=== PATIENT | male | born 1965 | race Caucasian/White ===

== ENCOUNTER 2016-08-31 15:28 | Inpatient (IN) | payer MEDICARE, OTHER ==
[2016-08-31 15:47] VITALS: BMI 60.3
[2016-08-31 16:51] VITALS: RESP 20
[2016-08-31] MEDS ORDERED: Piperacillin/Tazobact 3.375 gm Inj IVPB SCH (22:00)
[2016-08-31] MEDS: Piperacillin/Tazobact 3.375 GM IV Q6H IVPB SCH (22:04)
[2016-09-01] MEDS: Piperacillin/Tazobact 3.375 GM IV Q6H IVPB SCH ×4 (04:42→21:02)
--- NOTE | 2016-09-01 08:30 | CP.PCM.HP ---
History of Present Illness - History of Present Illness History of Present Illness: 50 yo male with pmhx of hypertension, chronic lower ext lymphedema, wound was admitted for right lower ext wound infection to [facility] [place]; patient did well but needs more days of IV abx treatment. Patient was transferred to TCU for more days of abx; ID Dr Moraes and podiatry consulted for further care; patient is doing well; no n/v/f/c. Present on Admission - Present on Admission Any Indicators Present on Admission: No History of DVT/PE: No History of Uncontrolled Diabetes: No Urinary Catheter: No Decubitus Ulcer Present: No Review of Systems - Constitutional Constitutional: absent: Chills - EENT Nose/Mouth/Throat: absent: Sore Throat - Cardiovascular Cardiovascular: Edema, Leg Ulcers. absent: Chest Pain, Palpitations - Respiratory Respiratory: absent: Cough, Dyspnea - Gastrointestinal Gastrointestinal: absent: Abdominal Pain, Nausea, Vomiting - Musculoskeletal Musculoskeletal: absent: Back Pain, Numbness, Tingling - Endocrine Endocrine: absent: Fatigue, Palpitations Past Patient History - Infectious Disease Hx of Infectious Diseases: None - Tetanus Immunizations Tetanus Immunization: Unknown - Past Medical History & Family History Past Medical History?: Yes - Past Social History Smoking Status: Never Smoked - CARDIAC Hx Hypertension: Yes Hx Pacemaker: Yes Hx Peripheral Edema: Yes (chronic cellulitis and lymphadema b/l lower extremities) - PULMONARY Hx Asthma: No Hx Bronchitis: No Hx Chronic Obstructive Pulmonary Disease (COPD): No Hx Emphysema: No Hx Pneumonia: No Hx Pulmonary Embolism: No Hx Sleep Apnea: No - NEUROLOGICAL Hx Neurological Disorder: No - HEENT Hx HEENT Problems: No - RENAL Hx Chronic Kidney Disease: No - ENDOCRINE/METABOLIC Hx Hyperthyroidism: No Hx Hypothyroidism: No - HEMATOLOGICAL/ONCOLOGICAL Hx Anemia: No Hx Human Immunodeficiency Virus (HIV): No Hx Sickle Cell Disease: No - INTEGUMENTARY Hx Dermatological Problems: Yes - MUSCULOSKELETAL/RHEUMATOLOGICAL Hx Arthritis: No Hx Falls: No Hx Fractures: No Hx Osteoporosis: No Hx Rheumatoid Arthritis: No - GASTROINTESTINAL Hx Gastrointestinal Disorders: Yes Other/Comment: umbilical hernia - GENITOURINARY/GYNECOLOGICAL Hx Genitourinary Disorders: No - PSYCHIATRIC Hx Psychophysiologic Disorder: No Hx Substance Use: No - SURGICAL HISTORY Hx Appendectomy: No - ANESTHESIA Hx Anesthesia: No Hx Anesthesia Reactions: No Hx Malignant Hyperthermia: No Meds Allergies/Adverse Reactions: Allergies Allergy/AdvReac Type Severity Reaction Status Date / Time ciprofloxacin [From Cipro] Allergy RASH Verified 04/23/16 17:49 ciprofloxacin HCl Allergy RASH Verified 04/23/16 17:49 [From Cipro] chocolate flavor AdvReac ears run Verified 04/23/16 17:49 Physical Exam - Constitutional Appears: No Acute Distress - Head Exam Head Exam: ATRAUMATIC, NORMAL INSPECTION, NORMOCEPHALIC - Eye Exam Eye Exam: EOMI, PERRL - ENT Exam ENT Exam: Mucous Membranes Moist - Respiratory Exam Respiratory Exam: Clear to Auscultation Bilateral, NORMAL BREATHING PATTERN - Cardiovascular Exam Cardiovascular Exam: REGULAR RHYTHM, +S1, +S2 - GI/Abdominal Exam GI & Abdominal Exam: Normal Bowel Sounds, Soft. absent: Tenderness - Extremities Exam Additional comments: dressing dry and intact - Neurological Exam Neurological exam: Alert, Oriented x3 - Psychiatric Exam Psychiatric exam: Normal Affect, Normal Mood - Skin Skin Exam: Dry, Intact, Normal Color Results - Vital Signs Recent Vital Signs: Last Vital Signs Temp 97.0 F L 08/31/16 22:28 Pulse 79 08/31/16 22:28 Resp 20 08/31/16 22:28 BP 134/84 08/31/16 22:28 Pulse Ox 96 08/31/16 22:28 Assessment & Plan - Assessment and Plan (Free Text) Assessment: 50 yo male with pmhx of hypertension was admitted for nonhealing right lower ext ulcers. Assessment & Plan 1) Leg wound, right -RLE with non-healing ulcers in presence of chills and cellulitic appearance -s/p picc - Management as per Podiatry Team - Zosyn 3.375mg, IV, Q6H - Daily drsg changes - monitor 2) DVT prophylaxis -Patient at high risk especially with BMI- 56. However given plans for PICC placement tomorrow, plan is as follows - Lovenox 60mg, SC, x1 tonight @ 2100 - Resume Lovenox 60mg, SC, Q12H, starting at 2100 08/29/2016 - Communicated to nursing personnel 3) Hypertension - HCTZ 25mg, PO, Daily - Monitor BP 4) Chronic wound of extremity - Management as per Podiatry team. - Will f/u recs as applicable 5) Lymphedema of both lower extremities -Chronic, currently being treated through podiatry wound care. - Management as per podiatry team Decision To Admit - Pt Status Changed To: Hospital Disposition Of: Inpatient - Admit Certification Admit to Inpatient:: After my assessment, the patient will require hospitalization for at least two midnights. This is because of the severity of symptoms shown, intensity of services needed, and/or the medical risk in this patient being treated as an outpatient. - . Bed Request Type: Transitional Care Unit Admitting Physician: Gardenia aJvier
[2016-09-01] MEDS: Enoxaparin 60 mg Syringe SC SCH (08:36)
--- NOTE | 2016-09-01 10:28 | CP.PCM.CON ---
History of Present Illness - History of Present Illness History of Present Illness: Patient was seen and evaluated at bedside this morning in TCU for follow-up on Right leg chronic wound with lymphedema. Patient was resting comfortably, in NAD. Denies any pedal complaints at this time. Right leg dressing was noted to be C/D/I. Denies any F/C/N/V/SOB. Past Patient History - Infectious Disease Hx of Infectious Diseases: None - Tetanus Immunizations Tetanus Immunization: Unknown - Past Medical History & Family History Past Medical History?: Yes - Past Social History Smoking Status: Never Smoked - CARDIAC Hx Hypertension: Yes Hx Pacemaker: Yes Hx Peripheral Edema: Yes (chronic cellulitis and lymphadema b/l lower extremities) - PULMONARY Hx Asthma: No Hx Bronchitis: No Hx Chronic Obstructive Pulmonary Disease (COPD): No Hx Emphysema: No Hx Pneumonia: No Hx Pulmonary Embolism: No Hx Sleep Apnea: No - NEUROLOGICAL Hx Neurological Disorder: No - HEENT Hx HEENT Problems: No - RENAL Hx Chronic Kidney Disease: No - ENDOCRINE/METABOLIC Hx Hyperthyroidism: No Hx Hypothyroidism: No - HEMATOLOGICAL/ONCOLOGICAL Hx Anemia: No Hx Human Immunodeficiency Virus (HIV): No Hx Sickle Cell Disease: No - INTEGUMENTARY Hx Dermatological Problems: Yes - MUSCULOSKELETAL/RHEUMATOLOGICAL Hx Arthritis: No Hx Falls: No Hx Fractures: No Hx Osteoporosis: No Hx Rheumatoid Arthritis: No - GASTROINTESTINAL Hx Gastrointestinal Disorders: Yes Other/Comment: umbilical hernia - GENITOURINARY/GYNECOLOGICAL Hx Genitourinary Disorders: No - PSYCHIATRIC Hx Psychophysiologic Disorder: No Hx Substance Use: No - SURGICAL HISTORY Hx Appendectomy: No - ANESTHESIA Hx Anesthesia: No Hx Anesthesia Reactions: No Hx Malignant Hyperthermia: No Meds Allergies/Adverse Reactions: Allergies Allergy/AdvReac Type Severity Reaction Status Date / Time ciprofloxacin [From Cipro] Allergy RASH Verified 04/23/16 17:49 ciprofloxacin HCl Allergy RASH Verified 04/23/16 17:49 [From Cipro] chocolate flavor AdvReac ears run Verified 04/23/16 17:49 - Medications Medications: Current Medications Docusate Sodium (Colace) 100 mg PO BID [facility] Last Admin: 09/01/16 08:35 Dose: 100 mg Enoxaparin Sodium (Lovenox) 60 mg SC DAILY [facility] PRN Reason: Protocol Last Admin: 09/01/16 08:36 Dose: 60 mg Hydrochlorothiazide (Hydrodiuril) 25 mg PO DAILY [facility] Last Admin: 09/01/16 08:36 Dose: 25 mg Piperacillin Sod/Tazobactam (Sod 3.375 gm/ Sodium Chloride) 100 mls @ 100 mls/ hr IVPB Q6 [facility] Last Admin: 09/01/16 04:42 Dose: 100 mls/hr Mupirocin (Bactroban Ointment) 1 applic TOP DAILY [facility] Last Admin: 09/01/16 08:36 Dose: 1 applic Sennosides (Senokot Tab) 17.2 mg PO HS [facility] Last Admin: 08/31/16 22:04 Dose: 17.2 mg Physical Exam - Constitutional Appears: Non-toxic, No Acute Distress - Neurological Exam Neurological exam: Alert, Oriented x3 - Psychiatric Exam Psychiatric exam: Normal Affect, Normal Mood - Skin Skin Exam: Dry - Additional Findings Additional findings: B/L lower extremity: Pt ambulates w, apropulsive gait. No assisting ambulation device needed. Severe lymphedema noted bilaterally. DERM: Ulcerations noted: 1 to medial aspect of right leg dime sized, 2 to lateral aspect of lateral aspect of right leg, both are nickel sized; largest to upper(infra knee level) medial aspect of right leg quarter sized. All have granular bases and adjacent skin is macerated. Moderate malodor noted. Heavy serosanguinous drainage noted. Inter-digital macerations noted to all 8 webspaces. Diffuse, circumferential, thick lichenification tissue to lower extremity b/l. VASC: Left PT pulse palpable 2/4 and right DP pulse palpable graded 2/4, other pulses non-palpable secondary to increased tissue density and edema. CFT < 3 seconds to all digits b/l. Temperature gradient runs warm to cool from proximal to distal b/l. NEURO: Sensation grossly intact. ORTHO: Motion at major pedal muscle groups moderately limited due to patients edema. Results - Vital Signs Recent Vital Signs: Last Vital Signs Temp 97.5 F L 09/01/16 08:47 Pulse 74 09/01/16 08:47 Resp 20 09/01/16 08:47 BP 137/75 09/01/16 08:47 Pulse Ox 99 09/01/16 08:47 Assessment & Plan - Assessment and Plan (Free Text) Assessment: 50 year old male with improving chronic soft tissue ulcerations and lichenifications of right lower extremity, secondary to lymphedema. Plan: Patient seen and evaluated at bedside Labs and vitals reviewed Applied Bactroban DSD and an RICH bandage to the RLE- wounds are improving Patient to remain in TCU until his 7-day course of IV antibiotics is completed Discussed patient with attending, Dr. Romo Podiatry to follow while patient remains in house
[2016-09-02] MEDS: Piperacillin/Tazobact 3.375 GM IV Q6H IVPB SCH ×4 (04:39→21:45)
[2016-09-02] MEDS: Enoxaparin 60 mg Syringe SC SCH (08:52)
--- NOTE | 2016-09-02 13:38 | CP.PCM.CON ---
History of Present Illness - History of Present Illness History of Present Illness: 50 YO HOMELESS MALE ADMITTED FOR TCU FOR CONT OF IV ANTIBIOTICS/ WOUND CARE HAS HX OF HTN, CKD, MORBID OBESITY, POSSIBLE TWAN, OSTEOARTHRITIS , UMBILICAL HERNIA DEPRESSION AND HOMELESSNESS WITH SEVERE CHRONIC LYMPHEDEMA OF LOWER EXTREMITIES BILAT AND ELEPHANTIASIS DEFORMING THE SKIN RESULTING IN RECURRENT SKIN AND SOFT TISSUE INFECTIONS HAS REFUSED HYDROGEOLOGY PROFESSOR PLACEMENT IN THE PAST BUT IS HOPING FOR SENIOR HOUSING STILL HAS OPEN WOUNDS TO RIGHT LEG WITH FOUL SMELLING EXUDATE DENIES FEVER / CHILLS/ CHEST PAIN OR SOB SH- NO IVDA, DENIES ETOH FH- + HTN ALLERGY TO QUINALONES ? Review of Systems - Constitutional Constitutional: As Per HPI, Fatigue. absent: Anorexia - EENT Eyes: absent: As Per HPI, Blind Spots, Blurred Vision, Change in Vision, Decreased Night Vision, Diplopia, Discharge, Dry Eye, Exophthalmos, Floaters, Irritation, Itchy Eyes, Loss of Peripheral Vision, Pain, Photophobia, Requires Corrective Lenses, Sees Flashes, Spots in Vision, Tunnel Vision, Other Visual Disturbances, Loss of Vision, Other Ears: absent: As Per HPI, Decreased Hearing, Ear Discharge, Ear Pain, Tinnitus, Abnormal Hearing, Disequilibrium, Dizziness, Other Nose/Mouth/Throat: absent: As Per HPI, Epistaxis, Nasal Congestion, Nasal Discharge, Nasal Obstruction, Nasal Trauma, Nose Pain, Post Nasal Drip, Sinus Pain, Sinus Pressure, Bleeding Gums, Change in Voice, Dental Pain, Dry Mouth, Dysphagia, Halitosis, Hoarsness, Lip Swelling, Mouth Lesions, Mouth Pain, Odynophagia, Sore Throat, Throat Swelling, Tongue Swelling, Facial Pain, Neck Pain, Neck Mass, Other - Cardiovascular Cardiovascular: absent: As Per HPI, Acrocyanosis, Chest Pain, Chest Pain at Rest , Chest Pain with Activity, Claudication, Diaphoresis, Dyspnea, Dyspnea on Exertion, Edema, Irregular Heart Rhythm, Pain Radiating to Arm/Neck/Jaw, Leg Edema, Leg Ulcers, Lightheadedness, Orthopnea, Palpitations, Paroxysmal Nocturnal Dyspnea, Pedal Edema, Radiating Pain, Rapid Heart Rate, Slow Heart Rate, Syncope, Other - Respiratory Respiratory: Dyspnea, Dyspnea on Exertion. absent: Hemoptysis - Gastrointestinal Gastrointestinal: absent: As Per HPI, Abdominal Pain, Belching, Bloating, Change in Bowel Habits, Change in Stool Character, Coffee Ground Emesis, Constipation, Cramping, Diarrhea, Dyspepsia, Dysphagia, Early Satiety, Excessive Flatus, Fecal Incontinence, Heartburn, Hematemesis, Hematochezia, Loose Stools, Melena, Nausea, Odynophagia, Temesmus, Vomiting, Other - Genitourinary Genitourinary: absent: As Per HPI, Change in Urinary Stream, Difficulty Urinating, Dysuria, Flank Pain, Hematuria, Pyuria, Nocturia, Urinary Incontinence, Urinary Frequency, Urinary Hesitance, Urinary Urgency, Voiding Freq/Small Amts, Freq UTI, Hx Renal/Bladder Calculi, Hx /Renal Surgery, Bladder Distension, Other - Musculoskeletal Musculoskeletal: absent: As Per HPI, Abnormal Gait, Arthralgias, Atrophy, Back Pain, Deformity, Joint Swelling, Limited Range of Motion, Loss of Height, Muscle Cramps, Muscle Weakness, Myalgias, Neck Pain, Numbness, Radiating Pain into Limb, Stiffness, Tingling, Other - Integumentary Integumentary: As Per HPI, Skin Pain, Wounds - Neurological Neurological: absent: As Per HPI, Abnormal Gait, Abnormal Hearing, Abnormal Movements, Abnormal Speech, Behavioral Changes, Burning Sensations, Confusion, Convulsions, Disequilibrium, Dizziness, Numbness, Focal Weakness, Frequent Falls , Headaches, Lack of Coordination, Loss of Vision, Memory Loss, Paresthesias, Radicular Pain, Restless Legs, Sensory Deficit, Syncope, Tingling, Tremor, Vertigo, Weakness, Other Visual Disturbances, Other - Psychiatric Psychiatric: absent: As Per HPI, Abnormal Sleep Pattern, Anhedonia, Anxiety, Auditory Hallucinations, Behavioral Changes, Change in Appetite, Change in Libido, Confusion, Depression, Difficulty Concentrating, Hallucinations, Homicidal Ideation, Hopelessness, Irritability, Memory Loss, Mood Swings, Panic Attacks, Paranoia, Suicidal Ideation, Visual Hallucinations, Tactile Hallucinations, Other - Endocrine Endocrine: absent: As Per HPI, Change in Body Appearance, Change in Libido, Cold Intolorance, Deepening of Voice, Excessive Sweating, Fatigue, Flushing, Heat Intolorance, Increase in Ring/Shoe/Hat Size, Palpitations, Polydipsia, Polyphagia, Polyuria, Other - Hematologic/Lymphatic Hematologic: absent: As Per HPI, Easy Bleeding, Easy Bruising, Lymphadenopathy, Other Past Patient History - Infectious Disease Hx of Infectious Diseases: None - Tetanus Immunizations Tetanus Immunization: Unknown - Past Medical History & Family History Past Medical History?: Yes - Past Social History Smoking Status: Never Smoked - CARDIAC Hx Hypertension: Yes Hx Pacemaker: Yes Hx Peripheral Edema: Yes (chronic cellulitis and lymphadema b/l lower extremities) - PULMONARY Hx Asthma: No Hx Bronchitis: No Hx Chronic Obstructive Pulmonary Disease (COPD): No Hx Emphysema: No Hx Pneumonia: No Hx Pulmonary Embolism: No Hx Sleep Apnea: No - NEUROLOGICAL Hx Neurological Disorder: No - HEENT Hx HEENT Problems: No - RENAL Hx Chronic Kidney Disease: No - ENDOCRINE/METABOLIC Hx Hyperthyroidism: No Hx Hypothyroidism: No - HEMATOLOGICAL/ONCOLOGICAL Hx Anemia: No Hx Human Immunodeficiency Virus (HIV): No Hx Sickle Cell Disease: No - INTEGUMENTARY Hx Dermatological Problems: Yes - MUSCULOSKELETAL/RHEUMATOLOGICAL Hx Arthritis: No Hx Falls: No Hx Fractures: No Hx Osteoporosis: No Hx Rheumatoid Arthritis: No - GASTROINTESTINAL Hx Gastrointestinal Disorders: Yes Other/Comment: umbilical hernia - GENITOURINARY/GYNECOLOGICAL Hx Genitourinary Disorders: No - PSYCHIATRIC Hx Psychophysiologic Disorder: No Hx Substance Use: No - SURGICAL HISTORY Hx Appendectomy: No - ANESTHESIA Hx Anesthesia: No Hx Anesthesia Reactions: No Hx Malignant Hyperthermia: No Meds Allergies/Adverse Reactions: Allergies Allergy/AdvReac Type Severity Reaction Status Date / Time ciprofloxacin [From Cipro] Allergy RASH Verified 04/23/16 17:49 ciprofloxacin HCl Allergy RASH Verified 04/23/16 17:49 [From Cipro] chocolate flavor AdvReac ears run Verified 04/23/16 17:49 - Medications Medications: Current Medications Docusate Sodium (Colace) [address] [facility] Last Admin: 09/02/16 08:52 Dose: 100 mg Enoxaparin Sodium (Lovenox) [address] [facility] PRN Reason: Protocol Last Admin: 09/02/16 08:52 Dose: 60 mg Hydrochlorothiazide (Hydrodiuril) [address] [facility] Last Admin: 09/02/16 08:52 Dose: 25 mg Piperacillin Sod/Tazobactam (Sod 3.375 gm/ Sodium Chloride) 100 mls @ 100 mls/ hr IVPB Q6 [facility] Last Admin: 09/02/16 10:13 Dose: 100 mls/hr Mupirocin (Bactroban Ointment) [address] [facility] Last Admin: 09/02/16 11:53 Dose: Not Given Sennosides (Senokot Tab) 17.2 mg PO HS [facility] Last Admin: 09/01/16 21:03 Dose: 17.2 mg Physical Exam - Constitutional Appears: Chronically Ill - Head Exam Head Exam: ATRAUMATIC, NORMOCEPHALIC - Eye Exam Eye Exam: PERRL. absent: Scleral icterus - ENT Exam ENT Exam: Mucous Membranes Dry, Normal External Ear Exam, Normal Oropharynx - Neck Exam Neck exam: Negative for: Lymphadenopathy - Respiratory Exam Respiratory Exam: Decreased Breath Sounds, Clear to Auscultation Bilateral - Cardiovascular Exam Cardiovascular Exam: REGULAR RHYTHM, +S1, +S2 - GI/Abdominal Exam GI & Abdominal Exam: Diminished Bowel Sounds, Distended, Soft. absent: Rebound , Rigid, Tenderness - Rectal Exam Rectal Exam: Deferred - Exam Exam: NORMAL INSPECTION - Extremities Exam Extremities exam: Positive for: pedal edema, tenderness. Negative for: calf tenderness, normal inspection, pedal pulses present Additional comments: SEVERE LYMPHEDEMA WITH DEFORMITY - Back Exam Back exam: absent: CVA tenderness (L), CVA tenderness (R) - Neurological Exam Neurological exam: Alert, CN II-XII Intact, Oriented x3, Reflexes Normal - Psychiatric Exam Psychiatric exam: Depressed - Skin Skin Exam: Dry, Intact Results - Vital Signs Recent Vital Signs: Last Vital Signs Temp 97.5 F L 09/02/16 08:20 Pulse 66 09/02/16 08:20 Resp 20 09/02/16 08:20 BP 136/83 09/02/16 08:20 Pulse Ox 97 09/02/16 08:20 Assessment & Plan (1) Cellulitis and abscess Status: Acute Priority: High - Assessment and Plan (Free Text) Assessment: CONT WOUND CARE AND IV RX POOR HYDROGEOLOGY PROFESSOR PROGNOSIS NEEDS STABLE HOUSING, WOUND CARE/ HYGIENE , WEIGHT LOSS Plan: CONT IV ANTIBIOTICS FOR NOW
[2016-09-03] MEDS: Piperacillin/Tazobact 3.375 GM IV Q6H IVPB SCH ×4 (03:55→21:09)
--- NOTE | 2016-09-03 08:28 | CP.PCM.PN ---
Subjective - Date & Time of Evaluation Date of Evaluation: 09/03/16 Time of Evaluation: 08:25 - Subjective Subjective: 50 year old male with PMH of HTN, Peripheral Edema,and b/l lower extremity lymphedema was seen resting at bedside regarding right lower extremity cellulitis. Patient is in no acute distress, and AAOx3. Patient denies any pain at this time. Denies n/v/f/c/sob/cp. Last BM was last night and normal. Objective - Vital Signs/Intake and Output Vital Signs (last 24 hours): Temp Pulse Resp BP Pulse Ox 97.5 F L 72 20 124/73 99 09/02/16 20:09 09/02/16 20:09 09/02/16 20:09 09/02/16 20:09 09/02/16 20:09 - Medications Medications: Current Medications Docusate Sodium (Colace) 100 mg PO BID [facility] Last Admin: 09/02/16 17:33 Dose: 100 mg Enoxaparin Sodium (Lovenox) 60 mg SC DAILY [facility] PRN Reason: Protocol Last Admin: 09/02/16 08:52 Dose: 60 mg Hydrochlorothiazide (Hydrodiuril) 25 mg PO DAILY [facility] Last Admin: 09/02/16 08:52 Dose: 25 mg Piperacillin Sod/Tazobactam (Sod 3.375 gm/ Sodium Chloride) 100 mls @ 100 mls/ hr IVPB Q6 [facility] Last Admin: 09/03/16 03:55 Dose: 100 mls/hr Mupirocin (Bactroban Ointment) 1 applic TOP DAILY [facility] Last Admin: 09/02/16 11:53 Dose: Not Given Sennosides (Senokot Tab) 17.2 mg PO HS [facility] Last Admin: 09/02/16 21:48 Dose: Not Given - Constitutional Appears: Non-toxic, No Acute Distress - Head Exam Head Exam: ATRAUMATIC, NORMAL INSPECTION - Eye Exam Eye Exam: EOMI, PERRL - ENT Exam ENT Exam: Mucous Membranes Moist - Respiratory Exam Respiratory Exam: Clear to Ausculation Bilateral, NORMAL BREATHING PATTERN. absent: Rhonchi, Wheezes - Cardiovascular Exam Cardiovascular Exam: REGULAR RHYTHM, +S1, +S2 - GI/Abdominal Exam GI & Abdominal Exam: Soft, Normal Bowel Sounds. absent: Tenderness - Extremities Exam Additional comments: dressing dry, intact to right lower extremity - Neurological Exam Neurological Exam: Alert, Awake, Oriented x3 - Psychiatric Exam Psychiatric exam: Normal Affect, Normal Mood - Skin Skin Exam: Dry, Normal Color, Warm Assessment and Plan - Assessment and Plan (Free Text) Assessment: 50 year old male with PMHx of HTN, lymphedema, morbid obesity admitted for right non-healing ulcers and cellulitis Plan: 1. Right non-healing ulcers with cellulitis -Podiatry on consult -Daily dressing changes per podiatry -IV abx Zosyn 3.375 mg IV Q6H (day 3) -s/p Picc -monitor 2. Hyperkalemia(resolved) -continue to monitor 3. Hypertension -HCTZ 25 mg PO QD -continue to monitor 4. DVT prophylaxis -Patient at high risk with BMI of 60 -Lovenox 60mg SQ Q12H 5. Lymphedema of lower extremities b/l -Management per podiatry team 6. Morbid Obesity -counseling given -heart health diet
[2016-09-03] MEDS: Enoxaparin 60 mg Syringe SC SCH (08:36)
[2016-09-04] MEDS: Piperacillin/Tazobact 3.375 GM IV Q6H IVPB SCH ×4 (04:44→21:18)
--- NOTE | 2016-09-04 07:45 | CP.PCM.PN ---
Subjective - Date & Time of Evaluation Date of Evaluation: 09/04/16 Time of Evaluation: 07:50 - Subjective Subjective: Patient was seen and evaluated at bedside this morning in TCU for follow-up on Right leg chronic wound with lymphedema. Patient was resting comfortably, in NAD. Denies any pedal complaints at this time. Right leg dressing was noted to be C/D/I. Denies any F/C/N/V/SOB. Objective - Vital Signs/Intake and Output Vital Signs (last 24 hours): Temp Pulse Resp BP Pulse Ox 97.5 F L 66 20 151/78 H 97 09/03/16 21:03 09/03/16 21:03 09/03/16 21:03 09/03/16 21:03 09/03/16 21:03 - Medications Medications: Current Medications Docusate Sodium (Colace) 100 mg PO BID [facility] Last Admin: 09/03/16 17:20 Dose: 100 mg Enoxaparin Sodium (Lovenox) 60 mg SC DAILY [facility] PRN Reason: Protocol Last Admin: 09/03/16 08:36 Dose: 60 mg Hydrochlorothiazide (Hydrodiuril) 25 mg PO DAILY [facility] Last Admin: 09/03/16 08:37 Dose: 25 mg Piperacillin Sod/Tazobactam (Sod 3.375 gm/ Sodium Chloride) 100 mls @ 100 mls/ hr IVPB Q6 [facility] Last Admin: 09/04/16 04:44 Dose: 100 mls/hr Mupirocin (Bactroban Ointment) 1 applic TOP DAILY [facility] Last Admin: 09/03/16 12:49 Dose: Not Given Sennosides (Senokot Tab) 17.2 mg PO HS [facility] Last Admin: 09/03/16 21:10 Dose: 17.2 mg - Constitutional Appears: Well, Non-toxic, No Acute Distress - Extremities Exam Additional comments: B/L lower extremity: Pt ambulates w, apropulsive gait. No assisting ambulation device needed. Severe lymphedema noted bilaterally. DERM: Early stage re-epithelialization of all prior ulcerations noted: 1 to medial aspect of right leg dime sized, 2 to lateral aspect of lateral aspect of right leg, both are nickel sized; largest to upper(infra knee level) medial aspect of right leg quarter sized. Minor moderate malodor noted. No active drainage at this time. Diffuse, circumferential, thick lichenification tissue to lower extremity b/l. VASC: Left PT pulse palpable 2/4 and right DP pulse palpable graded 2/4, other pulses non-palpable secondary to increased tissue density and edema. CFT < 3 seconds to all digits b/l. Temperature gradient runs warm to cool from proximal to distal b/l. NEURO: Sensation grossly intact. ORTHO: Motion at major pedal muscle groups moderately limited due to patients edema. - Neurological Exam Neurological Exam: Alert, Awake, Oriented x3 - Psychiatric Exam Psychiatric exam: Normal Affect, Normal Mood Assessment and Plan - Assessment and Plan (Free Text) Assessment: 50 year old male with resolving chronic soft tissue ulcerations and lichenifications of right lower extremity, secondary to lymphedema. Plan: Patient seen and evaluated at bedside. Labs and vitals reviewed. Applied Bactroban, DSD, and RICH bandage to the RLE- wounds are improving Patient to remain in TCU on day 3 of his 7-day course of IV antibiotics. Discussed patient with attending, Dr. Romo Podiatry to follow while patient remains in house
[2016-09-04] MEDS: Enoxaparin 60 mg Syringe SC SCH (08:59)
[2016-09-05] MEDS: Piperacillin/Tazobact 3.375 GM IV Q6H IVPB SCH ×4 (04:45→22:09)
--- NOTE | 2016-09-06 07:18 | CP.PCM.PN ---
Subjective - Date & Time of Evaluation Date of Evaluation: 09/06/16 Time of Evaluation: 07:18 - Subjective Subjective: 50 year old male with PMH of HTN, Peripheral Edema,and b/l lower extremity lymphedema was seen resting at bedside regarding right lower extremity cellulitis. Patient is in no acute distress, and AAOx3. Patient denies any pain at this time. Denies n/v/f/c/sob/cp. Patient is aware that he is planned for discharge Saturday and is agreeable. Objective - Vital Signs/Intake and Output Vital Signs (last 24 hours): Temp Pulse Resp BP Pulse Ox 97.2 F L 61 20 127/77 98 09/05/16 20:44 09/05/16 20:44 09/05/16 20:44 09/05/16 20:44 09/05/16 20:44 - Medications Medications: Current Medications Docusate Sodium (Colace) 100 mg PO BID [facility] Last Admin: 09/05/16 16:36 Dose: 100 mg Hydrochlorothiazide (Hydrodiuril) 25 mg PO DAILY [facility] Last Admin: 09/05/16 09:16 Dose: 25 mg Mupirocin (Bactroban Ointment) 1 applic TOP DAILY [facility] Last Admin: 09/05/16 09:18 Dose: Not Given Sennosides (Senokot Tab) 17.2 mg PO HS [facility] Last Admin: 09/05/16 22:08 Dose: 17.2 mg - Constitutional Appears: Non-toxic, No Acute Distress - Head Exam Head Exam: ATRAUMATIC, NORMAL INSPECTION - Eye Exam Eye Exam: EOMI, PERRL - ENT Exam ENT Exam: Mucous Membranes Moist - Respiratory Exam Respiratory Exam: Clear to Ausculation Bilateral, NORMAL BREATHING PATTERN. absent: Rhonchi, Wheezes - Cardiovascular Exam Cardiovascular Exam: REGULAR RHYTHM, +S1, +S2 - GI/Abdominal Exam GI & Abdominal Exam: Soft, Normal Bowel Sounds. absent: Tenderness - Extremities Exam Additional comments: dressing clean, dry, intact to right lower extremity, lymphedema noted b/l - Neurological Exam Neurological Exam: Alert, Awake, Oriented x3 - Psychiatric Exam Psychiatric exam: Normal Affect, Normal Mood - Skin Skin Exam: Dry, Warm Assessment and Plan - Assessment and Plan (Free Text) Assessment: 50 year old male with PMHx of HTN, lymphedema, morbid obesity admitted for right non-healing ulcers and cellulitis Plan: 1. Right non-healing ulcers with cellulitis -Podiatry on consult -Daily dressing changes per podiatry -IV abx Zosyn 3.375 mg IV Q6H (day 6/7) -s/p Picc -monitor -Patient to follow up with Dr. Romo in [facility] upon discharge 2. Hyperkalemia (resolved) -continue to monitor 3. Hypertension -HCTZ 25 mg PO QD -continue to monitor 4. DVT prophylaxis -Patient at high risk with BMI of 60 -Lovenox 60mg SQ Q12H 5. Lymphedema of lower extremities b/l -Management per podiatry team -F/U recs as applicable 6. Morbid Obesity -counseling given -heart health diet
--- NOTE | 2016-09-06 08:14 | CP.PCM.PN ---
Subjective - Date & Time of Evaluation Date of Evaluation: 09/06/16 Time of Evaluation: 07:10 - Subjective Subjective: Patient was seen and evaluated at bedside this morning in TCU for follow-up on Right leg chronic wound with lymphedema. Patient was resting comfortably in bed , and denies of any acute overnight distress. AAO x3. Denies any pedal complaints at this time. Right leg dressing was noted to be C/D/I. Denies any N/ V/F/C or SOB today. Objective - Vital Signs/Intake and Output Vital Signs (last 24 hours): Temp Pulse Resp BP Pulse Ox 97.2 F L 61 20 127/77 98 09/05/16 20:44 09/05/16 20:44 09/05/16 20:44 09/05/16 20:44 09/05/16 20:44 - Medications Medications: Current Medications Docusate Sodium (Colace) 100 mg PO BID [facility] Last Admin: 09/05/16 16:36 Dose: 100 mg Hydrochlorothiazide (Hydrodiuril) 25 mg PO DAILY [facility] Last Admin: 09/05/16 09:16 Dose: 25 mg Piperacillin Sod/Tazobactam (Sod 3.375 gm/ Sodium Chloride) 100 mls @ 100 mls/ hr IVPB 0600,1200,1800,0000 [facility] Mupirocin (Bactroban Ointment) 1 applic TOP DAILY [facility] Last Admin: 09/05/16 09:18 Dose: Not Given Sennosides (Senokot Tab) 17.2 mg PO HS [facility] Last Admin: 09/05/16 22:08 Dose: 17.2 mg - Constitutional Appears: Well, Non-toxic, No Acute Distress - Extremities Exam Additional comments: B/L lower extremity: Pt ambulates w, apropulsive gait. No assisting ambulation device needed. Severe lymphedema noted bilaterally. DERM: No open wound noted. Early stage re-epithelialization of all prior ulcerations noted: 1 to medial aspect of right leg dime sized, 2 to lateral aspect of lateral aspect of right leg, both are nickel sized; largest to upper( infra knee level) medial aspect of right leg quarter sized. Minor moderate malodor noted. No active drainage at this time. Diffuse, circumferential, thick lichenification tissue to lower extremity b/l. VASC: Left PT pulse palpable 2/4 and right DP pulse palpable graded 2/4, other pulses non-palpable secondary to increased tissue density and edema. CFT < 3 seconds to all digits b/l. Temperature gradient runs warm to cool from proximal to distal b/l. NEURO: Sensation grossly intact. ORTHO: Motion at major pedal muscle groups moderately limited due to patients edema. - Neurological Exam Neurological Exam: Alert, Awake, Oriented x3 - Psychiatric Exam Psychiatric exam: Normal Affect, Normal Mood - Skin Skin Exam: Normal Color, Warm Assessment and Plan - Assessment and Plan (Free Text) Assessment: 50 year old male with resolving chronic soft tissue ulcerations and lichenifications of right lower extremity, secondary to lymphedema. Plan: Patient seen and evaluated at bedside. Labs and vitals reviewed. Applied Bactroban, DSD, and RICH bandage to the RLE- wounds healed Patient to remain in TCU on day 5 of his 7-day course of IV antibiotics Patient planned for d/c this Discussed patient with attending, Dr. Romo Podiatry to follow while patient remains in house
[2016-09-06] MEDS: Piperacillin/Tazobact 3.375 GM in Sodium Chloride 0.9% 100 ML IVPB SCH ×2 (13:01→17:38)
[2016-09-06 20:38] VITALS: O2SAT 98
[2016-09-07] MEDS: Piperacillin/Tazobact 3.375 GM in Sodium Chloride 0.9% 100 ML IVPB SCH ×5 (00:30→23:29)
[2016-09-08] MEDS: Piperacillin/Tazobact 3.375 GM in Sodium Chloride 0.9% 100 ML IVPB SCH ×2 (05:08→13:23)
[2016-09-08 08:42] VITALS: BP 110/60; PULSE 59; TEMP 98
--- NOTE | 2016-09-08 09:57 | CP.PCM.DIS ---
Provider - Provider Date of Admission: 08/31/16 15:47 Attending physician: Gardenia Javier MD Primary care physician: Dustin Moraes MD Time Spent in preparation of Discharge (in minutes): 30 Diagnosis - Discharge Diagnosis (1) Cellulitis of leg, right Status: Resolved (2) Lymphedema of both lower extremities Status: Chronic Hospital Course - Hospital Course Hospital Course: 50 year old male with PMHx of HTN, lymphedema, morbid obesity admitted for right non-healing ulcers and cellulitis. Patient on TCU for Antibiotic IV abx Zosyn 3.375 mg IV Q6H completed 7 days. Hemodynamically stable,improved cellulitis. Patient had follow up and wound care with podiatry.ID Dr Moraes consulted. Patient to follow up with Dr. Romo in [facility] upon discharge Discharge Exam - Head Exam Head Exam: ATRAUMATIC, NORMAL INSPECTION Additional comments: Morbid Obesity - Respiratory Exam Respiratory Exam: Clear to PA & Lateral. absent: Rales, Rhonchi, Wheezes - Cardiovascular Exam Cardiovascular Exam: REGULAR RHYTHM, +S1, +S2 - GI/Abdominal Exam GI & Abdominal Exam: Normal Bowel Sounds, Soft. absent: Rebound - Extremities Exam Additional comments: B/L leg chronic limphedema. Right leg with elastic bandage. as per podiatry last visit No open wound noted. Early stage re-epithelialization of all prior ulcerations noted - Neurological Exam Neurological exam: Alert, Oriented x3 - Psychiatric Exam Psychiatric exam: Anxious, Normal Mood - Skin Skin Exam: Intact Discharge Plan - Follow Up Plan Condition: GOOD Disposition: HOME/ ROUTINE Instructions: Cellulitis (DC), Lymphedema (DC) Additional Instructions: -Follow up Podiatry consult -Follow up Primary physician within 7 days -If fever, chest pain, SOB go to ER Referrals: Dustin Moraes MD [Primary Care Provider] -
== END 2016-09-08 16:00 | disposition home or self-care (01) | DRG 603 ==
LOC: H.TCU 15:47
PROVIDERS: ADMIT Family Medicine Geriatric Medicine; ATTEND Family Medicine Geriatric Medicine
PROC: F08Z4ZZ Home Management Treatment (ICD-10-PCS; principal; 2016-08-31)
DX: L03.115 Cellulitis of right lower limb (principal); L97.919 Non-pressure chronic ulcer of unspecified part of right lower leg with unspecified severity; I12.9 Hypertensive chronic kidney disease with stage 1 through stage 4 chronic kidney disease, or unspecified chronic kidney disease; Z68.44 Body mass index [BMI] 60.0-69.9, adult; N18.9 Chronic kidney disease, unspecified; I89.0 Lymphedema, not elsewhere classified; E66.01 Morbid (severe) obesity due to excess calories; Z71.3 Dietary counseling and surveillance; E87.5 Hyperkalemia; M19.90 Unspecified osteoarthritis, unspecified site; Z59.0 Homelessness; F32.9 Major depressive disorder, single episode, unspecified; Z88.3 Allergy status to other anti-infective agents

== ENCOUNTER 2016-11-06 15:04 | Inpatient (IN) | payer MEDICARE ==
[2016-11-06 15:05] VITALS: BMI 60.3
[2016-11-06] MEDS ORDERED: Sodium Chloride 0.9% 1,000 ML IV STA (15:19)
--- NOTE | 2016-11-06 15:29 | ED PDOC ---
Lower Extremity Pain/Injury Time Seen by Provider: 11/06/16 15:17 Chief Complaint (Nursing): Lower Extremity Problem/Injury Chief Complaint (Provider): Wound right lower leg, sent by podiatry History Per: Patient History/Exam Limitations: no limitations Onset/Duration Of Symptoms: Days Current Symptoms Are (Timing): Still Present Severity: Mild Additional Complaint(s): Pt reports being seen by Dr. Rodriguez today. Dressing changed today and I was instructed not to change dressing or remove to evaluate wound. Past Medical History Reviewed: Historical Data, Nursing Documentation, Vital Signs Vital Signs: Last Vital Signs Temp 98.2 F 11/06/16 15:12 Pulse 82 11/06/16 15:12 Resp 20 11/06/16 15:12 BP 168/88 H 11/06/16 15:12 Pulse Ox 100 11/06/16 15:12 - Medical History PMH: HTN, Peripheral Edema (chronic cellulitis and lymphadema b/l lower extremities) Denies: Anemia, Arthritis, Asthma, Atrial Fibrillation, Bronchitis, Cardia Arrhythmia, CHF, COPD, Emphysema, Fractures, HIV, Hypercholesterolemia, Hyperthyroidism, Hypothyroidism, Kidney Stones, Mitral Valve Prolapse, Osteoporosis, Pneumonia, Pulmonary Embolism, Chronic Kidney Disease, Rheumatoid Arthritis, Sickle Cell Disease, Sleep Apnea - Surgical History Surgical History: Pacemaker Denies: Appendectomy - Family History Family History: States: No Known Family Hx - Living Arrangements Living Arrangements: With Family - Social History Current smoker - smoking cessation education provided: No - Immunization History Hx Tetanus Toxoid Vaccination: No Hx Influenza Vaccination: No Hx Pneumococcal Vaccination: No - Home Medications Home Medications: Ambulatory Orders Medication Instructions Recorded hydroCHLOROthiazide [Hydrodiuril] 25 mg PO DAILY #30 tab 09/08/16 - Allergies Allergies/Adverse Reactions: Allergies Allergy/AdvReac Type Severity Reaction Status Date / Time ciprofloxacin [From Cipro] Allergy RASH Verified 04/23/16 17:49 ciprofloxacin HCl Allergy RASH Verified 04/23/16 17:49 [From Cipro] chocolate flavor AdvReac ears run Verified 04/23/16 17:49 Review of Systems ROS Statement: Except As Marked, All Systems Reviewed And Found Negative Skin: Positive for: Other (Right lower leg wound ) Physical Exam - Reviewed Nursing Documentation Reviewed: Yes Vital Signs Reviewed: Yes - Physical Exam Appears: Positive for: Well, Non-toxic, No Acute Distress Head Exam: Positive for: ATRAUMATIC, NORMAL INSPECTION, NORMOCEPHALIC Skin: Positive for: Normal Color, Warm, DRY Eye Exam: Positive for: Normal appearance ENT: Positive for: Normal ENT Inspection Neck: Positive for: Normal, Painless ROM Cardiovascular/Chest: Positive for: Regular Rate, Rhythm Respiratory: Positive for: CNT, Normal Breath Sounds Gastrointestinal/Abdominal: Positive for: Normal Exam, Bowel Sounds, Soft Back: Positive for: Normal Inspection Extremity: Positive for: Normal ROM Neurologic/Psych: Positive for: Alert, Oriented - Laboratory Results Result Diagrams: 11/06/16 15:21 11/06/16 15:21 - ECG O2 Sat by Pulse Oximetry: 100 Medical Decision Making Medical Decision Making: Discussed with Field Operations Coordinator Dr. Monk and Podiatry Resident Dr. Guerrero for admission.
--- NOTE | 2016-11-06 15:57 | CP.PCM.CON ---
History of Present Illness - History of Present Illness History of Present Illness: 51 year old male, very well known to podiatry service, seen at bedside in [facility] ED concerning right leg chronic non-healing wound, and cellulitis. Patient has PMH of HTN, Peripheral Edema,and b/l lower extremity lymphedema. Patient states that he was sent from wound care clinic by Dr. Romo, who wants him to be admitted for IV antibiotics and daily wound care. Patient denies any pain in his leg at this time. Patient admits for recent feelings of feverishness and chills. He denies any recent n/v/sob/cp. Patient denies any numbness, burning or tingling in his feet or legs. He states that Dr. Romo put a dressing on this morning. Past Patient History - Infectious Disease Hx of Infectious Diseases: None - Tetanus Immunizations Tetanus Immunization: Unknown - Past Medical History & Family History Past Medical History?: Yes - Past Social History Smoking Status: Never Smoked - CARDIAC Hx Atrial Fibrillation: No Hx Cardia Arrhythmia: No Hx Congestive Heart Failure: No Hx Hypercholesterolemia: No Hx Hypertension: Yes Hx Mitral Valve Prolapse: No Hx Pacemaker: Yes Hx Peripheral Edema: Yes (chronic cellulitis and lymphadema b/l lower extremities) - PULMONARY Hx Asthma: No Hx Bronchitis: No Hx Chronic Obstructive Pulmonary Disease (COPD): No Hx Emphysema: No Hx Pneumonia: No Hx Pulmonary Embolism: No Hx Sleep Apnea: No - NEUROLOGICAL Hx Neurological Disorder: No - HEENT Hx HEENT Problems: No - RENAL Hx Chronic Kidney Disease: No Hx Kidney Stones: No - ENDOCRINE/METABOLIC Hx Hyperthyroidism: No Hx Hypothyroidism: No - HEMATOLOGICAL/ONCOLOGICAL Hx Anemia: No Hx Human Immunodeficiency Virus (HIV): No Hx Sickle Cell Disease: No - INTEGUMENTARY Hx Dermatological Problems: Yes - MUSCULOSKELETAL/RHEUMATOLOGICAL Hx Arthritis: No Hx Fractures: No Hx Osteoporosis: No Hx Rheumatoid Arthritis: No - GASTROINTESTINAL Hx Gastrointestinal Disorders: Yes Other/Comment: Umbilical hernia - GENITOURINARY/GYNECOLOGICAL Hx Genitourinary Disorders: No - PSYCHIATRIC Hx Psychophysiologic Disorder: No Hx Substance Use: No - SURGICAL HISTORY Hx Appendectomy: No - ANESTHESIA Hx Anesthesia: No Meds Allergies/Adverse Reactions: Allergies Allergy/AdvReac Type Severity Reaction Status Date / Time ciprofloxacin [From Cipro] Allergy RASH Verified 04/23/16 17:49 ciprofloxacin HCl Allergy RASH Verified 04/23/16 17:49 [From Cipro] chocolate flavor AdvReac ears run Verified 04/23/16 17:49 - Medications Medications: Current Medications Sodium Chloride (Sodium Chloride 0.9%) 1,000 mls @ 250 mls/hr IV .Q4H STA Stop: 11/06/16 19:18 Physical Exam - Constitutional Appears: Well, Non-toxic, No Acute Distress - Extremities Exam Additional comments: B/L lower extremity: Pt ambulates w, apropulsive gait. No assisting ambulation device needed. DERM: Ulcerations noted: 1 to medial aspect of right leg dime sized, 2 to lateral aspect of lateral aspect of right leg, both are nickel sized; largest to central lateral aspect of right leg measuring 9x7 cm wound with boggy macerated david-wound margine extending out circumferentialy, 9 cm at longest tangent. Wound base has papilary dermal protrusion, firmly adhered. Diffuse, circumferential, thick lichenification tissue to lower extremity b/l. VASC: Left PT pulse palpable 2/4 and right DP pulse palpable graded 2/4, other pulses non-palpable secondary to increased tissue density and edema. CFT < 3 seconds to all digits b/l. Temperature gradient runs warm to cool from proximal to distal b/l. NEURO: Sensation grossly intact. ORTHO: Motion at major pedal muscle groups moderately limited due to patients edema. - Neurological Exam Neurological exam: Alert, Oriented x3 - Psychiatric Exam Psychiatric exam: Normal Affect, Normal Mood Results - Vital Signs Recent Vital Signs: Last Vital Signs Temp 98.2 F 11/06/16 15:12 Pulse 82 11/06/16 15:12 Resp 20 11/06/16 15:12 BP 168/88 H 11/06/16 15:12 Pulse Ox 100 11/06/16 15:37 - Labs Result Diagrams: 11/06/16 15:21 11/06/16 15:21 Assessment & Plan - Assessment and Plan (Free Text) Assessment: 51 year old male with chronic soft tissue ulcerations and lichenifications of right lower extremity, secondary to lymphedema. Plan: Patient evaluated in the ED. Chart, labs, and vitals reviewed. Discussed in detail with attending, Dr. Romo. -Ordered patient to be started on Zosyn 3.375gm q6h -DSD & RICH to RLE -wound culture obtained -ID Dr Moraes Consulted. Advised to shower daily before dressing changes. Podiatry will continue to follow while in house - Date & Time Date: 11/06/16 Time: 16:30
[2016-11-06] MEDS ORDERED: Piperacillin/Tazobact 3.375 GM in Sodium Chloride 0.9% 100 ML IV ONE (16:13)
[2016-11-06 16:15] LABS: BASO # 0.1 K/uL (0.0-0.2); BASO % 1.1 % (0.0-2.0); EOS # 0.2 K/uL (0.0-0.7); EOS % 2.9 % (0.0-4.0); HEMATOCRIT 40.9 % (35.0-51.0); LYMPH # 1.2 K/uL (1.0-4.3); LYMPH % 18.4 % (20.0-40.0); MEAN CELL VOLUME 83.4 fl (80.0-94.0); MEAN CORPUSCULAR HEMOGLOBIN 25.8 pg (27.0-31.0); MEAN CORPUSCULAR HGB CONC 30.9 g/dL (33.0-37.0); MEAN PLATELET VOLUME 9.5 fl (7.2-11.7); MONO # 0.6 K/uL (0.0-0.8); MONO % 9.8 % (0.0-10.0); NEUT # 4.3 K/uL (1.8-7.0); NEUT % 67.8 % (50.0-75.0); WHITE BLOOD COUNT 6.4 K/uL (4.8-10.8)
[2016-11-06 16:19] LABS: ALB/GLOB RATIO 1.1 (1.0-2.1); ALKALINE PHOSPHATASE 95 U/L (38-126); ALT/SGPT 27 U/L (21-72); AST/SGOT 13 U/L (17-59); BILIRUBIN,TOTAL 0.4 mg/dl (0.2-1.3); BLOOD UREA NITROGEN 22 mg/dl (9-20); CALCIUM 8.6 mg/dL (8.4-10.2); CARBON DIOXIDE 21 mmol/L (22-30); CHLORIDE 108 mmol/L (98-107); GFR AFRICAN-AMERICAN > 60; GLUCOSE,RANDOM 84 mg/dL (75-110); POTASSIUM 4.7 MMOL/L (3.6-5.0); SODIUM 140 mmol/l (132-148); TOTAL PROTEIN 7.6 G/DL (6.3-8.2)
[2016-11-06] MEDS ORDERED: Piperacillin/Tazobact 3.375 gm Inj IVPB ONE (16:26)
--- NOTE | 2016-11-06 20:55 | CP.PCM.HP ---
History of Present Illness - History of Present Illness History of Present Illness: Pt is a 51 y/o male with history of HTN, Peripheral Edema,and b/l lower extremity lymphedema. Patient states that he was sent from wound care clinic by Dr. Romo, who wants him to be admitted for IV antibiotics and daily wound care. Patient denies any pain in his leg at this time. Patient reports feeling feverishness and chills. He denies any recent n/v/sob/cp. Patient denies any numbness, burning or tingling in his feet or legs. He states that Dr. Romo put a dressing on this morning. Present on Admission - Present on Admission Any Indicators Present on Admission: No Review of Systems - Review of Systems All systems: reviewed and no additional remarkable complaints except Review of Systems: Per HPI Past Patient History - Infectious Disease Hx of Infectious Diseases: None - Tetanus Immunizations Tetanus Immunization: Unknown - Past Medical History & Family History Past Medical History?: Yes - Past Social History Smoking Status: Never Smoked - CARDIAC Hx Atrial Fibrillation: No Hx Cardia Arrhythmia: No Hx Congestive Heart Failure: No Hx Hypercholesterolemia: No Hx Hypertension: Yes Hx Mitral Valve Prolapse: No Hx Pacemaker: Yes Hx Peripheral Edema: Yes (chronic cellulitis and lymphadema b/l lower extremities) - PULMONARY Hx Asthma: No Hx Bronchitis: No Hx Chronic Obstructive Pulmonary Disease (COPD): No Hx Emphysema: No Hx Pneumonia: No Hx Pulmonary Embolism: No Hx Sleep Apnea: No - NEUROLOGICAL Hx Neurological Disorder: No - HEENT Hx HEENT Problems: No - RENAL Hx Chronic Kidney Disease: No Hx Kidney Stones: No - ENDOCRINE/METABOLIC Hx Hyperthyroidism: No Hx Hypothyroidism: No - HEMATOLOGICAL/ONCOLOGICAL Hx Anemia: No Hx Human Immunodeficiency Virus (HIV): No Hx Sickle Cell Disease: No - INTEGUMENTARY Hx Dermatological Problems: Yes - MUSCULOSKELETAL/RHEUMATOLOGICAL Hx Arthritis: No Hx Fractures: No Hx Osteoporosis: No Hx Rheumatoid Arthritis: No - GASTROINTESTINAL Hx Gastrointestinal Disorders: Yes Other/Comment: Umbilical hernia - GENITOURINARY/GYNECOLOGICAL Hx Genitourinary Disorders: No - PSYCHIATRIC Hx Psychophysiologic Disorder: No Hx Substance Use: No - SURGICAL HISTORY Hx Appendectomy: No - ANESTHESIA Hx Anesthesia: No Meds Allergies/Adverse Reactions: Allergies Allergy/AdvReac Type Severity Reaction Status Date / Time ciprofloxacin [From Cipro] Allergy RASH Verified 04/23/16 17:49 ciprofloxacin HCl Allergy RASH Verified 04/23/16 17:49 [From Cipro] chocolate flavor AdvReac ears run Verified 04/23/16 17:49 Physical Exam - Constitutional Appears: Non-toxic, No Acute Distress - Head Exam Head Exam: NORMOCEPHALIC - Eye Exam Eye Exam: Normal appearance - ENT Exam ENT Exam: Mucous Membranes Moist - Respiratory Exam Respiratory Exam: Clear to Auscultation Bilateral, NORMAL BREATHING PATTERN. absent: Rhonchi, Wheezes - Cardiovascular Exam Cardiovascular Exam: REGULAR RHYTHM - GI/Abdominal Exam GI & Abdominal Exam: Normal Bowel Sounds, Soft. absent: Tenderness - Extremities Exam Extremities exam: Negative for: calf tenderness Additional comments: Ulcerations noted; Wound base has papilary dermal protrusion, firmly adhered. Diffuse, circumferential, thick lichenification tissue to lower extremity b/l. - Neurological Exam Neurological exam: Alert, CN II-XII Intact, Oriented x3 Results - Vital Signs Recent Vital Signs: Last Vital Signs Temp 97.4 F L 11/06/16 18:15 Pulse 72 11/06/16 18:15 Resp 20 11/06/16 18:15 BP 163/83 H 11/06/16 18:15 Pulse Ox 100 11/06/16 18:15 - Labs Result Diagrams: 11/06/16 15:21 11/06/16 15:21 Assessment & Plan - Assessment and Plan (Free Text) Assessment: 51 y/o with history of HTN,Peripheral Edema,and b/l lower extremity lymphedema admitted for right lower extremity cellulitis most likely due to his venous insufficiency Plan: 1. Right lower extremity Cellulitis Continue with Zosyn as ordered; pending Infectious Disease recommendation Podiatry following f/u [facility] in the morning monitor 2. Uncontrolled Hypertension restarted home med of HCTZ 25mg daily Consider increasing dose, as pt BP is uncontrolled 3. Diet- Heart Healthy 4. DVT prophylaxis- Lovenox 40mg SC
[2016-11-06] MEDS: Piperacillin/Tazobact 3.375 GM in Sodium Chloride 0.9% 100 ML IVPB SCH (22:09)
[2016-11-07] MEDS: Piperacillin/Tazobact 3.375 GM in Sodium Chloride 0.9% 100 ML IVPB SCH ×4 (04:24→22:11)
[2016-11-07 07:11] LABS: BASO # 0.1 K/uL (0.0-0.2); BASO % 0.8 % (0.0-2.0); EOS # 0.1 K/uL (0.0-0.7); EOS % 1.7 % (0.0-4.0); HEMATOCRIT 37.4 % (35.0-51.0); LYMPH # 0.7 K/uL (1.0-4.3); LYMPH % 10.6 % (20.0-40.0); MEAN CELL VOLUME 82.1 fl (80.0-94.0); MEAN CORPUSCULAR HEMOGLOBIN 26.4 pg (27.0-31.0); MEAN CORPUSCULAR HGB CONC 32.1 g/dL (33.0-37.0); MEAN PLATELET VOLUME 9.5 fl (7.2-11.7); MONO # 0.5 K/uL (0.0-0.8); MONO % 7.8 % (0.0-10.0); NEUT # 5.5 K/uL (1.8-7.0); NEUT % 79.1 % (50.0-75.0); NRBC % 0.1 % (0.0-0.0); RED CELL DISTRIBUTION WIDTH 16.8 % (11.5-14.5); WHITE BLOOD COUNT 6.9 K/uL (4.8-10.8)
[2016-11-07 07:39] LABS: BLOOD UREA NITROGEN 21 mg/dl (9-20); CALCIUM 8.5 mg/dL (8.4-10.2); CARBON DIOXIDE 22 mmol/L (22-30); CHLORIDE 110 mmol/L (98-107); GFR AFRICAN-AMERICAN > 60; GLUCOSE,RANDOM 83 mg/dL (75-110); POTASSIUM 5.2 MMOL/L (3.6-5.0); SODIUM 140 mmol/l (132-148)
--- NOTE | 2016-11-07 08:25 | CP.PCM.PN ---
Subjective - Date & Time of Evaluation Date of Evaluation: 11/07/16 Time of Evaluation: 08:22 - Subjective Subjective: 51 year old male was seen resting comfortably at bedside for right chronic leg non-healing ulcer. He denies any pain. Denies n/v/f/c/sob/cp. Objective - Vital Signs/Intake and Output Vital Signs (last 24 hours): Temp Pulse Resp BP Pulse Ox 98.1 F 71 18 135/79 99 11/07/16 07:51 11/07/16 07:51 11/07/16 07:51 11/07/16 07:51 11/07/16 07:51 - Medications Medications: Current Medications Enoxaparin Sodium (Lovenox) 40 mg SC DAILY [facility] PRN Reason: Protocol Hydrochlorothiazide (Hydrodiuril) 25 mg PO DAILY [facility] Piperacillin Sod/Tazobactam (Sod 3.375 gm/ Sodium Chloride) 100 mls @ 100 mls/ hr IVPB Q6H [facility] Last Admin: 11/07/16 04:24 Dose: 100 mls/hr - Labs Labs: 11/07/16 06:10 11/07/16 06:10 - Constitutional Appears: Non-toxic, No Acute Distress - Extremities Exam Additional comments: Right lower extremity focused exam: DERM: Ulcerations noted: 1 to medial aspect of right leg dime sized, 2 to lateral aspect of lateral aspect of right leg, both are nickel sized; largest to central lateral aspect of right leg measuring 9x7 cm wound with boggy macerated david-wound margine extending out circumferentialy, 9 cm at longest tangent. Wound base has papilary dermal protrusion, firmly adhered. Diffuse, circumferential, thick lichenification tissue to lower extremity b/l. VASC: Left PT pulse palpable 2/4 and right DP pulse palpable graded 2/4, other pulses non-palpable secondary to increased tissue density and edema. CFT < 3 seconds to all digits b/l. Temperature gradient runs warm to cool from proximal to distal b/l. NEURO: Sensation grossly intact. ORTHO: Motion at major pedal muscle groups moderately limited due to patients edema. - Neurological Exam Neurological Exam: Alert, Awake, Oriented x3 - Psychiatric Exam Psychiatric exam: Normal Affect, Normal Mood Assessment and Plan - Assessment and Plan (Free Text) Assessment: 51 year old male with chronic soft tissue ulcerations and lichenifications of right lower extremity, secondary to lymphedema. Plan: Patient examined and evaluated Chart, labs, and vitals reviewed Discussed in detail with attending, Dr. Romo Patient to continue Zosyn 3.375gm q6h Xeroform, DSD & RICH to RLE wound culture pending ID Dr Moraes Consulted. Advised to shower daily before dressing changes. Podiatry will continue to follow while in house
--- NOTE | 2016-11-07 08:55 | CP.PCM.PN ---
Subjective - Date & Time of Evaluation Date of Evaluation: 11/07/16 Time of Evaluation: 08:10 - Subjective Subjective: Patient was seen and examined at bedside this morning. Patient reports feeling well. Denies nausea, vomiting, chills, or other complains. Tolerating PO well. Voiding well and having regular bowel movements. Objective - Vital Signs/Intake and Output Vital Signs (last 24 hours): Temp Pulse Resp BP Pulse Ox 98.1 F 71 18 135/79 99 11/07/16 07:51 11/07/16 07:51 11/07/16 07:51 11/07/16 07:51 11/07/16 07:51 - Medications Medications: Current Medications Enoxaparin Sodium (Lovenox) 40 mg SC DAILY [facility] PRN Reason: Protocol Hydrochlorothiazide (Hydrodiuril) 25 mg PO DAILY [facility] Piperacillin Sod/Tazobactam (Sod 3.375 gm/ Sodium Chloride) 100 mls @ 100 mls/ hr IVPB Q6H [facility] Last Admin: 11/07/16 04:24 Dose: 100 mls/hr - Labs Labs: 11/07/16 06:10 11/07/16 06:10 - Constitutional Appears: Non-toxic, No Acute Distress - ENT Exam ENT Exam: Mucous Membranes Moist - Respiratory Exam Respiratory Exam: Clear to Ausculation Bilateral, NORMAL BREATHING PATTERN - Cardiovascular Exam Cardiovascular Exam: REGULAR RHYTHM, +S1, +S2 - GI/Abdominal Exam GI & Abdominal Exam: Soft, Normal Bowel Sounds. absent: Distended, Tenderness - Extremities Exam Additional comments: Massive edema of lower extremities, severe lymphedema with elephantiasis / deformities of LE's - Neurological Exam Neurological Exam: Alert, Awake, Oriented x3 - Skin Skin Exam: Dry, Intact, Normal Color Assessment and Plan - Assessment and Plan (Free Text) Assessment: 51 y/o with history of HTN,Peripheral Edema,and b/l lower extremity lymphedema admitted for right lower extremity cellulitis most likely due to his venous insufficiency Plan: 1. Right lower extremity Cellulitis -Dr. Moraes on board -Continue with Zosyn as ordered; pending Infectious Disease recommendation -Podiatry following - CBC showed H/H WNL, WBC: WNL -PICC IV line insertion for IV antibiotics 2. Uncontrolled Hypertension restarted home med of HCTZ 25mg daily Consider increasing dose, as pt BP is uncontrolled 3.Hyperkalemia -Asymptomatic -K+ 5.2 today, was WNL yesterday -F/U repeat BMP 4. Diet Heart Healthy 5. DVT prophylaxis Lovenox 40mg SC 6. Morbid Obesity BMI: 55.8
[2016-11-07] MEDS: Enoxaparin 40 mg Syringe SC SCH (11:34)
--- NOTE | 2016-11-07 13:54 | CP.PCM.CON ---
History of Present Illness - History of Present Illness History of Present Illness: 51 year old male, admitted with severe right leg chronic non-healing wound, and cellulitis. 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 thus far Denies substance abuse issues Admitted for antibiotic rx and wound care PMH: HTN, Peripheral Edema (chronic cellulitis and lymphadema b/l lower extremities) Denies: Anemia, Arthritis, Asthma, Atrial Fibrillation, Bronchitis, Cardia Arrhythmia, CHF, COPD, Emphysema, Fractures, HIV, Hypercholesterolemia, Hyperthyroidism, Hypothyroidism, Kidney Stones, Mitral Valve Prolapse, Osteoporosis, Pneumonia, Pulmonary Embolism, Chronic Kidney Disease, Rheumatoid Arthritis, Sickle Cell Disease, Sleep Apnea Review of Systems - Review of Systems All systems: reviewed and no additional remarkable complaints except - Constitutional Constitutional: As Per HPI, Fatigue, Lethargy - EENT Ears: absent: As Per HPI, Decreased Hearing, Ear Discharge, Ear Pain, Tinnitus, Abnormal Hearing, Disequilibrium, Dizziness, Other Nose/Mouth/Throat: absent: As Per HPI, Epistaxis, Nasal Congestion, Nasal Discharge, Nasal Obstruction, Nasal Trauma, Nose Pain, Post Nasal Drip, Sinus Pain, Sinus Pressure, Bleeding Gums, Change in Voice, Dental Pain, Dry Mouth, Dysphagia, Halitosis, Hoarsness, Lip Swelling, Mouth Lesions, Mouth Pain, Odynophagia, Sore Throat, Throat Swelling, Tongue Swelling, Facial Pain, Neck Pain, Neck Mass, Other - Cardiovascular Cardiovascular: absent: As Per HPI, Acrocyanosis, Chest Pain, Chest Pain at Rest , Chest Pain with Activity, Claudication, Diaphoresis, Dyspnea, Dyspnea on Exertion, Edema, Irregular Heart Rhythm, Pain Radiating to Arm/Neck/Jaw, Leg Edema, Leg Ulcers, Lightheadedness, Orthopnea, Palpitations, Paroxysmal Nocturnal Dyspnea, Pedal Edema, Radiating Pain, Rapid Heart Rate, Slow Heart Rate, Syncope, Other - Respiratory Respiratory: As Per HPI - Gastrointestinal Gastrointestinal: absent: As Per HPI, Abdominal Pain, Belching, Bloating, Change in Bowel Habits, Change in Stool Character, Coffee Ground Emesis, Constipation, Cramping, Diarrhea, Dyspepsia, Dysphagia, Early Satiety, Excessive Flatus, Fecal Incontinence, Heartburn, Hematemesis, Hematochezia, Loose Stools, Melena, Nausea, Odynophagia, Temesmus, Vomiting, Other - Genitourinary Genitourinary: absent: As Per HPI, Change in Urinary Stream, Difficulty Urinating, Dysuria, Flank Pain, Hematuria, Pyuria, Nocturia, Urinary Incontinence, Urinary Frequency, Urinary Hesitance, Urinary Urgency, Voiding Freq/Small Amts, Freq UTI, Hx Renal/Bladder Calculi, Hx /Renal Surgery, Bladder Distension, Other - Musculoskeletal Musculoskeletal: As Per HPI - Integumentary Integumentary: As Per HPI, Skin Pain, Wounds - Neurological Neurological: absent: As Per HPI, Abnormal Gait, Abnormal Hearing, Abnormal Movements, Abnormal Speech, Behavioral Changes, Burning Sensations, Confusion, Convulsions, Disequilibrium, Dizziness, Numbness, Focal Weakness, Frequent Falls , Headaches, Lack of Coordination, Loss of Vision, Memory Loss, Paresthesias, Radicular Pain, Restless Legs, Sensory Deficit, Syncope, Tingling, Tremor, Vertigo, Weakness, Other Visual Disturbances, Other - Psychiatric Psychiatric: absent: As Per HPI, Abnormal Sleep Pattern, Anhedonia, Anxiety, Auditory Hallucinations, Behavioral Changes, Change in Appetite, Change in Libido, Confusion, Depression, Difficulty Concentrating, Hallucinations, Homicidal Ideation, Hopelessness, Irritability, Memory Loss, Mood Swings, Panic Attacks, Paranoia, Suicidal Ideation, Visual Hallucinations, Tactile Hallucinations, Other - Endocrine Endocrine: absent: As Per HPI, Change in Body Appearance, Change in Libido, Cold Intolorance, Deepening of Voice, Excessive Sweating, Fatigue, Flushing, Heat Intolorance, Increase in Ring/Shoe/Hat Size, Palpitations, Polydipsia, Polyphagia, Polyuria, Other - Hematologic/Lymphatic Hematologic: absent: As Per HPI, Easy Bleeding, Easy Bruising, Lymphadenopathy, Other Past Patient History - Infectious Disease Hx of Infectious Diseases: None - Tetanus Immunizations Tetanus Immunization: Unknown - Past Medical History & Family History Past Medical History?: Yes - Past Social History Smoking Status: Never Smoked - CARDIAC Hx Atrial Fibrillation: No Hx Cardia Arrhythmia: No Hx Congestive Heart Failure: No Hx Hypercholesterolemia: No Hx Hypertension: Yes Hx Mitral Valve Prolapse: No Hx Pacemaker: Yes Hx Peripheral Edema: Yes (chronic cellulitis and lymphadema b/l lower extremities) - PULMONARY Hx Asthma: No Hx Bronchitis: No Hx Chronic Obstructive Pulmonary Disease (COPD): No Hx Emphysema: No Hx Pneumonia: No Hx Pulmonary Embolism: No Hx Sleep Apnea: No - NEUROLOGICAL Hx Neurological Disorder: No - HEENT Hx HEENT Problems: No - RENAL Hx Chronic Kidney Disease: No Hx Kidney Stones: No - ENDOCRINE/METABOLIC Hx Hyperthyroidism: No Hx Hypothyroidism: No - HEMATOLOGICAL/ONCOLOGICAL Hx Anemia: No Hx Human Immunodeficiency Virus (HIV): No Hx Sickle Cell Disease: No - INTEGUMENTARY Hx Dermatological Problems: Yes - MUSCULOSKELETAL/RHEUMATOLOGICAL Hx Falls: No - GASTROINTESTINAL Hx Gastrointestinal Disorders: Yes Other/Comment: Umbilical hernia - GENITOURINARY/GYNECOLOGICAL Hx Genitourinary Disorders: No - PSYCHIATRIC Hx Substance Use: No - SURGICAL HISTORY Hx Appendectomy: No - ANESTHESIA Hx Anesthesia: No Hx Anesthesia Reactions: No Meds Allergies/Adverse Reactions: Allergies Allergy/AdvReac Type Severity Reaction Status Date / Time ciprofloxacin [From Cipro] Allergy RASH Verified 04/23/16 17:49 ciprofloxacin HCl Allergy RASH Verified 04/23/16 17:49 [From Cipro] chocolate flavor AdvReac ears run Verified 04/23/16 17:49 - Medications Medications: Current Medications Enoxaparin Sodium (Lovenox) 40 mg SC DAILY [facility] PRN Reason: Protocol Last Admin: 11/07/16 11:34 Dose: 40 mg Hydrochlorothiazide (Hydrodiuril) 25 mg PO DAILY [facility] Last Admin: 11/07/16 11:34 Dose: 25 mg Piperacillin Sod/Tazobactam (Sod 3.375 gm/ Sodium Chloride) 100 mls @ 100 mls/ hr IVPB Q6H [facility] Last Admin: 11/07/16 11:33 Dose: 100 mls/hr Physical Exam - Constitutional Appears: Non-toxic, No Acute Distress, Chronically Ill - Head Exam Head Exam: ATRAUMATIC, NORMAL INSPECTION, NORMOCEPHALIC - Eye Exam Eye Exam: PERRL. absent: Scleral icterus - ENT Exam ENT Exam: Mucous Membranes Dry, Normal External Ear Exam - Neck Exam Neck exam: Negative for: Lymphadenopathy, Thyromegaly - Respiratory Exam Respiratory Exam: Decreased Breath Sounds, Rhonchi - Cardiovascular Exam Cardiovascular Exam: REGULAR RHYTHM, +S1, +S2 - GI/Abdominal Exam GI & Abdominal Exam: Diminished Bowel Sounds, Soft. absent: Tenderness - Rectal Exam Rectal Exam: Deferred - Exam Exam: NORMAL INSPECTION - Extremities Exam Extremities exam: Positive for: pedal edema, tenderness. Negative for: calf tenderness, pedal pulses present - Back Exam Back exam: absent: CVA tenderness (L), CVA tenderness (R) Additional comments: massive edema of lower extrem cellulitius right greater than left foul smelling exudate severe lymphedema with elephantiasis / deformities of LE's - Neurological Exam Neurological exam: Alert, CN II-XII Intact, Oriented x3, Reflexes Normal - Psychiatric Exam Psychiatric exam: Depressed - Skin Skin Exam: Dry, Intact Results - Vital Signs Recent Vital Signs: Last Vital Signs Temp 98.1 F 11/07/16 07:51 Pulse 71 11/07/16 07:51 Resp 18 11/07/16 07:51 BP 135/79 11/07/16 07:51 Pulse Ox 99 11/07/16 07:51 - Labs Result Diagrams: 11/07/16 06:10 11/07/16 06:10 Labs: Laboratory Results - last 24 hr 11/07/16 11/07/16 06:10 06:10 WBC 6.9 RBC 4.56 Hgb 12.0 Hct 37.4 MCV 82.1 MCH 26.4 L MCHC 32.1 L RDW 16.8 H Plt Count 220 MPV 9.5 Neut % (Auto) 79.1 H Lymph % (Auto) 10.6 L [place] % (Auto) 7.8 Eos % (Auto) 1.7 Baso % (Auto) 0.8 Neut # 5.5 Lymph # 0.7 L [place] # 0.5 Eos # 0.1 Baso # 0.1 ESR 20 Sodium 140 Potassium 5.2 H Chloride 110 H Carbon Dioxide 22 Anion Gap 13 BUN 21 H Creatinine 1.4 Est GFR ( Amer) > 60 Est GFR (Non-Af Amer) 53 Random Glucose 83 Calcium 8.5 Assessment & Plan (1) Cellulitis Status: Acute (2) Cellulitis and abscess Status: Acute Priority: High (3) Elephantiasis (nonfilarial) Status: Acute (4) Homelessness Status: Acute (5) Lymphedema Status: Acute (6) Osteoarthritis Status: Acute (7) Ulcer of left ankle Status: Acute (8) Ulcer of right foot Status: Acute (9) Venous stasis dermatitis of both lower extremities Status: Acute (10) Chronic wound of extremity Status: Chronic (11) Lymphedema of both lower extremities Status: Chronic - Assessment and Plan (Free Text) Assessment: will need PICC for IV antibiotics consider OR debridement
--- NOTE | 2016-11-07 14:01 | PQF GENQUE ---
Dr. Javier, 2 (two) queries listed below: In agreement with EMR listing of: BMI:55.8? (1) If yes please list the BMI in your progress note (2) Is there an associated diagnosis to go along with the BMI? OR: Disagree OR:Unable to determine OR: Other explanation of clinical finding EMR lists :BMI:55.8 5FT 11in 400 lb ;Heart Healthy diet ordered This form is a permanent part of the medical record Clarification of your documentation is requested to better reflect the severity of illness and intensity of treatment of your patient. Indicators present [] Specify: [] [] Specify: [] [] Specify: [] [] Specify: [] Location in the medical record that reflects the above clinical findings: [] Treatment Provided: [] PHYSICIAN'S RESPONSE Based on your medical judgment of the clinical indicators outlined above please clarify the following: [] Practitioner response [] If unable to determine, please check the box, sign and date. Present On Admission (POA) Indicator: [] Present at the time of admission [] Not present at the time of admission [] Clinically Undetermined In responding to this query, please exercise your independent professional judgment. The fact that a question is asked does not imply that any particular answer is desired or expected. Thank you for your clarification on this documentation. If you have any questions please call. * Thank you, Jennifer Singh RN BSN ext. #[phone] MTDD
[2016-11-07 21:55] LABS: PARTIAL THROMBOPLASTIN TIME 31.3 SECONDS (23.3-32.5)
[2016-11-08 07:37] LABS: CALCIUM 8.7 mg/dL (8.4-10.2)
[2016-11-08] MEDS ORDERED: Enoxaparin 40 mg Syringe ONE (09:00)
[2016-11-08] MEDS ORDERED: Piperacillin/Tazobact 3.375 gm Inj IVPB ONE (09:00)
[2016-11-08] MEDS ORDERED: Lidocaine 1% Inj (20ml) ONE (13:13)
[2016-11-08] MEDS: Piperacillin/Tazobact 3.375 GM in Sodium Chloride 0.9% 100 ML IVPB SCH (22:00)
[2016-11-09] MEDS: Piperacillin/Tazobact 3.375 GM in Sodium Chloride 0.9% 100 ML IVPB SCH ×2 (04:28→10:39)
--- NOTE | 2016-11-09 06:24 | CP.PCM.PN ---
Subjective - Date & Time of Evaluation Date of Evaluation: 11/09/16 Time of Evaluation: 06:22 - Subjective Subjective: 51 year old male was seen resting comfortably at bedside for right chronic leg non-healing ulcer. He states that he is going to take a shower in a few minutes He denies any pain. Denies n/v/f/c/sob/cp. Objective - Vital Signs/Intake and Output Vital Signs (last 24 hours): Temp Pulse Resp BP Pulse Ox 98.3 F 88 19 120/73 95 11/09/16 00:00 11/09/16 00:00 11/09/16 00:00 11/09/16 00:00 11/09/16 00:00 - Medications Medications: Current Medications Enoxaparin Sodium (Lovenox) 40 mg SC DAILY [facility] PRN Reason: Protocol Last Admin: 11/07/16 11:34 Dose: 40 mg Hydrochlorothiazide (Hydrodiuril) 25 mg PO DAILY [facility] Last Admin: 11/07/16 11:34 Dose: 25 mg Piperacillin Sod/Tazobactam (Sod 3.375 gm/ Sodium Chloride) 100 mls @ 100 mls/ hr IVPB Q6H [facility] Last Admin: 11/09/16 04:28 Dose: 100 mls/hr - Labs Labs: 11/07/16 06:10 11/07/16 06:10 PT 10.7 SECONDS (9.6-11.2) 11/07/16 21:27 INR 1.03 (0.92-1.08) 11/07/16 21:27 APTT 31.3 SECONDS (23.3-32.5) 11/07/16 21:27 - Constitutional Appears: Non-toxic, No Acute Distress - Extremities Exam Additional comments: Right lower extremity focused exam: VASC: Left PT pulse palpable 2/4 and right DP pulse palpable graded 2/4, other pulses non-palpable secondary to increased tissue density and edema. CFT < 3 seconds to all digits b/l. Temperature gradient runs warm to cool from proximal to distal b/l. DERM: Ulcerations noted: 1 to medial aspect of right leg dime sized, 2 to lateral aspect of lateral aspect of right leg, both are nickel sized; largest to central lateral aspect of right leg measuring approximately 9 cm x 7 cm wound with boggy macerated david-wound margine extending out circumferentialy, 9 cm at longest tangent. Wound base has papilary dermal protrusion, firmly adhered. Diffuse, circumferential, thick lichenification tissue to lower extremity b/l. NEURO: Sensation grossly intact. ORTHO: Motion at major pedal muscle groups moderately limited due to patients edema. - Neurological Exam Neurological Exam: Alert, Awake, Oriented x3 - Psychiatric Exam Psychiatric exam: Normal Affect, Normal Mood Assessment and Plan - Assessment and Plan (Free Text) Assessment: 51 year old male with chronic soft tissue ulcerations and lichenifications of right lower extremity, secondary to lymphedema. Plan: Patient examined and evaluated Chart, labs, and vitals reviewed Discussed in detail with attending, Dr. Romo RLE dressed with Xeroform, DSD & RICH to RLE wound culture-proteus continue iv abx per ID Advised to shower daily before dressing changes. Podiatry will continue to follow while in house
[2016-11-09 07:39] LABS: POTASSIUM 5.5 MMOL/L (3.6-5.0)
[2016-11-09 07:51] VITALS: BP 135/79; PULSE 75; RESP 16; TEMP 98.1; O2SAT 97
[2016-11-09] MEDS: Enoxaparin 40 mg Syringe SC SCH (08:58)
--- NOTE | 2016-11-09 12:15 | VASCULAR ---
PROCEDURE: Date of procedure: 11/08/2016 Procedure: 1. Placement of a right arm PICC with ultrasound and fluoroscopic guidance, CPT 31386 2. PICC tip confirmation with spot radiograph and is in the superior vena cava Medications: 4cc 1 percent lidocaine HISTORY: Cellulitis requiring long-term IV antibiotics TECHNIQUE: Following informed consent and procedure time-out, the patient was placed supine on the interventional table and the right arm prepped and draped in the usual sterile fashion. Ultrasound showed a patent and compressible right basilic vein. After the skin was anesthetized with lidocaine, the basilic vein was accessed with micro micropuncture technique using ultrasound guidance. A guidewire was then advanced under fluoroscopic guidance into the superior vena cava. An image documenting ultrasound guidance for vascular access was permanently saved. The length of the single-lumen 4 [place] PICC was trimmed to 43 centimeters and advanced through a peel-away sheath. The PICC was position with tip of PICC confirm a spot radiograph the superior vena cava. The PICC was secured to the patient's skin. The PICC was flushed. A biopatch and sterile dressing was applied. IMPRESSION: Placement of a single-lumen 4 [place] Citizen PICC trimmed to 43 centimeters via right basilic vein. The tip of the PICC is confirmed with spot radiograph and is in the superior vena cava.
--- NOTE | 2016-11-09 12:54 | CP.PCM.PN ---
Subjective - Date & Time of Evaluation Date of Evaluation: 11/09/16 Time of Evaluation: 08:00 - Subjective Subjective: WOUNDS LESS SEVERELY INFECTED LESS MALODOR Objective - Vital Signs/Intake and Output Vital Signs (last 24 hours): Temp Pulse Resp BP Pulse Ox 98.1 F 75 16 135/79 97 11/09/16 07:51 11/09/16 07:51 11/09/16 07:51 11/09/16 07:51 11/09/16 07:51 - Medications Medications: Current Medications Enoxaparin Sodium (Lovenox) 40 mg SC DAILY [facility] Reason: Protocol Last Admin: 11/09/16 08:58 Dose: 40 mg Hydrochlorothiazide (Hydrodiuril) 25 mg PO DAILY [facility] Last Admin: 11/09/16 08:57 Dose: 25 mg Piperacillin Sod/Tazobactam (Sod 3.375 gm/ Sodium Chloride) 100 mls @ 100 mls/ hr IVPB Q6H [facility] Last Admin: 11/09/16 10:39 Dose: 100 mls/hr - Labs Labs: 11/07/16 06:10 11/08/16 04:00 PT 10.7 SECONDS (9.6-11.2) 11/07/16 21:27 INR 1.03 (0.92-1.08) 11/07/16 21:27 APTT 31.3 SECONDS (23.3-32.5) 11/07/16 21:27 - Constitutional Appears: Non-toxic, Chronically Ill - Head Exam Head Exam: NORMOCEPHALIC - Eye Exam Eye Exam: PERRL. absent: Scleral icterus - ENT Exam ENT Exam: Mucous Membranes Dry, Normal External Ear Exam - Neck Exam Neck Exam: absent: Lymphadenopathy - Respiratory Exam Respiratory Exam: Decreased Breath Sounds, Rhonchi - Cardiovascular Exam Cardiovascular Exam: REGULAR RHYTHM, +S1, +S2 - GI/Abdominal Exam GI & Abdominal Exam: Distended, Soft. absent: Tenderness - Rectal Exam Rectal Exam: Deferred - Exam Exam: NORMAL INSPECTION - Extremities Exam Extremities Exam: absent: Calf Tenderness, Pedal Edema - Back Exam Back Exam: absent: CVA tenderness (L), CVA tenderness (R) - Neurological Exam Neurological Exam: Alert, Awake, Oriented x3 - Psychiatric Exam Psychiatric exam: Normal Mood - Skin Skin Exam: Dry, Intact Assessment and Plan (1) Cellulitis Status: Acute (2) Cellulitis and abscess Status: Acute (3) Elephantiasis (nonfilarial) Status: Acute (4) Homelessness Status: Acute (5) Lymphedema Status: Acute (6) Osteoarthritis Status: Acute (7) Ulcer of left ankle Status: Acute (8) Ulcer of right foot Status: Acute (9) Venous stasis dermatitis of both lower extremities Status: Acute (10) Chronic wound of extremity Status: Chronic (11) Lymphedema of both lower extremities Status: Chronic - Assessment and Plan (Free Text) Assessment: FOR TCU
--- NOTE | 2016-11-09 15:33 | CP.PCM.DIS ---
<Vanessa Thornton - Last Filed: 11/09/16 17:42> Provider - Provider Date of Admission: 11/06/16 16:52 Attending physician: Gardenia Javier MD Time Spent in preparation of Discharge (in minutes): 30 Diagnosis - Discharge Diagnosis (1) Cellulitis Status: Acute Priority: High Comment: c/w antibiotics and wound care. (2) Lymphedema Status: Acute Priority: Medium Hospital Course - Lab Results Lab Results: Micro Results 11/06/16 21:25 Leg - Left Gram Stain - Final 11/06/16 21:25 Leg - Left Wound Culture - Final Proteus Mirabilis Most Recent Lab Values WBC 6.9 K/uL (4.8-10.8) 11/07/16 06:10 RBC 4.56 Mil/uL (4.40-5.90) 11/07/16 06:10 Hgb 12.0 g/dL (12.0-18.0) 11/07/16 06:10 Hct 37.4 % (35.0-51.0) 11/07/16 06:10 MCV 82.1 fl (80.0-94.0) 11/07/16 06:10 MCH 26.4 pg (27.0-31.0) L 11/07/16 06:10 MCHC 32.1 g/dL (33.0-37.0) L 11/07/16 06:10 RDW 16.8 % (11.5-14.5) H 11/07/16 06:10 Plt Count 220 K/uL (130-400) 11/07/16 06:10 MPV 9.5 fl (7.2-11.7) 11/07/16 06:10 Neut % (Auto) 79.1 % (50.0-75.0) H 11/07/16 06:10 Lymph % (Auto) 10.6 % (20.0-40.0) L 11/07/16 06:10 [place] % (Auto) 7.8 % (0.0-10.0) 11/07/16 06:10 Eos % (Auto) 1.7 % (0.0-4.0) 11/07/16 06:10 Baso % (Auto) 0.8 % (0.0-2.0) 11/07/16 06:10 Neut # 5.5 K/uL (1.8-7.0) 11/07/16 06:10 Lymph # 0.7 K/uL (1.0-4.3) L 11/07/16 06:10 [place] # 0.5 K/uL (0.0-0.8) 11/07/16 06:10 Eos # 0.1 K/uL (0.0-0.7) 11/07/16 06:10 Baso # 0.1 K/uL (0.0-0.2) 11/07/16 06:10 ESR 20 mm/hr (0-20) 11/07/16 06:10 PT 10.7 SECONDS (9.6-11.2) 11/07/16 21:27 INR 1.03 (0.92-1.08) 11/07/16 21:27 APTT 31.3 SECONDS (23.3-32.5) 11/07/16 21:27 Sodium 141 mmol/l (132-148) 11/08/16 04:00 Potassium 5.5 MMOL/L (3.6-5.0) H 11/08/16 04:00 Chloride 109 mmol/L (98-107) H 11/08/16 04:00 Carbon Dioxide 22 mmol/L (22-30) 11/08/16 04:00 Anion Gap 16 (10-20) 11/08/16 04:00 BUN 22 mg/dl (9-20) H 11/08/16 04:00 Creatinine 1.5 mg/dL (0.8-1.5) 11/08/16 04:00 Est GFR ( Amer) 60 11/08/16 04:00 Est GFR (Non-Af Amer) 49 11/08/16 04:00 Random Glucose 86 mg/dL (75-110) 11/08/16 04:00 Calcium 8.7 mg/dL (8.4-10.2) 11/08/16 04:00 Total Bilirubin 0.4 mg/dl (0.2-1.3) 11/06/16 15:21 AST 13 U/L (17-59) L 11/06/16 15:21 ALT 27 U/L (21-72) 11/06/16 15:21 Alkaline Phosphatase 95 U/L (38-126) 11/06/16 15:21 Total Protein 7.6 G/DL (6.3-8.2) 11/06/16 15:21 Albumin 4.0 g/dL (3.5-5.0) 11/06/16 15:21 Globulin 3.7 gm/dL (2.2-3.9) 11/06/16 15:21 Albumin/Globulin Ratio 1.1 (1.0-2.1) 11/06/16 15:21 - Hospital Course Hospital Course: Pt is a 51 y/o male with history of HTN, Peripheral Edema,and b/l lower extremity lymphedema. Patient was admitted for IV antibiotics and daily wound care by Podiatry. ID was consulted and patient has been managed with Zosyn IV. IR was consulted and PICC line was placed. Patient tolerated procedure well. Patient is stable to be transfer to TCU to continue with IV antibiotics and wound care. Home medications: Continue with same medications in TCU - Date & Time of H&P Date of H&P: 11/06/16 Time of H&P: 20:50 Discharge Exam - Head Exam Head Exam: NORMOCEPHALIC - ENT Exam ENT Exam: Mucous Membranes Moist - Respiratory Exam Respiratory Exam: Clear to PA & Lateral, NORMAL BREATHING PATTERN - Cardiovascular Exam Cardiovascular Exam: REGULAR RHYTHM, +S1, +S2 - GI/Abdominal Exam GI & Abdominal Exam: Normal Bowel Sounds, Soft. absent: Guarding, Rebound, Rigid, Tenderness Additional comments: Protuberant - Neurological Exam Neurological exam: Alert, Oriented x3 - Skin Skin Exam: Dry, Intact, Normal Color Discharge Plan - Discharge Medications Prescriptions: Piperacill/Tazo 3.375gm in Dex [Zosyn 3.375 Gm IV] 3.375 gm IVPB Q6H #8 bag - Follow Up Plan Condition: GOOD Disposition: REHAB FACILITY/REHAB UNIT Instructions: Lymphedema (DC) <Isabel Cottrell - Last Filed: 11/10/16 08:58> Provider - Provider Date of Admission: 11/06/16 16:52 Attending physician: Attending note/Attestation Patient seen and examined. Case discussed with Family Medicine and Podiatry resident. Agree with plan to discharge to rehab with continue treatment of cellulitis. Hospital Course - Lab Results Lab Results: Micro Results 11/06/16 21:25 Leg - Left Gram Stain - Final 11/06/16 21:25 Leg - Left Wound Culture - Final Proteus Mirabilis Most Recent Lab Values WBC 6.9 K/uL (4.8-10.8) 11/07/16 06:10 RBC 4.56 Mil/uL (4.40-5.90) 11/07/16 06:10 Hgb 12.0 g/dL (12.0-18.0) 11/07/16 06:10 Hct 37.4 % (35.0-51.0) 11/07/16 06:10 MCV 82.1 fl (80.0-94.0) 11/07/16 06:10 MCH 26.4 pg (27.0-31.0) L 11/07/16 06:10 MCHC 32.1 g/dL (33.0-37.0) L 11/07/16 06:10 RDW 16.8 % (11.5-14.5) H 11/07/16 06:10 Plt Count 220 K/uL (130-400) 11/07/16 06:10 MPV 9.5 fl (7.2-11.7) 11/07/16 06:10 Neut % (Auto) 79.1 % (50.0-75.0) H 11/07/16 06:10 Lymph % (Auto) 10.6 % (20.0-40.0) L 11/07/16 06:10 [place] % (Auto) 7.8 % (0.0-10.0) 11/07/16 06:10 Eos % (Auto) 1.7 % (0.0-4.0) 11/07/16 06:10 Baso % (Auto) 0.8 % (0.0-2.0) 11/07/16 06:10 Neut # 5.5 K/uL (1.8-7.0) 11/07/16 06:10 Lymph # 0.7 K/uL (1.0-4.3) L 11/07/16 06:10 [place] # 0.5 K/uL (0.0-0.8) 11/07/16 06:10 Eos # 0.1 K/uL (0.0-0.7) 11/07/16 06:10 Baso # 0.1 K/uL (0.0-0.2) 11/07/16 06:10 ESR 20 mm/hr (0-20) 11/07/16 06:10 PT 10.7 SECONDS (9.6-11.2) 11/07/16 21:27 INR 1.03 (0.92-1.08) 11/07/16 21:27 APTT 31.3 SECONDS (23.3-32.5) 11/07/16 21:27 Sodium 140 mmol/l (132-148) 11/09/16 15:35 Potassium 4.5 MMOL/L (3.6-5.0) 11/09/16 15:35 Chloride 108 mmol/L (98-107) H 11/09/16 15:35 Carbon Dioxide 23 mmol/L (22-30) 11/09/16 15:35 Anion Gap 14 (10-20) 11/09/16 15:35 BUN 21 mg/dl (9-20) H 11/09/16 15:35 Creatinine 1.6 mg/dL (0.8-1.5) H 11/09/16 15:35 Est GFR ( Amer) 55 11/09/16 15:35 Est GFR (Non-Af Amer) 46 11/09/16 15:35 Random Glucose 97 mg/dL (75-110) 11/09/16 15:35 Calcium 8.8 mg/dL (8.4-10.2) 11/09/16 15:35 Total Bilirubin 0.4 mg/dl (0.2-1.3) 11/06/16 15:21 AST 13 U/L (17-59) L 11/06/16 15:21 ALT 27 U/L (21-72) 11/06/16 15:21 Alkaline Phosphatase 95 U/L (38-126) 11/06/16 15:21 Total Protein 7.6 G/DL (6.3-8.2) 11/06/16 15:21 Albumin 4.0 g/dL (3.5-5.0) 11/06/16 15:21 Globulin 3.7 gm/dL (2.2-3.9) 11/06/16 15:21 Albumin/Globulin Ratio 1.1 (1.0-2.1) 11/06/16 15:21
[2016-11-09 15:56] LABS: CALCIUM 8.8 mg/dL (8.4-10.2); POTASSIUM 4.5 MMOL/L (3.6-5.0)
== END 2016-11-09 16:09 | DRG 603 ==
LOC: H.ER 15:04 → H.ERHOLD 16:52 → H.MEDSURG1 18:22
PROVIDERS: ADMIT Family Medicine Geriatric Medicine; ATTEND Family Medicine Geriatric Medicine
PROC: 02HV33Z Insertion of Infusion Device into Superior Vena Cava, Percutaneous Approach (ICD-10-PCS; principal; 2016-11-07)
DX: L03.115 Cellulitis of right lower limb (principal); L97.329 Non-pressure chronic ulcer of left ankle with unspecified severity; I10 Essential (primary) hypertension; Z68.43 Body mass index [BMI] 50.0-59.9, adult; I87.2 Venous insufficiency (chronic) (peripheral); B96.4 Proteus (mirabilis) (morganii) as the cause of diseases classified elsewhere; I89.0 Lymphedema, not elsewhere classified; Z59.0 Homelessness; M19.90 Unspecified osteoarthritis, unspecified site; Z95.0 Presence of cardiac pacemaker; Z88.6 Allergy status to analgesic agent; L97.519 Non-pressure chronic ulcer of other part of right foot with unspecified severity; E87.5 Hyperkalemia; E66.01 Morbid (severe) obesity due to excess calories

== ENCOUNTER 2016-11-09 16:14 | Inpatient (IN) | payer OTHER ==
[2016-11-09 16:38] VITALS: BMI 62.7
[2016-11-09 17:41] VITALS: RESP 20
[2016-11-09] MEDS: Piperacillin/Tazobact 3.375 GM in Sodium Chloride 0.9% 100 ML IVPB SCH (17:42)
[2016-11-10] MEDS: Piperacillin/Tazobact 3.375 GM in Sodium Chloride 0.9% 100 ML IVPB SCH ×5 (00:05→23:32)
[2016-11-10] MEDS: Enoxaparin 40 mg Syringe SC SCH (09:30)
--- NOTE | 2016-11-10 11:30 | CP.PCM.PN ---
Subjective - Date & Time of Evaluation Date of Evaluation: 11/10/16 Time of Evaluation: 11:29 - Subjective Subjective: 51 year old male was seen resting comfortably at bedside for right chronic leg non-healing ulcer. Patient is in ed during exam. States that he feels well today and has been moved to the TCU for further care. Denies any overnight events. Denies any complaints at this time. He denies any pain. Denies n/v/f/c/sob/cp. Objective - Vital Signs/Intake and Output Vital Signs (last 24 hours): Temp Pulse Resp BP Pulse Ox 97.7 F 65 20 130/80 99 11/10/16 10:15 11/10/16 10:15 11/10/16 10:15 11/10/16 10:15 11/10/16 10:15 - Medications Medications: Current Medications Enoxaparin Sodium (Lovenox) 40 mg SC DAILY [facility] PRN Reason: Protocol Last Admin: 11/10/16 09:30 Dose: 40 mg Hydrochlorothiazide (Hydrodiuril) 25 mg PO DAILY [facility] Last Admin: 11/10/16 09:30 Dose: 25 mg Piperacillin Sod/Tazobactam (Sod 3.375 gm/ Sodium Chloride) 100 mls @ 100 mls/ hr IVPB 0600,1200,1800,0000 [facility] Last Admin: 11/10/16 06:43 Dose: 100 mls/hr - Constitutional Appears: Well, Non-toxic, No Acute Distress - Additional Findings Additional findings: Right lower extremity focused exam: VASC: Left PT pulse palpable 2/4 and right DP pulse palpable graded 2/4, other pulses non-palpable secondary to increased tissue density and edema. CFT < 3 seconds to all digits b/l. Temperature gradient runs warm to cool from proximal to distal b/l. DERM: Ulcerations noted: 1 to medial aspect of right leg dime sized, 2 to lateral aspect of lateral aspect of right leg, both are nickel sized; largest to central lateral aspect of right leg measuring approximately 9 cm x 7 cm wound with boggy macerated david-wound margine extending out circumferentialy, 9 cm at longest tangent. Wound base has papilary dermal protrusion, firmly adhered. Diffuse, circumferential, thick lichenification tissue to lower extremity b/l. NEURO: Sensation grossly intact. ORTHO: Motion at major pedal muscle groups moderately limited due to patients edema. Assessment and Plan - Assessment and Plan (Free Text) Assessment: 51 year old male with chronic soft tissue ulcerations and lichenifications of right lower extremity, secondary to lymphedema. Plan: Patient examined and evaluated Chart, labs, and vitals reviewed Discussed in detail with attending, Dr. Romo RLE dressed with Xeroform, DSD & RICH to RLE wound culture-proteus continue iv abx per ID Advised to shower daily before dressing changes. Podiatry will continue to follow while in house
--- NOTE | 2016-11-10 15:01 | CP.PCM.HP ---
<Vanessa Thornton - Last Filed: 11/10/16 15:04> History of Present Illness - History of Present Illness History of Present Illness: Patient is a 51 y/o male with history of HTN, Peripheral Edema,and b/l lower extremity lymphedema who was sent from wound care clinic by Dr. Romo, who wants him to be admitted for IV antibiotics and daily wound care. Patient was admitted for IV antibiotics and daily wound care by Podiatry. ID was consulted and patient has been managed with Zosyn IV. IR was consulted and PICC line was placed. Patient tolerated procedure well. He denies any recent n/v/sob/cp. Patient denies any numbness, burning or tingling in his feet or legs. Present on Admission - Present on Admission Any Indicators Present on Admission: No History of DVT/PE: No History of Uncontrolled Diabetes: No Urinary Catheter: No Decubitus Ulcer Present: No Review of Systems - Constitutional Constitutional: As Per HPI Past Patient History - Infectious Disease Hx of Infectious Diseases: None - Tetanus Immunizations Tetanus Immunization: Unknown - Past Medical History & Family History Past Medical History?: Yes - Past Social History Smoking Status: Never Smoked - CARDIAC Hx Hypertension: Yes Hx Peripheral Edema: Yes - PULMONARY Hx Asthma: No Hx Bronchitis: No Hx Chronic Obstructive Pulmonary Disease (COPD): No Hx Emphysema: No Hx Pneumonia: No Hx Pulmonary Embolism: No Hx Sleep Apnea: No - NEUROLOGICAL Hx Neurological Disorder: No - HEENT Hx HEENT Problems: No - RENAL Hx Chronic Kidney Disease: No Hx Kidney Stones: No - ENDOCRINE/METABOLIC Hx Hyperthyroidism: No Hx Hypothyroidism: No - HEMATOLOGICAL/ONCOLOGICAL Hx Anemia: No Hx Human Immunodeficiency Virus (HIV): No Hx Sickle Cell Disease: No - INTEGUMENTARY Hx Dermatological Problems: Yes Hx Cellulitis: Yes Other/Comment: lymphadema - MUSCULOSKELETAL/RHEUMATOLOGICAL Hx Falls: No Other/Comment: obesity - GASTROINTESTINAL Hx Gastrointestinal Disorders: Yes Other/Comment: Umbilical hernia - GENITOURINARY/GYNECOLOGICAL Hx Genitourinary Disorders: No - PSYCHIATRIC Hx Substance Use: No - SURGICAL HISTORY Hx Appendectomy: No - ANESTHESIA Hx Anesthesia: No Hx Anesthesia Reactions: No Meds Allergies/Adverse Reactions: Allergies Allergy/AdvReac Type Severity Reaction Status Date / Time ciprofloxacin [From Cipro] Allergy RASH Verified 11/09/16 16:38 ciprofloxacin HCl Allergy RASH Verified 11/09/16 16:38 [From Cipro] chocolate flavor AdvReac ears run Verified 11/09/16 16:38 Physical Exam - Additional Findings Additional findings: Constitutional Appears: Non-toxic, No Acute Distress - ENT Exam ENT Exam: Mucous Membranes Moist - Respiratory Exam Respiratory Exam: Clear to Ausculation Bilateral, NORMAL BREATHING PATTERN - Cardiovascular Exam Cardiovascular Exam: REGULAR RHYTHM, +S1, +S2 - GI/Abdominal Exam GI & Abdominal Exam: Soft, Normal Bowel Sounds. absent: Distended, Tenderness - Extremities Exam Additional comments: Massive edema of lower extremities, severe lymphedema with elephantiasis / deformities of LE's - Neurological Exam Neurological Exam: Alert, Awake, Oriented x3 - Skin Skin Exam: Dry, Intact, Normal Color Results - Vital Signs Recent Vital Signs: Last Vital Signs Temp 97.7 F 11/10/16 10:15 Pulse 65 11/10/16 10:15 Resp 20 11/10/16 10:15 BP 130/80 11/10/16 10:15 Pulse Ox 99 11/10/16 10:15 Assessment & Plan - Assessment and Plan (Free Text) Assessment: 51 y/o with history of HTN,Peripheral Edema,and b/l lower extremity lymphedema with right lower extremity cellulitis most likely due to his venous insufficiency admitted for IV antibiotics and wound care. Plan: 1. Right lower extremity Cellulitis -Dr. Moraes on board -Continue with Zosyn as ordered; Infectious Disease does not recommend Vanco -Podiatry for wound care - CBC showed H/H WNL, WBC: WNL -PICC IV line insertion for IV antibiotics 2. Hypertension Controlled with home medication restarted home med of HCTZ 25mg daily 3. Hyperkalemia -Resolved -Asymptomatic -K+ 4.5 on 11/09/16 4. Diet Heart Healthy 5. DVT prophylaxis Lovenox 40mg SC 6. Morbid Obesity BMI: 62.8 - Date & Time Date: 11/10/16 Time: 08:55 <Isabel Cottrell - Last Filed: 11/11/16 08:32> Results - Vital Signs Recent Vital Signs: Last Vital Signs Temp 97.5 F L 11/11/16 08:16 Pulse 64 11/11/16 08:16 Resp 20 11/11/16 08:16 BP 130/79 11/11/16 08:16 Pulse Ox 99 11/11/16 08:16 Assessment & Plan - Assessment and Plan (Free Text) Assessment: PATIENT SEEN AND EXAMINED. PATIENT WITHOUT COMPLAINT. aGREE WITH PLAN.
[2016-11-11] MEDS: Piperacillin/Tazobact 3.375 GM in Sodium Chloride 0.9% 100 ML IVPB SCH ×3 (06:14→17:20)
[2016-11-11] MEDS: Enoxaparin 40 mg Syringe SC SCH (09:33)
--- NOTE | 2016-11-11 12:54 | CP.PCM.CON ---
History of Present Illness - History of Present Illness History of Present Illness: 51 y/o male with history of HTN, Peripheral Edema,and b/l lower extremity lymphedema who was sent from wound care clinic by Dr. Romo, who wants him to be admitted for IV antibiotics and daily wound care PMH- CKD, Obesity, HTN, elephantiasis FH- n/c SH denies ETOH, allergies - noted Review of Systems - Review of Systems All systems: reviewed and no additional remarkable complaints except - Constitutional Constitutional: As Per HPI - EENT Eyes: absent: As Per HPI, Blind Spots, Blurred Vision, Change in Vision, Decreased Night Vision, Diplopia, Discharge, Dry Eye, Exophthalmos, Floaters, Irritation, Itchy Eyes, Loss of Peripheral Vision, Pain, Photophobia, Requires Corrective Lenses, Sees Flashes, Spots in Vision, Tunnel Vision, Other Visual Disturbances, Loss of Vision, Other Ears: absent: As Per HPI, Decreased Hearing, Ear Discharge, Ear Pain, Tinnitus, Abnormal Hearing, Disequilibrium, Dizziness, Other Nose/Mouth/Throat: absent: As Per HPI, Epistaxis, Nasal Congestion, Nasal Discharge, Nasal Obstruction, Nasal Trauma, Nose Pain, Post Nasal Drip, Sinus Pain, Sinus Pressure, Bleeding Gums, Change in Voice, Dental Pain, Dry Mouth, Dysphagia, Halitosis, Hoarsness, Lip Swelling, Mouth Lesions, Mouth Pain, Odynophagia, Sore Throat, Throat Swelling, Tongue Swelling, Facial Pain, Neck Pain, Neck Mass, Other - Cardiovascular Cardiovascular: absent: As Per HPI, Acrocyanosis, Chest Pain, Chest Pain at Rest , Chest Pain with Activity, Claudication, Diaphoresis, Dyspnea, Dyspnea on Exertion, Edema, Irregular Heart Rhythm, Pain Radiating to Arm/Neck/Jaw, Leg Edema, Leg Ulcers, Lightheadedness, Orthopnea, Palpitations, Paroxysmal Nocturnal Dyspnea, Pedal Edema, Radiating Pain, Rapid Heart Rate, Slow Heart Rate, Syncope, Other - Respiratory Respiratory: absent: As Per HPI, Cough, Dyspnea, Hemoptysis, Dyspnea on Exertion , Wheezing, Snoring, Stridor, Pain on Inspiration, Chest Congestion, Excessive Mucous Production, Change in Mucous Color, Pain with Coughing, Other - Gastrointestinal Gastrointestinal: absent: As Per HPI, Abdominal Pain, Belching, Bloating, Change in Bowel Habits, Change in Stool Character, Coffee Ground Emesis, Constipation, Cramping, Diarrhea, Dyspepsia, Dysphagia, Early Satiety, Excessive Flatus, Fecal Incontinence, Heartburn, Hematemesis, Hematochezia, Loose Stools, Melena, Nausea, Odynophagia, Temesmus, Vomiting, Other - Genitourinary Genitourinary: absent: As Per HPI, Change in Urinary Stream, Difficulty Urinating, Dysuria, Flank Pain, Hematuria, Pyuria, Nocturia, Urinary Incontinence, Urinary Frequency, Urinary Hesitance, Urinary Urgency, Voiding Freq/Small Amts, Freq UTI, Hx Renal/Bladder Calculi, Hx /Renal Surgery, Bladder Distension, Other - Musculoskeletal Musculoskeletal: absent: As Per HPI, Abnormal Gait, Arthralgias, Atrophy, Back Pain, Deformity, Joint Swelling, Limited Range of Motion, Loss of Height, Muscle Cramps, Muscle Weakness, Myalgias, Neck Pain, Numbness, Radiating Pain into Limb, Stiffness, Tingling, Other - Integumentary Integumentary: absent: As Per HPI, Acne, Alopecia, Bleeding Lesions, Change in Hair, Change in Nails, Change in Pigmentation, Changing Lesions, Dry Skin, Erythema, Furuncle, Hirsutism, Lesions, New Lesions, Non-Healing Lesions, Photosensitivity, Pruritus, Rash, Skin Pain, Skin Ulcer, Sores, Striae, Swelling , Unusual Bruising, Wounds, Jaundice, Other - Neurological Neurological: absent: As Per HPI, Abnormal Gait, Abnormal Hearing, Abnormal Movements, Abnormal Speech, Behavioral Changes, Burning Sensations, Confusion, Convulsions, Disequilibrium, Dizziness, Numbness, Focal Weakness, Frequent Falls , Headaches, Lack of Coordination, Loss of Vision, Memory Loss, Paresthesias, Radicular Pain, Restless Legs, Sensory Deficit, Syncope, Tingling, Tremor, Vertigo, Weakness, Other Visual Disturbances, Other - Psychiatric Psychiatric: absent: As Per HPI, Abnormal Sleep Pattern, Anhedonia, Anxiety, Auditory Hallucinations, Behavioral Changes, Change in Appetite, Change in Libido, Confusion, Depression, Difficulty Concentrating, Hallucinations, Homicidal Ideation, Hopelessness, Irritability, Memory Loss, Mood Swings, Panic Attacks, Paranoia, Suicidal Ideation, Visual Hallucinations, Tactile Hallucinations, Other - Endocrine Endocrine: absent: As Per HPI, Change in Body Appearance, Change in Libido, Cold Intolorance, Deepening of Voice, Excessive Sweating, Fatigue, Flushing, Heat Intolorance, Increase in Ring/Shoe/Hat Size, Palpitations, Polydipsia, Polyphagia, Polyuria, Other - Hematologic/Lymphatic Hematologic: absent: As Per HPI, Easy Bleeding, Easy Bruising, Lymphadenopathy, Other Past Patient History - Infectious Disease Hx of Infectious Diseases: None - Tetanus Immunizations Tetanus Immunization: Unknown - Past Medical History & Family History Past Medical History?: Yes - Past Social History Smoking Status: Never Smoked - CARDIAC Hx Hypertension: Yes Hx Peripheral Edema: Yes - PULMONARY Hx Asthma: No Hx Bronchitis: No Hx Chronic Obstructive Pulmonary Disease (COPD): No Hx Emphysema: No Hx Pneumonia: No Hx Pulmonary Embolism: No Hx Sleep Apnea: No - NEUROLOGICAL Hx Neurological Disorder: No - HEENT Hx HEENT Problems: No - RENAL Hx Chronic Kidney Disease: No Hx Kidney Stones: No - ENDOCRINE/METABOLIC Hx Hyperthyroidism: No Hx Hypothyroidism: No - HEMATOLOGICAL/ONCOLOGICAL Hx Anemia: No Hx Human Immunodeficiency Virus (HIV): No Hx Sickle Cell Disease: No - INTEGUMENTARY Hx Dermatological Problems: Yes Hx Cellulitis: Yes Other/Comment: lymphadema - MUSCULOSKELETAL/RHEUMATOLOGICAL Hx Falls: No Other/Comment: obesity - GASTROINTESTINAL Hx Gastrointestinal Disorders: Yes Other/Comment: Umbilical hernia - GENITOURINARY/GYNECOLOGICAL Hx Genitourinary Disorders: No - PSYCHIATRIC Hx Substance Use: No - SURGICAL HISTORY Hx Appendectomy: No - ANESTHESIA Hx Anesthesia: No Hx Anesthesia Reactions: No Meds Allergies/Adverse Reactions: Allergies Allergy/AdvReac Type Severity Reaction Status Date / Time ciprofloxacin [From Cipro] Allergy RASH Verified 11/09/16 16:38 ciprofloxacin HCl Allergy RASH Verified 11/09/16 16:38 [From Cipro] chocolate flavor AdvReac ears run Verified 11/09/16 16:38 - Medications Medications: Current Medications Enoxaparin Sodium (Lovenox) 40 mg SC DAILY [facility] PRN Reason: Protocol Last Admin: 11/11/16 09:33 Dose: 40 mg Hydrochlorothiazide (Hydrodiuril) 25 mg PO DAILY [facility] Last Admin: 11/11/16 09:34 Dose: 25 mg Piperacillin Sod/Tazobactam (Sod 3.375 gm/ Sodium Chloride) 100 mls @ 100 mls/ hr IVPB 0600,1200,1800,0000 [facility] Last Admin: 11/11/16 12:26 Dose: 100 mls/hr Physical Exam - Constitutional Appears: Non-toxic, Chronically Ill - Head Exam Head Exam: ATRAUMATIC, NORMAL INSPECTION, NORMOCEPHALIC - Eye Exam Eye Exam: PERRL. absent: Scleral icterus - ENT Exam ENT Exam: Mucous Membranes Dry, Normal External Ear Exam - Neck Exam Neck exam: Negative for: Lymphadenopathy - Respiratory Exam Respiratory Exam: Decreased Breath Sounds, Clear to Auscultation Bilateral - Cardiovascular Exam Cardiovascular Exam: REGULAR RHYTHM, +S1, +S2 - GI/Abdominal Exam GI & Abdominal Exam: Diminished Bowel Sounds, Soft. absent: Tenderness - Rectal Exam Rectal Exam: Deferred - Exam Exam: NORMAL INSPECTION - Extremities Exam Extremities exam: Positive for: pedal edema, tenderness - Back Exam Back exam: absent: CVA tenderness (L), CVA tenderness (R) - Neurological Exam Neurological exam: Alert, CN II-XII Intact, Oriented x3, Reflexes Normal - Psychiatric Exam Psychiatric exam: Normal Mood - Skin Skin Exam: Dry Results - Vital Signs Recent Vital Signs: Last Vital Signs Temp 97.5 F L 11/11/16 08:16 Pulse 64 11/11/16 08:16 Resp 20 11/11/16 08:16 BP 130/79 11/11/16 08:16 Pulse Ox 99 11/11/16 08:16 Assessment & Plan (1) MARIAM (acute kidney injury) Status: Acute Priority: High (2) Cellulitis Status: Acute Priority: High (3) Elephantiasis (nonfilarial) Status: Acute (4) Homelessness Status: Acute (5) Leg wound, right Status: Acute (6) Lymphedema Status: Acute Priority: Medium - Assessment and Plan (Free Text) Assessment: cultures reviewed cont iv rx for at least 7 days
[2016-11-12] MEDS: Piperacillin/Tazobact 3.375 GM in Sodium Chloride 0.9% 100 ML IVPB SCH ×4 (00:27→17:32)
[2016-11-12 05:23] LABS: BASO # 0.2 K/uL (0.0-0.2); BASO % 2.2 % (0.0-2.0); EOS # 0.3 K/uL (0.0-0.7); EOS % 4.4 % (0.0-4.0); HEMATOCRIT 40.6 % (35.0-51.0); LYMPH # 1.3 K/uL (1.0-4.3); LYMPH % 17.9 % (20.0-40.0); MEAN CELL VOLUME 82.3 fl (80.0-94.0); MEAN CORPUSCULAR HEMOGLOBIN 26.1 pg (27.0-31.0); MEAN CORPUSCULAR HGB CONC 31.7 g/dL (33.0-37.0); MEAN PLATELET VOLUME 9.3 fl (7.2-11.7); MONO # 0.6 K/uL (0.0-0.8); MONO % 9.1 % (0.0-10.0); NEUT # 4.6 K/uL (1.8-7.0); NEUT % 66.4 % (50.0-75.0); NRBC % 0.1 % (0.0-0.0); RED CELL DISTRIBUTION WIDTH 16.8 % (11.5-14.5)
[2016-11-12 05:34] LABS: CALCIUM 8.8 mg/dL (8.4-10.2)
--- NOTE | 2016-11-12 06:39 | CP.PCM.PN ---
Subjective - Date & Time of Evaluation Date of Evaluation: 11/12/16 Time of Evaluation: 06:38 - Subjective Subjective: 51 year old male was seen resting comfortably at bedside for right chronic leg non-healing ulcer. He denies any pain. Denies n/v/f/c/sob/cp. Objective - Vital Signs/Intake and Output Vital Signs (last 24 hours): Temp Pulse Resp BP Pulse Ox 97.7 F 57 L 20 134/70 99 11/11/16 20:50 11/11/16 20:50 11/11/16 20:50 11/11/16 20:50 11/11/16 20:50 - Medications Medications: Current Medications Enoxaparin Sodium (Lovenox) 40 mg SC DAILY [facility] PRN Reason: Protocol Last Admin: 11/11/16 09:33 Dose: 40 mg Hydrochlorothiazide (Hydrodiuril) 25 mg PO DAILY [facility] Last Admin: 11/11/16 09:34 Dose: 25 mg Piperacillin Sod/Tazobactam (Sod 3.375 gm/ Sodium Chloride) 100 mls @ 100 mls/ hr IVPB 0600,1200,1800,0000 [facility] Last Admin: 11/12/16 06:34 Dose: 100 mls/hr - Labs Labs: 11/12/16 05:00 11/12/16 05:00 - Constitutional Appears: Non-toxic, No Acute Distress - Extremities Exam Additional comments: Right lower extremity focused exam: VASC: Left PT pulse palpable 2/4 and right DP pulse palpable graded 2/4, other pulses non-palpable secondary to increased tissue density and edema. CFT < 3 seconds to all digits b/l. Temperature gradient runs warm to cool from proximal to distal b/l. DERM: Ulcerations noted: 1 to medial aspect of right leg dime sized, 2 to lateral aspect of lateral aspect of right leg, both are nickel sized; largest to central lateral aspect of right leg measuring approximately 9 cm x 7 cm wound with boggy macerated david-wound margin extending out circumferentialy, 9 cm at longest tangent. Wound base has papillary dermal protrusion, firmly adhered. Diffuse, circumferential, thick lichenification tissue to lower extremity b/l. NEURO: Sensation grossly intact. ORTHO: Motion at major pedal muscle groups moderately limited due to patients edema. - Neurological Exam Neurological Exam: Alert, Awake, Oriented x3 - Psychiatric Exam Psychiatric exam: Normal Affect, Normal Mood Assessment and Plan - Assessment and Plan (Free Text) Assessment: 51 year old male with chronic soft tissue ulcerations and lichenifications of right lower extremity, secondary to lymphedema. Plan: Patient examined and evaluated Chart, labs, and vitals reviewed Discussed in detail with attending, Dr. Romo RLE dressed with Xeroform, DSD & RICH to RLE wound culture-proteus continue iv abx per ID Advised to shower daily before dressing changes. Podiatry will continue to follow while in house
[2016-11-12] MEDS: Enoxaparin 40 mg Syringe SC SCH (09:23)
[2016-11-13] MEDS: Piperacillin/Tazobact 3.375 GM in Sodium Chloride 0.9% 100 ML IVPB SCH ×4 (00:39→17:15)
--- NOTE | 2016-11-13 08:18 | CP.PCM.PN ---
Subjective - Date & Time of Evaluation Date of Evaluation: 11/13/16 Time of Evaluation: 08:17 - Subjective Subjective: 51 year old male was seen resting comfortably at bedside for right chronic leg non-healing ulcer. He denies any pain. Denies n/v/f/c/sob/cp. Objective - Vital Signs/Intake and Output Vital Signs (last 24 hours): Temp Pulse Resp BP Pulse Ox 97.5 F L 65 20 117/56 L 99 11/12/16 20:44 11/12/16 20:44 11/12/16 20:44 11/12/16 20:44 11/12/16 20:44 - Medications Medications: Current Medications Enoxaparin Sodium (Lovenox) 40 mg SC DAILY [facility] PRN Reason: Protocol Last Admin: 11/12/16 09:23 Dose: 40 mg Hydrochlorothiazide (Hydrodiuril) 25 mg PO DAILY [facility] Last Admin: 11/12/16 09:23 Dose: 25 mg Piperacillin Sod/Tazobactam (Sod 3.375 gm/ Sodium Chloride) 100 mls @ 100 mls/ hr IVPB 0600,1200,1800,0000 [facility] Last Admin: 11/13/16 05:51 Dose: 100 mls/hr - Labs Labs: 11/12/16 05:00 11/12/16 05:00 - Constitutional Appears: Non-toxic, No Acute Distress - Extremities Exam Additional comments: Right lower extremity focused exam: VASC: Left PT pulse palpable 2/4 and right DP pulse palpable graded 2/4, other pulses non-palpable secondary to increased tissue density and edema. CFT < 3 seconds to all digits b/l. Temperature gradient runs warm to cool from proximal to distal b/l. DERM: Ulcerations noted: 1 to medial aspect of right leg dime sized, 2 to lateral aspect of lateral aspect of right leg, both are nickel sized; largest to central lateral aspect of right leg measuring approximately 5 cm x 4 cm wound. Wound base has papillary dermal protrusion, firmly adhered. Diffuse, circumferential, thick lichenification tissue to lower extremity b/l. NEURO: Sensation grossly intact. ORTHO: Motion at major pedal muscle groups moderately limited due to patients edema. - Neurological Exam Neurological Exam: Alert, Awake, Oriented x3 - Psychiatric Exam Psychiatric exam: Normal Affect, Normal Mood Assessment and Plan - Assessment and Plan (Free Text) Assessment: 51 year old male with chronic soft tissue ulcerations and lichenifications of right lower extremity, secondary to lymphedema. Plan: Patient examined and evaluated Chart, labs, and vitals reviewed Discussed in detail with attending, Dr. Clarissa FERNÁNDEZ dressed with DSD & RICH to RLE wound culture-proteus continue iv abx per ID Advised to shower daily before dressing changes. Podiatry will continue to follow while in house
[2016-11-13] MEDS: Enoxaparin 40 mg Syringe SC SCH (09:52)
--- NOTE | 2016-11-13 14:44 | CP.PCM.PN ---
Subjective - Date & Time of Evaluation Date of Evaluation: 11/13/16 Time of Evaluation: 08:35 - Subjective Subjective: Patient seen and examined at bedside, eating breakfast, no acute pain at this time. Uneventful night. He is getting IV Abx (Zosyn), with clinical improvement. Afebrile, BP well controlled so far. ROS: Denies: abdominal pain, N/V/D, SOB, CP. Objective - Vital Signs/Intake and Output Vital Signs (last 24 hours): Temp Pulse Resp BP Pulse Ox 97.5 F L 61 20 138/65 98 11/13/16 08:27 11/13/16 08:27 11/13/16 08:27 11/13/16 08:27 11/13/16 08:27 Intake and Output: 11/13/16 11/13/16 06:59 18:59 Intake Total 100 Output Total 300 Balance -200 - Medications Medications: Current Medications Hydrochlorothiazide (Hydrodiuril) 25 mg PO DAILY [facility] Last Admin: 11/13/16 09:52 Dose: 25 mg Piperacillin Sod/Tazobactam (Sod 3.375 gm/ Sodium Chloride) 100 mls @ 100 mls/ hr IVPB 0600,1200,1800,0000 [facility] Last Admin: 11/13/16 13:09 Dose: 100 mls/hr - Labs Labs: 11/12/16 05:00 11/12/16 05:00 - Additional Findings Additional findings: - Additional Findings Additional findings: Constitutional Appears: Non-toxic, No Acute Distress - ENT Exam ENT Exam: Mucous Membranes Moist - Respiratory Exam Respiratory Exam: Clear to Ausculation Bilateral, NORMAL BREATHING PATTERN - Cardiovascular Exam Cardiovascular Exam: REGULAR RHYTHM, +S1, +S2 - GI/Abdominal Exam GI & Abdominal Exam: Soft, Normal Bowel Sounds. absent: Distended, Tenderness - Extremities Exam Additional comments: Massive edema of lower extremities, severe lymphedema with elephantiasis / deformities of LE's - Neurological Exam Neurological Exam: Alert, Awake, Oriented x3 - Skin Skin Exam: Dry, Intact, Normal Color Assessment and Plan - Assessment and Plan (Free Text) Plan: 51 y/o with history of HTN,Peripheral Edema,and b/l lower extremity lymphedema with right lower extremity cellulitis most likely due to his venous insufficiency admitted for IV antibiotics and wound care. Right lower extremity Cellulitis -ID Dr. Moraes on board -on Zosyn as ordered -Podiatry on board for wound care - CBC showed H/H WNL, WBC: WNL Hypertension Controlled with home medication restarted home med of HCTZ 25mg daily Morbid Obesity BMI: 62.8 DVT prophylaxis Lovenox 40mg SC
[2016-11-14] MEDS: Piperacillin/Tazobact 3.375 GM in Sodium Chloride 0.9% 100 ML IVPB SCH ×4 (00:39→17:23)
[2016-11-14 06:53] LABS: CALCIUM 9.1 mg/dL (8.4-10.2)
[2016-11-14 07:04] LABS: POTASSIUM 5.1 MMOL/L (3.6-5.0)
--- NOTE | 2016-11-14 08:23 | CP.PCM.PN ---
Subjective - Date & Time of Evaluation Date of Evaluation: 11/14/16 Time of Evaluation: 08:19 - Subjective Subjective: 51 year old male was seen at bedside regarding right leg chronic non-healing ulcer. He denies any pain today. Denies any n/v/f/c/sob/cp. Objective - Vital Signs/Intake and Output Vital Signs (last 24 hours): Temp Pulse Resp BP Pulse Ox 98.1 F 65 20 127/83 100 11/13/16 21:20 11/13/16 21:20 11/13/16 21:20 11/13/16 21:20 11/13/16 21:20 - Medications Medications: Current Medications Enoxaparin Sodium (Lovenox) 40 mg SC DAILY [facility] PRN Reason: Protocol Hydrochlorothiazide (Hydrodiuril) 25 mg PO DAILY [facility] Last Admin: 11/13/16 09:52 Dose: 25 mg Piperacillin Sod/Tazobactam (Sod 3.375 gm/ Sodium Chloride) 100 mls @ 100 mls/ hr IVPB 0600,1200,1800,0000 [facility] Last Admin: 11/14/16 05:30 Dose: 100 mls/hr - Labs Labs: 11/12/16 05:00 11/14/16 06:27 - Constitutional Appears: Well, Non-toxic, No Acute Distress - Extremities Exam Additional comments: dressing clean/dry/intact to RLE - Neurological Exam Neurological Exam: Alert, Awake, Oriented x3 - Psychiatric Exam Psychiatric exam: Normal Affect, Normal Mood Assessment and Plan - Assessment and Plan (Free Text) Assessment: 51 year old male with chronic soft tissue ulcerations and lichenifications of right lower extremity, secondary to lymphedema. Plan: Patient examined and evaluated Chart, labs, and vitals reviewed Discussed in detail with attending, Dr. Romo order for nursing to change dressing today after patient showers wound culture-proteus continue iv abx per ID Advised to shower daily before dressing changes. Podiatry will continue to follow while in house
[2016-11-14] MEDS: Enoxaparin 40 mg Syringe SC SCH (09:00)
--- NOTE | 2016-11-14 17:27 | CP.PCM.PN ---
Subjective - Date & Time of Evaluation Date of Evaluation: 11/14/16 Time of Evaluation: 09:00 - Subjective Subjective: cont to improve still has odor may benefit from debridement Objective - Vital Signs/Intake and Output Vital Signs (last 24 hours): Temp Pulse Resp BP Pulse Ox 97.8 F 64 20 160/78 H 99 11/14/16 17:00 11/14/16 17:00 11/14/16 17:00 11/14/16 17:00 11/14/16 17:00 - Medications Medications: Current Medications Enoxaparin Sodium (Lovenox) 40 mg SC DAILY [facility] PRN Reason: Protocol Last Admin: 11/14/16 09:00 Dose: 40 mg Hydrochlorothiazide (Hydrodiuril) 25 mg PO DAILY [facility] Last Admin: 11/14/16 09:00 Dose: 25 mg Piperacillin Sod/Tazobactam (Sod 3.375 gm/ Sodium Chloride) 100 mls @ 100 mls/ hr IVPB 0600,1200,1800,0000 [facility] Last Admin: 11/14/16 12:21 Dose: 100 mls/hr - Labs Labs: 11/12/16 05:00 11/14/16 06:27 - Constitutional Appears: Non-toxic, Chronically Ill - Head Exam Head Exam: NORMOCEPHALIC - Eye Exam Eye Exam: PERRL. absent: Scleral icterus - ENT Exam ENT Exam: Mucous Membranes Dry - Neck Exam Neck Exam: absent: Lymphadenopathy - Respiratory Exam Respiratory Exam: Decreased Breath Sounds - Cardiovascular Exam Cardiovascular Exam: REGULAR RHYTHM - GI/Abdominal Exam GI & Abdominal Exam: Distended, Soft - Rectal Exam Rectal Exam: Deferred - Exam Exam: NORMAL INSPECTION - Extremities Exam Extremities Exam: Pedal Edema, Tenderness. absent: Calf Tenderness - Back Exam Back Exam: absent: CVA tenderness (L), CVA tenderness (R) - Neurological Exam Neurological Exam: Alert, Awake, Oriented x3 Assessment and Plan (1) MARIAM (acute kidney injury) Status: Acute (2) Cellulitis Status: Acute (3) Elephantiasis (nonfilarial) Status: Acute (4) Homelessness Status: Acute (5) Leg wound, right Status: Acute (6) Lymphedema Status: Acute
[2016-11-15] MEDS: Piperacillin/Tazobact 3.375 GM in Sodium Chloride 0.9% 100 ML IVPB SCH ×3 (00:26→17:11)
--- NOTE | 2016-11-15 06:54 | CP.PCM.PN ---
Subjective - Date & Time of Evaluation Date of Evaluation: 11/15/16 Time of Evaluation: 06:52 - Subjective Subjective: 51 year old male was seen resting comfortably at bedside for right chronic leg non-healing ulcer. He denies any pain. Denies n/v/f/c/sob/cp. Objective - Vital Signs/Intake and Output Vital Signs (last 24 hours): Temp Pulse Resp BP Pulse Ox 98.2 F 64 20 140/92 H 97 11/14/16 21:22 11/14/16 21:22 11/14/16 21:22 11/14/16 21:22 11/14/16 21:22 - Medications Medications: Current Medications Enoxaparin Sodium (Lovenox) 40 mg SC DAILY [facility] PRN Reason: Protocol Last Admin: 11/14/16 09:00 Dose: 40 mg Hydrochlorothiazide (Hydrodiuril) 25 mg PO DAILY [facility] Last Admin: 11/14/16 09:00 Dose: 25 mg Piperacillin Sod/Tazobactam (Sod 3.375 gm/ Sodium Chloride) 100 mls @ 100 mls/ hr IVPB 0600,1200,1800,0000 [facility] Last Admin: 11/15/16 00:26 Dose: 100 mls/hr - Labs Labs: 11/12/16 05:00 11/14/16 06:27 - Constitutional Appears: Well, Non-toxic, No Acute Distress - Extremities Exam Additional comments: Right lower extremity focused exam: VASC: Left PT pulse palpable 2/4 and right DP pulse palpable graded 2/4, other pulses non-palpable secondary to increased tissue density and edema. CFT < 3 seconds to all digits b/l. Temperature gradient runs warm to cool from proximal to distal b/l. DERM: Ulcerations noted: 1 to medial aspect of right leg dime sized, 2 to lateral aspect of lateral aspect of right leg, both are nickel sized; largest to central lateral aspect of right leg measuring approximately 4 cm x 3 cm wound. Wound base has papillary dermal protrusion, firmly adhered. Diffuse, circumferential, thick lichenification tissue to lower extremity b/l. NEURO: Sensation grossly intact. ORTHO: Motion at major pedal muscle groups moderately limited due to patients edema. - Neurological Exam Neurological Exam: Alert, Awake, Oriented x3 - Psychiatric Exam Psychiatric exam: Normal Affect, Normal Mood Assessment and Plan - Assessment and Plan (Free Text) Assessment: 51 year old male with chronic soft tissue ulcerations and lichenifications of right lower extremity, secondary to lymphedema. Plan: Patient examined and evaluated Chart, labs, and vitals reviewed Discussed in detail with attending, Dr. Clarissa FERNÁNDEZ dressed with DSD & RICH to RLE wound culture-proteus continue iv abx per ID Advised to shower daily before dressing changes. Podiatry will continue to follow while in house
[2016-11-15 07:10] LABS: HEMATOCRIT 43.3 % (35.0-51.0); MEAN CORPUSCULAR HGB CONC 31.4 g/dL (33.0-37.0); WHITE BLOOD COUNT 5.8 K/uL (4.8-10.8)
[2016-11-15 07:16] LABS: CALCIUM 8.9 mg/dL (8.4-10.2); POTASSIUM 5.3 MMOL/L (3.6-5.0)
[2016-11-15] MEDS ORDERED: Sod Polystyrene Sulf 15 gm/60 ml Oral Susp PO ONE (08:00)
[2016-11-15] MEDS: Enoxaparin 40 mg Syringe SC SCH (08:54)
--- NOTE | 2016-11-15 15:40 | CP.PCM.PCO ---
Assessment/Plan - Assessment and Plan (Free Text) Assessment: No complaints. feels wound is improved. HAving diarrhea due to "medicine they gave me" for K+
[2016-11-16] MEDS: Piperacillin/Tazobact 3.375 GM in Sodium Chloride 0.9% 100 ML IVPB SCH ×5 (00:47→18:11)
--- NOTE | 2016-11-16 08:36 | CP.PCM.PN ---
Subjective - Date & Time of Evaluation Date of Evaluation: 11/16/16 Time of Evaluation: 08:33 - Subjective Subjective: 51 year old male was seen resting comfortably at bedside for right chronic leg non-healing ulcer. He denies any pain to his right lower extremity. Dressing to RLE c/d/i. Denies n/v/f/c/sob/cp. Objective - Vital Signs/Intake and Output Vital Signs (last 24 hours): Temp Pulse Resp BP Pulse Ox 97.7 F 59 L 20 128/71 100 11/15/16 20:51 11/15/16 20:51 11/15/16 20:51 11/15/16 20:51 11/15/16 20:51 - Medications Medications: Current Medications Enoxaparin Sodium (Lovenox) 40 mg SC DAILY [facility] PRN Reason: Protocol Last Admin: 11/15/16 08:54 Dose: 40 mg Hydrochlorothiazide (Hydrodiuril) 25 mg PO DAILY [facility] Last Admin: 11/15/16 08:54 Dose: 25 mg Piperacillin Sod/Tazobactam (Sod 3.375 gm/ Sodium Chloride) 100 mls @ 100 mls/ hr IVPB 0600,1200,1800,0000 [facility] Last Admin: 11/16/16 06:05 Dose: 100 mls/hr - Labs Labs: 11/15/16 06:53 11/15/16 06:53 - Constitutional Appears: Well, Non-toxic, No Acute Distress - Extremities Exam Additional comments: dressing clean,dry, intact to RLE - Neurological Exam Neurological Exam: Alert, Awake, Oriented x3 - Psychiatric Exam Psychiatric exam: Normal Affect, Normal Mood Assessment and Plan - Assessment and Plan (Free Text) Assessment: 51 year old male with chronic soft tissue ulcerations and lichenifications of right lower extremity, secondary to lymphedema. Plan: Patient examined and evaluated Chart, labs, and vitals reviewed Discussed in detail with attending, Dr. Romo dressing c/d/i to RLE wound culture-proteus continue iv abx per ID Advised to shower daily before dressing changes. Patient is stable for d/c from podiatry standpoint Podiatry will continue to follow while in house Patient to f/u with Dr. Romo in [facility] upon d/c
[2016-11-16] MEDS: Enoxaparin 40 mg Syringe SC SCH (09:38)
[2016-11-16 10:17] LABS: CALCIUM 9.1 mg/dL (8.4-10.2); POTASSIUM 5.1 MMOL/L (3.6-5.0)
--- NOTE | 2016-11-16 13:26 | CP.PCM.PN ---
Subjective - Date & Time of Evaluation Date of Evaluation: 11/16/16 Time of Evaluation: 08:45 - Subjective Subjective: 51 y/o obese male with PMHx of HTN being f/u for cellulitis. Patient was seen and examined at bedside this morning. Patient reports that He feels well, and denies chest pain, SOB, nausea, abdominal pain, diarrheas or other complains. Objective - Vital Signs/Intake and Output Vital Signs (last 24 hours): Temp Pulse Resp BP Pulse Ox 97.3 F L 79 20 148/98 H 98 11/16/16 08:53 11/16/16 08:53 11/16/16 08:53 11/16/16 08:53 11/16/16 08:53 - Medications Medications: Current Medications Enoxaparin Sodium (Lovenox) 40 mg SC DAILY [facility] PRN Reason: Protocol Last Admin: 11/16/16 09:38 Dose: 40 mg Hydrochlorothiazide (Hydrodiuril) 25 mg PO DAILY [facility] Last Admin: 11/16/16 09:38 Dose: 25 mg Piperacillin Sod/Tazobactam (Sod 3.375 gm/ Sodium Chloride) 100 mls @ 100 mls/ hr IVPB 0600,1200,1800,0000 [facility] Last Admin: 11/16/16 12:59 Dose: 100 mls/hr - Labs Labs: 11/15/16 06:53 11/16/16 06:00 - Additional Findings Additional findings: Constitutional Appears: Non-toxic, No Acute Distress - ENT Exam ENT Exam: Mucous Membranes Moist - Respiratory Exam Respiratory Exam: Clear to Ausculation Bilateral, NORMAL BREATHING PATTERN - Cardiovascular Exam Cardiovascular Exam: REGULAR RHYTHM, +S1, +S2 - GI/Abdominal Exam GI & Abdominal Exam: Soft, Normal Bowel Sounds. absent: Distended, Tenderness - Extremities Exam Additional comments: Massive edema of lower extremities, severe lymphedema with elephantiasis / deformities of LE's - Neurological Exam Neurological Exam: Alert, Awake, Oriented x3 - Skin Skin Exam: Dry, Intact, Normal Color Assessment and Plan - Assessment and Plan (Free Text) Assessment: 51 y/o with history of HTN,Peripheral Edema,and b/l lower extremity lymphedema with right lower extremity cellulitis most likely due to his venous insufficiency admitted for IV antibiotics and wound care. Plan: Right lower extremity Cellulitis -ID Dr. Moraes on board -on Zosyn as ordered -Podiatry on board for wound care -Anticipated DC for tomorrow on Keflex 500 mg TID for 10 days. Hypertension Controlled with home medication restarted home med of HCTZ 25mg daily Morbid Obesity BMI: 62.8 DVT prophylaxis Lovenox 40mg SC
[2016-11-16] MEDS ORDERED: Sod Polystyrene Sulf 15 gm/60 ml Oral Susp PO ONE (17:57)
[2016-11-16 20:14] VITALS: TEMP 97.7
[2016-11-17] MEDS: Piperacillin/Tazobact 3.375 GM in Sodium Chloride 0.9% 100 ML IVPB SCH ×3 (00:20→12:00)
[2016-11-17 06:41] LABS: CALCIUM 8.8 mg/dL (8.4-10.2)
[2016-11-17] MEDS: Enoxaparin 40 mg Syringe SC SCH (08:47)
[2016-11-17 09:12] VITALS: BP 139/64; PULSE 69; O2SAT 100
--- NOTE | 2016-11-17 11:57 | CP.PCM.PN ---
Subjective - Date & Time of Evaluation Date of Evaluation: 11/17/16 Time of Evaluation: 11:30 - Subjective Subjective: 51 year old male was seen resting comfortably at bedside for right chronic leg non-healing ulcer. He denies any pain to his right lower extremity. Dressing to RLE c/d/i. Denies n/v/f/c/sob/cp. Objective - Vital Signs/Intake and Output Vital Signs (last 24 hours): Temp Pulse Resp BP Pulse Ox 97.7 F 69 20 139/64 100 11/17/16 09:10 11/17/16 09:10 11/17/16 09:10 11/17/16 09:10 11/17/16 09:10 - Medications Medications: Current Medications Enoxaparin Sodium (Lovenox) 40 mg SC DAILY [facility] PRN Reason: Protocol Last Admin: 11/17/16 08:47 Dose: 40 mg Hydrochlorothiazide (Hydrodiuril) 25 mg PO DAILY [facility] Last Admin: 11/17/16 08:47 Dose: 25 mg Piperacillin Sod/Tazobactam (Sod 3.375 gm/ Sodium Chloride) 100 mls @ 100 mls/ hr IVPB 0600,1200,1800,0000 [facility] Last Admin: 11/17/16 05:45 Dose: 100 mls/hr - Labs Labs: 11/15/16 06:53 11/17/16 06:00 - Constitutional Appears: Well, Non-toxic, No Acute Distress - Extremities Exam Additional comments: Right lower extremity focused exam: VASC: Left PT pulse palpable 2/4 and right DP pulse palpable graded 2/4, other pulses non-palpable secondary to increased tissue density and edema. CFT < 3 seconds to all digits b/l. Temperature gradient runs warm to cool from proximal to distal b/l. DERM: No ulcerations noted. 2 former ulceration sites to lateral aspect of right leg as fully epithelialized with hyperkeratotic tissue. NEURO: Sensation grossly intact. ORTHO: Motion at major pedal muscle groups moderately limited due to patients edema. - Neurological Exam Neurological Exam: Alert, Awake, Oriented x3 - Psychiatric Exam Psychiatric exam: Normal Affect, Normal Mood Assessment and Plan - Assessment and Plan (Free Text) Assessment: 51 year old male with chronic soft tissue ulcerations and lichenifications of right lower extremity, secondary to lymphedema. Plan: Patient examined and evaluated Chart, labs, and vitals reviewed Discussed in detail with attending, Dr. Rodriguez Bilateral LE dressed with DSD , RICH, compression stockinette. Pt is stable fro discharge from podiatry standpoint. Pt will followup with Dr. Rodriguez in [facility] as needed.
--- NOTE | 2016-11-17 13:05 | CP.PCM.DIS ---
Provider - Provider Date of Admission: 11/09/16 16:40 Attending physician: Gardenia Javier MD Consults: ID: Dr. Moraes Podiatry team Time Spent in preparation of Discharge (in minutes): 30 Diagnosis - Discharge Diagnosis (1) Cellulitis Status: Acute Priority: High Comment: Keflex 500 mg PO TID x 10 days. discussed w/ ID and Podiatry. F/U in Podiatry clinic. (2) Hypertension Status: Chronic Comment: c/w HCTZ 25 mg PO daily Hospital Course - Lab Results Lab Results: Most Recent Lab Values WBC 5.8 K/uL (4.8-10.8) 11/15/16 06:53 RBC 5.22 Mil/uL (4.40-5.90) 11/15/16 06:53 Hgb 13.6 g/dL (12.0-18.0) 11/15/16 06:53 Hct 43.3 % (35.0-51.0) 11/15/16 06:53 MCV 83.0 fl (80.0-94.0) 11/15/16 06:53 MCH 26.0 pg (27.0-31.0) L 11/15/16 06:53 MCHC 31.4 g/dL (33.0-37.0) L 11/15/16 06:53 RDW 17.0 % (11.5-14.5) H 11/15/16 06:53 Plt Count 247 K/uL (130-400) 11/15/16 06:53 MPV 9.3 fl (7.2-11.7) 11/12/16 05:00 Neut % (Auto) 66.4 % (50.0-75.0) 11/12/16 05:00 Lymph % (Auto) 17.9 % (20.0-40.0) L 11/12/16 05:00 Carver % (Auto) 9.1 % (0.0-10.0) 11/12/16 05:00 Eos % (Auto) 4.4 % (0.0-4.0) H 11/12/16 05:00 Baso % (Auto) 2.2 % (0.0-2.0) H 11/12/16 05:00 Neut # 4.6 K/uL (1.8-7.0) 11/12/16 05:00 Lymph # 1.3 K/uL (1.0-4.3) 11/12/16 05:00 Carver # 0.6 K/uL (0.0-0.8) 11/12/16 05:00 Eos # 0.3 K/uL (0.0-0.7) 11/12/16 05:00 Baso # 0.2 K/uL (0.0-0.2) 11/12/16 05:00 Sodium 141 mmol/l (132-148) 11/17/16 06:00 Potassium 5.0 MMOL/L (3.6-5.0) 11/17/16 06:00 Chloride 107 mmol/L (98-107) 11/17/16 06:00 Carbon Dioxide 24 mmol/L (22-30) 11/17/16 06:00 Anion Gap 16 (10-20) 11/17/16 06:00 BUN 28 mg/dl (9-20) H 11/17/16 06:00 Creatinine 1.5 mg/dL (0.8-1.5) 11/17/16 06:00 Est GFR ( Amer) 60 11/17/16 06:00 Est GFR (Non-Af Amer) 49 11/17/16 06:00 Random Glucose 89 mg/dL (75-110) 11/17/16 06:00 Calcium 8.8 mg/dL (8.4-10.2) 11/17/16 06:00 Hepatitis C Antibody Negative (NEGATIVE) 11/16/16 06:00 - Hospital Course Hospital Course: 51 y/o male with history of HTN, Peripheral Edema,and b/l lower extremity lymphedema admitted w/ Cellulitis in lower extremity(right). During Hospitalization patient received IV abx ( Zosyn), ID was consulted, wound care daily as per Podiatry team. clinical improvement noticed, pt is stable to be d/c home in PO Abx and F/U oin Podiatry clinic. F/U with PMD for other comorbidities also recommended. ER precautions given to pt. Discharge Exam - Head Exam Head Exam: NORMOCEPHALIC - Additional Findings Additional findings: Constitutional Appears: Non-toxic, No Acute Distress - ENT Exam ENT Exam: Mucous Membranes Moist - Respiratory Exam Respiratory Exam: Clear to Ausculation Bilateral, NORMAL BREATHING PATTERN - Cardiovascular Exam Cardiovascular Exam: REGULAR RHYTHM, +S1, +S2 - GI/Abdominal Exam GI & Abdominal Exam: Soft, Normal Bowel Sounds. absent: Distended, Tenderness - Extremities Exam Additional comments: Massive edema of lower extremities, severe lymphedema with elephantiasis / deformities of LE's - Neurological Exam Neurological Exam: Alert, Awake, Oriented x3 - Skin Skin Exam: Dry, Intact, Normal Color Discharge Plan - Discharge Medications Prescriptions: Cephalexin [Keflex] 500 mg PO TID #30 capsule hydroCHLOROthiazide [Hydrodiuril] 25 mg PO DAILY #30 tab - Follow Up Plan Condition: GOOD Disposition: HOME/ ROUTINE Instructions: Cellulitis (DC) Additional Instructions: F/u with PMD in 1 week. F/U in Podiatry clinic as per Podiatry team. ER precautions ( high fever or worsening of symptoms) Referrals: Dustin Moraes MD [Staff Provider] - Gardenia Javier MD [Staff Provider] -
== END 2016-11-17 17:00 | disposition home or self-care (01) | DRG 603 ==
LOC: H.TCU 16:40
PROVIDERS: ADMIT Family Medicine Geriatric Medicine; ATTEND Family Medicine Geriatric Medicine
DX: L03.115 Cellulitis of right lower limb (principal); N17.9 Acute kidney failure, unspecified; Z68.44 Body mass index [BMI] 60.0-69.9, adult; L97.919 Non-pressure chronic ulcer of unspecified part of right lower leg with unspecified severity; I87.2 Venous insufficiency (chronic) (peripheral); I12.9 Hypertensive chronic kidney disease with stage 1 through stage 4 chronic kidney disease, or unspecified chronic kidney disease; Z59.0 Homelessness; N18.9 Chronic kidney disease, unspecified; I89.0 Lymphedema, not elsewhere classified; E66.01 Morbid (severe) obesity due to excess calories; B96.4 Proteus (mirabilis) (morganii) as the cause of diseases classified elsewhere; R19.7 Diarrhea, unspecified; Z88.3 Allergy status to other anti-infective agents; Z91.018 Allergy to other foods; L28.0 Lichen simplex chronicus

== ENCOUNTER 2017-01-01 15:37 | Inpatient (IN) | payer MEDICARE ==
[2017-01-01 15:38] VITALS: BMI 62.7
[2017-01-01] MEDS ORDERED: Piperacillin/Tazobact 3.375 GM in Sodium Chloride 0.9% 100 ML IVPB STA (16:28)
--- NOTE | 2017-01-01 16:33 | ED PDOC ---
Lower Extremity Pain/Injury Time Seen by Provider: 01/01/17 16:01 Chief Complaint (Nursing): Lower Extremity Problem/Injury Chief Complaint (Provider): RIGHT leg wound History Per: Patient Onset/Duration Of Symptoms: Days (1 week) Current Symptoms Are (Timing): Still Present Additional Complaint(s): swelling and oozing from RIGHT leg wound for a week. taking keflex with no improvement. seen by sound controller and sent for ER for further evaluation. Denies fever/chills. Past Medical History Reviewed: Historical Data, Nursing Documentation, Vital Signs Vital Signs: Last Vital Signs Temp 99.2 F 01/01/17 15:55 Pulse 95 H 01/01/17 15:55 Resp 18 01/01/17 15:55 BP 133/83 01/01/17 15:55 Pulse Ox 99 01/01/17 15:55 - Medical History PMH: HTN, Peripheral Edema Denies: Anemia, Arthritis, Asthma, Atrial Fibrillation, Bronchitis, Cardia Arrhythmia, CHF, COPD, Emphysema, Fractures, HIV, Hypercholesterolemia, Hyperthyroidism, Hypothyroidism, Kidney Stones, Mitral Valve Prolapse, Osteoporosis, Pneumonia, Pulmonary Embolism, Chronic Kidney Disease, Rheumatoid Arthritis, Sickle Cell Disease, Sleep Apnea Other PMH: Above history obtained from previous charts - Surgical History Surgical History: Pacemaker Denies: Appendectomy - Family History Family History: States: Unknown Family Hx - Immunization History Hx Tetanus Toxoid Vaccination: No Hx Influenza Vaccination: No Hx Pneumococcal Vaccination: No - Home Medications Home Medications: Ambulatory Orders Medication Instructions Recorded Cephalexin [Keflex] 500 mg PO TID #30 capsule 11/17/16 hydroCHLOROthiazide [Hydrodiuril] 25 mg PO DAILY #30 tab 11/17/16 - Allergies Allergies/Adverse Reactions: Allergies Allergy/AdvReac Type Severity Reaction Status Date / Time ciprofloxacin [From Cipro] Allergy RASH Verified 11/09/16 16:38 ciprofloxacin HCl Allergy RASH Verified 11/09/16 16:38 [From Cipro] chocolate flavor AdvReac ears run Verified 11/09/16 16:38 Review of Systems ROS Statement: Except As Marked, All Systems Reviewed And Found Negative Constitutional: Negative for: Fever, Chills Musculoskeletal: Positive for: Leg Pain Skin: Positive for: Lesions Physical Exam - Reviewed Nursing Documentation Reviewed: Yes Vital Signs Reviewed: Yes - Physical Exam Appears: Positive for: Well, No Acute Distress Head Exam: Positive for: ATRAUMATIC, NORMOCEPHALIC Skin: Positive for: Warm (bilateral lower leg lymphedema with scaly dry skin ( ichthyotic skin)), Dry Eye Exam: Positive for: EOMI, PERRL ENT: Negative for: Pharyngeal Erythema, Tonsillar Exudate Neck: Positive for: Painless ROM, Supple Cardiovascular/Chest: Positive for: Regular Rate, Rhythm, Chest Non Tender. Negative for: Murmur Respiratory: Positive for: Normal Breath Sounds. Negative for: Respiratory Distress Gastrointestinal/Abdominal: Positive for: Soft. Negative for: Tenderness Back: Positive for: Normal Inspection. Negative for: Vertebral Tenderness Extremity: Positive for: Swelling (bilateral lower legs with marked lymphedema) , Other (Dressing RIGHT lower extremity, deferred for podiatry) Lymphatic: Negative for: Adenopathy Neurologic/Psych: Positive for: Alert. Negative for: Motor/Sensory Deficits - ECG O2 Sat by Pulse Oximetry: 99 Medical Decision Making Medical Decision Making: RIGHT leg cellulitis worsening despite inpatient antibiotics. JOCELYN JORGE who recommends Zosyn IV Needs hospitalization for IV antibiotics. JOCELYN FP and Podiatry residents. Disposition - Clinical Impression Clinical Impression: Lymphedema in adult patient, Cellulitis - Patient ED Disposition Is Patient to be Admitted: Yes Discussed With : Deo Laboy Doctor Will See Patient In The: ED Counseled Patient/Family Regarding: Diagnosis - Disposition Disposition Time: 16:40 Condition: SERIOUS - Pt Status Changed To: Hospital Disposition Of: Inpatient - Admit Certification Admit to Inpatient:: After my assessment, the patient will require hospitalization for at least two midnights. This is because of the severity of symptoms shown, intensity of services needed, and/or the medical risk in this patient being treated as an outpatient. - POA Present On Arrival: None
[2017-01-01] MEDS ORDERED: Piperacillin/Tazobact 3.375 gm Inj IVPB ONE (16:35)
[2017-01-01 17:12] LABS: BASO % 0.5 % (0.0-2.0); EOS # 0.2 K/uL (0.0-0.7); EOS % 2.8 % (0.0-4.0); HEMOGLOBIN 12.8 g/dL (12.0-18.0); LYMPH # 1.1 K/uL (1.0-4.3); LYMPH % 14.1 % (20.0-40.0); MEAN CELL VOLUME 82.8 fl (80.0-94.0); MEAN CORPUSCULAR HEMOGLOBIN 26.3 pg (27.0-31.0); MEAN CORPUSCULAR HGB CONC 31.7 g/dL (33.0-37.0); MEAN PLATELET VOLUME 9.2 fl (7.2-11.7); MONO # 0.6 K/uL (0.0-0.8); MONO % 8.7 % (0.0-10.0); NEUT # 5.5 K/uL (1.8-7.0); NEUT % 73.9 % (50.0-75.0); RBC 4.89 Mil/uL (4.40-5.90); RED CELL DISTRIBUTION WIDTH 16.4 % (11.5-14.5); WHITE BLOOD COUNT 7.4 K/uL (4.8-10.8)
[2017-01-01 17:14] LABS: ALB/GLOB RATIO 1.1 (1.0-2.1); ALBUMIN 4.1 g/dL (3.5-5.0); CALCIUM 8.8 mg/dL (8.4-10.2)
[2017-01-01 17:30] LABS: PARTIAL THROMBOPLASTIN TIME 30.3 Seconds (25.6-37.1); PROTHROMBIN TIME 11.5 Seconds (9.8-13.1)
--- NOTE | 2017-01-01 17:49 | RAD ---
HISTORY: Admission. Portable study 17:30. COMPARISON: 08/28/2016. FINDINGS: LUNGS: No active pulmonary disease. PLEURA: No significant pleural effusion identified, no pneumothorax apparent. CARDIOVASCULAR: No radiographic findings to suggest acute or significant cardiovascular disease. OSSEOUS STRUCTURES: No significant abnormalities. VISUALIZED UPPER ABDOMEN: Normal. OTHER FINDINGS: None. IMPRESSION: No active disease. No significant interval change compared to the prior examination(s).
--- NOTE | 2017-01-01 19:03 | CP.PCM.HP ---
History of Present Illness - History of Present Illness History of Present Illness: 51 yo M w PMHx of HTN, Peripheral Edema, and b/l lower extremity lymphedema w lower extremity cellulitis is admitted for IV antibiotics and wound care. He describes mild pain located around the site of the wound that does not radiate. Pt follows up at wound clinic and has had current wound draining for previous week without any improvement, despite consistent care as well as Keflex treatment. He denies any fevers/chills, diaphoresis, dizziness, nausea, vomiting , diarrhea, SOB, dyspnea, or cough. He has been seen numerous times for current or previous problem, including admissions in August and October of this year. Otherwise, he also denies chest pain, palpitations, abdominal pain, hematuria, dysuria, polydypsia, polyuria, or other myalgias. PMD: [facility] Line Up Examiner: Dr Romo PMHx: Chronic b/l LE lymphedema, HTN PSHx: Denies Allergies: Cipro Home Meds: HCTZ ED Course: -CBC -CMP -PT/INR/PTT -BCx -Wound Cx -ID Consult -Zosyn 3.375g IVPB STAT x1 Present on Admission - Present on Admission Any Indicators Present on Admission: No History of DVT/PE: No History of Uncontrolled Diabetes: No Urinary Catheter: No Decubitus Ulcer Present: No Review of Systems - Review of Systems All systems: reviewed and no additional remarkable complaints except (see HPI) Past Patient History - Infectious Disease Hx of Infectious Diseases: None - Tetanus Immunizations Tetanus Immunization: Unknown - Past Medical History & Family History Past Medical History?: Yes - Past Social History Smoking Status: Never Smoked - CARDIAC Hx Atrial Fibrillation: No Hx Cardia Arrhythmia: No Hx Congestive Heart Failure: No Hx Hypercholesterolemia: No Hx Hypertension: Yes Hx Mitral Valve Prolapse: No Hx Pacemaker: Yes Hx Peripheral Edema: Yes - PULMONARY Hx Asthma: No Hx Bronchitis: No Hx Chronic Obstructive Pulmonary Disease (COPD): No Hx Emphysema: No Hx Pneumonia: No Hx Pulmonary Embolism: No Hx Sleep Apnea: No - NEUROLOGICAL Hx Neurological Disorder: No - HEENT Hx HEENT Problems: No - RENAL Hx Chronic Kidney Disease: No Hx Kidney Stones: No - ENDOCRINE/METABOLIC Hx Hyperthyroidism: No Hx Hypothyroidism: No - HEMATOLOGICAL/ONCOLOGICAL Hx Anemia: No Hx Human Immunodeficiency Virus (HIV): No Hx Sickle Cell Disease: No - INTEGUMENTARY Hx Dermatological Problems: Yes Hx Cellulitis: Yes Other/Comment: lymphadema - MUSCULOSKELETAL/RHEUMATOLOGICAL Hx Arthritis: No Hx Fractures: No Hx Osteoporosis: No Hx Rheumatoid Arthritis: No - GASTROINTESTINAL Hx Gastrointestinal Disorders: Yes Other/Comment: Umbilical hernia - GENITOURINARY/GYNECOLOGICAL Hx Genitourinary Disorders: No - PSYCHIATRIC Hx Psychophysiologic Disorder: No Hx Substance Use: No - SURGICAL HISTORY Hx Appendectomy: No - ANESTHESIA Hx Anesthesia: No Hx Anesthesia Reactions: No Meds Allergies/Adverse Reactions: Allergies Allergy/AdvReac Type Severity Reaction Status Date / Time ciprofloxacin [From Cipro] Allergy RASH Verified 11/09/16 16:38 ciprofloxacin HCl Allergy RASH Verified 11/09/16 16:38 [From Cipro] chocolate flavor AdvReac ears run Verified 11/09/16 16:38 Physical Exam - Constitutional Appears: Non-toxic, No Acute Distress, Other (malodor present when entering room ) - Head Exam Head Exam: ATRAUMATIC, NORMOCEPHALIC - Eye Exam Eye Exam: EOMI, Scleral icterus Pupil Exam: PERRL - ENT Exam ENT Exam: Mucous Membranes Moist - Neck Exam Neck exam: Positive for: Full Rom - Respiratory Exam Respiratory Exam: Clear to Auscultation Bilateral, NORMAL BREATHING PATTERN. absent: Wheezes - Cardiovascular Exam Cardiovascular Exam: REGULAR RHYTHM - GI/Abdominal Exam GI & Abdominal Exam: Soft. absent: Distended, Tenderness Additional comments: morbidly obese - Extremities Exam Additional comments: b/l lower leg lymphedema w lichenification of skin, ulcers have been previously re bandaged and wrapped by podiatry - Back Exam Back exam: NORMAL INSPECTION - Neurological Exam Neurological exam: Alert, CN II-XII Intact, Oriented x3 - Psychiatric Exam Psychiatric exam: Normal Affect, Normal Mood - Skin Skin Exam: Dry, Warm Results - Vital Signs Recent Vital Signs: Last Vital Signs Temp 99.2 F 01/01/17 15:55 Pulse 95 H 01/01/17 15:55 Resp 18 01/01/17 15:55 BP 133/83 01/01/17 15:55 Pulse Ox 99 01/01/17 16:40 - Labs Result Diagrams: 01/01/17 16:35 01/01/17 16:35 Labs: Laboratory Results - last 24 hr 01/01/17 01/01/17 01/01/17 16:35 16:35 16:35 WBC 7.4 RBC 4.89 Hgb 12.8 Hct 40.5 MCV 82.8 MCH 26.3 L MCHC 31.7 L RDW 16.4 H Plt Count 219 MPV 9.2 Neut % (Auto) 73.9 Lymph % (Auto) 14.1 L [place] % (Auto) 8.7 Eos % (Auto) 2.8 Baso % (Auto) 0.5 Neut # 5.5 Lymph # 1.1 [place] # 0.6 Eos # 0.2 Baso # 0.0 PT INR APTT Sodium 142 Potassium 3.8 Chloride 106 Carbon Dioxide 26 Anion Gap 14 BUN 28 H Creatinine 1.8 H Est GFR ( Amer) 48 Est GFR (Non-Af Amer) 40 Random Glucose 91 Lactic Acid 1.1 Calcium 8.8 Total Bilirubin 0.5 AST 12 L ALT 25 Alkaline Phosphatase 90 Total Protein 7.7 Albumin 4.1 Globulin 3.6 Albumin/Globulin Ratio 1.1 Blood Type Antibody Screen BBK History Checked 01/01/17 01/01/17 16:35 16:35 WBC RBC Hgb Hct MCV MCH MCHC RDW Plt Count MPV Neut % (Auto) Lymph % (Auto) [place] % (Auto) Eos % (Auto) Baso % (Auto) Neut # Lymph # [place] # Eos # Baso # PT 11.5 INR 1.0 APTT 30.3 Sodium Potassium Chloride Carbon Dioxide Anion Gap BUN Creatinine Est GFR ( Amer) Est GFR (Non-Af Amer) Random Glucose Lactic Acid Calcium Total Bilirubin AST ALT Alkaline Phosphatase Total Protein Albumin Globulin Albumin/Globulin Ratio Blood Type O POSITIVE Antibody Screen Negative BBK History Checked Patient has bt Assessment & Plan - Assessment and Plan (Free Text) Plan: 51 yo M w PMHx of HTN, Peripheral Edema, and b/l lower extremity lymphedema w lower extremity cellulitis is admitted for IV antibiotics and wound care 1) Right lower extremity Cellulitis -c/o RLE draining wound for previous 1 week despite Keflex treatment -Follows up w Dr Romo in wound clinic -WBC: 7.4 -Lactic Acid: 1.1 -H/H: 12.8/40.5 -BUN/Cr: 28/1.8, GFR: 48 -AST/ALT: 06/17 -PICC IV Insertion ordered for tomorrow --Heparin dose HELD for tomorrow AM --NPO after midnight -NS @ 84mL/hr -Zosyn 3.375g IVPB Q6H -f/u ID Consult 2) Hypertension -Controlled -HCTZ 25mg PO Daily -f/u BPs 3) CKD Stage 3 -previous h/o CKD during hospital admissions -GFR 48 -BUN/Cr 28/1.8 -IVF -Consider Nephro Consult 4) DVT prophylaxis -Heparin 5,000u SC Q12H --HELD tomorrow AM dose
[2017-01-01] MEDS ORDERED: Vancomycin 1 g Inj ONE (20:23)
[2017-01-01] MEDS: Piperacillin/Tazobact 3.375 GM in Sodium Chloride 0.9% 100 ML IVPB SCH (22:22)
[2017-01-01] MEDS ORDERED: Sodium Chloride 0.9% 1,000 ML IV SCH (23:00)
[2017-01-02] MEDS: Piperacillin/Tazobact 3.375 GM in Sodium Chloride 0.9% 100 ML IVPB SCH ×4 (04:34→22:19)
--- NOTE | 2017-01-02 07:30 | CARD ---
APPROVED REPORT EKG Measurement Heart [id number] <Conclusion> Normal sinus rhythm Minimal voltage criteria for LVH, may be normal variant Borderline ECG
--- NOTE | 2017-01-02 12:39 | CP.PCM.CON ---
History of Present Illness - History of Present Illness History of Present Illness: 51 yo M w PMHx of HTN, , b/l lower extremity lymphedema ( elephantiasis ) w lower extremity cellulitis is admitted for IV antibiotics and wound care. He describes mild pain located around the site of the wound ON THE RIGHT LEG Pt follows up at wound clinic and has had current wound draining for previous week without any improvement, despite consistent care as well as Keflex treatment. He denies any fevers/chills, diaphoresis, dizziness, nausea, vomiting, diarrhea, SOB, dyspnea, or cough. He has been seen numerous times for current or previous problem, including admissions in August and October of this year. Otherwise, he also denies chest pain, palpitations, abdominal pain, hematuria, dysuria, polydypsia, polyuria, or other myalgias. PMHx: Chronic b/l LE lymphedema, HTN, MILD CKD, MORBID OBESITY , TWAN ? , DEPRESSION PSHx: Denies Allergies: Cipro Home Meds: HCTZ Review of Systems - Constitutional Constitutional: As Per HPI, Chills. absent: Fever - EENT Eyes: absent: As Per HPI, Blind Spots, Blurred Vision, Change in Vision, Decreased Night Vision, Diplopia, Discharge, Dry Eye, Exophthalmos, Floaters, Irritation, Itchy Eyes, Loss of Peripheral Vision, Pain, Photophobia, Requires Corrective Lenses, Sees Flashes, Spots in Vision, Tunnel Vision, Other Visual Disturbances, Loss of Vision, Other Ears: absent: As Per HPI, Decreased Hearing, Ear Discharge, Ear Pain, Tinnitus, Abnormal Hearing, Disequilibrium, Dizziness, Other Nose/Mouth/Throat: absent: As Per HPI, Epistaxis, Nasal Congestion, Nasal Discharge, Nasal Obstruction, Nasal Trauma, Nose Pain, Post Nasal Drip, Sinus Pain, Sinus Pressure, Bleeding Gums, Change in Voice, Dental Pain, Dry Mouth, Dysphagia, Halitosis, Hoarsness, Lip Swelling, Mouth Lesions, Mouth Pain, Odynophagia, Sore Throat, Throat Swelling, Tongue Swelling, Facial Pain, Neck Pain, Neck Mass, Other - Cardiovascular Cardiovascular: absent: As Per HPI, Acrocyanosis, Chest Pain, Chest Pain at Rest , Chest Pain with Activity, Claudication, Diaphoresis, Dyspnea, Dyspnea on Exertion, Edema, Irregular Heart Rhythm, Pain Radiating to Arm/Neck/Jaw, Leg Edema, Leg Ulcers, Lightheadedness, Orthopnea, Palpitations, Paroxysmal Nocturnal Dyspnea, Pedal Edema, Radiating Pain, Rapid Heart Rate, Slow Heart Rate, Syncope, Other - Respiratory Respiratory: absent: As Per HPI, Cough, Dyspnea, Hemoptysis, Dyspnea on Exertion , Wheezing, Snoring, Stridor, Pain on Inspiration, Chest Congestion, Excessive Mucous Production, Change in Mucous Color, Pain with Coughing, Other - Gastrointestinal Gastrointestinal: absent: As Per HPI, Abdominal Pain, Belching, Bloating, Change in Bowel Habits, Change in Stool Character, Coffee Ground Emesis, Constipation, Cramping, Diarrhea, Dyspepsia, Dysphagia, Early Satiety, Excessive Flatus, Fecal Incontinence, Heartburn, Hematemesis, Hematochezia, Loose Stools, Melena, Nausea, Odynophagia, Temesmus, Vomiting, Other - Genitourinary Genitourinary: absent: As Per HPI, Change in Urinary Stream, Difficulty Urinating, Dysuria, Flank Pain, Hematuria, Pyuria, Nocturia, Urinary Incontinence, Urinary Frequency, Urinary Hesitance, Urinary Urgency, Voiding Freq/Small Amts, Freq UTI, Hx Renal/Bladder Calculi, Hx /Renal Surgery, Bladder Distension, Other - Musculoskeletal Musculoskeletal: As Per HPI - Integumentary Integumentary: As Per HPI, Skin Pain, Wounds - Neurological Neurological: absent: As Per HPI, Abnormal Gait, Abnormal Hearing, Abnormal Movements, Abnormal Speech, Behavioral Changes, Burning Sensations, Confusion, Convulsions, Disequilibrium, Dizziness, Numbness, Focal Weakness, Frequent Falls , Headaches, Lack of Coordination, Loss of Vision, Memory Loss, Paresthesias, Radicular Pain, Restless Legs, Sensory Deficit, Syncope, Tingling, Tremor, Vertigo, Weakness, Other Visual Disturbances, Other - Psychiatric Psychiatric: absent: As Per HPI, Abnormal Sleep Pattern, Anhedonia, Anxiety, Auditory Hallucinations, Behavioral Changes, Change in Appetite, Change in Libido, Confusion, Depression, Difficulty Concentrating, Hallucinations, Homicidal Ideation, Hopelessness, Irritability, Memory Loss, Mood Swings, Panic Attacks, Paranoia, Suicidal Ideation, Visual Hallucinations, Tactile Hallucinations, Other - Endocrine Endocrine: absent: As Per HPI, Change in Body Appearance, Change in Libido, Cold Intolorance, Deepening of Voice, Excessive Sweating, Fatigue, Flushing, Heat Intolorance, Increase in Ring/Shoe/Hat Size, Palpitations, Polydipsia, Polyphagia, Polyuria, Other - Hematologic/Lymphatic Hematologic: absent: As Per HPI, Easy Bleeding, Easy Bruising, Lymphadenopathy, Other Past Patient History - Infectious Disease Hx of Infectious Diseases: None - Tetanus Immunizations Tetanus Immunization: Unknown - Past Medical History & Family History Past Medical History?: Yes - Past Social History Smoking Status: Never Smoked - CARDIAC Hx Atrial Fibrillation: No Hx Cardia Arrhythmia: No Hx Congestive Heart Failure: No Hx Hypercholesterolemia: No Hx Hypertension: Yes Hx Mitral Valve Prolapse: No Hx Pacemaker: Yes Hx Peripheral Edema: Yes - PULMONARY Hx Asthma: No Hx Bronchitis: No Hx Chronic Obstructive Pulmonary Disease (COPD): No Hx Emphysema: No Hx Pneumonia: No Hx Pulmonary Embolism: No Hx Sleep Apnea: No - NEUROLOGICAL Hx Neurological Disorder: No - HEENT Hx HEENT Problems: No - RENAL Hx Chronic Kidney Disease: No Hx Kidney Stones: No - ENDOCRINE/METABOLIC Hx Hyperthyroidism: No Hx Hypothyroidism: No - HEMATOLOGICAL/ONCOLOGICAL Hx Anemia: No Hx Human Immunodeficiency Virus (HIV): No Hx Sickle Cell Disease: No - INTEGUMENTARY Hx Dermatological Problems: Yes Hx Cellulitis: Yes Other/Comment: lymphadema - MUSCULOSKELETAL/RHEUMATOLOGICAL Hx Arthritis: No Hx Fractures: No Hx Osteoporosis: No Hx Rheumatoid Arthritis: No - GASTROINTESTINAL Hx Gastrointestinal Disorders: Yes Other/Comment: Umbilical hernia - GENITOURINARY/GYNECOLOGICAL Hx Genitourinary Disorders: No - PSYCHIATRIC Hx Psychophysiologic Disorder: No Hx Substance Use: No - SURGICAL HISTORY Hx Appendectomy: No - ANESTHESIA Hx Anesthesia: No Hx Anesthesia Reactions: No Meds Allergies/Adverse Reactions: Allergies Allergy/AdvReac Type Severity Reaction Status Date / Time ciprofloxacin [From Cipro] Allergy RASH Verified 11/09/16 16:38 ciprofloxacin HCl Allergy RASH Verified 11/09/16 16:38 [From Cipro] chocolate flavor AdvReac ears run Verified 11/09/16 16:38 - Medications Medications: Current Medications Heparin Sodium (Porcine) (Heparin) 5,000 units SC Q12 [facility]ARA PRN Reason: Protocol Hydrochlorothiazide (Hydrodiuril) 25 mg PO DAILY LAZARA Last Admin: 01/02/17 09:11 Dose: 25 mg Piperacillin Sod/Tazobactam (Sod 3.375 gm/ Sodium Chloride) 100 mls @ 100 mls/ hr IVPB Q6 [facility] Last Admin: 01/02/17 09:05 Dose: 100 mls/hr Sodium Chloride (Sodium Chloride 0.9%) 1,000 mls @ 84 mls/hr IV [id number] [facility] Stop: 01/02/17 22:55 Last Admin: 01/02/17 00:00 Dose: 84 mls/hr Physical Exam - Constitutional Appears: Non-toxic, Chronically Ill - Head Exam Head Exam: ATRAUMATIC, NORMAL INSPECTION, NORMOCEPHALIC - Eye Exam Eye Exam: EOMI, PERRL. absent: Scleral icterus - ENT Exam ENT Exam: Mucous Membranes Dry, Normal External Ear Exam - Neck Exam Neck exam: Negative for: Lymphadenopathy, Thyromegaly - Respiratory Exam Respiratory Exam: Decreased Breath Sounds, Clear to Auscultation Bilateral - Cardiovascular Exam Cardiovascular Exam: REGULAR RHYTHM, +S1, +S2 - GI/Abdominal Exam GI & Abdominal Exam: Diminished Bowel Sounds, Soft. absent: Tenderness - Rectal Exam Rectal Exam: Deferred - Exam Exam: NORMAL INSPECTION - Extremities Exam Extremities exam: Negative for: calf tenderness, pedal edema - Back Exam Back exam: absent: CVA tenderness (L), CVA tenderness (R) - Neurological Exam Neurological exam: Alert, CN II-XII Intact, Oriented x3, Reflexes Normal - Psychiatric Exam Psychiatric exam: Depressed - Skin Skin Exam: Dry Results - Vital Signs Recent Vital Signs: Last Vital Signs Temp 98.7 F 01/02/17 09:00 Pulse 72 01/02/17 09:00 Resp 20 01/02/17 09:00 BP 125/77 01/02/17 09:00 Pulse Ox 98 01/02/17 09:00 - Labs Result Diagrams: 01/01/17 16:35 01/01/17 16:35 Labs: Laboratory Results - last 24 hr 01/01/17 01/01/17 01/01/17 16:35 16:35 16:35 WBC 7.4 RBC 4.89 Hgb 12.8 Hct 40.5 MCV 82.8 MCH 26.3 L MCHC 31.7 L RDW 16.4 H Plt Count 219 MPV 9.2 Neut % (Auto) 73.9 Lymph % (Auto) 14.1 L [place] % (Auto) 8.7 Eos % (Auto) 2.8 Baso % (Auto) 0.5 Neut # 5.5 Lymph # 1.1 [place] # 0.6 Eos # 0.2 Baso # 0.0 PT INR APTT Sodium 142 Potassium 3.8 Chloride 106 Carbon Dioxide 26 Anion Gap 14 BUN 28 H Creatinine 1.8 H Est GFR ( Amer) 48 Est GFR (Non-Af Amer) 40 Random Glucose 91 Lactic Acid 1.1 Calcium 8.8 Total Bilirubin 0.5 AST 12 L ALT 25 Alkaline Phosphatase 90 Total Protein 7.7 Albumin 4.1 Globulin 3.6 Albumin/Globulin Ratio 1.1 Blood Type Antibody Screen BBK History Checked 01/01/17 01/01/17 16:35 16:35 WBC RBC Hgb Hct MCV MCH MCHC RDW Plt Count MPV Neut % (Auto) Lymph % (Auto) [place] % (Auto) Eos % (Auto) Baso % (Auto) Neut # Lymph # [place] # Eos # Baso # PT 11.5 INR 1.0 APTT 30.3 Sodium Potassium Chloride Carbon Dioxide Anion Gap BUN Creatinine Est GFR ( Amer) Est GFR (Non-Af Amer) Random Glucose Lactic Acid Calcium Total Bilirubin AST ALT Alkaline Phosphatase Total Protein Albumin Globulin Albumin/Globulin Ratio Blood Type O POSITIVE Antibody Screen Negative BBK History Checked Patient has bt Assessment & Plan (1) Cellulitis Status: Acute Priority: High (2) Lymphedema in adult patient Status: Chronic (3) Chronic kidney disease (CKD) stage G2/A1, mildly decreased glomerular filtration rate (GFR) between 60-89 mL/min/1.73 square meter and albuminuria creatinine ratio less than 30 mg/g Status: Acute - Assessment and Plan (Free Text) Assessment: CONT IV ANTIBIOTICS SOCIAL SERVICE EVAL FOR PLACEMENT
--- NOTE | 2017-01-02 13:42 | PQF GENQUE ---
Dr. Javier, 2 (two) queriess: (1)Agree with the BMI; 62.8? : listed in the EMR: if yes: Please include the BMI in your next progress note (2)Current Morbid Obesity? OR: Disagree OR; Other explanation of clinical findings ID consult; history of Morbid Obesity EMR: BMI:62.8 5ft 11in Regular Diet This form is a permanent part of the medical record Clarification of your documentation is requested to better reflect the severity of illness and intensity of treatment of your patient. Indicators present [] Specify: [] [] Specify: [] [] Specify: [] [] Specify: [] Location in the medical record that reflects the above clinical findings: [] Treatment Provided: [] PHYSICIAN'S RESPONSE Based on your medical judgment of the clinical indicators outlined above please clarify the following: [] Practitioner response [] If unable to determine, please check the box, sign and date. Present On Admission (POA) Indicator: [] Present at the time of admission [] Not present at the time of admission [] Clinically Undetermined In responding to this query, please exercise your independent professional judgment. The fact that a question is asked does not imply that any particular answer is desired or expected. Thank you for your clarification on this documentation. If you have any questions please call. * Thank you, Jennifer Singh RN BSN ext. #[phone] MTDD
--- NOTE | 2017-01-02 16:45 | CP.PCM.PN ---
Subjective - Date & Time of Evaluation Date of Evaluation: 01/02/17 Time of Evaluation: 09:15 - Subjective Subjective: Pt was seen and examined at bedside. Complaining of localized Right lower Extremity pain due to open wound. pt denies any fevers/chills, diaphoresis, dizziness, nausea, vomiting, diarrhea, SOB, dyspnea, or cough. Objective - Vital Signs/Intake and Output Vital Signs (last 24 hours): Temp Pulse Resp BP Pulse Ox 98.6 F 73 20 132/73 99 01/02/17 16:15 01/02/17 16:15 01/02/17 16:15 01/02/17 16:15 01/02/17 16:15 - Medications Medications: Current Medications Heparin Sodium (Porcine) (Heparin) 5,000 units SC Q12 [facility] PRN Reason: Protocol Hydrochlorothiazide (Hydrodiuril) 25 mg PO DAILY [facility] Last Admin: 01/02/17 09:11 Dose: 25 mg Piperacillin Sod/Tazobactam (Sod 3.375 gm/ Sodium Chloride) 100 mls @ 100 mls/ hr IVPB Q6 [facility] Last Admin: 01/02/17 16:30 Dose: 100 mls/hr Sodium Chloride (Sodium Chloride 0.9%) 1,000 mls @ 84 mls/hr IV .[id number] [facility] Stop: 01/02/17 22:55 Last Admin: 01/02/17 00:00 Dose: 84 mls/hr - Labs Labs: 01/01/17 16:35 01/01/17 16:35 PT 11.5 Seconds (9.8-13.1) 01/01/17 16:35 INR 1.0 (0.9-1.2) 01/01/17 16:35 APTT 30.3 Seconds (25.6-37.1) 01/01/17 16:35 - Constitutional Appears: Non-toxic, No Acute Distress (malodor present when entering room) - Head Exam Head Exam: ATRAUMATIC, NORMAL INSPECTION, NORMOCEPHALIC - Eye Exam Eye Exam: EOMI, PERRL - ENT Exam ENT Exam: Mucous Membranes Moist - Neck Exam Neck Exam: Full ROM - Respiratory Exam Respiratory Exam: Clear to Ausculation Bilateral, NORMAL BREATHING PATTERN - Cardiovascular Exam Cardiovascular Exam: REGULAR RHYTHM, +S1, +S2. absent: Bradycardia, Tachycardia , Irregular Rhythm - GI/Abdominal Exam GI & Abdominal Exam: Soft, Normal Bowel Sounds (Morbidly Obese). absent: Distended - Extremities Exam Additional comments: b/l lower leg lymphedema w lichenification of skin, ulcers have been previously re bandaged and wrapped by podiatry - Neurological Exam Neurological Exam: Alert, Awake, Oriented x3 - Psychiatric Exam Psychiatric exam: Normal Mood - Skin Skin Exam: Dry, Warm Assessment and Plan - Assessment and Plan (Free Text) Assessment: 51 yo M w PMHx of HTN, b/l lower extremity lymphedema ( elephantiasis ) and lower extremity cellulitis is admitted for IV antibiotics and wound care. Plan: Right lower extremity Cellulitis -c/o RLE draining wound for previous 1 week despite Keflex treatment -Follows up w Dr Romo in wound clinic -WBC: 7.4 -Lactic Acid: 1.1 -H/H: 12.8/40.5 -BUN/Cr: 28/1.8, GFR: 48 -AST/ALT: 06/17 -PICC IV tomorrow, will hold AM Heparin dose -NS @ 84mL/hr -Zosyn 3.375g IVPB Q6H -f/u ID Consult Hypertension -Controlled -HCTZ 25mg PO Daily -will monitor BP CKD Stage 3 -previous h/o CKD during hospital admissions -GFR 48 -BUN/Cr 28/1.8 -will monitor BUN/Cr closely Morbid Obesity -BMI 62.8, chronic DVT prophylaxis -Heparin 5,000 U today, will hold tomorrow AM dose for PICC
[2017-01-02 19:45] LABS: HEMOGLOBIN 12.5 g/dL (12.0-18.0); MEAN CELL VOLUME 82.7 fl (80.0-94.0); MEAN CORPUSCULAR HEMOGLOBIN 26.4 pg (27.0-31.0); MEAN CORPUSCULAR HGB CONC 31.9 g/dL (33.0-37.0); RBC 4.74 Mil/uL (4.40-5.90); RED CELL DISTRIBUTION WIDTH 16.5 % (11.5-14.5); WHITE BLOOD COUNT 6.4 K/uL (4.8-10.8)
[2017-01-02 20:03] LABS: CALCIUM 8.4 mg/dL (8.4-10.2)
[2017-01-03] MEDS: Piperacillin/Tazobact 3.375 GM in Sodium Chloride 0.9% 100 ML IVPB SCH ×4 (04:13→21:08)
--- NOTE | 2017-01-03 08:01 | PQF GENQUE ---
Dr. Javier, Right leg Ulcer versus Wound ?: 1. If an ulcer: please document the etiology/type 2. If a wound please document the type: i.e. post-op or traumatic etc. ER: Extremity: Positive for: Swelling (bilateral lower legs with marked lymphedema), Other (Dressing RIGHT lower extremity, deferred for podiatry H and P: 51 yo M w PMHx of HTN, Peripheral Edema, and b/l lower extremity lymphedema w lower extremity cellulitis is admitted for IV antibiotics and wound care Pt follows up at wound clinic and has had current wound draining for previous week without any improvement, despite consistent care as well as Keflex treatment Extremities Exam Additional comments: b/l lower leg lymphedema w lichenification of skin, ulcers have been previously re bandaged and wrapped by podiatry ID consult: He describes mild pain located around the site of the wound on the right leg . Pt follows up at wound clinic and has had current wound draining for previous week without any improvement, despite consistent This form is a permanent part of the medical record Clarification of your documentation is requested to better reflect the severity of illness and intensity of treatment of your patient. Indicators present [] Specify: [] [] Specify: [] [] Specify: [] [] Specify: [] Location in the medical record that reflects the above clinical findings: [] Treatment Provided: [] PHYSICIAN'S RESPONSE Based on your medical judgment of the clinical indicators outlined above please clarify the following: [] Practitioner response [] If unable to determine, please check the box, sign and date. Present On Admission (POA) Indicator: [] Present at the time of admission [] Not present at the time of admission [] Clinically Undetermined In responding to this query, please exercise your independent professional judgment. The fact that a question is asked does not imply that any particular answer is desired or expected. Thank you for your clarification on this documentation. If you have any questions please call. * Thank you, Jennifer Singh RN BSN ext. #[phone] MTDD
[2017-01-03] MEDS ORDERED: Lidocaine 1% Inj (20ml) ONE (12:56)
--- NOTE | 2017-01-03 13:03 | CP.PCM.PN ---
Subjective - Date & Time of Evaluation Date of Evaluation: 01/03/17 Time of Evaluation: 09:25 - Subjective Subjective: Pt was seen and examined at bedside. Complaining of localized Right lower Extremity pain. pt denies any fevers/chills, diaphoresis, dizziness, nausea, vomiting, diarrhea, SOB, dyspnea, or cough. Objective - Vital Signs/Intake and Output Vital Signs (last 24 hours): Temp Pulse Resp BP Pulse Ox 97.8 F 74 20 143/86 95 01/03/17 07:46 01/03/17 07:46 01/03/17 07:46 01/03/17 07:46 01/03/17 07:46 - Medications Medications: Current Medications Enoxaparin Sodium (Lovenox) 40 mg SC HS [facility] PRN Reason: Protocol Hydrochlorothiazide (Hydrodiuril) 25 mg PO DAILY [facility] Last Admin: 01/03/17 09:08 Dose: 25 mg Piperacillin Sod/Tazobactam (Sod 3.375 gm/ Sodium Chloride) 100 mls @ 100 mls/ hr IVPB Q6 [facility] Last Admin: 01/03/17 09:08 Dose: 100 mls/hr - Labs Labs: 01/02/17 19:42 01/02/17 19:42 PT 11.5 Seconds (9.8-13.1) 01/01/17 16:35 INR 1.0 (0.9-1.2) 01/01/17 16:35 APTT 30.3 Seconds (25.6-37.1) 01/01/17 16:35 - Constitutional Appears: Non-toxic, No Acute Distress (malodor present when entering room) - Head Exam Head Exam: ATRAUMATIC, NORMAL INSPECTION, NORMOCEPHALIC - Eye Exam Eye Exam: EOMI, Normal appearance - ENT Exam ENT Exam: Mucous Membranes Moist - Neck Exam Neck Exam: Full ROM - Respiratory Exam Respiratory Exam: Clear to Ausculation Bilateral, NORMAL BREATHING PATTERN. absent: Accessory Muscle Use, Chest Wall Tenderness, Decreased Breath Sounds - Cardiovascular Exam Cardiovascular Exam: REGULAR RHYTHM, +S1, +S2. absent: Bradycardia, Tachycardia - GI/Abdominal Exam GI & Abdominal Exam: Soft, Normal Bowel Sounds (Morbidly obese) - Extremities Exam Additional comments: b/l lower leg lymphedema with extensive lichenification of skin extending from toes proximally to the knee. in addition several chronic ulcers in various stages of healing are present on LE b/L. medial RLE demonstrates purulent nonbleeding superficial ulcer measuring approximately 2cm x 1 cm. - Neurological Exam Neurological Exam: Alert, Awake, Oriented x3 - Psychiatric Exam Psychiatric exam: Normal Affect, Normal Mood Assessment and Plan - Assessment and Plan (Free Text) Assessment: 51 yo M w PMHx of HTN, b/l lower extremity lymphedema ( elephantiasis ) and lower extremity cellulitis is admitted for IV antibiotics and ulcer care. Plan: Right lower extremity Cellulitis/Ulcer likely due to Venous stasis vs lymphedema -c/o RLE draining wound for previous 1 week despite Keflex treatment -Follows up w Dr Romo in wound clinic -WBC: 7.4 (01/02) -Lactic Acid: 1.1 (01/02) -H/H: 12.8/40.5 (01/02) -BUN/Cr: 28/1.8, GFR: 48 (01/02) -AST/ALT: 12/25 (01/02) -PICC IV today -Zosyn 3.375g IVPB Q6H -As per ID, continue IV abx, will follow for further recommendations Hypertension -Controlled -HCTZ 25mg PO Daily -will monitor BP CKD Stage 3 -previous h/o CKD during hospital admissions -GFR 48 (01/02) -BUN/Cr 28/1.8 (01/02) -will monitor BUN/Cr closely Morbid Obesity -BMI 62.8, chronic DVT prophylaxis -Lovenox 40 mg SC HS
--- NOTE | 2017-01-03 13:06 | PCM.SURG1 ---
Surgeon's Initial Post Op Note - Surgeon's Notes Surgeon: Jai Nevarez MD Supervisor [employer]: NONE Type of Anesthesia: Local Pre-Operative Diagnosis: Ulcer Operative Findings: Patent right basilic vein Post-Operative Diagnosis: Ulcer Operation Performed: Single lumen picc placement right basilic vein, 43 cm. Tip in SVC. Specimen/Specimens Removed: None Estimated Blood Loss: EBL {In ML}: 2 Blood Products Given: N/A Drains Used: No Drains Post-Op Condition: Fair Date of Surgery/Procedure: 01/03/17 Time of Surgery/Procedure: 13:00
[2017-01-03] MEDS ORDERED: Hydrogen Peroxide 3% Soln (480ml) TP ONE (14:08)
--- NOTE | 2017-01-03 15:40 | CP.PCM.PN ---
Subjective - Date & Time of Evaluation Date of Evaluation: 01/03/17 Time of Evaluation: 09:00 - Subjective Subjective: Complaining of localized Right lower Extremity pain. pt denies any fevers/ chills, renal function worse sees dr Randall Objective - Vital Signs/Intake and Output Vital Signs (last 24 hours): Temp Pulse Resp BP Pulse Ox 98.0 F 79 18 146/92 H 97 01/03/17 13:21 01/03/17 13:21 01/03/17 13:21 01/03/17 13:21 01/03/17 13:21 - Medications Medications: Current Medications Enoxaparin Sodium (Lovenox) 40 mg SC HS [facility] PRN Reason: Protocol Hydrochlorothiazide (Hydrodiuril) 25 mg PO DAILY [facility] Last Admin: 01/03/17 09:08 Dose: 25 mg Piperacillin Sod/Tazobactam (Sod 3.375 gm/ Sodium Chloride) 100 mls @ 100 mls/ hr IVPB Q6 [facility] Last Admin: 01/03/17 09:08 Dose: 100 mls/hr - Labs Labs: 01/02/17 19:42 01/02/17 19:42 PT 11.5 Seconds (9.8-13.1) 01/01/17 16:35 INR 1.0 (0.9-1.2) 01/01/17 16:35 APTT 30.3 Seconds (25.6-37.1) 01/01/17 16:35 - Constitutional Appears: Non-toxic, Chronically Ill - Head Exam Head Exam: NORMOCEPHALIC - Eye Exam Eye Exam: PERRL. absent: Scleral icterus - ENT Exam ENT Exam: Mucous Membranes Dry - Neck Exam Neck Exam: absent: Lymphadenopathy - Respiratory Exam Respiratory Exam: Decreased Breath Sounds, Clear to Ausculation Bilateral - Cardiovascular Exam Cardiovascular Exam: REGULAR RHYTHM - GI/Abdominal Exam GI & Abdominal Exam: Distended, Soft. absent: Tenderness - Rectal Exam Rectal Exam: Deferred - Exam Exam: NORMAL INSPECTION - Extremities Exam Extremities Exam: absent: Calf Tenderness, Pedal Edema - Back Exam Back Exam: absent: CVA tenderness (L), CVA tenderness (R) - Neurological Exam Neurological Exam: Alert, Awake, Oriented x3 - Psychiatric Exam Psychiatric exam: Normal Mood - Skin Skin Exam: Dry Assessment and Plan (1) Cellulitis Status: Acute (2) Lymphedema in adult patient Status: Chronic (3) Chronic kidney disease (CKD) stage G2/A1, mildly decreased glomerular filtration rate (GFR) between 60-89 mL/min/1.73 square meter and albuminuria creatinine ratio less than 30 mg/g Status: Acute
[2017-01-03] MEDS ORDERED: Enoxaparin 40 mg Syringe SC SCH (22:00)
[2017-01-04] MEDS: Piperacillin/Tazobact 3.375 GM in Sodium Chloride 0.9% 100 ML IVPB SCH ×3 (03:47→15:55)
--- NOTE | 2017-01-04 12:58 | CP.PCM.PN ---
Subjective - Date & Time of Evaluation Date of Evaluation: 01/04/17 Time of Evaluation: 08:00 - Subjective Subjective: discussed on rounds wound c/s growing pansensitive proteus on zosyn to cont rx for 7 days TCU Objective - Vital Signs/Intake and Output Vital Signs (last 24 hours): Temp Pulse Resp BP Pulse Ox 97.7 F 59 L 20 133/82 98 01/04/17 08:40 01/04/17 08:40 01/04/17 08:40 01/04/17 08:40 01/04/17 08:40 - Medications Medications: Current Medications Enoxaparin Sodium (Lovenox) 40 mg SC HS [facility] PRN Reason: Protocol Last Admin: 01/03/17 21:09 Dose: 40 mg Hydrochlorothiazide (Hydrodiuril) 25 mg PO DAILY [facility] Last Admin: 01/04/17 09:14 Dose: 25 mg Piperacillin Sod/Tazobactam (Sod 3.375 gm/ Sodium Chloride) 100 mls @ 100 mls/ hr IVPB Q6 [facility] Last Admin: 01/04/17 09:14 Dose: 100 mls/hr - Labs Labs: 01/02/17 19:42 01/02/17 19:42 PT 11.5 Seconds (9.8-13.1) 01/01/17 16:35 INR 1.0 (0.9-1.2) 01/01/17 16:35 APTT 30.3 Seconds (25.6-37.1) 01/01/17 16:35 - Constitutional Appears: Non-toxic, Chronically Ill - Head Exam Head Exam: NORMOCEPHALIC - Eye Exam Eye Exam: PERRL - ENT Exam ENT Exam: Mucous Membranes Dry - Neck Exam Neck Exam: absent: Lymphadenopathy - Respiratory Exam Respiratory Exam: Decreased Breath Sounds, Clear to Ausculation Bilateral - Cardiovascular Exam Cardiovascular Exam: REGULAR RHYTHM - GI/Abdominal Exam GI & Abdominal Exam: Distended, Soft. absent: Tenderness Assessment and Plan (1) Cellulitis Status: Acute (2) Lymphedema in adult patient Status: Chronic (3) Chronic kidney disease (CKD) stage G2/A1, mildly decreased glomerular filtration rate (GFR) between 60-89 mL/min/1.73 square meter and albuminuria creatinine ratio less than 30 mg/g Status: Acute
--- NOTE | 2017-01-04 15:48 | CP.PCM.PN ---
Subjective - Date & Time of Evaluation Date of Evaluation: 01/04/17 Time of Evaluation: 15:45 - Subjective Subjective: 51 y/o male seen at bedside complaining of tenderness and swelling secondary to a superficial ulceration. Pt appears to be resting comfortably in his bed. Pt is AAOx3 and is in NAD. Pt denies of any recent F/N/V/C/SOB. Pt denies of any other pedal complains at this time. Objective - Vital Signs/Intake and Output Vital Signs (last 24 hours): Temp Pulse Resp BP Pulse Ox 97.7 F 59 L 20 133/82 98 01/04/17 08:40 01/04/17 08:40 01/04/17 08:40 01/04/17 08:40 01/04/17 08:40 - Medications Medications: Current Medications Enoxaparin Sodium (Lovenox) 40 mg SC HS [facility] PRN Reason: Protocol Last Admin: 01/03/17 21:09 Dose: 40 mg Hydrochlorothiazide (Hydrodiuril) 25 mg PO DAILY [facility] Last Admin: 01/04/17 09:14 Dose: 25 mg Piperacillin Sod/Tazobactam (Sod 3.375 gm/ Sodium Chloride) 100 mls @ 100 mls/ hr IVPB Q6 [facility] Last Admin: 01/04/17 09:14 Dose: 100 mls/hr - Labs Labs: 01/02/17 19:42 01/02/17 19:42 PT 11.5 Seconds (9.8-13.1) 01/01/17 16:35 INR 1.0 (0.9-1.2) 01/01/17 16:35 APTT 30.3 Seconds (25.6-37.1) 01/01/17 16:35 - Constitutional Appears: Well, Non-toxic, No Acute Distress - Extremities Exam Additional comments: VASC: DP pulses are palpable b/l but PT pulses non-palpable secondary to increased tissue density and edema. CFT < 3 seconds to all digits b/l. Temperature gradient is warm to cool from proximal to distal b/l. DERM: Ulceration noted to anterior lateral aspect of right leg measuring approximately 7 x 5 cm wound with boggy macerated david-wound margine extending out circumferentialy. Wound base has papilary dermal protrusion, firmly adhered. Lichenification of the skin with tree trunk appearance noted on bilateral lower extremity R>L. no active drainage noted, Malodor present but improving, no tunneling, no undermining to the ulcerated site NEURO: Sensation grossly intact. ORTHO: Limited ROM at the ankle joint due to increased edema - Neurological Exam Neurological Exam: Alert, Awake, Oriented x3 - Psychiatric Exam Psychiatric exam: Normal Affect, Normal Mood Assessment and Plan - Assessment and Plan (Free Text) Assessment: 51 y/o male seen at bedside in ED with chronic soft tissue ulcerations and lichenifications of right lower extremity, secondary to lymphedema. Plan: Pt evaluated and chart reviewed Pt discussed in details with attending Dr. Rodriguez Vitals and labs reviewed: afebrile WBC @ 6.4 as of 01/02 Dressing applied using 4x4 gauze, ABD pads, Kurlix and RICH bandage on R leg and RICH bandage on the left leg Nursing orders placed for daily dressing changes Podiatry to follow patient and provide local wound care while patient is in house
[2017-01-04 16:09] VITALS: BP 152/88; PULSE 70; RESP 18; TEMP 97.5; O2SAT 100
--- NOTE | 2017-01-04 17:04 | CP.PCM.DIS ---
Provider - Provider Date of Admission: 01/01/17 16:33 Attending physician: Gardenia Javier MD Consults: ID, Dr. Moraes Podiatry, Dr. Rodriguez Time Spent in preparation of Discharge (in minutes): 30 Diagnosis - Discharge Diagnosis (1) Ulcer of right lower leg Status: Acute (2) Lymphedema of both lower extremities Status: Chronic (3) Cellulitis Status: Chronic Priority: High (4) CKD (chronic kidney disease) stage 3, GFR 30-59 ml/min Status: Chronic (5) Morbid obesity with BMI of 60.0-69.9, adult Status: Chronic Priority: High Hospital Course - Lab Results Lab Results: Micro Results 01/01/17 17:01 Foot - Right Gram Stain - Final 01/01/17 17:01 Foot - Right Wound Culture - Final Proteus Mirabilis 01/01/17 16:35 Blood Blood Culture - Preliminary NO GROWTH AFTER 48 HOURS Most Recent Lab Values WBC 6.4 K/uL (4.8-10.8) 01/02/17 19:42 RBC 4.74 Mil/uL (4.40-5.90) 01/02/17 19:42 Hgb 12.5 g/dL (12.0-18.0) 01/02/17 19:42 Hct 39.2 % (35.0-51.0) 01/02/17 19:42 MCV 82.7 fl (80.0-94.0) 01/02/17 19:42 MCH 26.4 pg (27.0-31.0) L 01/02/17 19:42 MCHC 31.9 g/dL (33.0-37.0) L 01/02/17 19:42 RDW 16.5 % (11.5-14.5) H 01/02/17 19:42 Plt Count 200 K/uL (130-400) 01/02/17 19:42 MPV 9.2 fl (7.2-11.7) 01/01/17 16:35 Neut % (Auto) 73.9 % (50.0-75.0) 01/01/17 16:35 Lymph % (Auto) 14.1 % (20.0-40.0) L 01/01/17 16:35 [place] % (Auto) 8.7 % (0.0-10.0) 01/01/17 16:35 Eos % (Auto) 2.8 % (0.0-4.0) 01/01/17 16:35 Baso % (Auto) 0.5 % (0.0-2.0) 01/01/17 16:35 Neut # 5.5 K/uL (1.8-7.0) 01/01/17 16:35 Lymph # 1.1 K/uL (1.0-4.3) 01/01/17 16:35 [place] # 0.6 K/uL (0.0-0.8) 01/01/17 16:35 Eos # 0.2 K/uL (0.0-0.7) 01/01/17 16:35 Baso # 0.0 K/uL (0.0-0.2) 01/01/17 16:35 PT 11.5 Seconds (9.8-13.1) 01/01/17 16:35 INR 1.0 (0.9-1.2) 01/01/17 16:35 APTT 30.3 Seconds (25.6-37.1) 01/01/17 16:35 Sodium 141 mmol/l (132-148) 01/02/17 19:42 Potassium 4.2 MMOL/L (3.6-5.0) 01/02/17 19:42 Chloride 109 mmol/L (98-107) H 01/02/17 19:42 Carbon Dioxide 24 mmol/L (22-30) 01/02/17 19:42 Anion Gap 12 (10-20) 01/02/17 19:42 BUN 26 mg/dl (9-20) H 01/02/17 19:42 Creatinine 1.8 mg/dL (0.8-1.5) H 01/02/17 19:42 Est GFR ( Amer) 48 01/02/17 19:42 Est GFR (Non-Af Amer) 40 01/02/17 19:42 Random Glucose 122 mg/dL (75-110) H 01/02/17 19:42 Lactic Acid 1.1 MMOL/L (0.7-2.1) 01/01/17 16:35 Calcium 8.4 mg/dL (8.4-10.2) 01/02/17 19:42 Total Bilirubin 0.5 mg/dl (0.2-1.3) 01/01/17 16:35 AST 12 U/L (17-59) L 01/01/17 16:35 ALT 25 U/L (21-72) 01/01/17 16:35 Alkaline Phosphatase 90 U/L (38-126) 01/01/17 16:35 Total Protein 7.7 G/DL (6.3-8.2) 01/01/17 16:35 Albumin 4.1 g/dL (3.5-5.0) 01/01/17 16:35 Globulin 3.6 gm/dL (2.2-3.9) 01/01/17 16:35 Albumin/Globulin Ratio 1.1 (1.0-2.1) 01/01/17 16:35 Blood Type O POSITIVE 01/01/17 16:35 Antibody Screen Negative 01/01/17 16:35 BBK History Checked Patient has bt 01/01/17 16:35 - Hospital Course Hospital Course: 51 y/o M with chronic b/l lower leg lymphedema with extensive lichenification of skin reffered to the hospital from podiatry wound care clinic for IV antibiotics and ulcer care. patient was found to have RLE cellulitis associated with a purulent nonbleeding superficial ulcer measuring approximately 2cm x 1 cm , in addition several chronic ulcers in various stages of healing are present on LE b/L. Podiatry and ID were consulted, and pt was started on Zosyn 3.375g IVPB Q6H for 4 days. A PICC was placed at right basilic vein on 01/03/17 so that he may receive continue Antibiotics for additional 7days at subacute rehab. [facility] - Date & Time of H&P Date of H&P: 01/01/17 Time of H&P: 19:02 Discharge Exam - Head Exam Head Exam: ATRAUMATIC, NORMAL INSPECTION, NORMOCEPHALIC - Eye Exam Eye Exam: EOMI - Respiratory Exam Respiratory Exam: Clear to PA & Lateral, NORMAL BREATHING PATTERN. absent: Accessory Muscle Use, Chest Wall Tenderness, Decreased Breath Sounds - Cardiovascular Exam Cardiovascular Exam: REGULAR RHYTHM, +S1, +S2. absent: Systolic Murmur - GI/Abdominal Exam GI & Abdominal Exam: Normal Bowel Sounds, Soft (morbidly obese) - Extremities Exam Additional comments: b/l lower leg lymphedema with extensive lichenification of skin extending from toes proximally to the knee. in addition several chronic ulcers in various stages of healing are present on LE b/L. medial RLE demonstrates purulent nonbleeding superficial ulcer measuring approximately 2cm x 1 cm. - Back Exam Back exam: absent: CVA tenderness (L), CVA tenderness (R) - Neurological Exam Neurological exam: Alert, CN II-XII Intact, Oriented x3 - Psychiatric Exam Psychiatric exam: Normal Mood Discharge Plan - Discharge Medications Prescriptions: Piperacill/Tazo 3.375gm in Dex [Zosyn 3.375 Gm IV] 3.375 gm IVPB Q6 7 Days - Follow Up Plan Condition: SERIOUS Disposition: REHAB FACILITY/REHAB UNIT Instructions: Chronic Kidney Disease (DC), Cellulitis (DC), Lymphedema (DC) Additional Instructions: Continue your Hydrochlorothiazide 25mg PO daily For your lower extremity cellulitis, Complete 7 days of Zosyn, as per ID recommendations Referrals: [facility] [Outside] Feliciano Rodriguez DPM [Staff Provider] -
--- NOTE | 2017-01-07 11:12 | VASCULAR ---
PROCEDURE: Date of procedure: 01/03/2017 Procedure: 1. Placement of a right arm PICC with ultrasound and fluoroscopic guidance, CPT 84977 2. PICC tip confirmation with spot radiograph and is in the superior vena cava Medications: 3 cc 1 percent lidocaine Total Fluoro time: 4.8 seconds Radiation: 0.73 MGy EBL: 2 cc HISTORY: Infection requiring long-term IV antibiotics TECHNIQUE: Following informed consent and procedure time-out, the patient was placed supine on the interventional table and the right arm prepped and draped in the usual sterile fashion. Ultrasound showed a patent and compressible right basilic vein. After the skin was anesthetized with lidocaine, the basilic vein was accessed with micro micropuncture technique using ultrasound guidance. A guidewire was then advanced under fluoroscopic guidance into the superior vena cava. An image documenting ultrasound guidance for vascular access was permanently saved. The length of the single-lumen 4 Polish PICC was trimmed to 43 centimeters and advanced through a peel-away sheath. The PICC was position with tip of PICC confirm a spot radiograph the superior vena cava. The PICC was secured to the patient's skin. The PICC was flushed. A biopatch and sterile dressing was applied. IMPRESSION: Placement of a single-lumen 4 Polish PICC trimmed to 43 centimeters via right basilic vein. The tip of the PICC is confirmed with spot radiograph and is in the superior vena cava.
== END 2017-01-04 17:59 | DRG 603 ==
LOC: H.ER 15:37 → H.ERHOLD 16:33 → H.MEDSURG1 21:26
PROVIDERS: ADMIT Family Medicine Geriatric Medicine; ATTEND Family Medicine Geriatric Medicine
PROC: 02HV33Z Insertion of Infusion Device into Superior Vena Cava, Percutaneous Approach (ICD-10-PCS; principal; 2017-01-03)
PROC: B548ZZA Ultrasonography of Superior Vena Cava, Guidance (ICD-10-PCS; 2017-01-03)
PROC: 3E04329 Introduction of Other Anti-infective into Central Vein, Percutaneous Approach (ICD-10-PCS; 2017-01-03)
DX: L03.115 Cellulitis of right lower limb (principal); N18.3 Chronic kidney disease, stage 3 (moderate); L97.919 Non-pressure chronic ulcer of unspecified part of right lower leg with unspecified severity; Z68.44 Body mass index [BMI] 60.0-69.9, adult; I12.9 Hypertensive chronic kidney disease with stage 1 through stage 4 chronic kidney disease, or unspecified chronic kidney disease; E66.01 Morbid (severe) obesity due to excess calories; B96.4 Proteus (mirabilis) (morganii) as the cause of diseases classified elsewhere; I89.0 Lymphedema, not elsewhere classified; L28.0 Lichen simplex chronicus; F32.9 Major depressive disorder, single episode, unspecified; Z95.0 Presence of cardiac pacemaker; Z88.1 Allergy status to other antibiotic agents

== ENCOUNTER 2017-03-18 14:16 | Emergency (ER) | payer MEDICARE ==
[2017-03-18 14:16] VITALS: BMI 62.7
[2017-03-18 14:35] VITALS: BP 163/77; PULSE 84; RESP 18; TEMP 98; O2SAT 98
[2017-03-18] MEDS ORDERED: Sodium Chloride 0.9% 1,000 ML IV STA (16:12)
--- NOTE | 2017-03-18 17:18 | ED PDOC ---
HPI: Wound Care - HPI Time Seen by Provider: 03/18/17 15:53 Chief Complaint (Nursing): Wound Check Chief Complaint (Provider): Drainage bilateral legs History Per: Patient History Of Present Illness: Pt reports chronic drainage from legs but states it has been worse the last few days. Pt states he went to the wound clinic and was told to come to the ER for evaluation. Exam Limitations: no limitations Onset/Duration Of Symptoms: Days, Waxing/Waning Current Symptoms Are (Timing): Still Present Quality Of Symptoms: Draining Severity: None Past Medical History Reviewed: Historical Data, Nursing Documentation, Vital Signs Vital Signs: Last Vital Signs Temp 98 F 03/18/17 14:33 Pulse 84 03/18/17 14:33 Resp 18 03/18/17 14:33 BP 163/77 H 03/18/17 14:33 Pulse Ox 98 03/18/17 14:33 - Medical History PMH: HTN, Peripheral Edema Denies: Anemia, Arthritis, Asthma, Atrial Fibrillation, Bronchitis, Cardia Arrhythmia, CHF, COPD, Emphysema, Fractures, HIV, Hypercholesterolemia, Hyperthyroidism, Hypothyroidism, Kidney Stones, Mitral Valve Prolapse, Osteoporosis, Pneumonia, Pulmonary Embolism, Chronic Kidney Disease, Rheumatoid Arthritis, Sickle Cell Disease, Sleep Apnea - Surgical History Surgical History: Pacemaker Denies: Appendectomy - Family History Family History: States: Unknown Family Hx - Living Arrangements Living Arrangements: Other - Social History Alcohol: None Drugs: Denies - Immunization History Hx Tetanus Toxoid Vaccination: No Hx Influenza Vaccination: No Hx Pneumococcal Vaccination: No - Home Medications Home Medications: Ambulatory Orders Medication Instructions Recorded hydroCHLOROthiazide [Microzide] 25 mg PO DAILY 01/01/17 Piperacill/Tazo 3.375gm in Dex 3.375 gm IVPB Q6 7 Days bag 01/04/17 [Zosyn 3.375 Gm IV] hydroCHLOROthiazide [Hydrodiuril] 25 mg PO DAILY #14 tab 03/18/17 - Allergies Allergies/Adverse Reactions: Allergies Allergy/AdvReac Type Severity Reaction Status Date / Time ciprofloxacin [From Cipro] Allergy RASH Verified 11/09/16 16:38 ciprofloxacin HCl Allergy RASH Verified 11/09/16 16:38 [From Cipro] chocolate flavor AdvReac ears run Verified 11/09/16 16:38 Review of Systems ROS Statement: Except As Marked, All Systems Reviewed And Found Negative Constitutional: Negative for: Fever, Chills Respiratory: Negative for: Cough Gastrointestinal: Negative for: Nausea, Vomiting Physical Exam - Reviewed Nursing Documentation Reviewed: Yes Vital Signs Reviewed: Yes - Physical Exam Appears: Positive for: Well, Non-toxic, No Acute Distress Head Exam: Positive for: ATRAUMATIC, NORMAL INSPECTION, NORMOCEPHALIC Skin: Positive for: Normal Color, Warm, DRY Eye Exam: Positive for: Normal appearance ENT: Positive for: Normal ENT Inspection Neck: Positive for: Normal, Painless ROM Cardiovascular/Chest: Positive for: Regular Rate, Rhythm Respiratory: Positive for: Normal Breath Sounds. Negative for: Accessory Muscle Use, Respiratory Distress Back: Positive for: Normal Inspection Extremity: Positive for: Normal ROM, Swelling (Bilateral lower legs with clear drainage ) Neurologic/Psych: Positive for: Alert, Oriented - ECG O2 Sat by Pulse Oximetry: 98 Medical Decision Making Medical Decision Making: Podiatry consult completed. Residents would like patient given new Rx for HCTZ. Follow-up with the wound care clinic. Podiatry does not want labs or antiboitics. Disposition - Clinical Impression Clinical Impression: Eleph[place]asis - Disposition Referrals: [facility] [Outside] Disposition: Routine/Home Disposition Time: 17:18 Condition: STABLE Prescriptions: hydroCHLOROthiazide [Hydrodiuril] 25 mg PO DAILY #14 tab Instructions: Chronic Wound Care (ED) Forms: [employer] - [employer] ([place])
--- NOTE | 2017-03-18 17:22 | CP.PCM.CON ---
History of Present Illness - History of Present Illness History of Present Illness: 51 y/o male with PMHx of HTN, peripheral edema and b/l lower extremity lymphedema seen at bedside in ED complaining of fluid drainage from the left lower extremity. Patient states that he follows up with Dr. Rodriguez on weekly basis. Patient states that he had his dressing changed last week but his left leg has been draining fluid since last Saturday. Patient denies of taking his blood pressure medications because he has not had a chance to go to his doctor to renew the prescription. Patient states that he has not been taking his water pill for the past 2 weeks. Patient denies of any recent F/N/V/C/SOB/CP. Patient denies of any pain in his bilateral lower extremities. Patient denies of any other pedal complains at this time. PMHx: HTN, Peripheral Edema,and b/l lower extremity lymphedema PSHx: Denies SHx: Denies smoking, occasional EtOH, denies illicit drug usage Allergies: Ciprofloxacin, chocolate flavor Review of Systems - Constitutional Constitutional: As Per HPI Past Patient History - Infectious Disease Hx of Infectious Diseases: None - Tetanus Immunizations Tetanus Immunization: Unknown - Past Medical History & Family History Past Medical History?: Yes - Past Social History Smoking Status: Never Smoked - CARDIAC Hx Atrial Fibrillation: No Hx Cardia Arrhythmia: No Hx Congestive Heart Failure: No Hx Hypercholesterolemia: No Hx Hypertension: Yes Hx Mitral Valve Prolapse: No Hx Pacemaker: Yes Hx Peripheral Edema: Yes - PULMONARY Hx Asthma: No Hx Bronchitis: No Hx Chronic Obstructive Pulmonary Disease (COPD): No Hx Emphysema: No Hx Pneumonia: No Hx Pulmonary Embolism: No Hx Sleep Apnea: No - NEUROLOGICAL Hx Neurological Disorder: No - HEENT Hx HEENT Problems: No - RENAL Hx Chronic Kidney Disease: No Hx Kidney Stones: No - ENDOCRINE/METABOLIC Hx Hyperthyroidism: No Hx Hypothyroidism: No - HEMATOLOGICAL/ONCOLOGICAL Hx Anemia: No Hx Human Immunodeficiency Virus (HIV): No Hx Sickle Cell Disease: No - INTEGUMENTARY Hx Dermatological Problems: Yes Hx Cellulitis: Yes Other/Comment: lymphadema - MUSCULOSKELETAL/RHEUMATOLOGICAL Hx Arthritis: No Hx Fractures: No Hx Osteoporosis: No Hx Rheumatoid Arthritis: No - GASTROINTESTINAL Hx Gastrointestinal Disorders: Yes Other/Comment: Umbilical hernia - GENITOURINARY/GYNECOLOGICAL Hx Genitourinary Disorders: No - PSYCHIATRIC Hx Psychophysiologic Disorder: No Hx Substance Use: No - SURGICAL HISTORY Hx Appendectomy: No - ANESTHESIA Hx Anesthesia: No Hx Anesthesia Reactions: No Meds Home Medications: Home Medication List Medication Instructions Recorded Confirmed Type hydroCHLOROthiazide [Hydrodiuril] 25 mg PO DAILY #14 tab 03/18/17 Rx Allergies/Adverse Reactions: Allergies Allergy/AdvReac Type Severity Reaction Status Date / Time ciprofloxacin [From Cipro] Allergy RASH Verified 11/09/16 16:38 ciprofloxacin HCl Allergy RASH Verified 11/09/16 16:38 [From Cipro] chocolate flavor AdvReac ears run Verified 11/09/16 16:38 Physical Exam - Constitutional Appears: Well, Non-toxic, No Acute Distress - Extremities Exam Additional comments: Left LE focused exam: VASC: DP pulses are palpable b/l but PT pulses non-palpable secondary to increased tissue density and edema. CFT < 3 seconds to all digits b/l. Temperature gradient is warm to cool from proximal to distal b/l, +3 pitting edema noted on the distal leg as well as dorsum of the left leg DERM: Boggy macerated superficial skin with lichenification of the skin with tree trunk appearance noted on bilateral lower extremity. mild malodor present, no open wound noted, no tunneling, no undermining, no erythema, no purulent drainage from the leg, serous drainage noted from the posterior calf, no signs of active infection at this time Right LE: dressing clean, dry and intact with no strike through noted NEURO: Sensation grossly intact. ORTHO: Limited ROM at the ankle joint due to increased edema, no pain on palpation of the calf - Neurological Exam Neurological exam: Alert, Oriented x3 - Psychiatric Exam Psychiatric exam: Normal Affect, Normal Mood Results - Vital Signs Recent Vital Signs: Last Vital Signs Temp 98 F 03/18/17 14:33 Pulse 84 03/18/17 14:33 Resp 18 03/18/17 14:33 BP 163/77 H 03/18/17 14:33 Pulse Ox 98 03/18/17 14:33 Assessment & Plan - Assessment and Plan (Free Text) Assessment: 51 y/o male seen at bedside in ED with chronic lichenifications, lymphedema of bilateral lower extremity Plan: Pt evaluated and chart reviewed Pt discussed in details with attending Dr. Rodriguez Vitals reviewed: afebrile Dressing applied using betadine soaked 4x4 gauze, ABD pads, Kurlix and RICH bandage on L leg Patient educated to make an appointment with his PCP and renew his prescription for blood pressure medications Patient educated to return to ED if he develops any systemic symptoms Patient educated to follow up in the wound care center tomorrow Patient demonstrated verbal understanding Thank you for the podiatry consult - Date & Time Date: 03/18/17 Time: 17:32
== END 2017-03-18 17:38 | disposition home or self-care (01) ==
LOC: H.ER 14:16
DX: Z48.00 Encounter for change or removal of nonsurgical wound dressing (principal)

== ENCOUNTER 2017-03-19 15:22 | Inpatient (IN) | payer MEDICARE ==
--- NOTE | 2017-03-19 16:05 | ED PDOC ---
Lower Extremity Pain/Injury Time Seen by Provider: 03/19/17 16:03 Chief Complaint (Nursing): Lower Extremity Problem/Injury Chief Complaint (Provider): leg pain History Per: Patient Additional Complaint(s): Patient was sent from podiatry clinic for admission secondary to infected wound to right lower extremity. Patient has chronic bilateral lower extremity lymphedema with chronic open wounds and has been under the care of wound care clinic for several years. He was seen today by Dr. Romo who advised that he come to the ER secondary to infection of right leg wound. Patient denies fever or chills. He does report more pain to right leg than usual. He was seen in ED yesterday but only had left leg dressed. Past Medical History Reviewed: Historical Data, Nursing Documentation, Vital Signs Vital Signs: Last Vital Signs Temp 98.4 F 03/19/17 15:53 Pulse 91 H 03/19/17 15:53 Resp 16 03/19/17 15:53 BP 133/76 03/19/17 15:53 Pulse Ox 98 03/19/17 15:53 - Medical History PMH: HTN, Peripheral Edema Denies: Anemia, Arthritis, Asthma, Atrial Fibrillation, Bronchitis, Cardia Arrhythmia, CHF, COPD, Emphysema, Fractures, HIV, Hypercholesterolemia, Hyperthyroidism, Hypothyroidism, Kidney Stones, Mitral Valve Prolapse, Osteoporosis, Pneumonia, Pulmonary Embolism, Chronic Kidney Disease, Rheumatoid Arthritis, Sickle Cell Disease, Sleep Apnea - Surgical History Surgical History: Pacemaker Denies: Appendectomy - Family History Family History: States: No Known Family Hx - Social History Current smoker - smoking cessation education provided: No Alcohol: Social Drugs: Denies - Home Medications Home Medications: Ambulatory Orders Medication Instructions Recorded hydroCHLOROthiazide [Hydrodiuril] 25 mg PO DAILY #14 tab 03/18/17 - Allergies Allergies/Adverse Reactions: Allergies Allergy/AdvReac Type Severity Reaction Status Date / Time ciprofloxacin [From Cipro] Allergy RASH Verified 03/19/17 15:52 ciprofloxacin HCl Allergy RASH Verified 03/19/17 15:52 [From Cipro] chocolate flavor AdvReac ears run Verified 03/19/17 15:52 Review of Systems ROS Statement: Except As Marked, All Systems Reviewed And Found Negative Constitutional: Negative for: Fever Musculoskeletal: Positive for: Other (chronic wounds to bilateral lower extremities) Physical Exam - Reviewed Nursing Documentation Reviewed: Yes Vital Signs Reviewed: Yes - Physical Exam Appears: Positive for: Well, Non-toxic, No Acute Distress Skin: Negative for: Rash Eye Exam: Positive for: Normal appearance Cardiovascular/Chest: Positive for: Regular Rate, Rhythm Respiratory: Positive for: Normal Breath Sounds Extremity: Positive for: Other (Significant edema noted to bilateral lower extremities) Neurologic/Psych: Positive for: Alert, Oriented - Laboratory Results Result Diagrams: 03/19/17 17:00 03/19/17 17:00 - ECG O2 Sat by Pulse Oximetry: 98 Pulse Ox Interpretation: Normal - Other Rad CXR X-Ray: Interpreted by Me, Viewed By Me X-Ray Interpretation: no acute finding, no interval chanage Right tib/fib and ankle x-ray X-Ray: Interpreted by Me, Viewed By Me X-Ray Interpretation: marked edema, no gas, no fx, no dis, degenerative changes Medical Decision Making Medical Decision Makin51 year old with infected wound to right leg Plan: CBC CMP Blood culture IVF EKG CXR I spoke with podiatry resident, Dr. Wm briseno who states that patient will be admitted. He states to order x-ray of the right tib-fib and ankle and start patient on IV Zosyn and vancomycin. As per Dr. Briseno, consult was entered for infectious disease with Dr. Moraes. Resident to speak with Dr. Moraes regarding consult. Case was also d/w family practice resident, Dr. Gordon for admission IV was established peripherally but it infiltrated. Several additional attempts made to establish IV access but unable to. Patient states last time he was admitted for IV antibiotics he needed a PICC line. Call was placed to the practice resident, Dr. Bernstein who was made aware of this. Disposition - Clinical Impression Clinical Impression: Leg wound, right, Ulcer of right foot - Patient ED Disposition Is Patient to be Admitted: Yes - Disposition Disposition Time: 18:26 Condition: FAIR - Pt Status Changed To: Hospital Disposition Of: Inpatient - Admit Certification Admit to Inpatient:: After my assessment, the patient will require hospitalization for at least two midnights. This is because of the severity of symptoms shown, intensity of services needed, and/or the medical risk in this patient being treated as an outpatient. - POA Present On Arrival: None Results - Lab Results Lab Results: 03/19/17 03/19/17 17:00 17:00 WBC 6.1 RBC 4.83 Hgb 11.2 L Hct 40.4 MCV 83.7 MCH 23.3 L MCHC 27.8 L RDW 16.4 H Plt Count 323 D MPV 8.3 Neut % (Auto) 75.0 Lymph % (Auto) 13.1 L [place] % (Auto) 8.3 Eos % (Auto) 2.6 Baso % (Auto) 1.0 Neut # 4.5 Lymph # 0.8 L [place] # 0.5 Eos # 0.2 Baso # 0.1 Sodium 145 Potassium 4.7 Chloride 110 H Carbon Dioxide 19 L Anion Gap 21 H BUN 22 H Creatinine 1.6 H Est GFR ( Amer) 55 Est GFR (Non-Af Amer) 46 Random Glucose 97 Calcium 9.3 Total Bilirubin 0.7 AST 11 L ALT 23 Alkaline Phosphatase 89 Total Protein 8.0 Albumin 4.2 Globulin 3.8 Albumin/Globulin Ratio 1.1
[2017-03-19] MEDS ORDERED: Piperacillin/Tazobact 3.375 gm Inj IVPB STA (16:30)
[2017-03-19] MEDS ORDERED: Piperacillin/Tazobact 3.375 GM in Sodium Chloride 0.9% 100 ML IVPB STA (16:38)
[2017-03-19 17:16] LABS: BASO # 0.1 K/uL (0.0-0.2); EOS # 0.2 K/uL (0.0-0.7); EOS % 2.6 % (0.0-4.0); HEMATOCRIT 40.4 % (35.0-51.0); LYMPH # 0.8 K/uL (1.0-4.3); LYMPH % 13.1 % (20.0-40.0); MEAN CELL VOLUME 83.7 fl (80.0-94.0); MEAN CORPUSCULAR HEMOGLOBIN 23.3 pg (27.0-31.0); MEAN CORPUSCULAR HGB CONC 27.8 g/dL (33.0-37.0); MEAN PLATELET VOLUME 8.3 fl (7.2-11.7); MONO # 0.5 K/uL (0.0-0.8); MONO % 8.3 % (0.0-10.0); NEUT # 4.5 K/uL (1.8-7.0); NRBC % 0.1 % (0.0-0.0); RED CELL DISTRIBUTION WIDTH 16.4 % (11.5-14.5); WHITE BLOOD COUNT 6.1 K/uL (4.8-10.8)
--- NOTE | 2017-03-19 17:22 | CP.PCM.CON ---
History of Present Illness - History of Present Illness History of Present Illness: 51 y/o male with PMHx of HTN, peripheral edema and b/l lower extremity lymphedema seen at bedside in ED complaining of fluid drainage from the left lower extremity. Patient states that he follows up with Dr. Rodriguez on weekly basis. Patient states that he was seen in the ED for this reason yesterday. Patient states that his drainage smelled really bad today when he was following up with Dr. Rodriguez in the wound care center. Patient states that Dr. Rodriguez was concerned about his extremity being infected so he was sent to the ED for admission and to receive IV abx. Patient denies of taking his blood pressure medications because he has not had a chance to go to his doctor to renew the prescription. Patient states that he received new prescription for the blood pressure medication when he was here in the ED but was not able to fill it. Patient denies of any recent F/N/V/C/SOB/CP. Patient denies of any pain in his bilateral lower extremities. Patient denies of any other pedal complains at this time. PMHx: HTN, Peripheral Edema,and b/l lower extremity lymphedema PSHx: Denies SHx: Denies smoking, occasional EtOH, denies illicit drug usage Allergies: Ciprofloxacin, chocolate flavor Review of Systems - Constitutional Constitutional: As Per HPI Past Patient History - Infectious Disease Hx of Infectious Diseases: None - Tetanus Immunizations Tetanus Immunization: Unknown - Past Medical History & Family History Past Medical History?: Yes - Past Social History Alcohol: Social Drugs: Denies - CARDIAC Hx Atrial Fibrillation: No Hx Cardia Arrhythmia: No Hx Congestive Heart Failure: No Hx Hypercholesterolemia: No Hx Hypertension: Yes Hx Mitral Valve Prolapse: No Hx Pacemaker: Yes Hx Peripheral Edema: Yes - PULMONARY Hx Asthma: No Hx Bronchitis: No Hx Chronic Obstructive Pulmonary Disease (COPD): No Hx Emphysema: No Hx Pneumonia: No Hx Pulmonary Embolism: No Hx Sleep Apnea: No - NEUROLOGICAL Hx Neurological Disorder: No - HEENT Hx HEENT Problems: No - RENAL Hx Chronic Kidney Disease: No Hx Kidney Stones: No - ENDOCRINE/METABOLIC Hx Hyperthyroidism: No Hx Hypothyroidism: No - HEMATOLOGICAL/ONCOLOGICAL Hx Anemia: No Hx Human Immunodeficiency Virus (HIV): No Hx Sickle Cell Disease: No - INTEGUMENTARY Hx Dermatological Problems: Yes Hx Cellulitis: Yes Other/Comment: Lymphadema - MUSCULOSKELETAL/RHEUMATOLOGICAL Hx Arthritis: No Hx Fractures: No Hx Osteoporosis: No Hx Rheumatoid Arthritis: No - GASTROINTESTINAL Hx Gastrointestinal Disorders: No - GENITOURINARY/GYNECOLOGICAL Hx Genitourinary Disorders: No - PSYCHIATRIC Hx Psychophysiologic Disorder: No Hx Substance Use: No - SURGICAL HISTORY Hx Appendectomy: No - ANESTHESIA Hx Anesthesia: No Hx Anesthesia Reactions: No Meds Allergies/Adverse Reactions: Allergies Allergy/AdvReac Type Severity Reaction Status Date / Time ciprofloxacin [From Cipro] Allergy RASH Verified 03/19/17 15:52 ciprofloxacin HCl Allergy RASH Verified 03/19/17 15:52 [From Cipro] chocolate flavor AdvReac ears run Verified 03/19/17 15:52 - Medications Medications: Current Medications Sodium Chloride (Sodium Chloride 0.9%) 1,000 mls @ 1,000 mls/hr IV .Q1H STA Stop: 03/19/17 17:29 Vancomycin HCl 1 gm/ Sodium (Chloride) 250 mls @ 166.667 mls/hr IVPB STAT STA Stop: 03/19/17 17:59 Piperacillin Sod/Tazobactam (Sod 3.375 gm/ Sodium Chloride) 100 mls @ 100 mls/ hr IVPB STAT STA Stop: 03/19/17 17:37 Physical Exam - Constitutional Appears: Well, Non-toxic, No Acute Distress - Extremities Exam Additional comments: Bilateral LE exam: VASC: DP/PT pulses are non-palpable secondary to increased tissue density and edema. CFT < 3 seconds to all digits b/l. Temperature gradient is warm to cool from proximal to distal b/l, +3 pitting edema noted on the distal leg as well as dorsum of the left leg DERM: Boggy macerated superficial skin with lichenification of the skin with tree trunk appearance noted on bilateral lower extremity. malodor present, macerated diffuse superficial sloughing of the skin noted on the medial aspect of the left distal leg and posterior aspect of the right leg and on dorsum of the digits on the left foot, no tunneling, no undermining, no erythema, no purulent drainage from the leg, serous drainage noted from the posterior calf, no signs of active infection at this time NEURO: Sensation grossly intact. ORTHO: Limited ROM at the ankle joint due to increased edema, no pain on palpation of the calf - Neurological Exam Neurological exam: Alert, Oriented x3 - Psychiatric Exam Psychiatric exam: Normal Affect, Normal Mood Results - Vital Signs Recent Vital Signs: Last Vital Signs Temp 98.4 F 03/19/17 15:53 Pulse 91 H 03/19/17 15:53 Resp 16 03/19/17 15:53 BP 133/76 03/19/17 15:53 Pulse Ox 98 03/19/17 16:38 - Labs Result Diagrams: 03/19/17 17:00 03/19/17 17:00 Assessment & Plan - Assessment and Plan (Free Text) Assessment: 51 y/o male seen at bedside in ED with chronic lichenifications, lymphedema of bilateral lower extremity Plan: Pt evaluated and chart reviewed Pt discussed in details with attending Dr. Rodriguez Labs and Vitals reviewed: afebrile, WBC @ 6.1 Dressing applied using betadine soaked 4x4 gauze, ABD pads, Kurlix and RICH bandage on bilateral distal leg Patient to be admitted to receive IV abx and to control drainage from left lower extremity ID consult placed Podiatry to follow patient while in house Thank you for the podiatry consult - Date & Time Date: 03/19/17 Time: 17:55
[2017-03-19] MEDS ORDERED: Piperacillin/Tazobact 3.375 gm Inj IVPB ONE (17:28)
[2017-03-19] MEDS ORDERED: Vancomycin 1 g Inj ONE (17:28)
[2017-03-19] MEDS: Sodium Chloride 0.9% 1,000 ML IV STA ×2 (17:29→19:30)
[2017-03-19 17:44] LABS: ALB/GLOB RATIO 1.1 (1.0-2.1); BILIRUBIN,TOTAL 0.7 mg/dl (0.2-1.3); CALCIUM 9.3 mg/dL (8.4-10.2); POTASSIUM 4.7 MMOL/L (3.6-5.0)
--- NOTE | 2017-03-19 19:04 | RAD ---
HISTORY: Admission. COMPARISON: 01/01/2017 FINDINGS: LUNGS: No active pulmonary disease. PLEURA: No significant pleural effusion identified, no pneumothorax apparent. CARDIOVASCULAR: No radiographic findings to suggest acute or significant cardiovascular disease. OSSEOUS STRUCTURES: No significant abnormalities. VISUALIZED UPPER ABDOMEN: Normal. OTHER FINDINGS: None. IMPRESSION: No active disease. No significant interval change compared to the prior examination(s). Concordant results with the preliminary interpretation rendered by the emergency department physician procedure.
--- NOTE | 2017-03-19 19:05 | RAD ---
PROCEDURE: Right Ankle Radiographs. HISTORY: wound COMPARISON: None FINDINGS: BONES: No evidence of acute osteomyelitis. Small plantar calcaneal spur and incidental finding JOINTS: Normal. No osteoarthritis. Ankle mortise maintained. Talar dome intact SOFT TISSUES: Diffuse soft tissue edema of without focal abnormality. OTHER FINDINGS: None. IMPRESSION: Soft tissue swelling, diffuse lower extremity edema without acute articular or osseous abnormality.
--- NOTE | 2017-03-19 19:07 | RAD ---
PROCEDURE: Radiographs of the right tibia and fibula. HISTORY: wound COMPARISON: None available. TECHNIQUE: Frontal and lateral views obtained. FINDINGS: BONES: No fracture or destructive lesion. JOINT SPACES: Unremarkable. OTHER FINDINGS: Diffuse lower extremity edema. IMPRESSION: Soft tissue swelling without acute articular or osseous abnormality.
--- NOTE | 2017-03-19 19:18 | CP.PCM.HP ---
History of Present Illness - History of Present Illness History of Present Illness: 51 y/o male with PMHx of HTN, peripheral edema and b/l lower extremity lymphedema who was sent by his risk advisor after visit to the wound clinic to ED for possible lower extremity infection as pt legs were draining a lot more and smelled foul. Pt does not have any complaints, saw and examined pt after podiatry graphics intern saw pt cleaned and dressed both lower extremities Patient denies of any recent F/N/V/C/SOB/CP. Patient denies of any pain in his bilateral lower extremities. Patient denies of any other pedal complains at this time. PMD: Does not have one PMHx: HTN, Peripheral Edema,and b/l lower extremity lymphedema PSHx: Denies SHx: Denies smoking, occasional EtOH, denies illicit drug usage Allergies: Ciprofloxacin, chocolate flavor Present on Admission - Present on Admission Any Indicators Present on Admission: No Review of Systems - Review of Systems All systems: reviewed and no additional remarkable complaints except (per HPI) Past Patient History - Infectious Disease Hx of Infectious Diseases: None - Tetanus Immunizations Tetanus Immunization: Unknown - Past Medical History & Family History Past Medical History?: Yes - Past Social History Alcohol: Social Drugs: Denies - CARDIAC Hx Atrial Fibrillation: No Hx Cardia Arrhythmia: No Hx Congestive Heart Failure: No Hx Hypercholesterolemia: No Hx Hypertension: Yes Hx Mitral Valve Prolapse: No Hx Pacemaker: Yes Hx Peripheral Edema: Yes - PULMONARY Hx Asthma: No Hx Bronchitis: No Hx Chronic Obstructive Pulmonary Disease (COPD): No Hx Emphysema: No Hx Pneumonia: No Hx Pulmonary Embolism: No Hx Sleep Apnea: No - NEUROLOGICAL Hx Neurological Disorder: No - HEENT Hx HEENT Problems: No - RENAL Hx Chronic Kidney Disease: No Hx Kidney Stones: No - ENDOCRINE/METABOLIC Hx Hyperthyroidism: No Hx Hypothyroidism: No - HEMATOLOGICAL/ONCOLOGICAL Hx Anemia: No Hx Human Immunodeficiency Virus (HIV): No Hx Sickle Cell Disease: No - INTEGUMENTARY Hx Dermatological Problems: Yes - MUSCULOSKELETAL/RHEUMATOLOGICAL Hx Arthritis: No Hx Fractures: No Hx Osteoporosis: No Hx Rheumatoid Arthritis: No - GASTROINTESTINAL Hx Gastrointestinal Disorders: No - GENITOURINARY/GYNECOLOGICAL Hx Genitourinary Disorders: No - PSYCHIATRIC Hx Psychophysiologic Disorder: No - SURGICAL HISTORY Hx Appendectomy: No - ANESTHESIA Hx Anesthesia: No Hx Anesthesia Reactions: No Meds Allergies/Adverse Reactions: Allergies Allergy/AdvReac Type Severity Reaction Status Date / Time ciprofloxacin [From Cipro] Allergy RASH Verified 03/19/17 15:52 ciprofloxacin HCl Allergy RASH Verified 03/19/17 15:52 [From Cipro] chocolate flavor AdvReac ears run Verified 03/19/17 15:52 Physical Exam - Constitutional Appears: Non-toxic, No Acute Distress - Head Exam Head Exam: NORMOCEPHALIC - Eye Exam Eye Exam: Normal appearance - ENT Exam ENT Exam: Mucous Membranes Moist - Respiratory Exam Respiratory Exam: Clear to Auscultation Bilateral, NORMAL BREATHING PATTERN. absent: Rhonchi, Wheezes - Cardiovascular Exam Cardiovascular Exam: REGULAR RHYTHM, +S1, +S2 - GI/Abdominal Exam GI & Abdominal Exam: Normal Bowel Sounds, Soft. absent: Tenderness - Extremities Exam Additional comments: Lower extremities neatly wrapped, some drainage noted - Neurological Exam Neurological exam: Alert, CN II-XII Intact, Oriented x3 Results - Vital Signs Recent Vital Signs: Last Vital Signs Temp 98.4 F 03/19/17 17:58 Pulse 91 H 03/19/17 17:58 Resp 16 03/19/17 17:58 BP 133/76 03/19/17 17:58 Pulse Ox 98 03/19/17 18:57 - Labs Result Diagrams: 03/19/17 17:00 03/19/17 17:00 Labs: Laboratory Results - last 24 hr 03/19/17 03/19/17 17:00 17:00 WBC 6.1 RBC 4.83 Hgb 11.2 L Hct 40.4 MCV 83.7 MCH 23.3 L MCHC 27.8 L RDW 16.4 H Plt Count 323 D MPV 8.3 Neut % (Auto) 75.0 Lymph % (Auto) 13.1 L [place] % (Auto) 8.3 Eos % (Auto) 2.6 Baso % (Auto) 1.0 Neut # 4.5 Lymph # 0.8 L [place] # 0.5 Eos # 0.2 Baso # 0.1 Sodium 145 Potassium 4.7 Chloride 110 H Carbon Dioxide 19 L Anion Gap 21 H BUN 22 H Creatinine 1.6 H Est GFR ( Amer) 55 Est GFR (Non-Af Amer) 46 Random Glucose 97 Calcium 9.3 Total Bilirubin 0.7 AST 11 L ALT 23 Alkaline Phosphatase 89 Total Protein 8.0 Albumin 4.2 Globulin 3.8 Albumin/Globulin Ratio 1.1 Assessment & Plan - Assessment and Plan (Free Text) Assessment: 51 y/o male with pmhx of HTN, chronic lichenification and lymphedema of bilateral lower extremity being admitted for infection of the bilateral lower extremity Plan: Bilateral lower extremity infection due to chronic lichenification and lymphedema Xray imaging negative for any acute findings dose of vanco +zosyn given in ED PICC line ordered stat vanco and zosyn ordered for the AM Infectious dx and Podiatry consulted pain management as ordered HTN (Controlled) Home medication resumed Monitor Diet- Heart Healthy DVT prophylaxis- Lovenox 40mg daily
--- NOTE | 2017-03-20 07:28 | CP.PCM.PN ---
Subjective - Date & Time of Evaluation Date of Evaluation: 03/20/17 Time of Evaluation: 08:21 - Subjective Subjective: Podiatry Progress note for Dr. Rodriguez 51 y/o male seen at bedside for bilateral lower extremity superficial ulceration with fluid drainage. Patient is NAD and is AAOx3. Patient states that he is doing a lot better today. Patient states that he has not been draining from the legs since last night. Patient denies of any pain to his legs today. Patient denies of any acute overnight events. Patient denies of any recent F/N/V/C/SOB/CP today. Objective - Vital Signs/Intake and Output Vital Signs (last 24 hours): Temp Pulse Resp BP Pulse Ox 98 F 69 19 123/78 100 03/20/17 00:49 03/20/17 00:49 03/20/17 00:49 03/20/17 00:49 03/20/17 00:49 - Medications Medications: Current Medications Enoxaparin Sodium (Lovenox) 40 mg SC DAILY [facility] PRN Reason: Protocol Hydrochlorothiazide (Hydrodiuril) 25 mg PO DAILY [facility] Vancomycin HCl 1 gm/ Sodium (Chloride) 250 mls @ 166.667 mls/hr IVPB Q12 [facility] Piperacillin Sod/Tazobactam (Sod 3.375 gm/ Sodium Chloride) 100 mls @ 100 mls/ hr IVPB Q8 [facility] Tramadol HCl (Ultram) 50 mg PO Q6 PRN PRN Reason: Pain, moderate (4-7) Tramadol HCl (Ultram) 100 mg PO Q6 PRN PRN Reason: Pain, severe (8-10) - Labs Labs: 03/19/17 17:00 03/19/17 17:00 - Constitutional Appears: Well, Non-toxic, No Acute Distress - Extremities Exam Additional comments: Bilateral LE exam: VASC: DP/PT pulses are non-palpable secondary to increased tissue density and edema. CFT < 3 seconds to all digits b/l. Temperature gradient is warm to cool from proximal to distal b/l, +3 pitting edema noted on the distal leg as well as dorsum of the left leg DERM: Boggy macerated superficial skin with lichenification of the skin with tree trunk appearance noted on bilateral lower extremity. malodor present, macerated diffuse superficial sloughing of the skin noted on the medial aspect of the left distal leg and posterior aspect of the right leg and on dorsum of the digits on the left foot, no tunneling, no undermining, no erythema, no purulent drainage from the leg, serous drainage noted from the posterior calf, no signs of active infection at this time NEURO: Sensation grossly intact. ORTHO: Limited ROM at the ankle joint due to increased edema, no pain on palpation of the calf - Neurological Exam Neurological Exam: Alert, Awake, Oriented x3 - Psychiatric Exam Psychiatric exam: Normal Affect, Normal Mood Assessment and Plan - Assessment and Plan (Free Text) Assessment: 51 y/o male seen at bedside in ED with chronic lichenifications, lymphedema of bilateral lower extremity Plan: Pt evaluated and chart reviewed Pt discussed in details with attending Dr. Rodriguez Labs and Vitals reviewed: afebrile, WBC @ 6.1 (03/19) Dressing applied using betadine soaked 4x4 gauze, ABD pads, Kurlix and RICH bandage on bilateral distal leg Patient on HCTZ - drainage from bilateral lower extremity has resolved Patient to receive IV abx - Vancomycin, Zosyn Podiatry to follow patient while in house
[2017-03-20] MEDS ORDERED: Piperacillin/Tazobact 3.375 GM in Sodium Chloride 0.9% 100 ML IVPB SCH (09:00)
--- NOTE | 2017-03-20 09:04 | CP.PCM.PN ---
Subjective - Date & Time of Evaluation Date of Evaluation: 03/20/17 Time of Evaluation: 07:45 - Subjective Subjective: Patient seen and examined in [facility] this morning. Patient c/o brownish discharge coming out from his left foot. Denies Cp, subjective fevers, chills, N /V, abdominal pain, diarrheas. Objective - Vital Signs/Intake and Output Vital Signs (last 24 hours): Temp Pulse Resp BP Pulse Ox 98.0 F 72 18 112/72 98 03/20/17 08:21 03/20/17 08:21 03/20/17 08:21 03/20/17 08:21 03/20/17 08:21 - Medications Medications: Current Medications Enoxaparin Sodium (Lovenox) 40 mg SC DAILY [facility] PRN Reason: Protocol Hydrochlorothiazide (Hydrodiuril) 25 mg PO DAILY [facility] Vancomycin HCl 1 gm/ Sodium (Chloride) 250 mls @ 166.667 mls/hr IVPB Q12 [facility] Piperacillin Sod/Tazobactam (Sod 3.375 gm/ Sodium Chloride) 100 mls @ 100 mls/ hr IVPB Q8 [facility] Tramadol HCl (Ultram) 50 mg PO Q6 PRN PRN Reason: Pain, moderate (4-7) Tramadol HCl (Ultram) 100 mg PO Q6 PRN PRN Reason: Pain, severe (8-10) - Labs Labs: 03/19/17 17:00 03/19/17 17:00 - Constitutional Appears: No Acute Distress - ENT Exam ENT Exam: Mucous Membranes Moist - Respiratory Exam Respiratory Exam: Clear to Ausculation Bilateral, NORMAL BREATHING PATTERN - Cardiovascular Exam Cardiovascular Exam: REGULAR RHYTHM, +S1, +S2 - GI/Abdominal Exam GI & Abdominal Exam: Soft, Normal Bowel Sounds. absent: Distended, Guarding, Rigid, Tenderness - Extremities Exam Additional comments: lymphedema of bilateral lower extremity - Neurological Exam Neurological Exam: Alert, Awake, Oriented x3 - Skin Skin Exam: Dry, Intact, Normal Color Assessment and Plan - Assessment and Plan (Free Text) Assessment: 51 y/o male with pmhx of HTN, chronic lymphedema of bilateral lower extremity being admitted for bilateral lower extremities lymphedema, associated with ulceration for IV abx. Plan: Chronic Bilateral lower extremities lymphedema, associated with ulceration [facility] -c/w Vancomycin 1 gm IVP Q12 day #1 -c/w Zosyn 3.375 gm IV Q8 day day#1 -f/u Vanco trough on 03/21/17 AM -c/w pain control with Tramadol PRN -f/u Blood Cx -Podiatry on board, f/u recommendations -ID consult appreciated, Dr. Moraes, f/u recommendations -Ankle x ray: soft tissues swelling, no acute articular or osseous abnormalities. -Tibia/Fibula x ray: soft tissues swelling, no acute articular or osseous abnormalities. -pending PICC line -PT evaluation HTN Controlled Hydrochlorothiazide 25 mg PO daily will Monitor Diet Heart Healthy DVT prophylaxis Lovenox 40 mg daily
[2017-03-20 09:49] LABS: BLOOD UREA NITROGEN 19 mg/dl (9-20); CALCIUM 8.9 mg/dL (8.4-10.2); CARBON DIOXIDE 24 mmol/L (22-30); CHLORIDE 111 mmol/L (98-107); GFR AFRICAN-AMERICAN > 60; GLUCOSE,RANDOM 86 mg/dL (75-110); POTASSIUM 4.5 MMOL/L (3.6-5.0); SODIUM 146 mmol/l (132-148)
--- NOTE | 2017-03-20 10:39 | CARD ---
APPROVED REPORT EKG Measurement Heart [id number] <Conclusion> Normal sinus rhythm Possible Left atrial enlargement Inferior infarct, age undetermined Abnormal ECG
[2017-03-20] MEDS ORDERED: Lidocaine 1% Inj (20ml) ONE (13:25)
--- NOTE | 2017-03-20 13:45 | PCM.SURG1 ---
Surgeon's Initial Post Op Note - Surgeon's Notes Surgeon: Jai Nevarez MD Internal Medicine Physician Assistant: None Type of Anesthesia: Local Pre-Operative Diagnosis: Poor venous access Operative Findings: Patent right brachial vein Post-Operative Diagnosis: Poor venous access Operation Performed: Single lumen picc placement, 43 cm, via the right brachial vein. Tip is in the SVC. Specimen/Specimens Removed: None Estimated Blood Loss: EBL {In ML}: 2 Blood Products Given: N/A Drains Used: No Drains Post-Op Condition: Fair Date of Surgery/Procedure: 03/20/17 Time of Surgery/Procedure: 13:40
[2017-03-20] MEDS: Enoxaparin 40 mg Syringe SC SCH (14:02)
--- NOTE | 2017-03-20 15:30 | PQF GENQUE ---
Dr. Dean Leo, 1. Please document cause or type of skin ulcer: i.e. Non-pressure ulcer associated with: Atherosclerosis of lower extremities Chronic venous hypertension Diabetes Postphlebitic syndrome Postthrombotic syndrome Varicose veins Other (please specify) Unknown Other (please specify) Clinically unable to determine Unknown 2. Please document severity of non-pressure ulcer: Limited to breakdown of skin With fat layer exposure With necrosis of muscle With necrosis of bone Unspecified Clinically unable to determine Unknown 3. . Please document any associated infectious process associated with ulcer including infectious organism if known: after the work up is completed ER MD note: Impression: Clinical Impression: Leg wound, right, Ulcer of right foot H and P: pmhx of HTN, chronic lichenification and lymphedema of bilateral lower extremity being admitted for infection of the bilateral lower extremity 03/20: Resident progress note: with pmhx of HTN, chronic lymphedema of bilateral lower extremity being admitted for bilateral lower extremities lymphedema, associated with ulceration for IV abx This form is a permanent part of the medical record Clarification of your documentation is requested to better reflect the severity of illness and intensity of treatment of your patient. Indicators present [] Specify: [] [] Specify: [] [] Specify: [] [] Specify: [] Location in the medical record that reflects the above clinical findings: [] Treatment Provided: [] PHYSICIAN'S RESPONSE Based on your medical judgment of the clinical indicators outlined above please clarify the following: [] Practitioner response [] If unable to determine, please check the box, sign and date. Present On Admission (POA) Indicator: [] Present at the time of admission [] Not present at the time of admission [] Clinically Undetermined In responding to this query, please exercise your independent professional judgment. The fact that a question is asked does not imply that any particular answer is desired or expected. Thank you for your clarification on this documentation. If you have any questions please call. * Thank you, Jennifer Singh RN ext. #[phone]: Teressa LEMUS
--- NOTE | 2017-03-20 15:40 | CP.PCM.CON ---
History of Present Illness - History of Present Illness History of Present Illness: 51 y/o male with PMHx of HTN, peripheral edema and b/l lower extremity lymphedema who was sent by his lay out drafter after visit to the wound clinic to ED for possible lower extremity infection as pt legs were draining a lot more and smelled foul. admitted for IV antibiotics rx and wound care PMD: Does not have one PMHx: HTN, Peripheral Edema,and b/l lower extremity lymphedema PSHx: Denies SHx: Denies smoking, occasional EtOH, denies illicit drug usage Allergies: Ciprofloxacin, chocolate flavor Review of Systems - Constitutional Constitutional: absent: Chills, Fever - EENT Eyes: absent: As Per HPI, Blind Spots, Blurred Vision, Change in Vision, Decreased Night Vision, Diplopia, Discharge, Dry Eye, Exophthalmos, Floaters, Irritation, Itchy Eyes, Loss of Peripheral Vision, Pain, Photophobia, Requires Corrective Lenses, Sees Flashes, Spots in Vision, Tunnel Vision, Other Visual Disturbances, Loss of Vision, Other Ears: absent: As Per HPI, Decreased Hearing, Ear Discharge, Ear Pain, Tinnitus, Abnormal Hearing, Disequilibrium, Dizziness, Other Nose/Mouth/Throat: absent: As Per HPI, Epistaxis, Nasal Congestion, Nasal Discharge, Nasal Obstruction, Nasal Trauma, Nose Pain, Post Nasal Drip, Sinus Pain, Sinus Pressure, Bleeding Gums, Change in Voice, Dental Pain, Dry Mouth, Dysphagia, Halitosis, Hoarsness, Lip Swelling, Mouth Lesions, Mouth Pain, Odynophagia, Sore Throat, Throat Swelling, Tongue Swelling, Facial Pain, Neck Pain, Neck Mass, Other - Cardiovascular Cardiovascular: absent: As Per HPI, Acrocyanosis, Chest Pain, Chest Pain at Rest , Chest Pain with Activity, Claudication, Diaphoresis, Dyspnea, Dyspnea on Exertion, Edema, Irregular Heart Rhythm, Pain Radiating to Arm/Neck/Jaw, Leg Edema, Leg Ulcers, Lightheadedness, Orthopnea, Palpitations, Paroxysmal Nocturnal Dyspnea, Pedal Edema, Radiating Pain, Rapid Heart Rate, Slow Heart Rate, Syncope, Other - Respiratory Respiratory: absent: As Per HPI, Cough, Dyspnea, Hemoptysis, Dyspnea on Exertion , Wheezing, Snoring, Stridor, Pain on Inspiration, Chest Congestion, Excessive Mucous Production, Change in Mucous Color, Pain with Coughing, Other - Gastrointestinal Gastrointestinal: absent: As Per HPI, Abdominal Pain, Belching, Bloating, Change in Bowel Habits, Change in Stool Character, Coffee Ground Emesis, Constipation, Cramping, Diarrhea, Dyspepsia, Dysphagia, Early Satiety, Excessive Flatus, Fecal Incontinence, Heartburn, Hematemesis, Hematochezia, Loose Stools, Melena, Nausea, Odynophagia, Temesmus, Vomiting, Other - Genitourinary Genitourinary: absent: As Per HPI, Change in Urinary Stream, Difficulty Urinating, Dysuria, Flank Pain, Hematuria, Pyuria, Nocturia, Urinary Incontinence, Urinary Frequency, Urinary Hesitance, Urinary Urgency, Voiding Freq/Small Amts, Freq UTI, Hx Renal/Bladder Calculi, Hx /Renal Surgery, Bladder Distension, Other - Musculoskeletal Musculoskeletal: As Per HPI - Integumentary Integumentary: As Per HPI, Skin Pain, Wounds - Neurological Neurological: absent: As Per HPI, Abnormal Gait, Abnormal Hearing, Abnormal Movements, Abnormal Speech, Behavioral Changes, Burning Sensations, Confusion, Convulsions, Disequilibrium, Dizziness, Numbness, Focal Weakness, Frequent Falls , Headaches, Lack of Coordination, Loss of Vision, Memory Loss, Paresthesias, Radicular Pain, Restless Legs, Sensory Deficit, Syncope, Tingling, Tremor, Vertigo, Weakness, Other Visual Disturbances, Other - Psychiatric Psychiatric: absent: As Per HPI, Abnormal Sleep Pattern, Anhedonia, Anxiety, Auditory Hallucinations, Behavioral Changes, Change in Appetite, Change in Libido, Confusion, Depression, Difficulty Concentrating, Hallucinations, Homicidal Ideation, Hopelessness, Irritability, Memory Loss, Mood Swings, Panic Attacks, Paranoia, Suicidal Ideation, Visual Hallucinations, Tactile Hallucinations, Other - Endocrine Endocrine: absent: As Per HPI, Change in Body Appearance, Change in Libido, Cold Intolorance, Deepening of Voice, Excessive Sweating, Fatigue, Flushing, Heat Intolorance, Increase in Ring/Shoe/Hat Size, Palpitations, Polydipsia, Polyphagia, Polyuria, Other - Hematologic/Lymphatic Hematologic: absent: As Per HPI, Easy Bleeding, Easy Bruising, Lymphadenopathy, Other Past Patient History - Infectious Disease Hx of Infectious Diseases: None - Tetanus Immunizations Tetanus Immunization: Unknown - Past Medical History & Family History Past Medical History?: Yes - Past Social History Smoking Status: Never Smoked - CARDIAC Hx Atrial Fibrillation: No Hx Cardia Arrhythmia: No Hx Congestive Heart Failure: No Hx Hypercholesterolemia: No Hx Hypertension: Yes Hx Mitral Valve Prolapse: No Hx Pacemaker: Yes Hx Peripheral Edema: Yes - PULMONARY Hx Asthma: No Hx Bronchitis: No Hx Chronic Obstructive Pulmonary Disease (COPD): No Hx Emphysema: No Hx Pneumonia: No Hx Pulmonary Embolism: No Hx Sleep Apnea: No - NEUROLOGICAL Hx Neurological Disorder: No - HEENT Hx HEENT Problems: No - RENAL Hx Chronic Kidney Disease: No Hx Kidney Stones: No - ENDOCRINE/METABOLIC Hx Hyperthyroidism: No Hx Hypothyroidism: No - HEMATOLOGICAL/ONCOLOGICAL Hx Anemia: No Hx Human Immunodeficiency Virus (HIV): No Hx Sickle Cell Disease: No - INTEGUMENTARY Hx Dermatological Problems: Yes Hx Cellulitis: Yes - MUSCULOSKELETAL/RHEUMATOLOGICAL Hx Falls: No - GASTROINTESTINAL Hx Gastrointestinal Disorders: No - GENITOURINARY/GYNECOLOGICAL Hx Genitourinary Disorders: No - PSYCHIATRIC Hx Substance Use: No - SURGICAL HISTORY Hx Appendectomy: No - ANESTHESIA Hx Anesthesia: No Hx Anesthesia Reactions: No Meds Allergies/Adverse Reactions: Allergies Allergy/AdvReac Type Severity Reaction Status Date / Time ciprofloxacin [From Cipro] Allergy RASH Verified 03/19/17 15:52 ciprofloxacin HCl Allergy RASH Verified 03/19/17 15:52 [From Cipro] chocolate flavor AdvReac ears run Verified 03/19/17 15:52 - Medications Medications: Current Medications Enoxaparin Sodium (Lovenox) 40 mg SC DAILY [facility] PRN Reason: Protocol Last Admin: 03/20/17 14:02 Dose: 40 mg Hydrochlorothiazide (Hydrodiuril) 25 mg PO DAILY [facility] Last Admin: 03/20/17 09:50 Dose: 25 mg Vancomycin HCl 1 gm/ Sodium (Chloride) 250 mls @ 166.667 mls/hr IVPB Q12 [facility] Last Admin: 03/20/17 14:03 Dose: 166.667 mls/hr Piperacillin Sod/Tazobactam (Sod 3.375 gm/ Sodium Chloride) 100 mls @ 100 mls/ hr IVPB Q8 [facility] Last Admin: 03/20/17 14:03 Dose: 100 mls/hr Tramadol HCl (Ultram) 50 mg PO Q6 PRN PRN Reason: Pain, moderate (4-7) Tramadol HCl (Ultram) 100 mg PO Q6 PRN PRN Reason: Pain, severe (8-10) Physical Exam - Constitutional Appears: Non-toxic, Chronically Ill - Head Exam Head Exam: NORMOCEPHALIC - Eye Exam Eye Exam: PERRL. absent: Scleral icterus - ENT Exam ENT Exam: Mucous Membranes Dry, Normal External Ear Exam - Neck Exam Neck exam: Negative for: Lymphadenopathy - Respiratory Exam Respiratory Exam: Decreased Breath Sounds, Clear to Auscultation Bilateral - Cardiovascular Exam Cardiovascular Exam: REGULAR RHYTHM, +S1, +S2 - GI/Abdominal Exam GI & Abdominal Exam: Diminished Bowel Sounds, Soft. absent: Tenderness - Rectal Exam Rectal Exam: Deferred - Exam Exam: NORMAL INSPECTION - Extremities Exam Extremities exam: Positive for: pedal edema, tenderness. Negative for: calf tenderness, pedal pulses present - Back Exam Back exam: absent: CVA tenderness (L), CVA tenderness (R) - Neurological Exam Neurological exam: Alert, CN II-XII Intact, Oriented x3, Reflexes Normal - Psychiatric Exam Psychiatric exam: Normal Mood - Skin Skin Exam: Dry Results - Vital Signs Recent Vital Signs: Last Vital Signs Temp 98.6 F 03/20/17 13:35 Pulse 72 03/20/17 08:21 Resp 18 03/20/17 13:35 BP 114/74 03/20/17 13:35 Pulse Ox 98 03/20/17 08:21 - Labs Result Diagrams: 03/19/17 17:00 03/20/17 08:35 Labs: Laboratory Results - last 24 hr 03/19/17 03/19/17 03/20/17 17:00 17:00 08:35 WBC 6.1 RBC 4.83 Hgb 11.2 L Hct 40.4 MCV 83.7 MCH 23.3 L MCHC 27.8 L RDW 16.4 H Plt Count 323 D MPV 8.3 Neut % (Auto) 75.0 Lymph % (Auto) 13.1 L [place] % (Auto) 8.3 Eos % (Auto) 2.6 Baso % (Auto) 1.0 Neut # 4.5 Lymph # 0.8 L [place] # 0.5 Eos # 0.2 Baso # 0.1 Sodium 145 146 Potassium 4.7 4.5 Chloride 110 H 111 H Carbon Dioxide 19 L 24 Anion Gap 21 H 16 BUN 22 H 19 Creatinine 1.6 H 1.4 Est GFR ( Amer) 55 > 60 Est GFR (Non-Af Amer) 46 53 Random Glucose 97 86 Calcium 9.3 8.9 Total Bilirubin 0.7 AST 11 L ALT 23 Alkaline Phosphatase 89 Total Protein 8.0 Albumin 4.2 Globulin 3.8 Albumin/Globulin Ratio 1.1 Assessment & Plan (1) Leg wound, right Status: Acute (2) Ulcer of right foot Status: Acute (3) Cellulitis and abscess Status: Acute Priority: High (4) Chronic lymphadenitis Status: Acute - Assessment and Plan (Free Text) Assessment: cont iv rx
[2017-03-20] MEDS: Piperacillin/Tazobact 3.375 GM in Sodium Chloride 0.9% 100 ML IVPB SCH (20:32)
[2017-03-21] MEDS: Piperacillin/Tazobact 3.375 GM in Sodium Chloride 0.9% 100 ML IVPB SCH ×3 (05:50→20:38)
[2017-03-21] MEDS ORDERED: Povidone Iodine Topical 10% Sol ONE (07:32)
--- NOTE | 2017-03-21 07:55 | CP.PCM.PN ---
Subjective - Date & Time of Evaluation Date of Evaluation: 03/21/17 Time of Evaluation: 07:53 - Subjective Subjective: Podiatry Progress note for Dr. Rodriguez 51 y/o male seen at bedside for bilateral lower extremity superficial ulceration with fluid drainage. Patient is NAD and is AAOx3. Patient states that he is doing a lot better today and agrees that drainage has pretty much stopped from the legs. Patient denies of any pain to his legs today. Patient denies of any acute overnight events. Patient states that he was seen by Dr. Moraes yesterday and was told that he would be transferred to a subacute home soon. Patient states that he received a PICC line yesterday as well to receive IV abx. Patient denies of any recent F/N/V/C/SOB/CP today. Objective - Vital Signs/Intake and Output Vital Signs (last 24 hours): Temp Pulse Resp BP Pulse Ox 98.5 F 76 18 117/72 98 03/21/17 00:35 03/21/17 00:35 03/21/17 00:35 03/21/17 00:35 03/21/17 00:35 - Medications Medications: Current Medications Enoxaparin Sodium (Lovenox) 40 mg SC DAILY [facility] PRN Reason: Protocol Last Admin: 03/20/17 14:02 Dose: 40 mg Hydrochlorothiazide (Hydrodiuril) 25 mg PO DAILY [facility] Last Admin: 03/20/17 09:50 Dose: 25 mg Vancomycin HCl 1 gm/ Sodium (Chloride) 250 mls @ 166.667 mls/hr IVPB Q12 [facility] Last Admin: 03/20/17 21:52 Dose: 166.667 mls/hr Piperacillin Sod/Tazobactam (Sod 3.375 gm/ Sodium Chloride) 100 mls @ 100 mls/ hr IVPB Q8@0500,1300,2100 [facility] Last Admin: 03/21/17 05:50 Dose: 100 mls/hr Tramadol HCl (Ultram) 50 mg PO Q6 PRN PRN Reason: Pain, moderate (4-7) Tramadol HCl (Ultram) 100 mg PO Q6 PRN PRN Reason: Pain, severe (8-10) - Labs Labs: 03/19/17 17:00 03/20/17 08:35 - Constitutional Appears: Well, Non-toxic, No Acute Distress - Extremities Exam Additional comments: Bilateral LE exam: VASC: DP/PT pulses are non-palpable secondary to increased tissue density and edema. CFT < 3 seconds to all digits b/l. Temperature gradient is warm to cool from proximal to distal b/l, +3 pitting edema noted on the distal leg as well as dorsum of the left leg DERM: Boggy macerated superficial skin with lichenification of the skin with tree trunk appearance noted on bilateral lower extremity. malodor present, macerated diffuse superficial sloughing of the skin noted on the medial aspect of the left distal leg and posterior aspect of the right leg and on dorsum of the digits on the left foot, no tunneling, no undermining, no erythema, no purulent drainage from the leg, very minimal serous drainage noted from the posterior calf which appears to be resolving, no signs of active infection at this time NEURO: Sensation grossly intact. ORTHO: Limited ROM at the ankle joint due to increased edema, no pain on palpation of the calf - Neurological Exam Neurological Exam: Alert, Awake, Oriented x3 - Psychiatric Exam Psychiatric exam: Normal Affect, Normal Mood Assessment and Plan - Assessment and Plan (Free Text) Assessment: 51 y/o male seen at bedside in ED with chronic lichenifications, lymphedema of bilateral lower extremity Plan: Pt evaluated and chart reviewed Pt discussed in details with attending Dr. Rodriguez Labs and Vitals reviewed: afebrile, WBC @ 6.1 (03/19) Dressing applied using betadine soaked 4x4 gauze, ABD pads, Kurlix and RICH bandage on bilateral distal leg Patient on HCTZ - drainage from bilateral lower extremity has resolved Patient to receive IV abx - Vancomycin, Zosyn - PICC line inserted yesterday for shelter IV abx Patient is stable from podiatry standpoint Podiatry to follow patient while in house Patient advised to follow with Dr. Rodriguez in wound care center on weekly basis
[2017-03-21 09:19] LABS: BLOOD UREA NITROGEN 20 mg/dl (9-20); CALCIUM 8.7 mg/dL (8.4-10.2); CARBON DIOXIDE 24 mmol/L (22-30); CHLORIDE 109 mmol/L (98-107); GFR AFRICAN-AMERICAN > 60; GLUCOSE,RANDOM 81 mg/dL (75-110); SODIUM 143 mmol/l (132-148)
[2017-03-21 09:26] LABS: POTASSIUM 5.2 MMOL/L (3.6-5.0)
[2017-03-21] MEDS: Enoxaparin 40 mg Syringe SC SCH (09:45)
--- NOTE | 2017-03-21 10:26 | CP.PCM.PN ---
Subjective - Date & Time of Evaluation Date of Evaluation: 03/21/17 Time of Evaluation: 07:25 - Subjective Subjective: Patient seen and examined in [facility] unit this morning. Patient denies pain at this eval. Denies Cp, SOB, N/V, abdominal pain, diarrheas. Tolerating wound care by podiatry team well. Had an uneventful night. Afebrile. Objective - Vital Signs/Intake and Output Vital Signs (last 24 hours): Temp Pulse Resp BP Pulse Ox 98.4 F 73 20 124/67 98 03/21/17 08:05 03/21/17 08:05 03/21/17 08:05 03/21/17 08:05 03/21/17 08:05 - Medications Medications: Current Medications Enoxaparin Sodium (Lovenox) 40 mg SC DAILY [facility] PRN Reason: Protocol Last Admin: 03/21/17 09:45 Dose: 40 mg Hydrochlorothiazide (Hydrodiuril) 25 mg PO DAILY [facility] Last Admin: 03/21/17 09:45 Dose: 25 mg Vancomycin HCl 1 gm/ Sodium (Chloride) 250 mls @ 166.667 mls/hr IVPB Q12 [facility] Last Admin: 03/21/17 09:46 Dose: 166.667 mls/hr Piperacillin Sod/Tazobactam (Sod 3.375 gm/ Sodium Chloride) 100 mls @ 100 mls/ hr IVPB Q8@0500,1300,2100 [facility] Last Admin: 03/21/17 05:50 Dose: 100 mls/hr Tramadol HCl (Ultram) 50 mg PO Q6 PRN PRN Reason: Pain, moderate (4-7) - Labs Labs: 03/19/17 17:00 03/21/17 08:30 - Additional Findings Additional findings: Constitutional Appears: No Acute Distress - ENT Exam ENT Exam: Mucous Membranes Moist - Respiratory Exam Respiratory Exam: Clear to Ausculation Bilateral, NORMAL BREATHING PATTERN - Cardiovascular Exam Cardiovascular Exam: REGULAR RHYTHM, +S1, +S2 - GI/Abdominal Exam GI & Abdominal Exam: Soft, Normal Bowel Sounds. absent: Distended, Guarding, Rigid, Tenderness - Extremities Exam Additional comments: lymphedema of bilateral lower extremity - Neurological Exam Neurological Exam: Alert, Awake, Oriented x3 - Skin Skin Exam: Dry, Intact, Normal Color Assessment and Plan - Assessment and Plan (Free Text) Assessment: 51 y/o male with pmhx of HTN, chronic lymphedema of bilateral lower extremity being admitted for bilateral lower extremities lymphedema, associated with ulceration for IV abx. Plan: Chronic Bilateral lower extremities lymphedema, associated with ulceration Afebrile, no leukocytosis PICC line placed yesterday for IV abx -c/w Vancomycin 1 gm IVP Q12 day #2 -c/w Zosyn 3.375 gm IV Q8 day day#2 -Vanco trough on 03/21/17 AM 12.9 -c/w pain control with Tramadol PRN -c/w daily wound care by Podiatry team -Blood Cx no growth in 24 hours -Podiatry on board, f/u recommendations -ID on board, Dr. Moraes, f/u recommendations -Ankle x ray: soft tissues swelling, no acute articular or osseous abnormalities. -Tibia/Fibula x ray: soft tissues swelling, no acute articular or osseous abnormalities. -pending PICC line -PT evaluation Right single lumen PICC line -Place on 03/20/17 by IR -as per IR, 43 cm, via the right brachial vein. Tip is in the SVC. -For IV antibiotics Morbid Obesity BMP: 55.8 HTN Controlled Hydrochlorothiazide 25 mg PO daily will Monitor Diet Heart Healthy DVT prophylaxis Lovenox 40 mg daily
--- NOTE | 2017-03-21 11:23 | PQF GENQUE ---
Dr. Javier, In agreement with the BMI:55.8 as documented in EMR? If in agreement please add the BMI to your next progress note Physician chart documentation of Morbid Obesity OR: Disagree OR: Other explanation of clinical findings This form is a permanent part of the medical record Clarification of your documentation is requested to better reflect the severity of illness and intensity of treatment of your patient. Indicators present [] Specify: [] [] Specify: [] [] Specify: [] [] Specify: [] Location in the medical record that reflects the above clinical findings: [] Treatment Provided: [] PHYSICIAN'S RESPONSE Based on your medical judgment of the clinical indicators outlined above please clarify the following: [] Practitioner response [] If unable to determine, please check the box, sign and date. Present On Admission (POA) Indicator: [] Present at the time of admission [] Not present at the time of admission [] Clinically Undetermined In responding to this query, please exercise your independent professional judgment. The fact that a question is asked does not imply that any particular answer is desired or expected. Thank you for your clarification on this documentation. If you have any questions please call. * Thank you, Jennifer Singh RN ext. #[phone]: Teressa LEMUS
[2017-03-21 18:03] VITALS: BMI 61.7
[2017-03-22 01:06] VITALS: PULSE 61; RESP 18; TEMP 97.8
[2017-03-22] MEDS: Piperacillin/Tazobact 3.375 GM in Sodium Chloride 0.9% 100 ML IVPB SCH ×2 (05:32→12:18)
--- NOTE | 2017-03-22 06:19 | CP.PCM.PN ---
Subjective - Date & Time of Evaluation Date of Evaluation: 03/22/17 Time of Evaluation: 07:10 - Subjective Subjective: Podiatry Progress note for Dr. Rodriguez 51 y/o male seen at bedside for bilateral lower extremity superficial ulceration with fluid drainage. Patient is NAD and is AAOx3. Patient states that his drainage is pretty much stopped. Patient states that he is feeling well. Patient denies of any pain to his legs today. Patient denies of any acute overnight events. Patient states that he will be moving to TCU today. Patient denies of any recent F/N/V/C/SOB/CP today. Patient denies of any other pedal complains at this time. Objective - Vital Signs/Intake and Output Vital Signs (last 24 hours): Temp Pulse Resp BP Pulse Ox 97.8 F 61 18 114/69 99 03/22/17 00:00 03/22/17 00:00 03/22/17 00:00 03/22/17 00:00 03/22/17 00:00 - Medications Medications: Current Medications Enoxaparin Sodium (Lovenox) 40 mg SC DAILY [facility] PRN Reason: Protocol Last Admin: 03/21/17 09:45 Dose: 40 mg Hydrochlorothiazide (Hydrodiuril) 25 mg PO DAILY [facility] Last Admin: 03/21/17 09:45 Dose: 25 mg Vancomycin HCl 1 gm/ Sodium (Chloride) 250 mls @ 166.667 mls/hr IVPB Q12 [facility] Last Admin: 03/21/17 21:56 Dose: 166.667 mls/hr Piperacillin Sod/Tazobactam (Sod 3.375 gm/ Sodium Chloride) 100 mls @ 100 mls/ hr IVPB Q8@0500,1300,2100 [facility] Last Admin: 03/22/17 05:32 Dose: 100 mls/hr Tramadol HCl (Ultram) 50 mg PO Q6 PRN PRN Reason: Pain, moderate (4-7) - Labs Labs: 03/19/17 17:00 03/21/17 08:30 - Constitutional Appears: Well, Non-toxic, No Acute Distress - Extremities Exam Additional comments: Bilateral LE exam: VASC: DP/PT pulses are non-palpable secondary to increased tissue density and edema. CFT < 3 seconds to all digits b/l. Temperature gradient is warm to cool from proximal to distal b/l, +3 pitting edema noted on the distal leg as well as dorsum of the left leg DERM: Boggy macerated superficial skin with lichenification of the skin with tree trunk appearance noted on bilateral lower extremity. mild malodor present - has improved, macerated diffuse superficial sloughing of the skin noted on the medial aspect of the left distal leg and posterior aspect of the right leg and on dorsum of the digits on the left foot, no tunneling, no undermining, no erythema, no purulent drainage from the leg, very minimal serous drainage noted from the posterior calf which appears to be resolving, no signs of active infection at this time NEURO: Sensation grossly intact. ORTHO: Limited ROM at the ankle joint due to increased edema, no pain on palpation of the calf - Neurological Exam Neurological Exam: Alert, Awake, Oriented x3 - Psychiatric Exam Psychiatric exam: Normal Affect, Normal Mood Assessment and Plan - Assessment and Plan (Free Text) Assessment: 51 y/o male seen at bedside with chronic lichenifications, lymphedema of bilateral lower extremity Plan: Pt evaluated and chart reviewed Pt discussed in details with attending Dr. Rodriguez Labs and Vitals reviewed: afebrile, WBC @ 6.1 (03/19) Dressing applied using betadine soaked 4x4 gauze, ABD pads, Kurlix and RICH bandage on right distal leg and an RICH to the left leg Patient on HCTZ - drainage from bilateral lower extremity has resolved Patient to receive IV abx - Vancomycin, Zosyn - PICC line in place for IV abx Patient is stable from podiatry standpoint Podiatry to follow patient while in house Patient advised to follow with Dr. Rodriguez in wound care center on weekly basis
[2017-03-22 06:47] LABS: CALCIUM 8.6 mg/dL (8.4-10.2); POTASSIUM 4.9 MMOL/L (3.6-5.0)
[2017-03-22 07:58] VITALS: BP 134/84; O2SAT 98
[2017-03-22] MEDS: Enoxaparin 40 mg Syringe SC SCH (08:30)
--- NOTE | 2017-03-22 09:21 | CP.PCM.DIS ---
Provider - Provider Date of Admission: 03/19/17 17:35 Attending physician: Gardenia Javier MD Consults: Podiatry consult ID consult Time Spent in preparation of Discharge (in minutes): 30 Diagnosis - Discharge Diagnosis (1) Ulcer of lower extremity Status: Chronic Comment: unclear etiology, possible 2/2 chronic lymphedema and venous insufficiency. F/u with Podiatry for wound care. C/W IV abx as per ID rec, Dr. Moraes. Right single lumen PICC line for IV abx(03/20/17) (2) Morbid obesity Status: Chronic Comment: BMI : 61 (3) HTN (hypertension) Status: Acute (4) HTN (hypertension) Status: Chronic Comment: controlled. Decreased Hctz from 25 mg to 12.5 mg po daily. Hospital Course - Lab Results Lab Results: Micro Results 03/19/17 17:00 Blood-Venous Blood Culture - Preliminary NO GROWTH AFTER 48 HOURS Most Recent Lab Values WBC 6.1 K/uL (4.8-10.8) 03/19/17 17:00 RBC 4.83 Mil/uL (4.40-5.90) 03/19/17 17:00 Hgb 11.2 g/dL (12.0-18.0) L 03/19/17 17:00 Hct 40.4 % (35.0-51.0) 03/19/17 17:00 MCV 83.7 fl (80.0-94.0) 03/19/17 17:00 MCH 23.3 pg (27.0-31.0) L 03/19/17 17:00 MCHC 27.8 g/dL (33.0-37.0) L 03/19/17 17:00 RDW 16.4 % (11.5-14.5) H 03/19/17 17:00 Plt Count 323 K/uL (130-400) D 03/19/17 17:00 MPV 8.3 fl (7.2-11.7) 03/19/17 17:00 Neut % (Auto) 75.0 % (50.0-75.0) 03/19/17 17:00 Lymph % (Auto) 13.1 % (20.0-40.0) L 03/19/17 17:00 Moody % (Auto) 8.3 % (0.0-10.0) 03/19/17 17:00 Eos % (Auto) 2.6 % (0.0-4.0) 03/19/17 17:00 Baso % (Auto) 1.0 % (0.0-2.0) 03/19/17 17:00 Neut # 4.5 K/uL (1.8-7.0) 03/19/17 17:00 Lymph # 0.8 K/uL (1.0-4.3) L 03/19/17 17:00 Moody # 0.5 K/uL (0.0-0.8) 03/19/17 17:00 Eos # 0.2 K/uL (0.0-0.7) 03/19/17 17:00 Baso # 0.1 K/uL (0.0-0.2) 03/19/17 17:00 Sodium 144 mmol/l (132-148) 03/22/17 06:10 Potassium 4.9 MMOL/L (3.6-5.0) 03/22/17 06:10 Chloride 109 mmol/L (98-107) H 03/22/17 06:10 Carbon Dioxide 23 mmol/L (22-30) 03/22/17 06:10 Anion Gap 17 (10-20) 03/22/17 06:10 BUN 19 mg/dl (9-20) 03/22/17 06:10 Creatinine 1.6 mg/dL (0.8-1.5) H 03/22/17 06:10 Est GFR ( Amer) 55 03/22/17 06:10 Est GFR (Non-Af Amer) 46 03/22/17 06:10 Random Glucose 87 mg/dL (75-110) 03/22/17 06:10 Calcium 8.6 mg/dL (8.4-10.2) 03/22/17 06:10 Total Bilirubin 0.7 mg/dl (0.2-1.3) 03/19/17 17:00 AST 11 U/L (17-59) L 03/19/17 17:00 ALT 23 U/L (21-72) 03/19/17 17:00 Alkaline Phosphatase 89 U/L (38-126) 03/19/17 17:00 Total Protein 8.0 G/DL (6.3-8.2) 03/19/17 17:00 Albumin 4.2 g/dL (3.5-5.0) 03/19/17 17:00 Globulin 3.8 gm/dL (2.2-3.9) 03/19/17 17:00 Albumin/Globulin Ratio 1.1 (1.0-2.1) 03/19/17 17:00 Vancomycin Trough 12.9 ug/mL (5.0-10.0) H 03/21/17 08:30 - Hospital Course Hospital Course: 51 y/o male with pmhx of HTN, chronic lymphedema of bilateral lower extremity being admitted for bilateral lower extremities superficial ulcers possible secondary to Chronic Lymphedema and Venous insufficiency for management with IV antibiotics. On admission Podiatry was consulted for daily wound care while in hospital. ID doctor, Dr. Moraes was consulted for input on antibiotics therapy. Patient was started on Vancomycin and Zosyn IV, (today is day #3), and continued as per ID recommendation . Right single lumen PICC line placed by IR on this admission for IV antibiotics. Vanco trough was 12.9. Patient has been afebrile, and with VS wnl. We decreased Hctz from 25 mg to 12.5 mg because BP was in low normal levels. Patient seen and examined this morning and he is stable to be discharge to TCU unit to continue with IV abx. TCU medications: Hctz 12.5 mg PO daily pain medications PRN Vanco and Zosyn on day #3 - Date & Time of H&P Date of H&P: 03/19/17 Time of H&P: 19:15 Discharge Exam - Head Exam Head Exam: NORMOCEPHALIC - Additional Findings Additional findings: Constitutional Appears: No Acute Distress - ENT Exam ENT Exam: Mucous Membranes Moist - Respiratory Exam Respiratory Exam: Clear to Ausculation Bilateral, NORMAL BREATHING PATTERN - Cardiovascular Exam Cardiovascular Exam: REGULAR RHYTHM, +S1, +S2 - GI/Abdominal Exam GI & Abdominal Exam: Soft, Normal Bowel Sounds. absent: Distended, Guarding, Rigid, Tenderness - Extremities Exam Additional comments: lymphedema of bilateral lower extremity - Neurological Exam Neurological Exam: Alert, Awake, Oriented x3 - Skin Skin Exam: Dry, Intact, Normal Color Discharge Plan - Discharge Medications Prescriptions: Piperacill/Tazo 3.375gm in Dex [Zosyn 3.375 Gm IV Premix] 3.375 gm IV TID #24 bag Vancomycin/0.9 % Sod Chloride [Vanco 1 Gram/250 ml-0.9% NaCl] 1 gm IV BID #14 plast..bag - Follow Up Plan Condition: STABLE Disposition: TRANSF TO SNF Instructions: Peripherally Inserted Central Catheters and Midline Catheters (DC ), Lymphedema (DC) Additional Instructions: follow up with Dr. Marcie Meyers 04/15/17 at 2:40PM follow up with ID Dr. Moraes and Podiatry Dr. Rodriguez Ref[facility]: [facility] [Outside] Feliciano Rodriguez DPM [Staff Provider] -
--- NOTE | 2017-03-22 13:35 | CP.PCM.PN ---
Subjective - Date & Time of Evaluation Date of Evaluation: 03/22/17 Time of Evaluation: 10:00 - Subjective Subjective: DISCUSSED ON ROUNDS CONT IV RX Objective - Vital Signs/Intake and Output Vital Signs (last 24 hours): Temp Pulse Resp BP Pulse Ox 97.8 F 61 18 134/84 98 03/22/17 07:58 03/22/17 07:58 03/22/17 07:58 03/22/17 07:58 03/22/17 07:58 - Medications Medications: Current Medications Enoxaparin Sodium (Lovenox) 40 mg SC DAILY [facility] PRN Reason: Protocol Last Admin: 03/22/17 08:30 Dose: 40 mg Hydrochlorothiazide (Microzide) 12.5 mg PO DAILY [facility] Vancomycin HCl 1 gm/ Sodium (Chloride) 250 mls @ 166.667 mls/hr IVPB Q12 [facility] Last Admin: 03/22/17 08:28 Dose: 166.667 mls/hr Piperacillin Sod/Tazobactam (Sod 3.375 gm/ Sodium Chloride) 100 mls @ 100 mls/ hr IVPB Q8@0500,1300,2100 [facility] Last Admin: 03/22/17 12:18 Dose: 100 mls/hr Tramadol HCl (Ultram) 50 mg PO Q6 PRN PRN Reason: Pain, moderate (4-7) - Labs Labs: 03/19/17 17:00 03/22/17 06:10 - Constitutional Appears: Non-toxic, Cachectic, Chronically Ill - Head Exam Head Exam: NORMOCEPHALIC - Eye Exam Eye Exam: PERRL. absent: Scleral icterus - ENT Exam ENT Exam: Mucous Membranes Dry, Normal External Ear Exam - Neck Exam Neck Exam: absent: Lymphadenopathy - Respiratory Exam Respiratory Exam: Decreased Breath Sounds, Clear to Ausculation Bilateral - Cardiovascular Exam Cardiovascular Exam: REGULAR RHYTHM, +S1, +S2 - GI/Abdominal Exam GI & Abdominal Exam: Distended, Soft - Rectal Exam Rectal Exam: Deferred - Exam Exam: NORMAL INSPECTION - Extremities Exam Extremities Exam: absent: Pedal Edema - Back Exam Back Exam: absent: CVA tenderness (L), CVA tenderness (R) - Neurological Exam Neurological Exam: Alert, Awake, Oriented x3 - Psychiatric Exam Psychiatric exam: Depressed Assessment and Plan (1) Leg wound, right Status: Acute (2) Ulcer of right foot Status: Chronic (3) Cellulitis and abscess Status: Acute (4) Chronic lymphadenitis Status: Acute
== END 2017-03-22 14:54 | DRG 593 ==
LOC: H.ER 15:22 → H.ERHOLD 17:35 → H.MEDSURG1 21:43
PROVIDERS: ADMIT Family Medicine Geriatric Medicine; ATTEND Family Medicine Geriatric Medicine
PROC: 02HV33Z Insertion of Infusion Device into Superior Vena Cava, Percutaneous Approach (ICD-10-PCS; principal; 2017-03-20)
PROC: B548ZZA Ultrasonography of Superior Vena Cava, Guidance (ICD-10-PCS; 2017-03-20)
PROC: 3E04329 Introduction of Other Anti-infective into Central Vein, Percutaneous Approach (ICD-10-PCS; 2017-03-20)
DX: L97.519 Non-pressure chronic ulcer of other part of right foot with unspecified severity (principal); L03.115 Cellulitis of right lower limb; Z68.44 Body mass index [BMI] 60.0-69.9, adult; L02.415 Cutaneous abscess of right lower limb; E66.01 Morbid (severe) obesity due to excess calories; I89.0 Lymphedema, not elsewhere classified; I88.1 Chronic lymphadenitis, except mesenteric; I87.2 Venous insufficiency (chronic) (peripheral); L28.0 Lichen simplex chronicus; I10 Essential (primary) hypertension; Z95.0 Presence of cardiac pacemaker; Z88.1 Allergy status to other antibiotic agents

== ENCOUNTER 2017-03-22 11:15 | Inpatient (IN) | payer OTHER ==
[2017-03-22 14:36] VITALS: BMI 60.7
[2017-03-22 16:49] VITALS: RESP 20
[2017-03-22] MEDS ORDERED: DEX IV SCH (17:00)
[2017-03-22] MEDS ORDERED: Patient's Own Med (Vancomycin/0.9 % Sod Chloride [Vanco 1 Gram/250 Ml-0.9% Nacl] 1 GM) IV SCH (17:00)
[2017-03-22] MEDS ORDERED: PIPERACILL IV SCH (17:00)
[2017-03-22] MEDS ORDERED: TAZO IV SCH (17:00)
[2017-03-22] MEDS: Piperacillin/Tazobact 3.375 GM in Sodium Chloride 0.9% 100 ML IVPB SCH (17:31)
[2017-03-23] MEDS: Piperacillin/Tazobact 3.375 GM in Sodium Chloride 0.9% 100 ML IVPB SCH ×4 (00:37→23:59)
[2017-03-23 07:34] LABS: HEMATOCRIT 37.3 % (35.0-51.0); MEAN CELL VOLUME 81.7 fl (80.0-94.0); MEAN CORPUSCULAR HEMOGLOBIN 26.2 pg (27.0-31.0); MEAN CORPUSCULAR HGB CONC 32.1 g/dL (33.0-37.0); RED CELL DISTRIBUTION WIDTH 15.7 % (11.5-14.5); WHITE BLOOD COUNT 5.2 K/uL (4.8-10.8)
[2017-03-23 08:02] LABS: CALCIUM 8.8 mg/dL (8.4-10.2)
[2017-03-23 08:14] LABS: POTASSIUM 5.1 MMOL/L (3.6-5.0)
[2017-03-23] MEDS: Enoxaparin 40 mg Syringe SC SCH (09:52)
[2017-03-24 08:15] LABS: BLOOD UREA NITROGEN 17 mg/dl (9-20); CALCIUM 8.9 mg/dL (8.4-10.2); CARBON DIOXIDE 26 mmol/L (22-30); CHLORIDE 106 mmol/L (98-107); GFR AFRICAN-AMERICAN > 60; GLUCOSE,RANDOM 83 mg/dL (75-110); SODIUM 141 mmol/l (132-148)
[2017-03-24 08:19] LABS: POTASSIUM 5.4 MMOL/L (3.6-5.0)
[2017-03-24] MEDS: Enoxaparin 40 mg Syringe SC SCH (08:58)
[2017-03-24] MEDS: Piperacillin/Tazobact 3.375 GM in Sodium Chloride 0.9% 100 ML IVPB SCH ×2 (09:03→16:15)
[2017-03-24 14:36] LABS: BILIRUBIN,TOTAL 0.4 mg/dl (0.2-1.3); CALCIUM 9.1 mg/dL (8.4-10.2); TOTAL PROTEIN 7.5 G/DL (6.3-8.2)
[2017-03-24 14:40] LABS: POTASSIUM 5.1 MMOL/L (3.6-5.0)
[2017-03-25] MEDS: Piperacillin/Tazobact 3.375 GM in Sodium Chloride 0.9% 100 ML IVPB SCH ×3 (01:33→16:38)
[2017-03-25] MEDS: Enoxaparin 40 mg Syringe SC SCH (08:38)
[2017-03-26] MEDS: Piperacillin/Tazobact 3.375 GM in Sodium Chloride 0.9% 100 ML IVPB SCH ×3 (00:15→17:08)
[2017-03-26 06:23] LABS: ALB/GLOB RATIO 0.9 (1.0-2.1); ALKALINE PHOSPHATASE 53 U/L (38-126); ALT/SGPT 17 U/L (21-72); AST/SGOT 11 U/L (17-59); BILIRUBIN,TOTAL 0.3 mg/dl (0.2-1.3); BLOOD UREA NITROGEN 21 mg/dl (9-20); CALCIUM 7.7 mg/dL (8.4-10.2); CARBON DIOXIDE 21 mmol/L (22-30); CHLORIDE 112 mmol/L (98-107); GFR AFRICAN-AMERICAN > 60; GLUCOSE,RANDOM 82 mg/dL (75-110); POTASSIUM 4.6 MMOL/L (3.6-5.0); SODIUM 142 mmol/l (132-148)
[2017-03-26] MEDS: Enoxaparin 40 mg Syringe SC SCH (08:33)
[2017-03-26] MEDS ORDERED: Promethazine/Cod 6.25mg-10mg/5ml Syr UD PO PRN (17:48)
[2017-03-27] MEDS: Piperacillin/Tazobact 3.375 GM in Sodium Chloride 0.9% 100 ML IVPB SCH ×4 (00:15→23:59)
[2017-03-27] MEDS: Enoxaparin 40 mg Syringe SC SCH (11:49)
[2017-03-28] MEDS: Enoxaparin 40 mg Syringe SC SCH (09:14)
[2017-03-28] MEDS: Piperacillin/Tazobact 3.375 GM in Sodium Chloride 0.9% 100 ML IVPB SCH ×2 (09:14→16:38)
[2017-03-29] MEDS: Piperacillin/Tazobact 3.375 GM in Sodium Chloride 0.9% 100 ML IVPB SCH ×2 (00:22→08:50)
[2017-03-29 08:07] VITALS: BP 140/70; PULSE 60; TEMP 97.5; O2SAT 99
[2017-03-29] MEDS: Enoxaparin 40 mg Syringe SC SCH (08:42)
== END 2017-03-29 15:31 | DRG 593 ==
LOC: H.TCU 14:37
PROVIDERS: ADMIT Family Medicine Geriatric Medicine; ATTEND Family Medicine Geriatric Medicine
PROC: 3E03329 Introduction of Other Anti-infective into Peripheral Vein, Percutaneous Approach (ICD-10-PCS; principal; 2017-03-22)
PROC: F07Z9FZ Gait Training/Functional Ambulation Treatment using Assistive, Adaptive, Supportive or Protective Equipment (ICD-10-PCS; 2017-03-22)
PROC: F08Z4FZ Home Management Treatment using Assistive, Adaptive, Supportive or Protective Equipment (ICD-10-PCS; 2017-03-23)
PROC: F07L6FZ Therapeutic Exercise Treatment of Musculoskeletal System - Lower Back / Lower Extremity using Assistive, Adaptive, Supportive or Protective Equipment (ICD-10-PCS; 2017-03-23)
DX: L97.919 Non-pressure chronic ulcer of unspecified part of right lower leg with unspecified severity (principal); Z68.44 Body mass index [BMI] 60.0-69.9, adult; L97.929 Non-pressure chronic ulcer of unspecified part of left lower leg with unspecified severity; I89.0 Lymphedema, not elsewhere classified; I87.2 Venous insufficiency (chronic) (peripheral); E66.01 Morbid (severe) obesity due to excess calories; I10 Essential (primary) hypertension; Z95.0 Presence of cardiac pacemaker; Z88.1 Allergy status to other antibiotic agents

== ENCOUNTER 2017-07-09 14:37 | Emergency (ER) | payer MEDICARE ==
[2017-07-09 14:47] VITALS: BMI 55.7
[2017-07-09 14:48] VITALS: BP 140/77; PULSE 56; RESP 16; TEMP 97.5; O2SAT 100
[2017-07-09] MEDS ORDERED: Povidone Iodine Topical 10% Sol ONE (15:30)
--- NOTE | 2017-07-09 15:38 | ED PDOC ---
Lower Extremity Pain/Injury Time Seen by Provider: 07/09/17 15:15 Chief Complaint (Nursing): Lower Extremity Problem/Injury Chief Complaint (Provider): Foot pain History Per: Patient Additional Complaint(s): Sent by wound center for evaluation of infected wound to right lower extremity. possible admission Past Medical History Vital Signs: Last Vital Signs Temp 97.5 F L 07/09/17 14:47 Pulse 56 L 07/09/17 14:47 Resp 16 07/09/17 14:47 BP 140/77 07/09/17 14:47 Pulse Ox 100 07/09/17 14:47 - Medical History PMH: HTN, Peripheral Edema Denies: Anemia, Arthritis, Asthma, Atrial Fibrillation, Bronchitis, Cardia Arrhythmia, CHF, COPD, Emphysema, Fractures, HIV, Hypercholesterolemia, Hyperthyroidism, Hypothyroidism, Kidney Stones, Mitral Valve Prolapse, Osteoporosis, Pneumonia, Pulmonary Embolism, Chronic Kidney Disease, Rheumatoid Arthritis, Sickle Cell Disease, Sleep Apnea - Surgical History Surgical History: Denies: Appendectomy, Pacemaker - Family History Family History: States: Unknown Family Hx - Immunization History Hx Tetanus Toxoid Vaccination: No Hx Influenza Vaccination: No Hx Pneumococcal Vaccination: No - Home Medications Home Medications: Ambulatory Orders Medication Instructions Recorded Piperacill/Tazo 3.375gm in Dex 3.375 gm IV TID #24 bag 03/22/17 [Zosyn 3.375 Gm IV Premix] hydroCHLOROthiazide [Microzide] 12.5 mg PO DAILY cap 03/22/17 Promethazine/Codeine 5 ml PO Q6 PRN udc 03/29/17 [Phenergan/Codeine Oral Syrup] - Allergies Allergies/Adverse Reactions: Allergies Allergy/AdvReac Type Severity Reaction Status Date / Time ciprofloxacin [From Cipro] Allergy RASH Verified 03/19/17 15:52 ciprofloxacin HCl Allergy RASH Verified 03/19/17 15:52 [From Cipro] chocolate flavor AdvReac ears run Verified 03/19/17 15:52 - Laboratory Results Result Diagrams: 07/09/17 16:02 07/09/17 16:02 - ECG O2 Sat by Pulse Oximetry: 100 Disposition - Clinical Impression Clinical Impression: Ulcer of right lower leg - Disposition Condition: STABLE Instructions: Chronic Wound Care (ED) Forms: [employer] ([place]elsh)
--- NOTE | 2017-07-09 15:59 | CP.PCM.CON ---
History of Present Illness - History of Present Illness History of Present Illness: Podiatry Progress note- Dr. Rodriguez 51 y/o male seen at bedside in ED for right lower leg ulceration with fluid drainage and foul smelling odor. Pt is known to Dr. Rodriguez's service and was sent to ED from wound care center. Patient is NAD and is AAOx3. Patient states that he is feeling fine but noticed the bad smell and drainage earlier today. Patient denies of any pain to his leg today. Patient denies any recent F/N/V/C/ SOB/CP today. Patient has no other pedal complaints at this time. Review of Systems - Review of Systems All systems: reviewed and no additional remarkable complaints except (per HPI) Past Patient History - Infectious Disease Hx of Infectious Diseases: None - Tetanus Immunizations Tetanus Immunization: Unknown - Past Medical History & Family History Past Medical History?: Yes - Past Social History Smoking Status: Never Smoked - CARDIAC Hx Atrial Fibrillation: No Hx Cardia Arrhythmia: No Hx Congestive Heart Failure: No Hx Hypercholesterolemia: No Hx Hypertension: Yes Hx Mitral Valve Prolapse: No Hx Pacemaker: No Hx Peripheral Edema: Yes - PULMONARY Hx Asthma: No Hx Bronchitis: No Hx Chronic Obstructive Pulmonary Disease (COPD): No Hx Emphysema: No Hx Pneumonia: No Hx Pulmonary Embolism: No Hx Sleep Apnea: No - NEUROLOGICAL Hx Neurological Disorder: No - HEENT Hx HEENT Problems: No - RENAL Hx Chronic Kidney Disease: No Hx Kidney Stones: No - ENDOCRINE/METABOLIC Hx Hyperthyroidism: No Hx Hypothyroidism: No - HEMATOLOGICAL/ONCOLOGICAL Hx Anemia: No Hx Human Immunodeficiency Virus (HIV): No Hx Sickle Cell Disease: No - INTEGUMENTARY Hx Dermatological Problems: Yes Hx Cellulitis: Yes - MUSCULOSKELETAL/RHEUMATOLOGICAL Hx Arthritis: No Hx Fractures: No Hx Osteoporosis: No Hx Rheumatoid Arthritis: No - GASTROINTESTINAL Hx Gastrointestinal Disorders: No - GENITOURINARY/GYNECOLOGICAL Hx Genitourinary Disorders: No - PSYCHIATRIC Hx Psychophysiologic Disorder: No Hx Substance Use: No - SURGICAL HISTORY Hx Appendectomy: No - ANESTHESIA Hx Anesthesia: No Hx Anesthesia Reactions: No Meds Allergies/Adverse Reactions: Allergies Allergy/AdvReac Type Severity Reaction Status Date / Time ciprofloxacin [From Cipro] Allergy RASH Verified 03/19/17 15:52 ciprofloxacin HCl Allergy RASH Verified 03/19/17 15:52 [From Cipro] chocolate flavor AdvReac ears run Verified 03/19/17 15:52 Physical Exam - Constitutional Appears: Well, Non-toxic, No Acute Distress - Extremities Exam Additional comments: RLE exam: VASC: DP/PT pulses faintly palpable 1/4. CFT < 3 seconds to all digits. Temperature gradient is warm to cool from proximal to distal.+3 pitting edema noted extending distally from tibial tuberosity to digits DERM: Boggy macerated superficial skin with lichenification of the skin with tree trunk appearance noted to right lower extremity. Mild malodor present - has improved, macerated diffuse superficial sloughing of the skin noted on the posterior aspect of the right leg - no tunneling, no undermining, no erythema, no purulent drainage from the leg, Very minimal serous drainage noted from the posterior calf, no signs of active infection at this time NEURO: Sensation grossly intact. ORTHO: Limited ROM at the ankle joint due to increased edema, no pain on palpation of the calf - Neurological Exam Neurological exam: Alert, Oriented x3 - Psychiatric Exam Psychiatric exam: Normal Affect, Normal Mood Results - Vital Signs Recent Vital Signs: Last Vital Signs Temp 97.5 F L 07/09/17 14:47 Pulse 56 L 07/09/17 14:47 Resp 16 07/09/17 14:47 BP 140/77 07/09/17 14:47 Pulse Ox 100 07/09/17 15:37 - Labs Result Diagrams: 07/09/17 16:02 07/09/17 16:02 Assessment & Plan - Assessment and Plan (Free Text) Assessment: 51 y/o male seen at bedside with chronic lichenifications, lymphedema of bilateral lower extremity Plan: Pt evaluated and chart reviewed Discussed plan with attending Dr. Rodriguez Labs and Vitals reviewed - afebrile, WBC 6.6 Dressing applied using betadine soaked 4x4 gauze, ABD pads, Kerlix and RICH bandage on right distal leg Wound does not appear clinically infected at this time Patient is stable from podiatry standpoint Patient advised to follow with Dr. Rodriguez in wound care center on weekly basis
[2017-07-09 16:09] LABS: BASO # 0.1 K/uL (0.0-0.2); BASO % 1.1 % (0.0-2.0); EOS # 0.1 K/uL (0.0-0.7); EOS % 2.3 % (0.0-4.0); HEMOGLOBIN 13.1 g/dL (12.0-18.0); LYMPH # 1.1 K/uL (1.0-4.3); LYMPH % 16.9 % (20.0-40.0); MEAN CELL VOLUME 82.4 fl (80.0-94.0); MEAN CORPUSCULAR HEMOGLOBIN 26.4 pg (27.0-31.0); MEAN PLATELET VOLUME 8.7 fl (7.2-11.7); MONO # 0.6 K/uL (0.0-0.8); MONO % 8.7 % (0.0-10.0); NEUT # 4.7 K/uL (1.8-7.0); RBC 4.96 Mil/uL (4.40-5.90); RED CELL DISTRIBUTION WIDTH 16.1 % (11.5-14.5); WHITE BLOOD COUNT 6.6 K/uL (4.8-10.8)
[2017-07-09 16:33] LABS: ALB/GLOB RATIO 0.9 (1.0-2.1); ALBUMIN 3.8 g/dL (3.5-5.0); CALCIUM 9.3 mg/dL (8.4-10.2)
== END 2017-07-09 17:15 | disposition home or self-care (01) ==
LOC: H.ER 14:37
DX: I10 Essential (primary) hypertension (principal)

== ENCOUNTER 2017-07-19 11:23 | Inpatient (IN) | payer MEDICARE ==
[2017-07-19 11:23] VITALS: BMI 55.7
[2017-07-19 13:22] LABS: BASO % 0.6 % (0.0-2.0); EOS # 0.1 K/uL (0.0-0.7); EOS % 2.6 % (0.0-4.0); HEMOGLOBIN 13.6 g/dL (12.0-18.0); LYMPH # 1.2 K/uL (1.0-4.3); LYMPH % 21.8 % (20.0-40.0); MEAN CELL VOLUME 82.8 fl (80.0-94.0); MEAN CORPUSCULAR HGB CONC 31.4 g/dL (33.0-37.0); MEAN PLATELET VOLUME 9.2 fl (7.2-11.7); MONO # 0.4 K/uL (0.0-0.8); MONO % 7.6 % (0.0-10.0); NEUT # 3.8 K/uL (1.8-7.0); NEUT % 67.4 % (50.0-75.0); NRBC % 0.1 % (0.0-0.0); RBC 5.24 Mil/uL (4.40-5.90); RED CELL DISTRIBUTION WIDTH 16.2 % (11.5-14.5); WHITE BLOOD COUNT 5.6 K/uL (4.8-10.8)
[2017-07-19 13:59] LABS: ALT/SGPT 21 U/L (21-72); AST/SGOT 14 U/L (17-59); BLOOD UREA NITROGEN 18 mg/dl (9-20); CALCIUM 9.2 mg/dL (8.4-10.2); GFR AFRICAN-AMERICAN > 60; GFR NON-AFRICAN AMERICAN 53
--- NOTE | 2017-07-19 14:01 | ED PDOC ---
Lower Extremity Pain/Injury Time Seen by Provider: 07/19/17 12:14 Chief Complaint (Nursing): Lower Extremity Problem/Injury History Per: Patient (this is a 51 yo male with chronic leg ulcers who is sent by Dr. Anderson for IV antibiotics. Patient is here with a note from his office. Patient is undomiciled and admits that he is overweight. There is no fever or chills. He denies urinary trouble, abdominal pain.) History/Exam Limitations: no limitations Past Medical History Vital Signs: Last Vital Signs Temp 97.6 F 07/19/17 12:06 Pulse 63 07/19/17 12:06 Resp 18 07/19/17 12:06 BP 154/70 H 07/19/17 12:06 Pulse Ox 98 07/19/17 12:06 - Medical History PMH: HTN, Peripheral Edema Denies: Anemia, Arthritis, Asthma, Atrial Fibrillation, Bronchitis, Cardia Arrhythmia, CHF, COPD, Emphysema, Fractures, HIV, Hypercholesterolemia, Hyperthyroidism, Hypothyroidism, Kidney Stones, Mitral Valve Prolapse, Osteoporosis, Pneumonia, Pulmonary Embolism, Chronic Kidney Disease, Rheumatoid Arthritis, Sickle Cell Disease, Sleep Apnea - Surgical History Surgical History: Denies: Appendectomy, Pacemaker - Family History Family History: States: Unknown Family Hx - Living Arrangements Living Arrangements: Alone (undomiciled) - Immunization History Hx Tetanus Toxoid Vaccination: No Hx Influenza Vaccination: No Hx Pneumococcal Vaccination: No - Home Medications Home Medications: Ambulatory Orders Medication Instructions Recorded hydroCHLOROthiazide [Hydrodiuril] 25 mg PO DAILY 07/19/17 - Allergies Allergies/Adverse Reactions: Allergies Allergy/AdvReac Type Severity Reaction Status Date / Time ciprofloxacin [From Cipro] Allergy RASH Verified 03/19/17 15:52 ciprofloxacin HCl Allergy RASH Verified 03/19/17 15:52 [From Cipro] chocolate flavor AdvReac ears run Verified 03/19/17 15:52 Review of Systems ROS Statement: Except As Marked, All Systems Reviewed And Found Negative Skin: Positive for: Lesions Physical Exam - Reviewed Nursing Documentation Reviewed: Yes Vital Signs Reviewed: Yes - Physical Exam Appears: Positive for: Well, Non-toxic, No Acute Distress Head Exam: Positive for: ATRAUMATIC, NORMAL INSPECTION, NORMOCEPHALIC Skin: Positive for: Normal Color, Warm, DRY Eye Exam: Positive for: Normal appearance ENT: Positive for: Normal ENT Inspection Neck: Positive for: Normal Cardiovascular/Chest: Positive for: Regular Rate, Rhythm Respiratory: Positive for: CNT, Normal Breath Sounds Gastrointestinal/Abdominal: Positive for: Normal Exam, Bowel Sounds, Soft Back: Positive for: Normal Inspection Extremity: Positive for: Normal ROM Neurologic/Psych: Positive for: Alert, Oriented - Laboratory Results Result Diagrams: 07/19/17 13:16 07/19/17 13:16 - ECG O2 Sat by Pulse Oximetry: 98 Disposition - Clinical Impression Clinical Impression: Leg ulcer - Patient ED Disposition Is Patient to be Admitted: Yes Doctor Will See Patient In The: Hospital - Disposition Referrals: Gardenia Javier MD [Staff Provider] - Disposition: Routine/Home Disposition Time: 13:45 Condition: STABLE Forms: Sku[employer] (Greek) - Pt Status Changed To: Hospital Disposition Of: Inpatient - Admit Certification Admit to Inpatient:: After my assessment, the patient will require hospitalization for at least two midnights. This is because of the severity of symptoms shown, intensity of services needed, and/or the medical risk in this patient being treated as an outpatient. - POA Present On Arrival: None
--- NOTE | 2017-07-19 15:25 | CP.PCM.CON ---
History of Present Illness - History of Present Illness History of Present Illness: Podiatry Consult Note- Dr. Romo 51 y.o male seen in ED for odorous right leg ulceration. Patient is known to podiatry service. Patient was seen by Dr. Romo in wound care today where he was instructed to go to the ED to get further evaluation. Patient reports that he has had this ulceration since 2005. He reports increase foul odor and drainage in the past week. He reports that he felt slight fever yesterday with chills. Today he does not feel feverish. He denies n/v/sob/cp/chills or f at this moment. Past Patient History - Infectious Disease Hx of Infectious Diseases: None - Tetanus Immunizations Tetanus Immunization: Unknown - Past Medical History & Family History Past Medical History?: Yes - Past Social History Smoking Status: Never Smoked - CARDIAC Hx Atrial Fibrillation: No Hx Cardia Arrhythmia: No Hx Congestive Heart Failure: No Hx Hypercholesterolemia: No Hx Hypertension: Yes Hx Mitral Valve Prolapse: No Hx Pacemaker: No Hx Peripheral Edema: Yes - PULMONARY Hx Asthma: No Hx Bronchitis: No Hx Chronic Obstructive Pulmonary Disease (COPD): No Hx Emphysema: No Hx Pneumonia: No Hx Pulmonary Embolism: No Hx Sleep Apnea: No - NEUROLOGICAL Hx Neurological Disorder: No - HEENT Hx HEENT Problems: No - RENAL Hx Chronic Kidney Disease: No Hx Kidney Stones: No - ENDOCRINE/METABOLIC Hx Hyperthyroidism: No Hx Hypothyroidism: No - HEMATOLOGICAL/ONCOLOGICAL Hx Anemia: No Hx Human Immunodeficiency Virus (HIV): No Hx Sickle Cell Disease: No - INTEGUMENTARY Hx Dermatological Problems: Yes Hx Cellulitis: Yes - MUSCULOSKELETAL/RHEUMATOLOGICAL Hx Arthritis: No Hx Fractures: No Hx Osteoporosis: No Hx Rheumatoid Arthritis: No - GASTROINTESTINAL Hx Gastrointestinal Disorders: No - GENITOURINARY/GYNECOLOGICAL Hx Genitourinary Disorders: No - PSYCHIATRIC Hx Psychophysiologic Disorder: No Hx Substance Use: No - SURGICAL HISTORY Hx Appendectomy: No - ANESTHESIA Hx Anesthesia: No Hx Anesthesia Reactions: No Meds Allergies/Adverse Reactions: Allergies Allergy/AdvReac Type Severity Reaction Status Date / Time ciprofloxacin [From Cipro] Allergy RASH Verified 03/19/17 15:52 ciprofloxacin HCl Allergy RASH Verified 03/19/17 15:52 [From Cipro] chocolate flavor AdvReac ears run Verified 03/19/17 15:52 Physical Exam - Constitutional Appears: Well, Non-toxic, No Acute Distress - Extremities Exam Additional comments: RLE exam: VASC: DP/PT pulses faintly palpable 1/4. CFT < 3 seconds to all digits. Temperature gradient is warm to cool from proximal to distal.+3 pitting edema noted extending distally from tibial tuberosity to digits DERM: Boggy macerated skin amd lichenification with tree trunk appearance noted to right lower extremity. Moderate malodor present. There is macerated diffuse superficial sloughing of the skin noted on the posterior aspect of the right leg - no tunneling, no undermining, no purulent drainage from the leg. Serous drainage noted from the posterior calf NEURO: Sensation grossly intact. ORTHO: Limited ROM at the ankle joint due to increased edema, no pain on palpation of the calf Results - Vital Signs Recent Vital Signs: Last Vital Signs Temp 97 F L 07/19/17 15:15 Pulse 70 07/19/17 15:15 Resp 18 07/19/17 15:15 BP 150/70 07/19/17 15:15 Pulse Ox 98 07/19/17 15:15 - Labs Result Diagrams: 07/19/17 13:16 07/19/17 13:16 Labs: Laboratory Results - last 24 hr 07/19/17 07/19/17 13:16 13:16 WBC 5.6 RBC 5.24 Hgb 13.6 Hct 43.4 MCV 82.8 MCH 26.0 L MCHC 31.4 L RDW 16.2 H Plt Count 258 MPV 9.2 Neut % (Auto) 67.4 Lymph % (Auto) 21.8 [place] % (Auto) 7.6 Eos % (Auto) 2.6 Baso % (Auto) 0.6 Neut # 3.8 Lymph # 1.2 [place] # 0.4 Eos # 0.1 Baso # 0.0 ESR 25 H Sodium 143 Potassium 4.4 Chloride 104 Carbon Dioxide 26 Anion Gap 17 BUN 18 Creatinine 1.4 Est GFR ( Amer) > 60 Est GFR (Non-Af Amer) 53 Random Glucose 102 Calcium 9.2 Total Bilirubin 0.6 AST 14 L D ALT 21 Alkaline Phosphatase 89 Total Protein 8.0 Albumin 4.0 Globulin 4.0 H Albumin/Globulin Ratio 1.0 Assessment & Plan - Assessment and Plan (Free Text) Assessment: 51 y/o male seen at bedside with chronic lichenifications, lymphedema of bilateral lower extremity Plan: Patient examined and evaluated Discussed plan in detail with attending Dr. Romo Charts, labs, vitals reviewed Will change dressing when on floors with bactroban, xeroform, dsd, and kerlix ID consulted- recommendations appreciated No surgical intervention at this time Will continue to follow when floors Thank you for the consult
[2017-07-19] MEDS ORDERED: Oxycodone/Acetaminophen 5/325 mg Tab PO PRN (15:28)
--- NOTE | 2017-07-19 15:40 | CP.PCM.HP ---
History of Present Illness - History of Present Illness History of Present Illness: [facility] Medicine 51 year old male PMHx HTN, bilateral LE chronic lymphydema seen in ED for right lower extremity infection. Patient hemodyamically stable and NAD. Patient states he was recently admitted a few months ago for similar reasons, and was discharged to rehab facility for continued care. Patient states his RLE was fine until 1.5 months ago when a new wound developed to his right leg. Patient states he was seen in Wound Care Center by his tube cleaner Dr. Anderson today, and was then sent to ED for admission as his right leg presented with foul odor increased drainage. Patient also complaining of pain in the bottom of his right foot. Denies calf pain b/l. Denies N/V/F/D/C/SOB/chest pain/palpitations/abd pain/RYAN/dizziness. No other medical complaints. PMD: [facility] (Dr. Meyers) ED Course: VS: 97.6F, NM 63, 154/70, RR 18 O2 98% RA Labs: 5.6>13.4/43.4<258, 143/4.4, 104/26, 18/1.4, glucose 102, ESR 25 EKG Blood cx Zosyn 3.375g IV Present on Admission - Present on Admission Any Indicators Present on Admission: No Review of Systems - Review of Systems All systems: reviewed and no additional remarkable complaints except (as per HPI ) - Constitutional Constitutional: As Per HPI Past Patient History - Infectious Disease Hx of Infectious Diseases: None - Tetanus Immunizations Tetanus Immunization: Unknown - Past Medical History & Family History Past Medical History?: Yes - Past Social History Smoking Status: Never Smoked - CARDIAC Hx Atrial Fibrillation: No Hx Cardia Arrhythmia: No Hx Congestive Heart Failure: No Hx Hypercholesterolemia: No Hx Hypertension: Yes Hx Mitral Valve Prolapse: No Hx Pacemaker: No Hx Peripheral Edema: Yes - PULMONARY Hx Asthma: No Hx Bronchitis: No Hx Chronic Obstructive Pulmonary Disease (COPD): No Hx Emphysema: No Hx Pneumonia: No Hx Pulmonary Embolism: No Hx Sleep Apnea: No - NEUROLOGICAL Hx Neurological Disorder: No - HEENT Hx HEENT Problems: No - RENAL Hx Chronic Kidney Disease: No Hx Kidney Stones: No - ENDOCRINE/METABOLIC Hx Hyperthyroidism: No Hx Hypothyroidism: No - HEMATOLOGICAL/ONCOLOGICAL Hx Anemia: No Hx Human Immunodeficiency Virus (HIV): No Hx Sickle Cell Disease: No - INTEGUMENTARY Hx Dermatological Problems: Yes Hx Cellulitis: Yes - MUSCULOSKELETAL/RHEUMATOLOGICAL Hx Arthritis: No Hx Fractures: No Hx Osteoporosis: No Hx Rheumatoid Arthritis: No - GASTROINTESTINAL Hx Gastrointestinal Disorders: No - GENITOURINARY/GYNECOLOGICAL Hx Genitourinary Disorders: No - PSYCHIATRIC Hx Psychophysiologic Disorder: No Hx Substance Use: No - SURGICAL HISTORY Hx Appendectomy: No - ANESTHESIA Hx Anesthesia: No Hx Anesthesia Reactions: No Meds Allergies/Adverse Reactions: Allergies Allergy/AdvReac Type Severity Reaction Status Date / Time ciprofloxacin [From Cipro] Allergy RASH Verified 03/19/17 15:52 ciprofloxacin HCl Allergy RASH Verified 03/19/17 15:52 [From Cipro] chocolate flavor AdvReac ears run Verified 03/19/17 15:52 Physical Exam - Constitutional Appears: Well, Non-toxic, No Acute Distress - Head Exam Head Exam: ATRAUMATIC, NORMAL INSPECTION, NORMOCEPHALIC - Eye Exam Eye Exam: EOMI, Normal appearance Pupil Exam: NORMAL ACCOMODATION, PERRL - ENT Exam ENT Exam: Mucous Membranes Moist, Normal Exam - Neck Exam Neck exam: Positive for: Full Rom, Normal Inspection. Negative for: Tenderness - Respiratory Exam Respiratory Exam: Clear to Auscultation Bilateral, NORMAL BREATHING PATTERN. absent: Rales, Rhonchi, Wheezes - Cardiovascular Exam Cardiovascular Exam: REGULAR RHYTHM, +S1, +S2 - GI/Abdominal Exam GI & Abdominal Exam: Normal Bowel Sounds, Soft - Extremities Exam Extremities exam: Positive for: pedal edema (bilateral LE edema) Additional comments: Dressings noted to bilateral legs with foul odor to RLE - Neurological Exam Neurological exam: Alert, Oriented x3 - Psychiatric Exam Psychiatric exam: Normal Affect, Normal Mood - Skin Skin Exam: Dry, Intact, Normal Color, Warm Results - Vital Signs Recent Vital Signs: Last Vital Signs Temp 97.6 F 07/19/17 12:06 Pulse 63 07/19/17 12:06 Resp 18 07/19/17 12:06 BP 154/70 H 07/19/17 12:06 Pulse Ox 98 07/19/17 14:13 - Labs Result Diagrams: 07/19/17 13:16 07/19/17 13:16 Labs: Laboratory Results - last 24 hr 07/19/17 07/19/17 13:16 13:16 WBC 5.6 RBC 5.24 Hgb 13.6 Hct 43.4 MCV 82.8 MCH 26.0 L MCHC 31.4 L RDW 16.2 H Plt Count 258 MPV 9.2 Neut % (Auto) 67.4 Lymph % (Auto) 21.8 [place] % (Auto) 7.6 Eos % (Auto) 2.6 Baso % (Auto) 0.6 Neut # 3.8 Lymph # 1.2 [place] # 0.4 Eos # 0.1 Baso # 0.0 ESR 25 H Sodium 143 Potassium 4.4 Chloride 104 Carbon Dioxide 26 Anion Gap 17 BUN 18 Creatinine 1.4 Est GFR ( Amer) > 60 Est GFR (Non-Af Amer) 53 Random Glucose 102 Calcium 9.2 Total Bilirubin 0.6 AST 14 L D ALT 21 Alkaline Phosphatase 89 Total Protein 8.0 Albumin 4.0 Globulin 4.0 H Albumin/Globulin Ratio 1.0 Assessment & Plan (1) Ulcer of lower extremity Status: Chronic (2) HTN (hypertension) Status: Chronic (3) Morbid obesity Status: Chronic (4) DVT prophylaxis Status: Acute - Assessment and Plan (Free Text) Assessment: 51 year old male PMHx HTN, bilateral LE chronic lymphedema admitted for infected right lower extremity ulceration. (1) Ulcer of lower extremity -Likely due to chronic lymphedema and venous insufficiency -Podiatry Dr. Anderson consulted, f/u recs -Daily wound care per podiatry -ID Dr. Moraes consulted, f/u recs -Zosyn 3.375g IV Q6 for now -f/u blood culture -Pain control: Tylenol 650mg PO, Percocet 1 tab PO (2) HTN (hypertension) -Chronic, controlled -Continue home med: HCTZ 25mg PO QD -Heart healthy diet (3) Morbid obesity -BMI 55.8 (4) DVT prophylaxis -Lovenox 40 mg daily
[2017-07-19] MEDS: Piperacillin/Tazobact 3.375 GM in Sodium Chloride 0.9% 100 ML IVPB SCH ×2 (16:38→21:36)
--- NOTE | 2017-07-19 18:23 | CP.PCM.CON ---
History of Present Illness - History of Present Illness History of Present Illness: discussed on rounds full consult to follow rx in progress Past Patient History - Infectious Disease Hx of Infectious Diseases: None - Tetanus Immunizations Tetanus Immunization: Unknown - Past Medical History & Family History Past Medical History?: Yes - Past Social History Smoking Status: Former Smoker - CARDIAC Hx Cardiac Disorders: Yes - PULMONARY Hx Respiratory Disorders: No Hx Asthma: No Hx Bronchitis: No Hx Chronic Obstructive Pulmonary Disease (COPD): No Hx Emphysema: No Hx Pneumonia: No Hx Pulmonary Embolism: No Hx Sleep Apnea: No - NEUROLOGICAL Hx Neurological Disorder: No - HEENT Hx HEENT Problems: No - RENAL Hx Chronic Kidney Disease: No - ENDOCRINE/METABOLIC Hx Hyperthyroidism: No Hx Hypothyroidism: No - HEMATOLOGICAL/ONCOLOGICAL Hx Anemia: No Hx Human Immunodeficiency Virus (HIV): No Hx Sickle Cell Disease: No - INTEGUMENTARY Hx Dermatological Problems: Yes - MUSCULOSKELETAL/RHEUMATOLOGICAL Hx Musculoskeletal Disorders: Yes Hx Falls: No - GASTROINTESTINAL Hx Gastrointestinal Disorders: No - GENITOURINARY/GYNECOLOGICAL Hx Genitourinary Disorders: No - PSYCHIATRIC Hx Psychophysiologic Disorder: No Hx Substance Use: No - SURGICAL HISTORY Hx Appendectomy: No - ANESTHESIA Hx Anesthesia: No Hx Anesthesia Reactions: No Hx Malignant Hyperthermia: No Has any member of the family had a problem w/ anesthesia?: No Meds Allergies/Adverse Reactions: Allergies Allergy/AdvReac Type Severity Reaction Status Date / Time ciprofloxacin [From Cipro] Allergy RASH Verified 03/19/17 15:52 ciprofloxacin HCl Allergy RASH Verified 03/19/17 15:52 [From Cipro] chocolate flavor AdvReac ears run Verified 03/19/17 15:52 - Medications Medications: Current Medications Acetaminophen (Tylenol 325mg Tab) 650 mg PO Q6 PRN PRN Reason: Pain, Mild (1-3) Enoxaparin Sodium (Lovenox) 30 mg SC Q12 LAZARA PRN Reason: Protocol Hydrochlorothiazide (Hydrodiuril) 25 mg PO DAILY LAZARA Piperacillin Sod/Tazobactam (Sod 3.375 gm/ Sodium Chloride) 100 mls @ 100 mls/ hr IVPB Q6 LAZARA PRN Reason: Protocol Last Admin: 07/19/17 16:38 Dose: 100 mls/hr Oxycodone/Acetaminophen (Percocet 5/325 Mg Tab) 1 tab PO Q4 PRN PRN Reason: Pain, moderate (4-7) Stop: 07/22/17 15:29 Results - Vital Signs Recent Vital Signs: Last Vital Signs Temp 98 F 07/19/17 17:29 Pulse 83 07/19/17 17:29 Resp 17 07/19/17 17:36 BP 155/81 H 07/19/17 17:29 Pulse Ox 98 07/19/17 17:29 - Labs Result Diagrams: 07/19/17 13:16 07/19/17 13:16 Labs: Laboratory Results - last 24 hr 07/19/17 07/19/17 13:16 13:16 WBC 5.6 RBC 5.24 Hgb 13.6 Hct 43.4 MCV 82.8 MCH 26.0 L MCHC 31.4 L RDW 16.2 H Plt Count 258 MPV 9.2 Neut % (Auto) 67.4 Lymph % (Auto) 21.8 [place] % (Auto) 7.6 Eos % (Auto) 2.6 Baso % (Auto) 0.6 Neut # 3.8 Lymph # 1.2 [place] # 0.4 Eos # 0.1 Baso # 0.0 ESR 25 H Sodium 143 Potassium 4.4 Chloride 104 Carbon Dioxide 26 Anion Gap 17 BUN 18 Creatinine 1.4 Est GFR ( Amer) > 60 Est GFR (Non-Af Amer) 53 Random Glucose 102 Calcium 9.2 Total Bilirubin 0.6 AST 14 L D ALT 21 Alkaline Phosphatase 89 Total Protein 8.0 Albumin 4.0 Globulin 4.0 H Albumin/Globulin Ratio 1.0
[2017-07-19] MEDS: Enoxaparin 30 mg Syringe SC SCH (21:38)
[2017-07-19] MEDS ORDERED: Enoxaparin 40 mg Syringe SC SCH (22:00)
[2017-07-20] MEDS: Piperacillin/Tazobact 3.375 GM in Sodium Chloride 0.9% 100 ML IVPB SCH ×4 (03:19→22:57)
--- NOTE | 2017-07-20 07:27 | CP.PCM.PN ---
Addendum entered and electronically signed by Marcie Meyers 07/20/17 14:09: Elevation in Cr suspected to be due to Lovenox, so DVT prophylaxis switched to Heparin. d/w attending. Original Note: Subjective - Date & Time of Evaluation Date of Evaluation: 07/20/17 Time of Evaluation: 07:20 - Subjective Subjective: Pt seen and examined at bedside with attending. 51M admitted for recurrent RLE ulceration from Podiatry clinic. He currently denies any fevers, chills, SOB, chest pain, headaches, GI/ symptoms. He is tolerating PO diet, ambulates with difficulty secondary to underlying medical problems. Objective - Vital Signs/Intake and Output Vital Signs (last 24 hours): Temp Pulse Resp BP Pulse Ox 36.6 C 76 20 108/76 97 07/20/17 00:22 07/20/17 00:22 07/20/17 00:22 07/20/17 00:22 07/20/17 00:22 - Medications Medications: Current Medications Acetaminophen (Tylenol 325mg Tab) 650 mg PO Q6 PRN PRN Reason: Pain, Mild (1-3) Enoxaparin Sodium (Lovenox) 30 mg SC Q12 LAZARA PRN Reason: Protocol Last Admin: 07/19/17 21:38 Dose: 30 mg Hydrochlorothiazide (Hydrodiuril) 25 mg PO DAILY LAZARA Piperacillin Sod/Tazobactam (Sod 3.375 gm/ Sodium Chloride) 100 mls @ 100 mls/ hr IVPB Q6 LAZARA PRN Reason: Protocol Last Admin: 07/20/17 03:19 Dose: 100 mls/hr Oxycodone/Acetaminophen (Percocet 5/325 Mg Tab) 1 tab PO Q4 PRN PRN Reason: Pain, moderate (4-7) Stop: 07/22/17 15:29 - Labs Labs: 07/19/17 13:16 07/19/17 13:16 - Constitutional Appears: Well, Non-toxic, No Acute Distress - Head Exam Head Exam: ATRAUMATIC, NORMAL INSPECTION - Eye Exam Eye Exam: EOMI, Normal appearance - ENT Exam ENT Exam: Mucous Membranes Moist, Normal Exam - Neck Exam Neck Exam: Full ROM, Normal Inspection - Respiratory Exam Respiratory Exam: Clear to Ausculation Bilateral, NORMAL BREATHING PATTERN. absent: Rales, Wheezes - Cardiovascular Exam Cardiovascular Exam: REGULAR RHYTHM, +S1, +S2 - GI/Abdominal Exam GI & Abdominal Exam: Soft, Normal Bowel Sounds. absent: Tenderness - Extremities Exam Extremities Exam: absent: Full ROM (Significant chronic b/l lower extremity lymphedema with b/l distal ulcerations managed by Podiatry) - Neurological Exam Neurological Exam: Alert, Awake - Psychiatric Exam Psychiatric exam: Normal Affect - Skin Skin Exam: Dry, Warm Assessment and Plan - Assessment and Plan (Free Text) Assessment: 51M PMH HTN, chronic b/l lower extremity lymphedema, and recurring ulcerations of lower extremities. Patient on IV antibiotics, Podiatry co-managing, and plan for fdc placement for IV antibiotics and wound care to reduce re- admission. Plan: - ID Consult appreciated: Zosyn - Podiatry Consult appreciated: wound care as per Podiatry - PICC on Saturday - c/w diet - PT/OT evaluation - c/w HCTZ for BP control - DVT prophylaxis
[2017-07-20 07:44] LABS: HEMOGLOBIN 13.5 g/dL (12.0-18.0); MEAN CORPUSCULAR HEMOGLOBIN 26.5 pg (27.0-31.0); MEAN CORPUSCULAR HGB CONC 31.9 g/dL (33.0-37.0); RBC 5.1 Mil/uL (4.40-5.90); RED CELL DISTRIBUTION WIDTH 16.1 % (11.5-14.5); WHITE BLOOD COUNT 5.1 K/uL (4.8-10.8)
[2017-07-20 08:10] LABS: CALCIUM 8.8 mg/dL (8.4-10.2)
[2017-07-20] MEDS: Enoxaparin 30 mg Syringe SC SCH (09:24)
--- NOTE | 2017-07-20 14:03 | CP.PCM.PN ---
Subjective - Date & Time of Evaluation Date of Evaluation: 07/20/17 Time of Evaluation: 14:01 - Subjective Subjective: Podiatry Progress Note- Dr. Romo 51 y.o male seen at bedside for odorous right leg ulceration. Patient is known to podiatry service. Patient was seen by Dr. Romo in wound care yesterday where he was instructed to go to the ED to get further evaluation. Patient reports that he has had this ulceration since 2005. He reports increase foul odor and drainage in the past week. He reports that he feels much better today with no feeling of fever or chills. He denies n/v/sob/cp/chills or f at this moment. Objective - Vital Signs/Intake and Output Vital Signs (last 24 hours): Temp Pulse Resp BP Pulse Ox 98.1 F 69 20 118/72 97 07/20/17 08:25 07/20/17 08:25 07/20/17 08:25 07/20/17 08:25 07/20/17 08:25 - Medications Medications: Current Medications Acetaminophen (Tylenol 325mg Tab) 650 mg PO Q6 PRN PRN Reason: Pain, Mild (1-3) Heparin Sodium (Porcine) (Heparin) 5,000 units SC Q8 [facility] PRN Reason: Protocol Hydrochlorothiazide (Hydrodiuril) 25 mg PO DAILY [facility] Last Admin: 07/20/17 09:24 Dose: 25 mg Piperacillin Sod/Tazobactam (Sod 3.375 gm/ Sodium Chloride) 100 mls @ 100 mls/ hr IVPB Q6 [facility] PRN Reason: Protocol Last Admin: 07/20/17 03:19 Dose: 100 mls/hr Mupirocin (Bactroban Ointment) 1 applic TOP DAILY [facility] Oxycodone/Acetaminophen (Percocet 5/325 Mg Tab) 1 tab PO Q4 PRN PRN Reason: Pain, moderate (4-7) Stop: 07/22/17 15:29 - Labs Labs: 07/20/17 05:25 07/20/17 05:25 - Constitutional Appears: Well, Non-toxic, No Acute Distress - Extremities Exam Additional comments: RLE exam: VASC: DP/PT pulses faintly palpable 1/4. CFT < 3 seconds to all digits. Temperature gradient is warm to cool from proximal to distal.+3 pitting edema noted extending distally from tibial tuberosity to digits DERM: Boggy macerated skin amd lichenification with tree trunk appearance noted to right lower extremity. Moderate malodor present. There is macerated diffuse superficial sloughing of the skin noted on the anterior aspect of the right leg - no tunneling, no undermining, no purulent drainage from the leg. Serous drainage noted from the anterior calf NEURO: Sensation grossly intact. ORTHO: Limited ROM at the ankle joint due to increased edema, no pain on palpation of the calf - Neurological Exam Neurological Exam: Alert, Awake, Oriented x3 - Psychiatric Exam Psychiatric exam: Normal Affect, Normal Mood Assessment and Plan - Assessment and Plan (Free Text) Assessment: 51 y/o male seen at bedside with chronic lichenifications, lymphedema of bilateral lower extremity Plan: Patient seen and evaluated at bedside Afebrile, absent leukocytosis Wound culture of right anterior leg wound taken Right leg wound cleansed with soap and dressed with xeroform, ABD, Kirlix, RICH Left leg dressed with RICH Per Dr. Moraes, patient will be started on PO Augmentin since IV access was unattainable Podiatry will continue to follow while patient in house
[2017-07-20] MEDS ORDERED: Amoxicillin-Clav 875-125 mg Tab PO SCH (14:15)
[2017-07-21] MEDS: Piperacillin/Tazobact 3.375 GM in Sodium Chloride 0.9% 100 ML IVPB SCH ×2 (03:40→09:00)
[2017-07-21 07:01] LABS: HEMOGLOBIN 12.9 g/dL (12.0-18.0); MEAN CELL VOLUME 83.2 fl (80.0-94.0); MEAN CORPUSCULAR HEMOGLOBIN 26.4 pg (27.0-31.0); MEAN CORPUSCULAR HGB CONC 31.7 g/dL (33.0-37.0); RBC 4.9 Mil/uL (4.40-5.90); RED CELL DISTRIBUTION WIDTH 16.1 % (11.5-14.5); WHITE BLOOD COUNT 4.7 K/uL (4.8-10.8)
[2017-07-21 07:12] LABS: INR 1.1 (0.9-1.2); PROTHROMBIN TIME 12.7 Seconds (9.8-13.1)
[2017-07-21 07:16] LABS: CALCIUM 8.6 mg/dL (8.4-10.2)
--- NOTE | 2017-07-21 08:52 | CP.PCM.PN ---
Addendum entered and electronically signed by Marcie Meyers 07/21/17 12:36: Superficial wound culture stained gram negative rods, BCx no growth. Original Note: Subjective - Date & Time of Evaluation Date of Evaluation: 07/21/17 Time of Evaluation: 08:52 - Subjective Subjective: Pt seen and examined at bedside with attending. 51M admitted for recurrent RLE ulceration from Podiatry clinic. He currently denies any fevers, chills, SOB, chest pain, headaches, GI/ symptoms. He is tolerating PO diet, ambulates with difficulty secondary to underlying medical problems. Objective - Vital Signs/Intake and Output Vital Signs (last 24 hours): Temp Pulse Resp BP Pulse Ox 36.6 C 66 20 110/73 98 07/21/17 08:32 07/21/17 08:32 07/21/17 08:32 07/21/17 08:32 07/21/17 08:32 - Medications Medications: Current Medications Acetaminophen (Tylenol 325mg Tab) 650 mg PO Q6 PRN PRN Reason: Pain, Mild (1-3) Heparin Sodium (Porcine) (Heparin) 5,000 units SC Q8 [facility] PRN Reason: Protocol Last Admin: 07/21/17 08:33 Dose: 5,000 units Hydrochlorothiazide (Hydrodiuril) 25 mg PO DAILY [facility] Last Admin: 07/21/17 08:33 Dose: 25 mg Piperacillin Sod/Tazobactam (Sod 3.375 gm/ Sodium Chloride) 100 mls @ 100 mls/ hr IVPB Q6 [facility] PRN Reason: Protocol Last Admin: 07/20/17 14:22 Dose: 100 mls/hr Piperacillin Sod/Tazobactam (Sod 3.375 gm/ Sodium Chloride) 100 mls @ 100 mls/ hr IVPB Q6 [facility] PRN Reason: Protocol Last Admin: 07/21/17 03:40 Dose: 100 mls/hr Mupirocin (Bactroban Ointment) 1 applic TOP DAILY [facility] Last Admin: 07/21/17 08:33 Dose: 1 applic Oxycodone/Acetaminophen (Percocet 5/325 Mg Tab) 1 tab PO Q4 PRN PRN Reason: Pain, moderate (4-7) Stop: 07/22/17 15:29 - Labs Labs: 07/21/17 05:25 07/21/17 05:25 PT 12.7 Seconds (9.8-13.1) 07/21/17 05:25 INR 1.1 (0.9-1.2) 07/21/17 05:25 APTT 26.0 Seconds (25.6-37.1) 07/21/17 05:25 - Constitutional Appears: Well, Non-toxic, No Acute Distress - Head Exam Head Exam: ATRAUMATIC, NORMAL INSPECTION - Eye Exam Eye Exam: EOMI, Normal appearance - ENT Exam ENT Exam: Mucous Membranes Moist, Normal Exam - Neck Exam Neck Exam: Full ROM, Normal Inspection - Respiratory Exam Respiratory Exam: Clear to Ausculation Bilateral, NORMAL BREATHING PATTERN. absent: Rales, Wheezes - Cardiovascular Exam Cardiovascular Exam: REGULAR RHYTHM, +S1, +S2 - GI/Abdominal Exam GI & Abdominal Exam: Soft, Normal Bowel Sounds. absent: Tenderness - Extremities Exam Additional comments: Significant chronic b/l lower extremity lymphedema with LEFT 0.5cm clean based ulcer at dorsum flexion point with leg and RIGHT anterior large soft area, draining slightly with malodor. - Neurological Exam Neurological Exam: Alert, Awake - Psychiatric Exam Psychiatric exam: Normal Affect, Normal Mood - Skin Skin Exam: Dry, Warm Assessment and Plan - Assessment and Plan (Free Text) Assessment: 51M PMH HTN, chronic b/l lower extremity lymphedema, and recurring ulcerations of lower extremities. Patient was on IV antibiotics, Podiatry co-managing. Worsening Cr noted on labs and DVT prophylaxis switched from Lovenox to Heparin. However, repeat labs today still show increasing Cr so decision made to d/c IV antibiotics for worsening renal picture and placed on Augmentin. Plan: - ID Consult appreciated: Zosyn, but Augmentin an option as needed - Podiatry Consult appreciated: wound care as per Podiatry, cultured RIGHT chronic ulcer - d/c PICC on Saturday - c/w diet - PT/OT: Patient not qualified for skilled PT services - c/w HCTZ for BP control - DVT prophylaxis - MARIAM: d/c Zosyn, start Augmentin, rpt BMP
--- NOTE | 2017-07-21 13:23 | CP.PCM.CON ---
History of Present Illness - History of Present Illness History of Present Illness: 51 y/o male with PMHx of HTN, peripheral edema and b/l lower extremity lymphedema who was sent by his patch finisher after visit to the wound clinic to ED for possible lower extremity infection as pt legs were draining a lot more and smelled foul. admitted for IV antibiotics rx and wound care PMHx: HTN, Peripheral Edema,and b/l lower extremity lymphedema PSHx: Denies SHx: Denies smoking, occasional EtOH, denies illicit drug usage Allergies: Ciprofloxacin, chocolate flavor Review of Systems - Review of Systems All systems: reviewed and no additional remarkable complaints except - Constitutional Constitutional: As Per HPI - EENT Eyes: absent: As Per HPI, Blind Spots, Blurred Vision, Change in Vision, Decreased Night Vision, Diplopia, Discharge, Dry Eye, Exophthalmos, Floaters, Irritation, Itchy Eyes, Loss of Peripheral Vision, Pain, Photophobia, Requires Corrective Lenses, Sees Flashes, Spots in Vision, Tunnel Vision, Other Visual Disturbances, Loss of Vision, Other Ears: absent: As Per HPI, Decreased Hearing, Ear Discharge, Ear Pain, Tinnitus, Abnormal Hearing, Disequilibrium, Dizziness, Other Nose/Mouth/Throat: absent: As Per HPI, Epistaxis, Nasal Congestion, Nasal Discharge, Nasal Obstruction, Nasal Trauma, Nose Pain, Post Nasal Drip, Sinus Pain, Sinus Pressure, Bleeding Gums, Change in Voice, Dental Pain, Dry Mouth, Dysphagia, Halitosis, Hoarsness, Lip Swelling, Mouth Lesions, Mouth Pain, Odynophagia, Sore Throat, Throat Swelling, Tongue Swelling, Facial Pain, Neck Pain, Neck Mass, Other - Cardiovascular Cardiovascular: absent: As Per HPI, Acrocyanosis, Chest Pain, Chest Pain at Rest , Chest Pain with Activity, Claudication, Diaphoresis, Dyspnea, Dyspnea on Exertion, Edema, Irregular Heart Rhythm, Pain Radiating to Arm/Neck/Jaw, Leg Edema, Leg Ulcers, Lightheadedness, Orthopnea, Palpitations, Paroxysmal Nocturnal Dyspnea, Pedal Edema, Radiating Pain, Rapid Heart Rate, Slow Heart Rate, Syncope, Other - Respiratory Respiratory: absent: As Per HPI, Cough, Dyspnea, Hemoptysis, Dyspnea on Exertion , Wheezing, Snoring, Stridor, Pain on Inspiration, Chest Congestion, Excessive Mucous Production, Change in Mucous Color, Pain with Coughing, Other - Gastrointestinal Gastrointestinal: absent: As Per HPI, Abdominal Pain, Belching, Bloating, Change in Bowel Habits, Change in Stool Character, Coffee Ground Emesis, Constipation, Cramping, Diarrhea, Dyspepsia, Dysphagia, Early Satiety, Excessive Flatus, Fecal Incontinence, Heartburn, Hematemesis, Hematochezia, Loose Stools, Melena, Nausea, Odynophagia, Temesmus, Vomiting, Other - Genitourinary Genitourinary: absent: As Per HPI, Change in Urinary Stream, Difficulty Urinating, Dysuria, Flank Pain, Hematuria, Pyuria, Nocturia, Urinary Incontinence, Urinary Frequency, Urinary Hesitance, Urinary Urgency, Voiding Freq/Small Amts, Freq UTI, Hx Renal/Bladder Calculi, Hx /Renal Surgery, Bladder Distension, Other - Musculoskeletal Musculoskeletal: absent: As Per HPI, Abnormal Gait, Arthralgias, Atrophy, Back Pain, Deformity, Joint Swelling, Limited Range of Motion, Loss of Height, Muscle Cramps, Muscle Weakness, Myalgias, Neck Pain, Numbness, Radiating Pain into Limb, Stiffness, Tingling, Other - Integumentary Integumentary: As Per HPI - Neurological Neurological: As Per HPI - Psychiatric Psychiatric: absent: As Per HPI, Abnormal Sleep Pattern, Anhedonia, Anxiety, Auditory Hallucinations, Behavioral Changes, Change in Appetite, Change in Libido, Confusion, Depression, Difficulty Concentrating, Hallucinations, Homicidal Ideation, Hopelessness, Irritability, Memory Loss, Mood Swings, Panic Attacks, Paranoia, Suicidal Ideation, Visual Hallucinations, Tactile Hallucinations, Other - Endocrine Endocrine: absent: As Per HPI, Change in Body Appearance, Change in Libido, Cold Intolorance, Deepening of Voice, Excessive Sweating, Fatigue, Flushing, Heat Intolorance, Increase in Ring/Shoe/Hat Size, Palpitations, Polydipsia, Polyphagia, Polyuria, Other - Hematologic/Lymphatic Hematologic: absent: As Per HPI, Easy Bleeding, Easy Bruising, Lymphadenopathy, Other Past Patient History - Infectious Disease Hx of Infectious Diseases: None - Tetanus Immunizations Tetanus Immunization: Unknown - Past Medical History & Family History Past Medical History?: Yes - Past Social History Smoking Status: Former Smoker - CARDIAC Hx Cardiac Disorders: Yes - PULMONARY Hx Respiratory Disorders: No Hx Asthma: No Hx Bronchitis: No Hx Chronic Obstructive Pulmonary Disease (COPD): No Hx Emphysema: No Hx Pneumonia: No Hx Pulmonary Embolism: No Hx Sleep Apnea: No - NEUROLOGICAL Hx Neurological Disorder: No - HEENT Hx HEENT Problems: No - RENAL Hx Chronic Kidney Disease: No - ENDOCRINE/METABOLIC Hx Hyperthyroidism: No Hx Hypothyroidism: No - HEMATOLOGICAL/ONCOLOGICAL Hx Anemia: No Hx Human Immunodeficiency Virus (HIV): No Hx Sickle Cell Disease: No - INTEGUMENTARY Hx Dermatological Problems: Yes - MUSCULOSKELETAL/RHEUMATOLOGICAL Hx Musculoskeletal Disorders: Yes Hx Falls: No - GASTROINTESTINAL Hx Gastrointestinal Disorders: No - GENITOURINARY/GYNECOLOGICAL Hx Genitourinary Disorders: No - PSYCHIATRIC Hx Psychophysiologic Disorder: No Hx Substance Use: No - SURGICAL HISTORY Hx Appendectomy: No - ANESTHESIA Hx Anesthesia: No Hx Anesthesia Reactions: No Hx Malignant Hyperthermia: No Has any member of the family had a problem w/ anesthesia?: No Meds Allergies/Adverse Reactions: Allergies Allergy/AdvReac Type Severity Reaction Status Date / Time ciprofloxacin [From Cipro] Allergy RASH Verified 03/19/17 15:52 ciprofloxacin HCl Allergy RASH Verified 03/19/17 15:52 [From Cipro] chocolate flavor AdvReac ears run Verified 03/19/17 15:52 - Medications Medications: Current Medications Acetaminophen (Tylenol 325mg Tab) 650 mg PO Q6 PRN PRN Reason: Pain, Mild (1-3) Amoxicillin/Clavulanate Potassium (Augmentin 875 Mg-125 Mg Tab) 1 tab PO Q12 [facility] PRN Reason: Protocol Heparin Sodium (Porcine) (Heparin) 5,000 units SC Q8 [facility] PRN Reason: Protocol Last Admin: 07/21/17 08:33 Dose: 5,000 units Hydrochlorothiazide (Hydrodiuril) 25 mg PO DAILY [facility] Last Admin: 07/21/17 08:33 Dose: 25 mg Mupirocin (Bactroban Ointment) 1 applic TOP DAILY [facility] Last Admin: 07/21/17 08:33 Dose: 1 applic Oxycodone/Acetaminophen (Percocet 5/325 Mg Tab) 1 tab PO Q4 PRN PRN Reason: Pain, moderate (4-7) Stop: 07/22/17 15:29 Physical Exam - Constitutional Appears: Non-toxic, Chronically Ill - Head Exam Head Exam: NORMOCEPHALIC - Eye Exam Eye Exam: PERRL. absent: Scleral icterus Pupil Exam: NORMAL ACCOMODATION - ENT Exam ENT Exam: Mucous Membranes Dry, Mucous Membranes Moist - Neck Exam Neck exam: Positive for: Normal Inspection. Negative for: Lymphadenopathy - Respiratory Exam Respiratory Exam: Decreased Breath Sounds, Clear to Auscultation Bilateral - Cardiovascular Exam Cardiovascular Exam: REGULAR RHYTHM, +S1, +S2 - GI/Abdominal Exam GI & Abdominal Exam: Diminished Bowel Sounds, Soft. absent: Tenderness - Rectal Exam Rectal Exam: Deferred - Exam Exam: NORMAL INSPECTION - Extremities Exam Extremities exam: Positive for: full ROM, pedal edema. Negative for: normal inspection, pedal pulses present Additional comments: severe lymphedema left > right with deformity of toes and ulcer on left leg with foul smelling exudate - Back Exam Back exam: absent: CVA tenderness (L), CVA tenderness (R) - Neurological Exam Neurological exam: Alert, CN II-XII Intact, Oriented x3, Reflexes Normal - Psychiatric Exam Psychiatric exam: Depressed - Skin Skin Exam: Dry Results - Vital Signs Recent Vital Signs: Last Vital Signs Temp 97.8 F 07/21/17 08:32 Pulse 66 07/21/17 08:32 Resp 20 07/21/17 08:32 BP 110/73 07/21/17 08:32 Pulse Ox 98 07/21/17 08:32 - Labs Result Diagrams: 07/21/17 05:25 07/21/17 05:25 Labs: Laboratory Results - last 24 hr 07/20/17 07/20/17 07/21/17 16:44 20:58 05:19 WBC RBC Hgb Hct MCV MCH MCHC RDW Plt Count PT INR APTT Sodium Potassium Chloride Carbon Dioxide Anion Gap BUN Creatinine Est GFR ( Amer) Est GFR (Non-Af Amer) POC Glucose (mg/dL) 99 97 79 Random Glucose Calcium 07/21/17 07/21/17 07/21/17 05:25 05:25 05:25 WBC 4.7 L RBC 4.90 Hgb 12.9 Hct 40.8 MCV 83.2 MCH 26.4 L MCHC 31.7 L RDW 16.1 H Plt Count 242 PT 12.7 INR 1.1 APTT 26.0 Sodium 141 Potassium 4.8 Chloride 108 H Carbon Dioxide 23 Anion Gap 15 BUN 21 H Creatinine 1.9 H Est GFR ( Amer) 45 Est GFR (Non-Af Amer) 38 POC Glucose (mg/dL) Random Glucose 84 Calcium 8.6 Assessment & Plan (1) Ulcer of lower extremity Status: Chronic (2) Cellulitis and abscess Status: Acute Priority: High (3) Chronic kidney disease (CKD) stage G2/A1, mildly decreased glomerular filtration rate (GFR) between 60-89 mL/min/1.73 square meter and albuminuria creatinine ratio less than 30 mg/g Status: Acute (4) Chronic lymphadenitis Status: Acute (5) Elephantiasis (nonfilarial) Status: Acute (6) Homelessness Status: Acute (7) Incarcerated umbilical hernia Status: Acute Priority: High Onset Date: 04/21/14 (8) Leg wound, right Status: Acute (9) Ulcer of right lower leg Status: Acute (10) Venous stasis dermatitis of both lower extremities Status: Acute (11) Wound abscess Status: Acute (12) Wound of right lower extremity Status: Acute (13) Chronic acquired lymphedema Status: Chronic (14) Chronic wound of extremity Status: Chronic (15) Elephantiasis Status: Chronic (16) Homeless single person Status: Chronic - Assessment and Plan (Free Text) Assessment: cont wound care may benefit from OR debridement cont compression consider vascular eval recc: PICC for IV antibiotics and possible SNF
[2017-07-21] MEDS: Amoxicillin-Clav 875-125 mg Tab PO SCH ×2 (14:21→22:22)
--- NOTE | 2017-07-21 16:36 | CP.PCM.PN ---
Subjective - Date & Time of Evaluation Date of Evaluation: 07/21/17 Time of Evaluation: 16:34 - Subjective Subjective: Podiatry Progress Note- Dr. Romo 51 y.o male seen at bedside for odorous right leg ulceration. Patient is known to podiatry service. Patient is AAO x 3 and NAD resting comfortably in bed at time of visit. Denies any acute overnight events or any new pedal complaints at this time. Denies recent N/V/F/C/CP/SOB/D/posterior calf pain when squeezed. Objective - Vital Signs/Intake and Output Vital Signs (last 24 hours): Temp Pulse Resp BP Pulse Ox 98 F 75 20 129/81 95 07/21/17 15:45 07/21/17 15:45 07/21/17 15:45 07/21/17 15:45 07/21/17 15:45 - Medications Medications: Current Medications Acetaminophen (Tylenol 325mg Tab) 650 mg PO Q6 PRN PRN Reason: Pain, Mild (1-3) Amoxicillin/Clavulanate Potassium (Augmentin 875 Mg-125 Mg Tab) 1 tab PO Q12 [facility] PRN Reason: Protocol Last Admin: 07/21/17 14:21 Dose: 1 tab Heparin Sodium (Porcine) (Heparin) 5,000 units SC Q8 [facility] PRN Reason: Protocol Last Admin: 07/21/17 16:11 Dose: 5,000 units Hydrochlorothiazide (Hydrodiuril) 25 mg PO DAILY [facility] Last Admin: 07/21/17 08:33 Dose: 25 mg Cefepime HCl 2 gm/ Sodium (Chloride) 100 mls @ 100 mls/hr IVPB Q12 [facility] PRN Reason: Protocol Mupirocin (Bactroban Ointment) 1 applic TOP DAILY [facility] Last Admin: 07/21/17 08:33 Dose: 1 applic Oxycodone/Acetaminophen (Percocet 5/325 Mg Tab) 1 tab PO Q4 PRN PRN Reason: Pain, moderate (4-7) Stop: 07/22/17 15:29 - Labs Labs: 07/21/17 05:25 07/21/17 05:25 PT 12.7 Seconds (9.8-13.1) 07/21/17 05:25 INR 1.1 (0.9-1.2) 07/21/17 05:25 APTT 26.0 Seconds (25.6-37.1) 07/21/17 05:25 - Constitutional Appears: Well, Non-toxic, No Acute Distress - Extremities Exam Additional comments: RLE exam: VASC: DP/PT pulses faintly palpable 1/4. CFT < 3 seconds to all digits. Temperature gradient is warm to cool from proximal to distal.+3 pitting edema noted extending distally from tibial tuberosity to digits DERM: Boggy macerated skin amd lichenification with tree trunk appearance noted to right lower extremity. Moderate malodor present. There is macerated diffuse superficial sloughing of the skin noted on the anterior aspect of the right leg - no tunneling, no undermining, no purulent drainage from the leg. Serous drainage noted from the anterior calf, decreased from yesterday NEURO: Sensation grossly intact. ORTHO: Limited ROM at the ankle joint due to increased edema, no pain on palpation of the calf - Neurological Exam Neurological Exam: Alert, Awake, Oriented x3 - Psychiatric Exam Psychiatric exam: Normal Affect, Normal Mood Assessment and Plan - Assessment and Plan (Free Text) Assessment: 51 y/o male seen at bedside with chronic lichenifications, lymphedema of bilateral lower extremity Plan: Patient seen and evaluated at bedside Plan discussed with attending Dr. Romo Afebrile, absent leukocytosis Wound cx R leg prelim: GNR Right leg wound dressed with xeroform, ABD, Kirlix, RICH Left leg dressed with RICH Due to MARIAM patient will be placed on PO augmentin for now Patient for SCAR pending case management Podiatry will continue to follow while patient in house
[2017-07-21] MEDS: Cefepime 2 GM in Sodium Chloride 0.9% 100 ML IVPB SCH (21:20)
[2017-07-22] MEDS ORDERED: Amoxicillin-Clav 875-125 mg Tab PO SCH
[2017-07-22 06:53] LABS: HEMOGLOBIN 13.6 g/dL (12.0-18.0); MEAN CELL VOLUME 82.4 fl (80.0-94.0); MEAN CORPUSCULAR HEMOGLOBIN 26.6 pg (27.0-31.0); MEAN CORPUSCULAR HGB CONC 32.3 g/dL (33.0-37.0); RBC 5.1 Mil/uL (4.40-5.90); WHITE BLOOD COUNT 4.3 K/uL (4.8-10.8)
[2017-07-22 06:59] LABS: CALCIUM 8.8 mg/dL (8.4-10.2)
--- NOTE | 2017-07-22 08:19 | CP.PCM.PN ---
Subjective - Date & Time of Evaluation Date of Evaluation: 07/22/17 Time of Evaluation: 07:00 - Subjective Subjective: Podiatry Progress Note- Dr. Romo 51 y.o male seen at bedside for odorous right leg ulceration. Patient is AAO x 3 and NAD resting comfortably in bed at time of visit. Denies any acute overnight events or any new pedal complaints at this time. Patient reports that he slept well. Denies recent N/V/F/C/CP/SOB/D/posterior calf pain when squeezed. Objective - Vital Signs/Intake and Output Vital Signs (last 24 hours): Temp Pulse Resp BP Pulse Ox 97.4 F L 64 20 117/64 100 07/22/17 08:12 07/22/17 08:12 07/22/17 08:12 07/22/17 08:12 07/22/17 08:12 - Medications Medications: Current Medications Acetaminophen (Tylenol 325mg Tab) 650 mg PO Q6 PRN PRN Reason: Pain, Mild (1-3) Amoxicillin/Clavulanate Potassium (Augmentin 875 Mg-125 Mg Tab) 1 tab PO Q12@ 0000,1200 [facility] PRN Reason: Protocol Last Admin: 07/22/17 00:49 Dose: 1 tab Heparin Sodium (Porcine) (Heparin) 5,000 units SC Q8 [facility] PRN Reason: Protocol Last Admin: 07/22/17 00:49 Dose: 5,000 units Hydrochlorothiazide (Hydrodiuril) 25 mg PO DAILY [facility] Last Admin: 07/21/17 08:33 Dose: 25 mg Cefepime HCl 2 gm/ Sodium (Chloride) 100 mls @ 100 mls/hr IVPB Q12 [facility] PRN Reason: Protocol Last Admin: 07/21/17 21:20 Dose: 100 mls/hr Mupirocin (Bactroban Ointment) 1 applic TOP DAILY [facility] Last Admin: 07/21/17 08:33 Dose: 1 applic - Labs Labs: 07/22/17 06:35 07/22/17 06:35 PT 12.7 Seconds (9.8-13.1) 07/21/17 05:25 INR 1.1 (0.9-1.2) 07/21/17 05:25 APTT 26.0 Seconds (25.6-37.1) 07/21/17 05:25 - Constitutional Appears: Well, Non-toxic, No Acute Distress - Extremities Exam Extremities Exam: absent: Calf Tenderness Additional comments: RLE exam: VASC: DP/PT pulses faintly palpable 1/4. CFT < 3 seconds to all digits. Temperature gradient is warm to cool from proximal to distal.+3 pitting edema noted extending distally from tibial tuberosity to digits DERM: Boggy macerated skin amd lichenification with tree trunk appearance noted to right lower extremity. Moderate malodor present-improved. There is macerated diffuse superficial sloughing of the skin noted on the anterior aspect of the right leg - no tunneling, no undermining, no purulent drainage from the leg. Serous drainage noted from the anterior calf, decreased from yesterday NEURO: Sensation grossly intact. ORTHO: Limited ROM at the ankle joint due to increased edema, no pain on palpation of the calf - Neurological Exam Neurological Exam: Alert, Awake, Oriented x3 - Psychiatric Exam Psychiatric exam: Normal Affect, Normal Mood Assessment and Plan - Assessment and Plan (Free Text) Assessment: 51 y/o male seen at bedside with chronic lichenifications, lymphedema of bilateral lower extremity Plan: Patient seen and evaluated at bedside Plan discussed with attending Dr. Romo Afebrile, absent leukocytosis (WBC=4.3 on 07/22/17) Wound cx R leg prelim: GNR Right leg wound dressed with bactorban, xeroform, ABD, Kerlix, RICH C/w abx per ID: Cefepime 2gm Patient for SCAR pending case management Podiatry will continue to follow while patient in house
[2017-07-22] MEDS: Cefepime 2 GM in Sodium Chloride 0.9% 100 ML IVPB SCH (08:37)
--- NOTE | 2017-07-22 08:52 | PQF GENQUE ---
This form is a permanent part of the medical record 07/22/17 Dr. Melanie Rivera, Please document the associated medical diagnosis related to the following abbreviation: MARIAM -- Acute Kidney Insufficiency -- Acute Kidney Injury ( Non traumatic ) PN 07/20 Dr. Rivera addendum: Acute renal insufficiency PN 07/21 Dr. Rivera addendum: MARIAM most likely secondary to Zosyn BUN 18-> 24 Creatinine 1.4-> 1.9. GFR : >60-> 45 GFR Non Am: 53->38 Clarification of your documentation is requested to better reflect the severity of illness and intensity of treatment of your patient. Indicators present [] Specify: [] [] Specify: [] [] Specify: [] [] Specify: [] Location in the medical record that reflects the above clinical findings: [] Treatment Provided: [] PHYSICIAN'S RESPONSE Based on your medical judgment of the clinical indicators outlined above please clarify the following: [] Practitioner response : acute kidney injury secondary to IV antibiotic vs infectious process [] If unable to determine, please check the box, sign and date. Present On Admission (POA) Indicator: [] Present at the time of admission [] Not present at the time of admission [x] Clinically Undetermined In responding to this query, please exercise your independent professional judgment. The fact that a question is asked does not imply that any particular answer is desired or expected. Thank you for your clarification on this documentation. If you have any questions please call:ext [phone] * Thank you, Teressa Pang RN [facility]
--- NOTE | 2017-07-22 09:19 | CP.PCM.PN ---
Subjective - Date & Time of Evaluation Date of Evaluation: 07/22/17 Time of Evaluation: 09:19 - Subjective Subjective: Family Medicine Objective - Vital Signs/Intake and Output Vital Signs (last 24 hours): Temp Pulse Resp BP Pulse Ox 97.4 F L 64 20 117/64 100 07/22/17 08:12 07/22/17 08:12 07/22/17 08:12 07/22/17 08:12 07/22/17 08:12 - Medications Medications: Current Medications Acetaminophen (Tylenol 325mg Tab) 650 mg PO Q6 PRN PRN Reason: Pain, Mild (1-3) Amoxicillin/Clavulanate Potassium (Augmentin 875 Mg-125 Mg Tab) 1 tab PO Q12@ 0000,1200 LAZARA PRN Reason: Protocol Last Admin: 07/22/17 00:49 Dose: 1 tab Heparin Sodium (Porcine) (Heparin) 5,000 units SC Q8 LAZARA PRN Reason: Protocol Last Admin: 07/22/17 08:38 Dose: 5,000 units Hydrochlorothiazide (Hydrodiuril) 25 mg PO DAILY [facility] Last Admin: 07/22/17 08:41 Dose: 25 mg Cefepime HCl 2 gm/ Sodium (Chloride) 100 mls @ 100 mls/hr IVPB Q12 LAZARA PRN Reason: Protocol Last Admin: 07/22/17 08:37 Dose: 100 mls/hr Mupirocin (Bactroban Ointment) 1 applic TOP DAILY [facility] Last Admin: 07/22/17 08:38 Dose: 1 applic - Labs Labs: 07/22/17 06:35 07/22/17 06:35 PT 12.7 Seconds (9.8-13.1) 07/21/17 05:25 INR 1.1 (0.9-1.2) 07/21/17 05:25 APTT 26.0 Seconds (25.6-37.1) 07/21/17 05:25 Assessment and Plan (1) Ulcer of lower extremity Status: Chronic (2) HTN (hypertension) Status: Chronic (3) Morbid obesity Status: Chronic (4) DVT prophylaxis Status: Acute
[2017-07-22] MEDS ORDERED: Cefepime 2 GM in Sodium Chloride 0.9% 50 ML IVPB SCH ×2 (12:00→21:00)
--- NOTE | 2017-07-22 13:26 | CP.PCM.PN ---
Subjective - Date & Time of Evaluation Date of Evaluation: 07/22/17 Time of Evaluation: 07:00 - Subjective Subjective: IV rx in progress for PICC line Objective - Vital Signs/Intake and Output Vital Signs (last 24 hours): Temp Pulse Resp BP Pulse Ox 97.4 F L 64 20 117/64 100 07/22/17 08:12 07/22/17 08:12 07/22/17 08:12 07/22/17 08:12 07/22/17 08:12 - Medications Medications: Current Medications Acetaminophen (Tylenol 325mg Tab) 650 mg PO Q6 PRN PRN Reason: Pain, Mild (1-3) Heparin Sodium (Porcine) (Heparin) 5,000 units SC Q8 LAZARA PRN Reason: Protocol Last Admin: 07/22/17 08:38 Dose: 5,000 units Hydrochlorothiazide (Hydrodiuril) 25 mg PO DAILY [facility] Last Admin: 07/22/17 08:41 Dose: 25 mg Cefepime HCl 2 gm/ Sodium (Chloride) 50 mls @ 50 mls/hr IVPB Q12 LAZARA PRN Reason: Protocol Last Admin: 07/22/17 12:51 Dose: Not Given Mupirocin (Bactroban Ointment) 1 applic TOP DAILY [facility] Last Admin: 07/22/17 08:38 Dose: 1 applic - Labs Labs: 07/22/17 06:35 07/22/17 06:35 PT 12.7 Seconds (9.8-13.1) 07/21/17 05:25 INR 1.1 (0.9-1.2) 07/21/17 05:25 APTT 26.0 Seconds (25.6-37.1) 07/21/17 05:25 - Constitutional Appears: Non-toxic, Chronically Ill - Head Exam Head Exam: NORMOCEPHALIC - Eye Exam Eye Exam: PERRL - ENT Exam ENT Exam: Mucous Membranes Dry - Neck Exam Neck Exam: absent: Lymphadenopathy - Respiratory Exam Respiratory Exam: Decreased Breath Sounds - Cardiovascular Exam Cardiovascular Exam: REGULAR RHYTHM - GI/Abdominal Exam GI & Abdominal Exam: Distended, Soft - Rectal Exam Rectal Exam: Deferred - Exam Exam: NORMAL INSPECTION Assessment and Plan (1) Ulcer of lower extremity Status: Chronic (2) Cellulitis and abscess Status: Acute (3) Chronic kidney disease (CKD) stage G2/A1, mildly decreased glomerular filtration rate (GFR) between 60-89 mL/min/1.73 square meter and albuminuria creatinine ratio less than 30 mg/g Status: Acute (4) Chronic lymphadenitis Status: Acute (5) Elephantiasis (nonfilarial) Status: Acute (6) Homelessness Status: Acute (7) Incarcerated umbilical hernia Status: Acute (8) Leg wound, right Status: Acute (9) Ulcer of right lower leg Status: Acute (10) Venous stasis dermatitis of both lower extremities Status: Acute (11) Wound abscess Status: Acute (12) Wound of right lower extremity Status: Acute (13) Chronic acquired lymphedema Status: Chronic (14) Chronic wound of extremity Status: Chronic (15) Elephantiasis Status: Chronic (16) Homeless single person Status: Chronic
[2017-07-22 13:49] VITALS: RESP 18
--- NOTE | 2017-07-22 14:00 | CP.PCM.DIS ---
Provider - Provider Date of Admission: 07/19/17 15:23 Attending physician: Gardenia Javier MD Primary care physician: [facility] - Dr. Meyers Consults: ID - Dr. Moraes Podiatry - Dr. Anderson Time Spent in preparation of Discharge (in minutes): 30 Diagnosis - Discharge Diagnosis (1) Ulcer of lower extremity Status: Chronic (2) HTN (hypertension) Status: Chronic (3) Morbid obesity Status: Chronic (4) DVT prophylaxis Status: Acute Hospital Course - Lab Results Lab Results: Micro Results 07/19/17 13:16 Blood Blood Culture - Preliminary NO GROWTH AFTER 3 DAYS 07/20/17 15:47 Leg - Right Gram Stain - Final 07/20/17 15:47 Leg - Right Wound Culture - Preliminary Proteus Mirabilis 07/19/17 14:30 Blood Blood Culture - Preliminary NO GROWTH AFTER 48 HOURS Most Recent Lab Values WBC 4.3 K/uL (4.8-10.8) L 07/22/17 06:35 RBC 5.10 Mil/uL (4.40-5.90) 07/22/17 06:35 Hgb 13.6 g/dL (12.0-18.0) 07/22/17 06:35 Hct 42.0 % (35.0-51.0) 07/22/17 06:35 MCV 82.4 fl (80.0-94.0) 07/22/17 06:35 MCH 26.6 pg (27.0-31.0) L 07/22/17 06:35 MCHC 32.3 g/dL (33.0-37.0) L 07/22/17 06:35 RDW 16.0 % (11.5-14.5) H 07/22/17 06:35 Plt Count 237 K/uL (130-400) 07/22/17 06:35 MPV 9.2 fl (7.2-11.7) 07/19/17 13:16 Neut % (Auto) 67.4 % (50.0-75.0) 07/19/17 13:16 Lymph % (Auto) 21.8 % (20.0-40.0) 07/19/17 13:16 [place] % (Auto) 7.6 % (0.0-10.0) 07/19/17 13:16 Eos % (Auto) 2.6 % (0.0-4.0) 07/19/17 13:16 Baso % (Auto) 0.6 % (0.0-2.0) 07/19/17 13:16 Neut # 3.8 K/uL (1.8-7.0) 07/19/17 13:16 Lymph # 1.2 K/uL (1.0-4.3) 07/19/17 13:16 [place] # 0.4 K/uL (0.0-0.8) 07/19/17 13:16 Eos # 0.1 K/uL (0.0-0.7) 07/19/17 13:16 Baso # 0.0 K/uL (0.0-0.2) 07/19/17 13:16 ESR 25 mm/hr (0-20) H 07/19/17 13:16 PT 12.7 Seconds (9.8-13.1) 07/21/17 05:25 INR 1.1 (0.9-1.2) 07/21/17 05:25 APTT 26.0 Seconds (25.6-37.1) 07/21/17 05:25 Sodium 142 mmol/l (132-148) 07/22/17 06:35 Potassium 4.9 MMOL/L (3.6-5.0) 07/22/17 06:35 Chloride 106 mmol/L (98-107) 07/22/17 06:35 Carbon Dioxide 27 mmol/L (22-30) 07/22/17 06:35 Anion Gap 14 (10-20) 07/22/17 06:35 BUN 24 mg/dl (9-20) H 07/22/17 06:35 Creatinine 1.7 mg/dl (0.8-1.5) H 07/22/17 06:35 Est GFR ( Amer) 52 07/22/17 06:35 Est GFR (Non-Af Amer) 43 07/22/17 06:35 POC Glucose (mg/dL) 88 mg/dL (65-110) 07/22/17 05:51 Random Glucose 87 mg/dL (75-110) 07/22/17 06:35 Calcium 8.8 mg/dL (8.4-10.2) 07/22/17 06:35 Total Bilirubin 0.6 mg/dl (0.2-1.3) 07/19/17 13:16 AST 14 U/L (17-59) L D 07/19/17 13:16 ALT 21 U/L (21-72) 07/19/17 13:16 Alkaline Phosphatase 89 U/L (38-126) 07/19/17 13:16 Total Protein 8.0 G/DL (6.3-8.2) 07/19/17 13:16 Albumin 4.0 g/dL (3.5-5.0) 07/19/17 13:16 Globulin 4.0 gm/dL (2.2-3.9) H 07/19/17 13:16 Albumin/Globulin Ratio 1.0 (1.0-2.1) 07/19/17 13:16 - Hospital Course Hospital Course: 51 year old male patient PMHx HTN, chronic lymphedema of bilateral lower extremity admitted for infection of RLE ulceration likely secondary to chronic lymphedema and venous insufficiency. Podiatry was consulted for daily local wound care. Infectious disease was consulted and initially recommended Zosyn 3.375g IV, changed to Augmentin 1 tab PO, then lastly was managed with Cefepime 2g IV per ID recommendation. RUE PICC line placed by IR during admission for administration of IV antibiotics. Patient will be discharged to [facility] ([facility]3] for continued administration of Cefepime 2g IV. Patient to continue HCTZ. Follow up [facility] August 13, 2017 @ 9:00AM with Dr. Meyers. Discharge medications: Cefepime 2 gm IVPB Q12 x7days Discharge Exam - Head Exam Head Exam: ATRAUMATIC, NORMAL INSPECTION, NORMOCEPHALIC - Eye Exam Pupil Exam: NORMAL ACCOMODATION, PERRL - ENT Exam ENT Exam: Mucous Membranes Moist, Normal Exam - Neck Exam Neck exam: Full Rom, Normal Inspection - Respiratory Exam Respiratory Exam: Clear to PA & Lateral, NORMAL BREATHING PATTERN, UNREMARKABLE. absent: Rales, Rhonchi, Wheezes - Cardiovascular Exam Cardiovascular Exam: REGULAR RHYTHM, +S1, +S2 - GI/Abdominal Exam GI & Abdominal Exam: Normal Bowel Sounds, Soft, Unremarkable. absent: Tenderness - Extremities Exam Additional comments: Significant chronic b/l lower extremity lymphedema with LEFT 0.5cm clean based ulcer at dorsum flexion point with leg and RIGHT anterior large soft area, draining slightly with malodor. - Neurological Exam Neurological exam: Alert, Oriented x3 - Psychiatric Exam Psychiatric exam: Normal Affect, Normal Mood - Skin Skin Exam: Dry, Warm Additional comments: Lichenifications RLE Discharge Plan - Discharge Medications Prescriptions: Cefepime IV 2 gm in NS [Maxipime 2gm] 2 gm IVPB Q12 7 Days #14 bag hydroCHLOROthiazide [Hydrodiuril] 25 mg PO DAILY 30 Days #30 tab Mupirocin 2% Ointment [Bactroban Ointment] 1 applic TOP DAILY 30 Days #1 tube - Follow Up Plan Condition: STABLE Disposition: REHAB FACILITY/REHAB UNIT Patient education suggested?: Yes Instructions: Wound Infection (DC), Diabetic Foot Care (DC) Additional Instructions: Follow up [facility] August 13, 2017 @ 9:00AM with Dr. Meyers Referrals: Gardenia Javier MD [Staff Provider] - Feliciano Rodriguez DPM [Staff Provider] - Dustin Moraes MD [Staff Provider] - Marcie Meyers [Resident] - 08/13/17 (Follow up [facility] August 13, 2017 @ 9:00AM with Dr. Meyers)
[2017-07-22] MEDS ORDERED: Lidocaine 1% Inj (20ml) ONE (15:07)
--- NOTE | 2017-07-22 15:30 | PCM.SURG1 ---
Surgeon's Initial Post Op Note - Surgeon's Notes Surgeon: Favian Urbina MD Marine Technician: None Type of Anesthesia: Local Pre-Operative Diagnosis: infection Operative Findings: patent right basilic vein. catheter length: 46 cm. catheter tip: cavoatrial junction Post-Operative Diagnosis: same Operation Performed: RUE PICC Insertion Specimen/Specimens Removed: N/A Estimated Blood Loss: EBL {In ML}: 0 Date of Surgery/Procedure: 07/22/17 Time of Surgery/Procedure: 15:30
[2017-07-22 16:23] VITALS: BP 154/78; PULSE 66; TEMP 97.5; O2SAT 100
--- NOTE | 2017-07-23 09:45 | VASCULAR ---
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 COMPARISON: PICC insertion performed 03/20/2017. PROCEDURE: 1. Focused ultrasound of the right upper extremity vasculature. 2. Ultrasound-guided access. 3. Insertion of peripherally inserted central venous catheter. 4. Fluoroscopic localization of catheter tip. PRE-PROCEDURE FINDINGS: 1. Patent right basilic vein. POST-PROCEDURE FINDINGS: 1. Placement of 4 German single-lumen PICC. 2. Catheter length: 46 cm. 3. Catheter tip at cavoatrial junction. INTERVENTIONAL RADIOLOGIST: Favian Urbina M.D. (the attending was present for the entire procedure) ANESTHESIA: None. MEDICATION: Lidocaine 1% for local subcutaneous analgesia. COMPLICATIONS: None. RADIATION DOSE: Fluoroscopy Time: 0.5 minutes PROCEDURE DESCRIPTION AND FINDINGS: The risks, benefits, alternatives and possible complications of the procedure were fully discussed; all questions were answered and informed consent was obtained. The patient was brought into the interventional suite and a pre-procedure 'time-out' was performed. The patient was placed on the fluoroscopy table in the supine position. The right upper extremity was prepped and draped in the usual sterile fashion. Maximum sterile barrier precautions were maintained throughout the entire procedure. Preliminary ultrasound images of the right upper extremity vasculature demonstrate patency of the right basilic vein. Following subcutaneous infiltration of 1% lidocaine for local analgesia, under ultrasound guidance, a 21-gauge needle was advanced into the right basilic vein with real-time visualization of needle entry. The ultrasound images were permanently recorded and submitted to the PACS. A 0.018 guidewire was advanced centrally to the cavoatrial junction. A 4.5 German peel-away sheath was advanced over the guidewire. After obtaining length measurement, a 4 German single-lumen PICC was placed with the tip of the catheter at the cavoatrial junction. The total length of the catheter is 46 cm. The hub of the PICC was secured to the skin using a sterile adhesive bandage. The patient tolerated the procedure well without immediate post-procedure complications and was transferred back to the floor in stable condition. IMPRESSION: SUCCESSFUL INSERTION OF RIGHT UPPER EXTREMITY PICC. PICC OK TO USE.
== END 2017-07-22 17:30 | DRG 300 ==
LOC: H.ER 11:23 → H.ERHOLD 15:23 → H.MEDSURG1 17:18
PROVIDERS: ADMIT Family Medicine Geriatric Medicine; ATTEND Family Medicine Geriatric Medicine
PROC: 02HV33Z Insertion of Infusion Device into Superior Vena Cava, Percutaneous Approach (ICD-10-PCS; principal; 2017-07-22)
DX: I87.2 Venous insufficiency (chronic) (peripheral) (principal); L97.919 Non-pressure chronic ulcer of unspecified part of right lower leg with unspecified severity; N17.9 Acute kidney failure, unspecified; L03.115 Cellulitis of right lower limb; E66.01 Morbid (severe) obesity due to excess calories; K42.0 Umbilical hernia with obstruction, without gangrene; Z68.43 Body mass index [BMI] 50.0-59.9, adult; I88.1 Chronic lymphadenitis, except mesenteric; Z59.0 Homelessness; Z88.3 Allergy status to other anti-infective agents; I89.0 Lymphedema, not elsewhere classified; Z87.891 Personal history of nicotine dependence; L28.0 Lichen simplex chronicus; T36.0X5A Adverse effect of penicillins, initial encounter; I87.8 Other specified disorders of veins; N18.9 Chronic kidney disease, unspecified; I12.9 Hypertensive chronic kidney disease with stage 1 through stage 4 chronic kidney disease, or unspecified chronic kidney disease

== ENCOUNTER 2017-12-06 01:29 | Inpatient (IN) | payer MEDICARE ==
[2017-12-06 01:29] VITALS: BMI 55.7
[2017-12-06] MEDS ORDERED: Sodium Chloride 0.9% 1,000 ML IV SCH ×3 (02:30→17:45)
[2017-12-06 02:40] LABS: VENOUS BLOOD GAS BASE EXCESS -0.1 mmol/L (0.0-2.0); VENOUS BLOOD GAS PCO2 56 mmHg (40-60); VENOUS BLOOD GAS PO2 18 mm/Hg (30-55)
[2017-12-06 02:44] LABS: BASO % 0.2 % (0.0-2.0); EOS % 0.3 % (0.0-4.0); HEMOGLOBIN 14.3 g/dL (12.0-18.0); LYMPH # 0.1 K/uL (1.0-4.3); LYMPH % 2.4 % (20.0-40.0); MEAN CELL VOLUME 83.8 fl (80.0-94.0); MEAN CORPUSCULAR HEMOGLOBIN 26.4 pg (27.0-31.0); MEAN CORPUSCULAR HGB CONC 31.6 g/dL (33.0-37.0); MONO # 0.1 K/uL (0.0-0.8); MONO % 2.3 % (0.0-10.0); NEUT # 5.1 K/uL (1.8-7.0); NEUT % 94.8 % (50.0-75.0); NRBC % 0.1 % (0.0-0.0); PLATELET COUNT 230 K/uL (130-400); RBC 5.43 Mil/uL (4.40-5.90); RED CELL DISTRIBUTION WIDTH 16.9 % (11.5-14.5); WHITE BLOOD COUNT 5.4 K/uL (4.8-10.8)
--- NOTE | 2017-12-06 02:44 | ED PDOC ---
Syncope/Near Syncope/Dizziness Time Seen by Provider: 12/06/17 02:21 Chief Complaint (Nursing): Syncope Chief Complaint (Provider): Syncope History Per: Patient History/Exam Limitations: no limitations Additional Complaint(s): 52 year old male with a history of HTN, chronic cellulitis, and peripheral edema presents to the ED s/p syncopal episode earlier tonight [facility]. He reports he has been having chills all day and acute on chronic bilateral lower extremity pain. Patient states he has chronic wounds and edema to the lower legs for which he is under the care of Dr. Romo. He was last seen at the wound care clinic this Saturday for a dressing change. Patient denies taking medications MASTICATOR, fever, shortness of breath, chest pain, abdominal pain, N/V/D, vision changes, headache, weakness, numbness. Patient also denies any head injury. PMD: Dr. Meyers Past Medical History Vital Signs: Last Vital Signs Temp 99.6 F 12/06/17 01:37 Pulse 127 H 12/06/17 01:37 Resp 18 12/06/17 01:37 BP 124/69 12/06/17 01:37 Pulse Ox 98 12/06/17 01:37 - Medical History PMH: HTN, Peripheral Edema Denies: HIV Other PMH: chronic cellulitis - Surgical History Surgical History: No Surg Hx - Family History Family History: States: Unknown Family Hx - Social History Current smoker - smoking cessation education provided: No Ex-Smoker (has not smoked in the last 12 months): No Alcohol: None Drugs: Denies - Immunization History Hx Tetanus Toxoid Vaccination: No (unknown) - Home Medications Home Medications: Ambulatory Orders Medication Instructions Recorded hydroCHLOROthiazide [Hydrodiuril] 25 mg PO DAILY 30 Days #30 tab 07/22/17 - Allergies Allergies/Adverse Reactions: Allergies Allergy/AdvReac Type Severity Reaction Status Date / Time ciprofloxacin [From Cipro] Allergy RASH Verified 03/19/17 15:52 ciprofloxacin HCl Allergy RASH Verified 03/19/17 15:52 [From Cipro] chocolate flavor AdvReac ears run Verified 03/19/17 15:52 Review of Systems ROS Statement: Except As Marked, All Systems Reviewed And Found Negative Musculoskeletal: Positive for: Other (peripheral edema) Neurological: Positive for: Other (syncope). Negative for: Weakness, Numbness Physical Exam - Reviewed Nursing Documentation Reviewed: Yes Vital Signs Reviewed: Yes - Physical Exam Comments: GENERAL APPEARANCE: Patient is awake, alert, oriented x 3, in no acute distress. (+) diaphoretic (+) morbid obesity NECK: Supple, FROM (-) ridigity (-) tenderness ENT: Mucus membranes moist HEAD: (-) scalp tenderness or hematoma LOWER EXTREMITIES: Gross edema bilaterally (R>L) with lichenification of the skin; Bilateral compressive dressings in place. CARDIOVASCULAR: (+) tachycardia ABDOMINAL: Soft, nontender (-) distention (-) guarding (-) rebound LUNGS: Clear bilaterally to auscultation (-) rales (-) rhonchi (-) wheezing. Speaking in full sentences, respirations even and nonlabored. EYES: (-) conjunctival pallor, (-) scleral icterus. NEURO AND PSYCH: Mental status as above; (-) focal findings. Speech clear (-) facial asymmetry (-) aphasia. Tongue and uvula midline. EOMI and painless. Sensation intact throughout. - Laboratory Results Result Diagrams: 12/10/17 04:20 12/10/17 04:20 - ECG ECG Rhythm: Positive for: Sinus Tachycardia. Negative for: ST/T Changes Rate: 125 O2 Sat by Pulse Oximetry: 98 (RA) Pulse Ox Interpretation: Normal Medical Decision Making Medical Decision Making: Time 02:30 Initial Impression: Syncope and tachycardia Initial Plan: --IV access --Accucheck --Venous blood gas --Zofran IVP --Tetanus IM --EKG --CMP --Urine drug screen --Urine culture --Urinalysis --Lactic acid --Cbc with differential --partial thromboplastin time --Prothrombin time --CXR --NS 1L bolus --Acquisitions Assistant 0235 Patient afebrile upon triage and initial evaluation. Consult placed to podiatry. 0240 Case discussed with podiatry resident, Dr Pilar Rossi. Agreeable to evaluation in ED. 0300 Podiatry at bedside. EKG reviewed. 0330 Per podiatry, patient's symptoms are unlikely to be related to clinical presentation. Podiatry states no further intervention is needed on their behalf at this time. 0500 CXR reviewed: (-) acute disease as read by Cathi PHILLIPS and Vinod TYLER 0520 Labs reviewed, elevated lactic acid. Temp: 101.9 HR: 112 RR: 22 O2: 94% on RA BP: 102/50 Tylenol 975mg PO ordered. Lactated ringer 2L ordered. Blood cultures ordered r/o sepsis. Vancomycin and Zosyn IV ordered. 2nd IV access established. O2 nasal cannula 3L ordered. 0530 Case discussed with family practice resident, Dr Hollis. Agreeable to evaluating patient in ED. Arrangements made for admission to telemetry. Diagnostic results d/w the patient in great detail. Dx of syncope, fever, r/o sepsis d/w the patient. Based on history, exam and diagnostic results plan will be for inpatient treatment. Scribe Attestation: Documented by Collette Bundy, acting as a scribe for Vanessa Winkler PA-C Provider Scribe Attestation: All medical record entries made by the Scribe were at my direction and personally dictated by me. I have reviewed the chart and agree that the record accurately reflects my personal performance of the history, physical exam, medical decision making, and the department course for this patient. I have also personally directed, reviewed, and agree with the discharge instructions and disposition. Disposition - Clinical Impression Clinical Impression: Syncope, Sepsis, Lymphedema, Fever, Tachycardia - Patient ED Disposition Is Patient to be Admitted: Yes Counseled Patient/Family Regarding: Studies Performed, Diagnosis - Disposition Disposition Time: 05:34 Condition: SERIOUS - Pt Status Changed To: Hospital Disposition Of: Inpatient - Admit Certification Admit to Inpatient:: After my assessment, the patient will require hospitalization for at least two midnights. This is because of the severity of symptoms shown, intensity of services needed, and/or the medical risk in this patient being treated as an outpatient. Results - Lab Results Lab Results: 12/08/17 12/08/17 12/07/17 06:20 06:20 23:50 WBC 16.9 H RBC 4.88 Hgb 12.9 Hct 39.5 MCV 80.9 D MCH 26.3 L MCHC 32.6 L RDW 16.9 H Plt Count 93 L D MPV 9.2 Neut % (Auto) 94.6 H Lymph % (Auto) 2.0 L Page % (Auto) 2.2 Eos % (Auto) 1.0 Baso % (Auto) 0.2 Neut # (Auto) 15.9 H Lymph # (Auto) 0.3 L Page # (Auto) 0.4 Eos # (Auto) 0.2 Baso # (Auto) 0.0 Total Counted Neutrophils % (Manual) 82 H Band Neutrophils % 7 H Lymphocytes % (Manual) 9 L Reactive Lymphs % Monocytes % (Manual) 2 Eosinophils % (Manual) Basophils % (Manual) Metamyelocytes % Myelocytes % Promyelocytes % Blast Cells % Plasma Cell % (Manual) Nucleated RBC % Hypersegmented Polys Smudge Cells Toxic Granulation Dohle Bodies Sy Rods Platelet Estimate Decreased L Plt Clumps, EDTA Large Platelets Present Giant Platelets RBC Morphology Polychromasia Hypochromasia (manual) Poikilocytosis (manual Basophilic Stippling Anisocytosis (manual) Slight Microcytosis (manual) Macrocytosis (manual) Spherocytes Sickle Cells Target Cells Tear Drop Cells Ovalocytes Slight Stomatocytes Helmet Cells Deng-Lindsey Bodies [place] Cells Acanthocytes (Spur) Rouleaux Schistocytes PT INR APTT pCO2 pO2 HCO3 ABG pH ABG Total CO2 ABG O2 Saturation ABG Base Excess Dewayne Test ABG Potassium VBG pH VBG pCO2 VBG HCO3 VBG Total CO2 VBG O2 Sat (Calc) VBG Base Excess VBG Potassium A-a O2 Difference Sodium 137 Chloride 104 Glucose Lactate FiO2 Crit Value Called To Crit Value Called By Crit Value Read Back Blood Gas Notified Time Potassium 4.0 Carbon Dioxide 16 L Anion Gap 21 H BUN 30 H Creatinine 1.6 H Est GFR ( Amer) 55 Est GFR (Non-Af Amer) 46 POC Glucose (mg/dL) Random Glucose 85 Lactic Acid 1.9 Calcium 7.0 L Total Bilirubin 1.9 H AST 37 ALT 33 Alkaline Phosphatase 58 Troponin I Total Protein 6.7 Albumin 2.9 L D Globulin 3.8 Albumin/Globulin Ratio 0.8 L Procalcitonin Arterial Blood Potassium Venous Blood Potassium Urine Color Urine Clarity Urine pH Ur Specific [place] Urine Protein Urine Glucose (UA) Urine Ketones Urine Blood Urine Nitrate Urine Bilirubin Urine Urobilinogen Ur Leukocyte Esterase Urine RBC (Auto) Urine Microscopic WBC Ur Squamous Epith Cells Urine Opiates Screen Urine Methadone Screen Ur Barbiturates Screen Ur Phencyclidine Scrn Ur Amphetamines Screen U Benzodiazepines Scrn U Oth Cocaine Metabols U Cannabinoids Screen Alcohol, Quantitative 12/07/17 12/07/17 12/07/17 21:44 14:30 13:38 WBC RBC Hgb Hct MCV MCH MCHC RDW Plt Count MPV Neut % (Auto) Lymph % (Auto) Page % (Auto) Eos % (Auto) Baso % (Auto) Neut # (Auto) Lymph # (Auto) Page # (Auto) Eos # (Auto) Baso # (Auto) Total Counted Neutrophils % (Manual) Band Neutrophils % Lymphocytes % (Manual) Reactive Lymphs % Monocytes % (Manual) Eosinophils % (Manual) Basophils % (Manual) Metamyelocytes % Myelocytes % Promyelocytes % Blast Cells % Plasma Cell % (Manual) Nucleated RBC % Hypersegmented Polys Smudge Cells Toxic Granulation Dohle Bodies Sy Rods Platelet Estimate Plt Clumps, EDTA Large Platelets Giant Platelets RBC Morphology Polychromasia Hypochromasia (manual) Poikilocytosis (manual Basophilic Stippling Anisocytosis (manual) Microcytosis (manual) Macrocytosis (manual) Spherocytes Sickle Cells Target Cells Tear Drop Cells Ovalocytes Stomatocytes Helmet Cells Deng-Lindsey Bodies [place] Cells Acanthocytes (Spur) Rouleaux Schistocytes PT INR APTT pCO2 pO2 HCO3 ABG pH ABG Total CO2 ABG O2 Saturation ABG Base Excess Dewayne Test ABG Potassium VBG pH VBG pCO2 VBG HCO3 VBG Total CO2 VBG O2 Sat (Calc) VBG Base Excess VBG Potassium A-a O2 Difference Sodium Chloride Glucose Lactate FiO2 Crit Value Called To Crit Value Called By Crit Value Read Back Blood Gas Notified Time Potassium Carbon Dioxide Anion Gap BUN Creatinine Est GFR ( Amer) Est GFR (Non-Af Amer) POC Glucose (mg/dL) Random Glucose Lactic Acid 2.8 H Calcium Total Bilirubin AST ALT Alkaline Phosphatase Troponin I 0.0710 0.0340 Total Protein Albumin Globulin Albumin/Globulin Ratio Procalcitonin Arterial Blood Potassium Venous Blood Potassium Urine Color Urine Clarity Urine pH Ur Specific [place] Urine Protein Urine Glucose (UA) Urine Ketones Urine Blood Urine Nitrate Urine Bilirubin Urine Urobilinogen Ur Leukocyte Esterase Urine RBC (Auto) Urine Microscopic WBC Ur Squamous Epith Cells Urine Opiates Screen Urine Methadone Screen Ur Barbiturates Screen Ur Phencyclidine Scrn Ur Amphetamines Screen U Benzodiazepines Scrn U Oth Cocaine Metabols U Cannabinoids Screen Alcohol, Quantitative 12/07/17 12/07/17 12/06/17 06:21 06:21 13:15 WBC 19.2 H D RBC 5.14 Hgb 13.5 Hct 42.9 MCV 83.4 MCH 26.3 L MCHC 31.5 L RDW 17.2 H Plt Count 119 L D MPV 9.1 Neut % (Auto) 97.3 H Lymph % (Auto) 0.7 L Page % (Auto) 1.7 Eos % (Auto) 0.0 Baso % (Auto) 0.3 Neut # (Auto) 18.7 H Lymph # (Auto) 0.1 L Page # (Auto) 0.3 Eos # (Auto) 0.0 Baso # (Auto) 0.1 Total Counted Cancelled Neutrophils % (Manual) Cancelled Band Neutrophils % Cancelled Lymphocytes % (Manual) Cancelled Reactive Lymphs % Cancelled Monocytes % (Manual) Cancelled Eosinophils % (Manual) Cancelled Basophils % (Manual) Cancelled Metamyelocytes % Cancelled Myelocytes % Cancelled Promyelocytes % Cancelled Blast Cells % Cancelled Plasma Cell % (Manual) Cancelled Nucleated RBC % Cancelled Hypersegmented Polys Cancelled Smudge Cells Cancelled Toxic Granulation Cancelled Dohle Bodies Cancelled Sy Rods Cancelled Platelet Estimate Cancelled Plt Clumps, EDTA Cancelled Large Platelets Cancelled Giant Platelets Cancelled RBC Morphology Cancelled Polychromasia Cancelled Hypochromasia (manual) Cancelled Poikilocytosis (manual Cancelled Basophilic Stippling Cancelled Anisocytosis (manual) Cancelled Microcytosis (manual) Cancelled Macrocytosis (manual) Cancelled Spherocytes Cancelled Sickle Cells Cancelled Target Cells Cancelled Tear Drop Cells Cancelled Ovalocytes Cancelled Stomatocytes Cancelled Helmet Cells Cancelled Deng-Lindsey Bodies Cancelled Kerry Cells Cancelled Acanthocytes (Spur) Cancelled Rouleaux Cancelled Schistocytes Cancelled PT INR APTT pCO2 pO2 HCO3 ABG pH ABG Total CO2 ABG O2 Saturation ABG Base Excess Dewayne Test ABG Potassium VBG pH VBG pCO2 VBG HCO3 VBG Total CO2 VBG O2 Sat (Calc) VBG Base Excess VBG Potassium A-a O2 Difference Sodium 140 Chloride 104 Glucose Lactate FiO2 Crit Value Called To Crit Value Called By Crit Value Read Back Blood Gas Notified Time Potassium 4.7 Carbon Dioxide 23 Anion Gap 18 BUN 36 H Creatinine 2.1 H Est GFR ( Amer) 40 Est GFR (Non-Af Amer) 33 POC Glucose (mg/dL) Random Glucose 88 Lactic Acid Calcium 8.0 L Total Bilirubin AST ALT Alkaline Phosphatase Troponin I Total Protein Albumin Globulin Albumin/Globulin Ratio Procalcitonin 90.57 H Arterial Blood Potassium Venous Blood Potassium Urine Color Urine Clarity Urine pH Ur Specific [place] Urine Protein Urine Glucose (UA) Urine Ketones Urine Blood Urine Nitrate Urine Bilirubin Urine Urobilinogen Ur Leukocyte Esterase Urine RBC (Auto) Urine Microscopic WBC Ur Squamous Epith Cells Urine Opiates Screen Urine Methadone Screen Ur Barbiturates Screen Ur Phencyclidine Scrn Ur Amphetamines Screen U Benzodiazepines Scrn U Oth Cocaine Metabols U Cannabinoids Screen Alcohol, Quantitative 12/06/17 12/06/17 12/06/17 13:15 10:38 06:56 WBC RBC Hgb Hct MCV MCH MCHC RDW Plt Count MPV Neut % (Auto) Lymph % (Auto) Page % (Auto) Eos % (Auto) Baso % (Auto) Neut # (Auto) Lymph # (Auto) Page # (Auto) Eos # (Auto) Baso # (Auto) Total Counted Neutrophils % (Manual) Band Neutrophils % Lymphocytes % (Manual) Reactive Lymphs % Monocytes % (Manual) Eosinophils % (Manual) Basophils % (Manual) Metamyelocytes % Myelocytes % Promyelocytes % Blast Cells % Plasma Cell % (Manual) Nucleated RBC % Hypersegmented Polys Smudge Cells Toxic Granulation Dohle Bodies Sy Rods Platelet Estimate Plt Clumps, EDTA Large Platelets Giant Platelets RBC Morphology Polychromasia Hypochromasia (manual) Poikilocytosis (manual Basophilic Stippling Anisocytosis (manual) Microcytosis (manual) Macrocytosis (manual) Spherocytes Sickle Cells Target Cells Tear Drop Cells Ovalocytes Stomatocytes Helmet Cells Deng-Lindsey Bodies [place] Cells Acanthocytes (Spur) Rouleaux Schistocytes PT INR APTT pCO2 33 L pO2 84 HCO3 21.7 ABG pH 7.39 ABG Total CO2 21.0 L ABG O2 Saturation 98.9 H ABG Base Excess -4.1 L Dewayne Test Yes ABG Potassium 3.9 VBG pH VBG pCO2 VBG HCO3 VBG Total CO2 VBG O2 Sat (Calc) VBG Base Excess VBG Potassium A-a O2 Difference 74.0 Sodium 138.0 Chloride 108.0 H Glucose 132 H Lactate 1.9 FiO2 28.0 Crit Value Called To Crit Value Called By Crit Value Read Back Blood Gas Notified Time Potassium Carbon Dioxide Anion Gap BUN Creatinine Est GFR ( Amer) Est GFR (Non-Af Amer) POC Glucose (mg/dL) Random Glucose Lactic Acid 2.3 H Calcium Total Bilirubin AST ALT Alkaline Phosphatase Troponin I Total Protein Albumin Globulin Albumin/Globulin Ratio Procalcitonin Arterial Blood Potassium 3.9 Venous Blood Potassium Urine Color Yellow Urine Clarity Clear Urine pH 5.0 Ur Specific [place] 1.016 Urine Protein Negative Urine Glucose (UA) Neg Urine Ketones Negative Urine Blood Negative Urine Nitrate Negative Urine Bilirubin Negative Urine Urobilinogen 4.0 Ur Leukocyte Esterase Neg Urine RBC (Auto) 3 Urine Microscopic WBC 1 Ur Squamous Epith Cells < 1 Urine Opiates Screen Urine Methadone Screen Ur Barbiturates Screen Ur Phencyclidine Scrn Ur Amphetamines Screen U Benzodiazepines Scrn U Oth Cocaine Metabols U Cannabinoids Screen Alcohol, Quantitative 12/06/17 12/06/17 12/06/17 06:56 06:18 03:22 WBC RBC Hgb Hct MCV MCH MCHC RDW Plt Count MPV Neut % (Auto) Lymph % (Auto) Page % (Auto) Eos % (Auto) Baso % (Auto) Neut # (Auto) Lymph # (Auto) Page # (Auto) Eos # (Auto) Baso # (Auto) Total Counted Neutrophils % (Manual) Band Neutrophils % Lymphocytes % (Manual) Reactive Lymphs % Monocytes % (Manual) Eosinophils % (Manual) Basophils % (Manual) Metamyelocytes % Myelocytes % Promyelocytes % Blast Cells % Plasma Cell % (Manual) Nucleated RBC % Hypersegmented Polys Smudge Cells Toxic Granulation Dohle Bodies Sy Rods Platelet Estimate Plt Clumps, EDTA Large Platelets Giant Platelets RBC Morphology Polychromasia Hypochromasia (manual) Poikilocytosis (manual Basophilic Stippling Anisocytosis (manual) Microcytosis (manual) Macrocytosis (manual) Spherocytes Sickle Cells Target Cells Tear Drop Cells Ovalocytes Stomatocytes Helmet Cells Deng-Lindsey Bodies [place] Cells Acanthocytes (Spur) Rouleaux Schistocytes PT INR APTT pCO2 pO2 39 HCO3 ABG pH ABG Total CO2 ABG O2 Saturation ABG Base Excess Dewayne Test ABG Potassium VBG pH 7.34 VBG pCO2 42 VBG HCO3 21.8 VBG Total CO2 24.0 VBG O2 Sat (Calc) 73.7 H VBG Base Excess -3.0 L VBG Potassium 3.2 L A-a O2 Difference Sodium 142.0 Chloride 109.0 H Glucose 144 H Lactate 4.1 H* FiO2 21.0 Crit Value Called To Dr vinod ochoa Crit Value Called By Nahum Crit Value Read Back Y Blood Gas Notified Time 629 Potassium Carbon Dioxide Anion Gap BUN Creatinine Est GFR ( Amer) Est GFR (Non-Af Amer) POC Glucose (mg/dL) Random Glucose Lactic Acid Calcium Total Bilirubin AST ALT Alkaline Phosphatase Troponin I Total Protein Albumin Globulin Albumin/Globulin Ratio Procalcitonin Arterial Blood Potassium Venous Blood Potassium 3.2 L Urine Color Urine Clarity Urine pH Ur Specific [place] Urine Protein Urine Glucose (UA) Urine Ketones Urine Blood Urine Nitrate Urine Bilirubin Urine Urobilinogen Ur Leukocyte Esterase Urine RBC (Auto) Urine Microscopic WBC Ur Squamous Epith Cells Urine Opiates Screen Negative Urine Methadone Screen Negative Ur Barbiturates Screen Negative Ur Phencyclidine Scrn Negative Ur Amphetamines Screen Negative U Benzodiazepines Scrn Negative U Oth Cocaine Metabols Negative U Cannabinoids Screen Negative Alcohol, Quantitative < 10 12/06/17 12/06/17 12/06/17 02:33 02:33 02:33 WBC RBC Hgb Hct MCV MCH MCHC RDW Plt Count MPV Neut % (Auto) Lymph % (Auto) Page % (Auto) Eos % (Auto) Baso % (Auto) Neut # (Auto) Lymph # (Auto) Page # (Auto) Eos # (Auto) Baso # (Auto) Total Counted Neutrophils % (Manual) Band Neutrophils % Lymphocytes % (Manual) Reactive Lymphs % Monocytes % (Manual) Eosinophils % (Manual) Basophils % (Manual) Metamyelocytes % Myelocytes % Promyelocytes % Blast Cells % Plasma Cell % (Manual) Nucleated RBC % Hypersegmented Polys Smudge Cells Toxic Granulation Dohle Bodies Sy Rods Platelet Estimate Plt Clumps, EDTA Large Platelets Giant Platelets RBC Morphology Polychromasia Hypochromasia (manual) Poikilocytosis (manual Basophilic Stippling Anisocytosis (manual) Microcytosis (manual) Macrocytosis (manual) Spherocytes Sickle Cells Target Cells Tear Drop Cells Ovalocytes Stomatocytes Helmet Cells Deng-Lindsey Bodies [place] Cells Acanthocytes (Spur) Rouleaux Schistocytes PT 12.4 INR 1.1 APTT 26.1 pCO2 pO2 HCO3 ABG pH ABG Total CO2 ABG O2 Saturation ABG Base Excess Dewayne Test ABG Potassium VBG pH VBG pCO2 VBG HCO3 VBG Total CO2 VBG O2 Sat (Calc) VBG Base Excess VBG Potassium A-a O2 Difference Sodium 148 Chloride 109 H Glucose Lactate FiO2 Crit Value Called To Crit Value Called By Crit Value Read Back Blood Gas Notified Time Potassium 4.2 Carbon Dioxide 23 Anion Gap 20 BUN 32 H Creatinine 1.7 H Est GFR ( Amer) 51 Est GFR (Non-Af Amer) 43 POC Glucose (mg/dL) Random Glucose 106 Lactic Acid 3.3 H Calcium 8.9 Total Bilirubin 1.0 AST 18 ALT 8 L D Alkaline Phosphatase 87 Troponin I Total Protein 8.0 Albumin 4.0 Globulin 4.1 H Albumin/Globulin Ratio 1.0 Procalcitonin Arterial Blood Potassium Venous Blood Potassium Urine Color Urine Clarity Urine pH Ur Specific [place] Urine Protein Urine Glucose (UA) Urine Ketones Urine Blood Urine Nitrate Urine Bilirubin Urine Urobilinogen Ur Leukocyte Esterase Urine RBC (Auto) Urine Microscopic WBC Ur Squamous Epith Cells Urine Opiates Screen Urine Methadone Screen Ur Barbiturates Screen Ur Phencyclidine Scrn Ur Amphetamines Screen U Benzodiazepines Scrn U Oth Cocaine Metabols U Cannabinoids Screen Alcohol, Quantitative 12/06/17 12/06/17 12/06/17 02:33 02:31 02:28 WBC 5.4 RBC 5.43 Hgb 14.3 Hct 45.4 MCV 83.8 MCH 26.4 L MCHC 31.6 L RDW 16.9 H Plt Count 230 MPV 9.0 Neut % (Auto) 94.8 H Lymph % (Auto) 2.4 L Page % (Auto) 2.3 Eos % (Auto) 0.3 Baso % (Auto) 0.2 Neut # (Auto) 5.1 Lymph # (Auto) 0.1 L Page # (Auto) 0.1 Eos # (Auto) 0.0 Baso # (Auto) 0.0 Total Counted Neutrophils % (Manual) 80 H Band Neutrophils % 7 H Lymphocytes % (Manual) 7 L Reactive Lymphs % Monocytes % (Manual) 6 Eosinophils % (Manual) Basophils % (Manual) Metamyelocytes % Myelocytes % Promyelocytes % Blast Cells % Plasma Cell % (Manual) Nucleated RBC % Hypersegmented Polys Smudge Cells Toxic Granulation Dohle Bodies Sy Rods Platelet Estimate Normal Plt Clumps, EDTA Large Platelets Present Giant Platelets RBC Morphology Polychromasia Hypochromasia (manual) Slight Poikilocytosis (manual Basophilic Stippling Anisocytosis (manual) Slight Microcytosis (manual) Macrocytosis (manual) Spherocytes Sickle Cells Target Cells Tear Drop Cells Slight Ovalocytes Stomatocytes Helmet Cells Deng-Lindsey Bodies Kerry Cells Acanthocytes (Spur) Rouleaux Schistocytes PT INR APTT pCO2 pO2 18 L HCO3 ABG pH ABG Total CO2 ABG O2 Saturation ABG Base Excess Dewayne Test ABG Potassium VBG pH 7.30 L VBG pCO2 56 VBG HCO3 22.7 VBG Total CO2 29.3 H VBG O2 Sat (Calc) 25.6 L VBG Base Excess -0.1 L VBG Potassium 3.9 A-a O2 Difference Sodium 142.0 Chloride 108.0 H Glucose 118 H Lactate 3.1 H FiO2 21.0 Crit Value Called To Crit Value Called By Crit Value Read Back Blood Gas Notified Time Potassium Carbon Dioxide Anion Gap BUN Creatinine Est GFR ( Amer) Est GFR (Non-Af Amer) POC Glucose (mg/dL) 115 H Random Glucose Lactic Acid Calcium Total Bilirubin AST ALT Alkaline Phosphatase Troponin I Total Protein Albumin Globulin Albumin/Globulin Ratio Procalcitonin Arterial Blood Potassium Venous Blood Potassium 3.9 Urine Color Urine Clarity Urine pH Ur Specific [place] Urine Protein Urine Glucose (UA) Urine Ketones Urine Blood Urine Nitrate Urine Bilirubin Urine Urobilinogen Ur Leukocyte Esterase Urine RBC (Auto) Urine Microscopic WBC Ur Squamous Epith Cells Urine Opiates Screen Urine Methadone Screen Ur Barbiturates Screen Ur Phencyclidine Scrn Ur Amphetamines Screen U Benzodiazepines Scrn U Oth Cocaine Metabols U Cannabinoids Screen Alcohol, Quantitative
[2017-12-06 02:54] LABS: CALCIUM 8.9 mg/dL (8.4-10.2)
[2017-12-06 02:59] LABS: INR 1.1 (0.9-1.2); PARTIAL THROMBOPLASTIN TIME 26.1 Seconds (25.6-37.1); PROTHROMBIN TIME 12.4 Seconds (9.8-13.1)
--- NOTE | 2017-12-06 03:28 | CP.PCM.CON ---
History of Present Illness - History of Present Illness History of Present Illness: Podiatry Consult note for Dr. Romo: 52 year old male seen at bedside in ED for left lower leg ulceration and right leg pain. He is known to Dr. Romo's service. He state that today he was found by EMS passed out. He states that he was at the wound care center on Saturday. He dressing are intact b/l the right dressing has a strong smell of urine. He admits to some chills but denies n/v/f/sob/cp. Past Patient History - Infectious Disease Hx of Infectious Diseases: None - Tetanus Immunizations Tetanus Immunization: Unknown - Past Medical History & Family History Past Medical History?: Yes - Past Social History Smoking Status: Former Smoker - CARDIAC Hx Atrial Fibrillation: No Hx Cardia Arrhythmia: No Hx Congestive Heart Failure: No Hx Hypercholesterolemia: No Hx Hypertension: Yes Hx Mitral Valve Prolapse: No Hx Pacemaker: No Hx Peripheral Edema: Yes - PULMONARY Hx Asthma: No Hx Bronchitis: No Hx Chronic Obstructive Pulmonary Disease (COPD): No Hx Emphysema: No Hx Pneumonia: No Hx Pulmonary Embolism: No Hx Sleep Apnea: No - NEUROLOGICAL Hx Neurological Disorder: No - HEENT Hx HEENT Problems: No - RENAL Hx Chronic Kidney Disease: No Hx Kidney Stones: No - ENDOCRINE/METABOLIC Hx Hyperthyroidism: No Hx Hypothyroidism: No - HEMATOLOGICAL/ONCOLOGICAL Hx Anemia: No Hx Human Immunodeficiency Virus (HIV): No Hx Sickle Cell Disease: No - INTEGUMENTARY Hx Dermatological Problems: Yes - MUSCULOSKELETAL/RHEUMATOLOGICAL Hx Arthritis: No Hx Fractures: No Hx Osteoporosis: No Hx Rheumatoid Arthritis: No - GASTROINTESTINAL Hx Gastrointestinal Disorders: No - GENITOURINARY/GYNECOLOGICAL Hx Genitourinary Disorders: No - PSYCHIATRIC Hx Psychophysiologic Disorder: No Hx Substance Use: No - SURGICAL HISTORY Hx Appendectomy: No - ANESTHESIA Hx Anesthesia: No Hx Anesthesia Reactions: No Hx Malignant Hyperthermia: No Meds Allergies/Adverse Reactions: Allergies Allergy/AdvReac Type Severity Reaction Status Date / Time ciprofloxacin [From Cipro] Allergy RASH Verified 03/19/17 15:52 ciprofloxacin HCl Allergy RASH Verified 03/19/17 15:52 [From Cipro] chocolate flavor AdvReac ears run Verified 03/19/17 15:52 - Medications Medications: Current Medications Sodium Chloride (Sodium Chloride 0.9%) 1,000 mls @ 1,000 mls/hr IV .Q1H LAZARA Stop: 12/07/17 02:30 Physical Exam - Constitutional Appears: Non-toxic, No Acute Distress, Unkempt - Extremities Exam Additional comments: lower extremity focused exam: VASC: DP pulses faintly palpable 1/4, PT pulses non-palpable. CFT < 3 seconds to all digits. Temperature gradient is warm to warm from proximal to distal b/l. +3 pitting edema noted extending distally from tibial tuberosity to digits. Right leg is edematous compared to the left. DERM: Lichenification with tree trunk appearance noted to bilateral lower extremities. Superficial ulceration noted to the lateral aspect of the left lateral malleolus, measuring approximately 5 cm by 4cm by superficial, no malodor, no drainage, no acute signs of infection noted. NEURO: Sensation grossly intact. ORTHO: Tenderness on palpation to bilateral lower extremities. Limited ROM at the ankle joint due to increased edema, no pain on palpation of the calf, - Neurological Exam Neurological exam: Alert, Oriented x3 - Psychiatric Exam Psychiatric exam: Normal Affect, Normal Mood Results - Vital Signs Recent Vital Signs: Last Vital Signs Temp 99.6 F 12/06/17 01:37 Pulse 127 H 12/06/17 01:37 Resp 18 12/06/17 01:37 BP 124/69 12/06/17 01:37 Pulse Ox 98 12/06/17 03:17 - Labs Result Diagrams: 12/06/17 02:33 12/06/17 02:33 Labs: Laboratory Results - last 24 hr 12/06/17 12/06/17 12/06/17 02:28 02:31 02:33 WBC 5.4 RBC 5.43 Hgb 14.3 Hct 45.4 MCV 83.8 MCH 26.4 L MCHC 31.6 L RDW 16.9 H Plt Count 230 MPV 9.0 Neut % (Auto) 94.8 H Lymph % (Auto) 2.4 L [place] % (Auto) 2.3 Eos % (Auto) 0.3 Baso % (Auto) 0.2 Neut # (Auto) 5.1 Lymph # (Auto) 0.1 L [place] # (Auto) 0.1 Eos # (Auto) 0.0 Baso # (Auto) 0.0 PT INR APTT pO2 18 L VBG pH 7.30 L VBG pCO2 56 VBG HCO3 22.7 VBG Total CO2 29.3 H VBG O2 Sat (Calc) 25.6 L VBG Base Excess -0.1 L VBG Potassium 3.9 Sodium 142.0 Chloride 108.0 H Glucose 118 H Lactate 3.1 H FiO2 21.0 Potassium Carbon Dioxide Anion Gap BUN Creatinine Est GFR ( Amer) Est GFR (Non-Af Amer) POC Glucose (mg/dL) 115 H Random Glucose Lactic Acid Calcium Total Bilirubin AST ALT Alkaline Phosphatase Total Protein Albumin Globulin Albumin/Globulin Ratio Venous Blood Potassium 3.9 12/06/17 12/06/17 12/06/17 02:33 02:33 02:33 WBC RBC Hgb Hct MCV MCH MCHC RDW Plt Count MPV Neut % (Auto) Lymph % (Auto) [place] % (Auto) Eos % (Auto) Baso % (Auto) Neut # (Auto) Lymph # (Auto) [place] # (Auto) Eos # (Auto) Baso # (Auto) PT 12.4 INR 1.1 APTT 26.1 pO2 VBG pH VBG pCO2 VBG HCO3 VBG Total CO2 VBG O2 Sat (Calc) VBG Base Excess VBG Potassium Sodium 148 Chloride 109 H Glucose Lactate FiO2 Potassium 4.2 Carbon Dioxide 23 Anion Gap 20 BUN 32 H Creatinine 1.7 H Est GFR ( Amer) 51 Est GFR (Non-Af Amer) 43 POC Glucose (mg/dL) Random Glucose 106 Lactic Acid 3.3 H Calcium 8.9 Total Bilirubin 1.0 AST 18 ALT 8 L D Alkaline Phosphatase 87 Total Protein 8.0 Albumin 4.0 Globulin 4.1 H Albumin/Globulin Ratio 1.0 Venous Blood Potassium Assessment & Plan - Assessment and Plan (Free Text) Assessment: 52 year old male with bilateral lower extremity pain, left ankle ulceration and lymphedmea of bilateral lower extremities with chronic lichenifcations Plan: Patient examined and evaluated Discussed plan in detail with attending Dr. Romo Charts, labs, vitals reviewed; WBC 5.4 Will change dressing when on floors with bactroban, xeroform, dsd, and kerlix ID to be consulted No surgical intervention at this time Will continue to follow when floors Thank you for the consult
[2017-12-06] MEDS ORDERED: Tdap Vaccine 0.5 ml Vial (10-64 yrs) IM ONE ×2 (06:06→07:46)
[2017-12-06 06:16] LABS: ANISOCYTOSIS SLIGHT; BANDS 7 % (0-2); HYPOCHROMIC SLIGHT; LARGE PLATELETS PRESENT; LYMPHOCYTE 7 % (20-50); MONOCYTE 6 % (0-10); NEUTROPHIL 80 % (42-75); PLATELET ESTIMATE NORMAL (NORMAL); TOTAL CELLS COUNTED 100
[2017-12-06 06:17] LABS: TEARDROP CELLS SLIGHT
[2017-12-06 06:29] LABS: VENOUS BLOOD GAS PCO2 42 mmHg (40-60); VENOUS BLOOD GAS PO2 39 mm/Hg (30-55); VENOUS BLOOD PH 7.34 (7.32-7.43)
[2017-12-06] MEDS ORDERED: Lactated Ringer's 1,000 ML IV ONE (07:00)
[2017-12-06 07:25] LABS: BARBITURATES, UR NEGATIVE (NEGATIVE); BENZODIAZEPINES, UR NEGATIVE (NEGATIVE); OPIATES, UR NEGATIVE (NEGATIVE); PHENCYCLIDINE, UR NEGATIVE (NEGATIVE)
[2017-12-06 07:39] LABS: SQUAMOUS EPITHIAL < 1 /hpf (0-5); URINE BILIRUBIN NEGATIVE (NEGATIVE); URINE BLOOD NEGATIVE (NEGATIVE); URINE CLARITY CLEAR (Clear); URINE COLOR YELLOW (YELLOW); URINE GLUCOSE (UA) NEG (Normal); URINE LEUKOCYTE ESTERASE NEG Leu/uL (Negative); URINE PROTEIN NEGATIVE (NEGATIVE)
--- NOTE | 2017-12-06 08:00 | RAD ---
HISTORY: syncope COMPARISON: Chest radiograph 03/19/2017. FINDINGS: LUNGS: No active pulmonary disease. Improved inspiratory volume noted. PLEURA: No significant pleural effusion identified, no pneumothorax apparent. CARDIOVASCULAR: Normal. OSSEOUS STRUCTURES: No significant abnormalities. VISUALIZED UPPER ABDOMEN: Normal. OTHER FINDINGS: None. IMPRESSION: No interval acute cardiopulmonary disease appreciated. Improved inspiratory volume noted.
[2017-12-06] MEDS: Lactated Ringer's 1,000 ML IV SCH ×2 (08:08→12:32)
[2017-12-06] MEDS ORDERED: Enoxaparin 40 mg Syringe SC SCH (09:00)
--- NOTE | 2017-12-06 11:09 | CARD ---
APPROVED REPORT EKG Measurement Heart [id number] <Conclusion> Sinus tachycardia ST & T wave abnormality, consider inferior ischemia ST & T wave abnormality, consider anterolateral ischemia Abnormal ECG
--- NOTE | 2017-12-06 11:56 | CP.PCM.CON ---
History of Present Illness - History of Present Illness History of Present Illness: 51 y/o male with PMHx of HTN, morbid obesity peripheral edema and b/l lower extremity lymphedema admitted via ER after syncopal episode Hx of recurrent lower extremity SSTI's related to ulcers and lymphedema On IV antibiotics septic work up pending PMHx: HTN, Peripheral Edema,and b/l lower extremity lymphedema PSHx: Denies SHx: Denies smoking, occasional EtOH, denies illicit drug usage Allergies: Ciprofloxacin, chocolate flavor Review of Systems - Review of Systems All systems: reviewed and no additional remarkable complaints except - Constitutional Constitutional: As Per HPI - EENT Eyes: absent: As Per HPI, Blind Spots, Blurred Vision, Change in Vision, Decreased Night Vision, Diplopia, Discharge, Dry Eye, Exophthalmos, Floaters, Irritation, Itchy Eyes, Loss of Peripheral Vision, Pain, Photophobia, Requires Corrective Lenses, Sees Flashes, Spots in Vision, Tunnel Vision, Other Visual Disturbances, Loss of Vision, Other Ears: absent: As Per HPI, Decreased Hearing, Ear Discharge, Ear Pain, Tinnitus, Abnormal Hearing, Disequilibrium, Dizziness, Other Nose/Mouth/Throat: absent: As Per HPI, Epistaxis, Nasal Congestion, Nasal Discharge, Nasal Obstruction, Nasal Trauma, Nose Pain, Post Nasal Drip, Sinus Pain, Sinus Pressure, Bleeding Gums, Change in Voice, Dental Pain, Dry Mouth, Dysphagia, Halitosis, Hoarsness, Lip Swelling, Mouth Lesions, Mouth Pain, Odynophagia, Sore Throat, Throat Swelling, Tongue Swelling, Facial Pain, Neck Pain, Neck Mass, Other - Cardiovascular Cardiovascular: absent: As Per HPI, Acrocyanosis, Chest Pain, Chest Pain at Rest , Chest Pain with Activity, Claudication, Diaphoresis, Dyspnea, Dyspnea on Exertion, Edema, Irregular Heart Rhythm, Pain Radiating to Arm/Neck/Jaw, Leg Edema, Leg Ulcers, Lightheadedness, Orthopnea, Palpitations, Paroxysmal Nocturnal Dyspnea, Pedal Edema, Radiating Pain, Rapid Heart Rate, Slow Heart Rate, Syncope, Other - Respiratory Respiratory: absent: As Per HPI, Cough, Dyspnea, Hemoptysis, Dyspnea on Exertion , Wheezing, Snoring, Stridor, Pain on Inspiration, Chest Congestion, Excessive Mucous Production, Change in Mucous Color, Pain with Coughing, Other - Gastrointestinal Gastrointestinal: absent: As Per HPI, Abdominal Pain, Belching, Bloating, Change in Bowel Habits, Change in Stool Character, Coffee Ground Emesis, Constipation, Cramping, Diarrhea, Dyspepsia, Dysphagia, Early Satiety, Excessive Flatus, Fecal Incontinence, Heartburn, Hematemesis, Hematochezia, Loose Stools, Melena, Nausea, Odynophagia, Temesmus, Vomiting, Other - Genitourinary Genitourinary: absent: As Per HPI, Change in Urinary Stream, Difficulty Urinating, Dysuria, Flank Pain, Hematuria, Pyuria, Nocturia, Urinary Incontinence, Urinary Frequency, Urinary Hesitance, Urinary Urgency, Voiding Freq/Small Amts, Freq UTI, Hx Renal/Bladder Calculi, Hx /Renal Surgery, Bladder Distension, Other - Musculoskeletal Musculoskeletal: absent: As Per HPI, Abnormal Gait, Arthralgias, Atrophy, Back Pain, Deformity, Joint Swelling, Limited Range of Motion, Loss of Height, Muscle Cramps, Muscle Weakness, Myalgias, Neck Pain, Numbness, Radiating Pain into Limb, Stiffness, Tingling, Other - Integumentary Integumentary: As Per HPI - Neurological Neurological: As Per HPI - Psychiatric Psychiatric: absent: As Per HPI, Abnormal Sleep Pattern, Anhedonia, Anxiety, Auditory Hallucinations, Behavioral Changes, Change in Appetite, Change in Libido, Confusion, Depression, Difficulty Concentrating, Hallucinations, Homicidal Ideation, Hopelessness, Irritability, Memory Loss, Mood Swings, Panic Attacks, Paranoia, Suicidal Ideation, Visual Hallucinations, Tactile Hallucinations, Other - Endocrine Endocrine: absent: As Per HPI, Change in Body Appearance, Change in Libido, Cold Intolorance, Deepening of Voice, Excessive Sweating, Fatigue, Flushing, Heat Intolorance, Increase in Ring/Shoe/Hat Size, Palpitations, Polydipsia, Polyphagia, Polyuria, Other - Hematologic/Lymphatic Hematologic: absent: As Per HPI, Easy Bleeding, Easy Bruising, Lymphadenopathy, Other Past Patient History - Infectious Disease Hx of Infectious Diseases: None - Tetanus Immunizations Tetanus Immunization: Unknown - Past Medical History & Family History Past Medical History?: Yes - Past Social History Alcohol: None Drugs: Denies - CARDIAC Hx Atrial Fibrillation: No Hx Cardia Arrhythmia: No Hx Congestive Heart Failure: No Hx Hypercholesterolemia: No Hx Hypertension: Yes Hx Mitral Valve Prolapse: No Hx Pacemaker: No Hx Peripheral Edema: Yes - PULMONARY Hx Asthma: No Hx Bronchitis: No Hx Chronic Obstructive Pulmonary Disease (COPD): No Hx Emphysema: No Hx Pneumonia: No Hx Pulmonary Embolism: No Hx Sleep Apnea: No - NEUROLOGICAL Hx Neurological Disorder: No - HEENT Hx HEENT Problems: No - RENAL Hx Chronic Kidney Disease: No - ENDOCRINE/METABOLIC Hx Hyperthyroidism: No Hx Hypothyroidism: No - HEMATOLOGICAL/ONCOLOGICAL Hx Anemia: No Hx Human Immunodeficiency Virus (HIV): No Hx Sickle Cell Disease: No - INTEGUMENTARY Hx Dermatological Problems: Yes - MUSCULOSKELETAL/RHEUMATOLOGICAL Hx Arthritis: No Hx Fractures: No Hx Osteoporosis: No Hx Rheumatoid Arthritis: No - GASTROINTESTINAL Hx Gastrointestinal Disorders: No - GENITOURINARY/GYNECOLOGICAL Hx Genitourinary Disorders: No - PSYCHIATRIC Hx Psychophysiologic Disorder: No Hx Substance Use: No - SURGICAL HISTORY Hx Appendectomy: No - ANESTHESIA Hx Anesthesia: No Hx Anesthesia Reactions: No Hx Malignant Hyperthermia: No Meds Allergies/Adverse Reactions: Allergies Allergy/AdvReac Type Severity Reaction Status Date / Time ciprofloxacin [From Cipro] Allergy RASH Verified 03/19/17 15:52 ciprofloxacin HCl Allergy RASH Verified 03/19/17 15:52 [From Cipro] chocolate flavor AdvReac ears run Verified 03/19/17 15:52 - Medications Medications: Current Medications Enoxaparin Sodium (Lovenox) 40 mg SC DAILY LAZARA PRN Reason: Protocol Sodium Chloride (Sodium Chloride 0.9%) 1,000 mls @ 1,000 mls/hr IV .Q1H LAZARA Stop: 12/07/17 02:30 Last Admin: 12/06/17 03:30 Dose: 1,000 mls/hr Vancomycin HCl 1 gm/ Sodium (Chloride) 250 mls @ 166.667 mls/hr IVPB Q12 LAZARA PRN Reason: Protocol Physical Exam - Constitutional Appears: Chronically Ill - Head Exam Head Exam: ATRAUMATIC - Eye Exam Eye Exam: PERRL - ENT Exam ENT Exam: Mucous Membranes Dry - Neck Exam Neck exam: Positive for: Normal Inspection - Respiratory Exam Respiratory Exam: Decreased Breath Sounds - Cardiovascular Exam Cardiovascular Exam: REGULAR RHYTHM - GI/Abdominal Exam GI & Abdominal Exam: Diminished Bowel Sounds - Rectal Exam Rectal Exam: Deferred - Exam Exam: NORMAL INSPECTION - Extremities Exam Extremities exam: Positive for: pedal edema - Back Exam Back exam: absent: CVA tenderness (L), CVA tenderness (R) - Neurological Exam Neurological exam: Alert, CN II-XII Intact - Psychiatric Exam Psychiatric exam: Normal Mood Results - Vital Signs Recent Vital Signs: Last Vital Signs Temp 98.3 F 12/06/17 09:47 Pulse 105 H 12/06/17 09:47 Resp 20 12/06/17 09:47 BP 119/62 12/06/17 09:47 Pulse Ox 100 12/06/17 09:47 - Labs Result Diagrams: 12/06/17 02:33 12/06/17 02:33 Labs: Laboratory Results - last 24 hr 12/06/17 12/06/17 12/06/17 02:28 02:31 02:33 WBC 5.4 RBC 5.43 Hgb 14.3 Hct 45.4 MCV 83.8 MCH 26.4 L MCHC 31.6 L RDW 16.9 H Plt Count 230 MPV 9.0 Neut % (Auto) 94.8 H Lymph % (Auto) 2.4 L [place] % (Auto) 2.3 Eos % (Auto) 0.3 Baso % (Auto) 0.2 Neut # (Auto) 5.1 Lymph # (Auto) 0.1 L [place] # (Auto) 0.1 Eos # (Auto) 0.0 Baso # (Auto) 0.0 Neutrophils % (Manual) 80 H Band Neutrophils % 7 H Lymphocytes % (Manual) 7 L Monocytes % (Manual) 6 Platelet Estimate Normal Large Platelets Present Hypochromasia (manual) Slight Anisocytosis (manual) Slight Tear Drop Cells Slight PT INR APTT pO2 18 L VBG pH 7.30 L VBG pCO2 56 VBG HCO3 22.7 VBG Total CO2 29.3 H VBG O2 Sat (Calc) 25.6 L VBG Base Excess -0.1 L VBG Potassium 3.9 Sodium 142.0 Chloride 108.0 H Glucose 118 H Lactate 3.1 H FiO2 21.0 Crit Value Called To Crit Value Called By Crit Value Read Back Blood Gas Notified Time Potassium Carbon Dioxide Anion Gap BUN Creatinine Est GFR ( Amer) Est GFR (Non-Af Amer) POC Glucose (mg/dL) 115 H Random Glucose Lactic Acid Calcium Total Bilirubin AST ALT Alkaline Phosphatase Total Protein Albumin Globulin Albumin/Globulin Ratio Venous Blood Potassium 3.9 Urine Color Urine Clarity Urine pH Ur Specific [place] Urine Protein Urine Glucose (UA) Urine Ketones Urine Blood Urine Nitrate Urine Bilirubin Urine Urobilinogen Ur Leukocyte Esterase Urine RBC (Auto) Urine Microscopic WBC Ur Squamous Epith Cells Urine Opiates Screen Urine Methadone Screen Ur Barbiturates Screen Ur Phencyclidine Scrn Ur Amphetamines Screen U Benzodiazepines Scrn U Oth Cocaine Metabols U Cannabinoids Screen Alcohol, Quantitative 12/06/17 12/06/17 12/06/17 02:33 02:33 02:33 WBC RBC Hgb Hct MCV MCH MCHC RDW Plt Count MPV Neut % (Auto) Lymph % (Auto) [place] % (Auto) Eos % (Auto) Baso % (Auto) Neut # (Auto) Lymph # (Auto) [place] # (Auto) Eos # (Auto) Baso # (Auto) Neutrophils % (Manual) Band Neutrophils % Lymphocytes % (Manual) Monocytes % (Manual) Platelet Estimate Large Platelets Hypochromasia (manual) Anisocytosis (manual) Tear Drop Cells PT 12.4 INR 1.1 APTT 26.1 pO2 VBG pH VBG pCO2 VBG HCO3 VBG Total CO2 VBG O2 Sat (Calc) VBG Base Excess VBG Potassium Sodium 148 Chloride 109 H Glucose Lactate FiO2 Crit Value Called To Crit Value Called By Crit Value Read Back Blood Gas Notified Time Potassium 4.2 Carbon Dioxide 23 Anion Gap 20 BUN 32 H Creatinine 1.7 H Est GFR ( Amer) 51 Est GFR (Non-Af Amer) 43 POC Glucose (mg/dL) Random Glucose 106 Lactic Acid 3.3 H Calcium 8.9 Total Bilirubin 1.0 AST 18 ALT 8 L D Alkaline Phosphatase 87 Total Protein 8.0 Albumin 4.0 Globulin 4.1 H Albumin/Globulin Ratio 1.0 Venous Blood Potassium Urine Color Urine Clarity Urine pH Ur Specific [place] Urine Protein Urine Glucose (UA) Urine Ketones Urine Blood Urine Nitrate Urine Bilirubin Urine Urobilinogen Ur Leukocyte Esterase Urine RBC (Auto) Urine Microscopic WBC Ur Squamous Epith Cells Urine Opiates Screen Urine Methadone Screen Ur Barbiturates Screen Ur Phencyclidine Scrn Ur Amphetamines Screen U Benzodiazepines Scrn U Oth Cocaine Metabols U Cannabinoids Screen Alcohol, Quantitative 12/06/17 12/06/17 12/06/17 03:22 06:18 06:56 WBC RBC Hgb Hct MCV MCH MCHC RDW Plt Count MPV Neut % (Auto) Lymph % (Auto) [place] % (Auto) Eos % (Auto) Baso % (Auto) Neut # (Auto) Lymph # (Auto) [place] # (Auto) Eos # (Auto) Baso # (Auto) Neutrophils % (Manual) Band Neutrophils % Lymphocytes % (Manual) Monocytes % (Manual) Platelet Estimate Large Platelets Hypochromasia (manual) Anisocytosis (manual) Tear Drop Cells PT INR APTT pO2 39 VBG pH 7.34 VBG pCO2 42 VBG HCO3 21.8 VBG Total CO2 24.0 VBG O2 Sat (Calc) 73.7 H VBG Base Excess -3.0 L VBG Potassium 3.2 L Sodium 142.0 Chloride 109.0 H Glucose 144 H Lactate 4.1 H* FiO2 21.0 Crit Value Called To Dr vinod ochoa Crit Value Called By Crit Value Read Back Y Blood Gas Notified Time 629 Potassium Carbon Dioxide Anion Gap BUN Creatinine Est GFR ( Amer) Est GFR (Non-Af Amer) POC Glucose (mg/dL) Random Glucose Lactic Acid Calcium Total Bilirubin AST ALT Alkaline Phosphatase Total Protein Albumin Globulin Albumin/Globulin Ratio Venous Blood Potassium 3.2 L Urine Color Urine Clarity Urine pH Ur Specific [place] Urine Protein Urine Glucose (UA) Urine Ketones Urine Blood Urine Nitrate Urine Bilirubin Urine Urobilinogen Ur Leukocyte Esterase Urine RBC (Auto) Urine Microscopic WBC Ur Squamous Epith Cells Urine Opiates Screen Negative Urine Methadone Screen Negative Ur Barbiturates Screen Negative Ur Phencyclidine Scrn Negative Ur Amphetamines Screen Negative U Benzodiazepines Scrn Negative U Oth Cocaine Metabols Negative U Cannabinoids Screen Negative Alcohol, Quantitative < 10 12/06/17 06:56 WBC RBC Hgb Hct MCV MCH MCHC RDW Plt Count MPV Neut % (Auto) Lymph % (Auto) [place] % (Auto) Eos % (Auto) Baso % (Auto) Neut # (Auto) Lymph # (Auto) [place] # (Auto) Eos # (Auto) Baso # (Auto) Neutrophils % (Manual) Band Neutrophils % Lymphocytes % (Manual) Monocytes % (Manual) Platelet Estimate Large Platelets Hypochromasia (manual) Anisocytosis (manual) Tear Drop Cells PT INR APTT pO2 VBG pH VBG pCO2 VBG HCO3 VBG Total CO2 VBG O2 Sat (Calc) VBG Base Excess VBG Potassium Sodium Chloride Glucose Lactate FiO2 Crit Value Called To Crit Value Called By Crit Value Read Back Blood Gas Notified Time Potassium Carbon Dioxide Anion Gap BUN Creatinine Est GFR ( Amer) Est GFR (Non-Af Amer) POC Glucose (mg/dL) Random Glucose Lactic Acid Calcium Total Bilirubin AST ALT Alkaline Phosphatase Total Protein Albumin Globulin Albumin/Globulin Ratio Venous Blood Potassium Urine Color Yellow Urine Clarity Clear Urine pH 5.0 Ur Specific [place] 1.016 Urine Protein Negative Urine Glucose (UA) Neg Urine Ketones Negative Urine Blood Negative Urine Nitrate Negative Urine Bilirubin Negative Urine Urobilinogen 4.0 Ur Leukocyte Esterase Neg Urine RBC (Auto) 3 Urine Microscopic WBC 1 Ur Squamous Epith Cells < 1 Urine Opiates Screen Urine Methadone Screen Ur Barbiturates Screen Ur Phencyclidine Scrn Ur Amphetamines Screen U Benzodiazepines Scrn U Oth Cocaine Metabols U Cannabinoids Screen Alcohol, Quantitative Assessment & Plan (1) MARIAM (acute kidney injury) Status: Acute Priority: High - Assessment and Plan (Free Text) Assessment: d/c vanco and add zyvox cont zosyn de-escalate based on cultures when available
[2017-12-06 12:23] LABS: ABG ALLEN TEST YES; ARTERIAL BLOOD GAS HCO3 21.7 mmol/L (21-28); ARTERIAL BLOOD GAS O2 SAT 98.9 % (95-98); ARTERIAL BLOOD GAS PCO2 33 mm/Hg (35-45); ARTERIAL BLOOD GAS PH 7.39 (7.35-7.45); ARTERIAL BLOOD GAS PO2 84 mm/Hg (80-100)
--- NOTE | 2017-12-06 12:26 | CP.PCM.HP ---
History of Present Illness - History of Present Illness History of Present Illness: This is 52 y/o Male with PMH of HTN, chronic Peripheral Edema,and chronic b/l lower extremity lymphedema comes to [facility] after found unconscious by EMS, syncopal episode x1. Patient reports he was at transit center, seated and passed out all the sudden with out any dizziness, palpitations, lightheadedness , blurred vision or any weakness. Patient states he has been having chills all day and bilateral lower extremity pain. Patient had [email or web address] for dinner. Patient has chronic wounds and edema to the lower legs for which he is under the care of Dr. Romo (last visit this week). Patient denies any prior episodes of any syncopal episode, chest pain, palpitations, SOB, dizziness, urinary symptoms, f/c/n/v/d/c, blurred vision or weakness. Patient ambulates by him self at home. PMD: Dr. Meyers PMH: HTN, chronic Peripheral Edema,and chronic b/l lower extremity lymphedema PSH: Denies Allg: Cipro Med: HCTZ 25mg daily SH: Reports social Alcohol use, denies smoking or illicit drug use FH: Father, decreased, lung cancer. Mother, decreased, Heart failure ROS: As per HPI ER Course: --VS: Afebrile, HR 127, RR 18, BP 124/69, Spo2 98 --venous blood gas: Lactate 3.1 --EKG: Sinus Tachy, ST and T wave abnormality --CMP: BUN/Cr: 32/1.7 --Urine drug screen: Neg --lact acid: 3.3 --cbc with differentials :no WBC --partial thromboplastin time: WNL --Prothrombin time:WNL --CXR:No acute changes --NS --Tylenol 975 mg PO --Blood Culture Present on Admission - Present on Admission Any Indicators Present on Admission: No History of DVT/PE: No History of Uncontrolled Diabetes: No Urinary Catheter: No Decubitus Ulcer Present: No (B/l LEs chronic Lymphedema/Venous stasis ) Past Patient History - Infectious Disease Hx of Infectious Diseases: None - Tetanus Immunizations Tetanus Immunization: Unknown - Past Medical History & Family History Past Medical History?: Yes - Past Social History Alcohol: None Drugs: Denies - CARDIAC Hx Atrial Fibrillation: No Hx Cardia Arrhythmia: No Hx Congestive Heart Failure: No Hx Hypercholesterolemia: No Hx Hypertension: Yes Hx Mitral Valve Prolapse: No Hx Pacemaker: No Hx Peripheral Edema: Yes - PULMONARY Hx Asthma: No Hx Bronchitis: No Hx Chronic Obstructive Pulmonary Disease (COPD): No Hx Emphysema: No Hx Pneumonia: No Hx Pulmonary Embolism: No Hx Sleep Apnea: No - NEUROLOGICAL Hx Neurological Disorder: No - HEENT Hx HEENT Problems: No - RENAL Hx Chronic Kidney Disease: No - ENDOCRINE/METABOLIC Hx Hyperthyroidism: No Hx Hypothyroidism: No - HEMATOLOGICAL/ONCOLOGICAL Hx Anemia: No Hx Human Immunodeficiency Virus (HIV): No Hx Sickle Cell Disease: No - INTEGUMENTARY Hx Dermatological Problems: Yes - MUSCULOSKELETAL/RHEUMATOLOGICAL Hx Arthritis: No Hx Fractures: No Hx Osteoporosis: No Hx Rheumatoid Arthritis: No - GASTROINTESTINAL Hx Gastrointestinal Disorders: No - GENITOURINARY/GYNECOLOGICAL Hx Genitourinary Disorders: No - PSYCHIATRIC Hx Psychophysiologic Disorder: No Hx Substance Use: No - SURGICAL HISTORY Hx Appendectomy: No - ANESTHESIA Hx Anesthesia: No Hx Anesthesia Reactions: No Hx Malignant Hyperthermia: No Meds Allergies/Adverse Reactions: Allergies Allergy/AdvReac Type Severity Reaction Status Date / Time ciprofloxacin [From Cipro] Allergy RASH Verified 03/19/17 15:52 ciprofloxacin HCl Allergy RASH Verified 03/19/17 15:52 [From Cipro] chocolate flavor AdvReac ears run Verified 03/19/17 15:52 Physical Exam - Constitutional Appears: No Acute Distress - Head Exam Head Exam: NORMAL INSPECTION - Eye Exam Eye Exam: EOMI, Normal appearance, PERRL Pupil Exam: NORMAL ACCOMODATION - ENT Exam ENT Exam: Mucous Membranes Moist - Neck Exam Neck exam: Positive for: Normal Inspection - Extremities Exam Additional comments: Gross edema, thick skin, Venous sta bilateral edema on LEs, severe on RLE, Lichenification seen - Back Exam Back exam: NORMAL INSPECTION. absent: CVA tenderness (L), CVA tenderness (R) - Neurological Exam Neurological exam: Alert, CN II-XII Intact, Oriented x3 - Psychiatric Exam Psychiatric exam: Normal Affect - Skin Skin Exam: Dry, Intact, Normal Color (except B/l LEs ), Warm Results - Vital Signs Recent Vital Signs: Last Vital Signs Temp 97.5 F L 12/06/17 12:10 Pulse 102 H 12/06/17 12:10 Resp 20 12/06/17 12:10 BP 130/69 12/06/17 12:10 Pulse Ox 100 12/06/17 12:10 - Labs Result Diagrams: 12/06/17 02:33 12/06/17 02:33 Labs: Laboratory Results - last 24 hr 12/06/17 12/06/17 12/06/17 02:28 02:31 02:33 WBC 5.4 RBC 5.43 Hgb 14.3 Hct 45.4 MCV 83.8 MCH 26.4 L MCHC 31.6 L RDW 16.9 H Plt Count 230 MPV 9.0 Neut % (Auto) 94.8 H Lymph % (Auto) 2.4 L Emanuel % (Auto) 2.3 Eos % (Auto) 0.3 Baso % (Auto) 0.2 Neut # (Auto) 5.1 Lymph # (Auto) 0.1 L Emanuel # (Auto) 0.1 Eos # (Auto) 0.0 Baso # (Auto) 0.0 Neutrophils % (Manual) 80 H Band Neutrophils % 7 H Lymphocytes % (Manual) 7 L Monocytes % (Manual) 6 Platelet Estimate Normal Large Platelets Present Hypochromasia (manual) Slight Anisocytosis (manual) Slight Tear Drop Cells Slight PT INR APTT pCO2 pO2 18 L HCO3 ABG pH ABG Total CO2 ABG O2 Saturation ABG Base Excess Dewayne Test ABG Potassium VBG pH 7.30 L VBG pCO2 56 VBG HCO3 22.7 VBG Total CO2 29.3 H VBG O2 Sat (Calc) 25.6 L VBG Base Excess -0.1 L VBG Potassium 3.9 A-a O2 Difference Sodium 142.0 Chloride 108.0 H Glucose 118 H Lactate 3.1 H FiO2 21.0 Crit Value Called To Crit Value Called By Crit Value Read Back Blood Gas Notified Time Potassium Carbon Dioxide Anion Gap BUN Creatinine Est GFR ( Amer) Est GFR (Non-Af Amer) POC Glucose (mg/dL) 115 H Random Glucose Lactic Acid Calcium Total Bilirubin AST ALT Alkaline Phosphatase Total Protein Albumin Globulin Albumin/Globulin Ratio Arterial Blood Potassium Venous Blood Potassium 3.9 Urine Color Urine Clarity Urine pH Ur Specific [place] Urine Protein Urine Glucose (UA) Urine Ketones Urine Blood Urine Nitrate Urine Bilirubin Urine Urobilinogen Ur Leukocyte Esterase Urine RBC (Auto) Urine Microscopic WBC Ur Squamous Epith Cells Urine Opiates Screen Urine Methadone Screen Ur Barbiturates Screen Ur Phencyclidine Scrn Ur Amphetamines Screen U Benzodiazepines Scrn U Oth Cocaine Metabols U Cannabinoids Screen Alcohol, Quantitative 12/06/17 12/06/17 12/06/17 02:33 02:33 02:33 WBC RBC Hgb Hct MCV MCH MCHC RDW Plt Count MPV Neut % (Auto) Lymph % (Auto) Emanuel % (Auto) Eos % (Auto) Baso % (Auto) Neut # (Auto) Lymph # (Auto) Emanuel # (Auto) Eos # (Auto) Baso # (Auto) Neutrophils % (Manual) Band Neutrophils % Lymphocytes % (Manual) Monocytes % (Manual) Platelet Estimate Large Platelets Hypochromasia (manual) Anisocytosis (manual) Tear Drop Cells PT 12.4 INR 1.1 APTT 26.1 pCO2 pO2 HCO3 ABG pH ABG Total CO2 ABG O2 Saturation ABG Base Excess Dewayne Test ABG Potassium VBG pH VBG pCO2 VBG HCO3 VBG Total CO2 VBG O2 Sat (Calc) VBG Base Excess VBG Potassium A-a O2 Difference Sodium 148 Chloride 109 H Glucose Lactate FiO2 Crit Value Called To Crit Value Called By Crit Value Read Back Blood Gas Notified Time Potassium 4.2 Carbon Dioxide 23 Anion Gap 20 BUN 32 H Creatinine 1.7 H Est GFR ( Amer) 51 Est GFR (Non-Af Amer) 43 POC Glucose (mg/dL) Random Glucose 106 Lactic Acid 3.3 H Calcium 8.9 Total Bilirubin 1.0 AST 18 ALT 8 L D Alkaline Phosphatase 87 Total Protein 8.0 Albumin 4.0 Globulin 4.1 H Albumin/Globulin Ratio 1.0 Arterial Blood Potassium Venous Blood Potassium Urine Color Urine Clarity Urine pH Ur Specific [place] Urine Protein Urine Glucose (UA) Urine Ketones Urine Blood Urine Nitrate Urine Bilirubin Urine Urobilinogen Ur Leukocyte Esterase Urine RBC (Auto) Urine Microscopic WBC Ur Squamous Epith Cells Urine Opiates Screen Urine Methadone Screen Ur Barbiturates Screen Ur Phencyclidine Scrn Ur Amphetamines Screen U Benzodiazepines Scrn U Oth Cocaine Metabols U Cannabinoids Screen Alcohol, Quantitative 12/06/17 12/06/17 12/06/17 03:22 06:18 06:56 WBC RBC Hgb Hct MCV MCH MCHC RDW Plt Count MPV Neut % (Auto) Lymph % (Auto) Emanuel % (Auto) Eos % (Auto) Baso % (Auto) Neut # (Auto) Lymph # (Auto) Emanuel # (Auto) Eos # (Auto) Baso # (Auto) Neutrophils % (Manual) Band Neutrophils % Lymphocytes % (Manual) Monocytes % (Manual) Platelet Estimate Large Platelets Hypochromasia (manual) Anisocytosis (manual) Tear Drop Cells PT INR APTT pCO2 pO2 39 HCO3 ABG pH ABG Total CO2 ABG O2 Saturation ABG Base Excess Dewayne Test ABG Potassium VBG pH 7.34 VBG pCO2 42 VBG HCO3 21.8 VBG Total CO2 24.0 VBG O2 Sat (Calc) 73.7 H VBG Base Excess -3.0 L VBG Potassium 3.2 L A-a O2 Difference Sodium 142.0 Chloride 109.0 H Glucose 144 H Lactate 4.1 H* FiO2 21.0 Crit Value Called To Dr vinod ochoa Crit Value Called By Nahum Crit Value Read Back Y Blood Gas Notified Time 629 Potassium Carbon Dioxide Anion Gap BUN Creatinine Est GFR ( Amer) Est GFR (Non-Af Amer) POC Glucose (mg/dL) Random Glucose Lactic Acid Calcium Total Bilirubin AST ALT Alkaline Phosphatase Total Protein Albumin Globulin Albumin/Globulin Ratio Arterial Blood Potassium Venous Blood Potassium 3.2 L Urine Color Urine Clarity Urine pH Ur Specific [place] Urine Protein Urine Glucose (UA) Urine Ketones Urine Blood Urine Nitrate Urine Bilirubin Urine Urobilinogen Ur Leukocyte Esterase Urine RBC (Auto) Urine Microscopic WBC Ur Squamous Epith Cells Urine Opiates Screen Negative Urine Methadone Screen Negative Ur Barbiturates Screen Negative Ur Phencyclidine Scrn Negative Ur Amphetamines Screen Negative U Benzodiazepines Scrn Negative U Oth Cocaine Metabols Negative U Cannabinoids Screen Negative Alcohol, Quantitative < 10 12/06/17 12/06/17 06:56 10:38 WBC RBC Hgb Hct MCV MCH MCHC RDW Plt Count MPV Neut % (Auto) Lymph % (Auto) Emanuel % (Auto) Eos % (Auto) Baso % (Auto) Neut # (Auto) Lymph # (Auto) Emanuel # (Auto) Eos # (Auto) Baso # (Auto) Neutrophils % (Manual) Band Neutrophils % Lymphocytes % (Manual) Monocytes % (Manual) Platelet Estimate Large Platelets Hypochromasia (manual) Anisocytosis (manual) Tear Drop Cells PT INR APTT pCO2 33 L pO2 84 HCO3 21.7 ABG pH 7.39 ABG Total CO2 21.0 L ABG O2 Saturation 98.9 H ABG Base Excess -4.1 L Dewayne Test Yes ABG Potassium 3.9 VBG pH VBG pCO2 VBG HCO3 VBG Total CO2 VBG O2 Sat (Calc) VBG Base Excess VBG Potassium A-a O2 Difference 74.0 Sodium 138.0 Chloride 108.0 H Glucose 132 H Lactate 1.9 FiO2 28.0 Crit Value Called To Crit Value Called By Crit Value Read Back Blood Gas Notified Time Potassium Carbon Dioxide Anion Gap BUN Creatinine Est GFR ( Amer) Est GFR (Non-Af Amer) POC Glucose (mg/dL) Random Glucose Lactic Acid Calcium Total Bilirubin AST ALT Alkaline Phosphatase Total Protein Albumin Globulin Albumin/Globulin Ratio Arterial Blood Potassium 3.9 Venous Blood Potassium Urine Color Yellow Urine Clarity Clear Urine pH 5.0 Ur Specific [place] 1.016 Urine Protein Negative Urine Glucose (UA) Neg Urine Ketones Negative Urine Blood Negative Urine Nitrate Negative Urine Bilirubin Negative Urine Urobilinogen 4.0 Ur Leukocyte Esterase Neg Urine RBC (Auto) 3 Urine Microscopic WBC 1 Ur Squamous Epith Cells < 1 Urine Opiates Screen Urine Methadone Screen Ur Barbiturates Screen Ur Phencyclidine Scrn Ur Amphetamines Screen U Benzodiazepines Scrn U Oth Cocaine Metabols U Cannabinoids Screen Alcohol, Quantitative Assessment & Plan - Assessment and Plan (Free Text) Assessment: 52 y/o Male with PMH of HTN, chronic Peripheral Edema,and chronic b/l lower extremity lymphedema admitted for evaluation and treatment of Syncope and Sepsis. Sepsis -Chronic b/l LEs lymphedema with ulceration -Tm; 103.0, NO WBC -Lactic acid 2.3 , ABG lactic 1.9 -S/p Vanco and Zosyn -ID, Dr. Moraes, will follow recs' -PICC line for IV abx -C/w Zosyn 2.25 (12/06/17) -C/w Linezolid 600 (12/06/17) -C/w IVF -F/u procalcitonin -F/u Lactic acid -F/u Blood Cx and Urine Cx -F/u CBC, CMP next morning -Possible Echo B/l Lower extremities Lymphedema/Venous stasis -left ankle ulceration, chronic lichenifcations, RE>LE -Tm; 103.0, NO WBC -Lactic acid 2.3 , ABG lactic 1.9 -UA negative -S/p Vanco and Zosyn -Consult, Podiatry, Dr. Mcghee: Will follow recs' -ID, Dr. Moraes, will follow recs' -C/w Zosyn 2.25 (12/06/17) -C/w Linezolid 600 (12/06/17) -F/u procalcitonin -F/u Lactic acid -F/u Blood Cx Syncope -Tm 103.0 -EKG: Sinus Tachy, ST and T wave abnormality -CXR: No acute changes -Will monitor patient MARIAM -BUN/Cr; 32/1.7 -Possibly due to dehaydration -IVF -F/u labs tomorrow HTN -Controlled -Hold Hctz 25 mg po daily. -Will Monitor Morbid Obesity -BMI: 55.8 DVT prophylaxis -Lovenox 30mg BID
[2017-12-06] MEDS: Linezolid 600 mg in D5W 300 ml 600 MG/300 ML BAG IVPB SCH ×2 (13:41→21:55)
[2017-12-06] MEDS ORDERED: Lidocaine 1% Inj (20ml) ONE (15:59)
--- NOTE | 2017-12-06 16:46 | PCM.SURG1 ---
Surgeon's Initial Post Op Note - Surgeon's Notes Surgeon: Favian Urbina MD Fairing Man: None Type of Anesthesia: Local Pre-Operative Diagnosis: infection Operative Findings: patent right basilic vein. catheter length: 49 cm. catheter tip: cavoatrial junction Post-Operative Diagnosis: same Operation Performed: RUE PICC Insertion Specimen/Specimens Removed: n/a Estimated Blood Loss: EBL {In ML}: 3 Date of Surgery/Procedure: 12/06/17 Time of Surgery/Procedure: 16:46
[2017-12-06] MEDS: Sodium Chloride 0.9% 1,000 ML IV SCH ×2 (17:30→17:31)
[2017-12-07] MEDS: Sodium Chloride 0.9% 1,000 ML IV SCH ×4 (00:46→18:52)
[2017-12-07 07:20] LABS: BASO # 0.1 K/uL (0.0-0.2); BASO % 0.3 % (0.0-2.0); HEMOGLOBIN 13.5 g/dL (12.0-18.0); LYMPH # 0.1 K/uL (1.0-4.3); LYMPH % 0.7 % (20.0-40.0); MEAN CELL VOLUME 83.4 fl (80.0-94.0); MEAN CORPUSCULAR HEMOGLOBIN 26.3 pg (27.0-31.0); MEAN CORPUSCULAR HGB CONC 31.5 g/dL (33.0-37.0); MEAN PLATELET VOLUME 9.1 fl (7.2-11.7); MONO # 0.3 K/uL (0.0-0.8); MONO % 1.7 % (0.0-10.0); NEUT # 18.7 K/uL (1.8-7.0); NEUT % 97.3 % (50.0-75.0); RBC 5.14 Mil/uL (4.40-5.90); RED CELL DISTRIBUTION WIDTH 17.2 % (11.5-14.5); WHITE BLOOD COUNT 19.2 K/uL (4.8-10.8)
[2017-12-07] MEDS ORDERED: Sodium Chloride 0.9% 1,000 ML IV SCH (08:00)
[2017-12-07] MEDS ORDERED: Enoxaparin 30 mg Syringe SC SCH (09:00)
--- NOTE | 2017-12-07 09:22 | CP.PCM.PN ---
Subjective - Date & Time of Evaluation Date of Evaluation: 12/07/17 Time of Evaluation: 09:20 - Subjective Subjective: Podiatry Progress note: Dr. Romo 52 year old male patient was seen and evaluated at bedside for bilateral LE ulcerations. Patient is AAOx3 and is in NAD. Patient reports that he had fever overnight and is not feeling too well. Denies of any pain to the legs today. Patient is going for Echo today. No V/N/SOB/CP/headaches/diarrhea/constipation. No other pedal complains at this time. Objective - Vital Signs/Intake and Output Vital Signs (last 24 hours): Temp Pulse Resp BP Pulse Ox 99.1 F 111 H 18 126/67 100 12/07/17 08:05 12/07/17 08:05 12/07/17 08:05 12/07/17 08:05 12/07/17 08:05 - Medications Medications: Current Medications Enoxaparin Sodium (Lovenox) 30 mg SC Q12 LAZARA PRN Reason: Protocol Stop: 12/08/17 11:00 Last Admin: 12/07/17 08:34 Dose: 30 mg Piperacillin Sod/Tazobactam (Sod 2.25 gm/ Sodium Chloride) 100 mls @ 100 mls/ hr IVPB Q8 LAZARA PRN Reason: Protocol Last Admin: 12/07/17 00:47 Dose: 100 mls/hr Linezolid (Zyvox 600mg/300ml D5w) 600 mg in 300 mls @ 300 mls/hr IVPB Q12 LAZARA PRN Reason: Protocol Last Admin: 12/06/17 21:55 Dose: 300 mls/hr Sodium Chloride (Sodium Chloride 0.9%) 1,000 mls @ 125 mls/hr IV .Q8H LAZARA Stop: 12/08/17 00:27 Last Admin: 12/07/17 00:46 Dose: 125 mls/hr - Labs Labs: 12/07/17 06:21 12/07/17 06:21 PT 12.4 Seconds (9.8-13.1) 12/06/17 02:33 INR 1.1 (0.9-1.2) 12/06/17 02:33 APTT 26.1 Seconds (25.6-37.1) 12/06/17 02:33 - Constitutional Appears: Well, Non-toxic, No Acute Distress - Extremities Exam Additional comments: lower extremity focused exam: VASC: DP pulses faintly palpable 1/4, PT pulses non-palpable. CFT < 3 seconds to all digits. Temperature gradient is warm to warm from proximal to distal b/l. +3 pitting edema noted extending distally from tibial tuberosity to digits. Right leg is more edematous compared to the left. DERM: Lichenification with tree trunk appearance noted to bilateral lower extremities. Superficial ulceration noted to the lateral aspect of the left lateral malleolus, measuring approximately 5 cm by 4cm by superficial, no malodor, no drainage, no acute signs of infection aside from elevated temperature to touch on b/l LE NEURO: Sensation grossly intact. ORTHO: Tenderness on palpation to bilateral lower extremities. Limited ROM at the ankle joint due to increased edema, no pain on palpation of the calf - Neurological Exam Neurological Exam: Alert, Awake, Oriented x3 - Psychiatric Exam Psychiatric exam: Normal Affect, Normal Mood Assessment and Plan - Assessment and Plan (Free Text) Assessment: 52 year old male with bilateral lower extremity pain, left ankle ulceration, and lymphedmea of bilateral lower extremities with chronic lichenifcations Plan: Patient examined and evaluated Discussed plan in detail with attending Dr. Romo Charts, labs, vitals reviewed; WBC 19.2; febrile Dressing changed using bactroban, adaptic, DSD, ABD, RICH to b/l LE Wounds to the LE appear very superficial - do not appear infected at this time + blood cultures: G+ cocci F/u ID recs - Zosyn, Linezolid No surgical intervention at this time Podiatry to follow patient while in-house
--- NOTE | 2017-12-07 09:58 | RAD ---
PROCEDURE: Radiographs of the right humerus. HISTORY: PICC line eval COMPARISON: None. FINDINGS: BONES: No acute fracture. SOFT TISSUES: Normal. OTHER FINDINGS: Indwelling right upper extremity PICC has pulled back with catheter tip in the right axilla. IMPRESSION: Indwelling right upper extremity PICC has pulled back with catheter tip in the right axilla. Catheter should be well secured and exchanged over a wire to prevent loss of access on a nonemergent basis.
[2017-12-07] MEDS: Linezolid 600 mg in D5W 300 ml 600 MG/300 ML BAG IVPB SCH ×2 (10:01→22:44)
--- NOTE | 2017-12-07 10:18 | CP.PCM.PN ---
Addendum entered and electronically signed by Marilou Mas MD 12/07/17 15:33: Patient accidentally removed his PICC line today, Follow up IR for another PICC line Dr. Alvarez is aware, Recommends PO Zyvox Original Note: Subjective - Date & Time of Evaluation Date of Evaluation: 12/07/17 Time of Evaluation: 08:20 - Subjective Subjective: Patient seen and examined this morning at bedside, NAD. Patient denies any dizziness, SOB, chest pain, abdominal pain or urinary symptoms. Patient reports his PICC line was accidentally pulled out over night, fixed by nurse, no bleeding or pain was reported. Patient denies any difficulty urinating, tolerating PO intake. Objective - Vital Signs/Intake and Output Vital Signs (last 24 hours): Temp Pulse Resp BP Pulse Ox 99.1 F 111 H 18 126/67 100 12/07/17 08:05 12/07/17 08:05 12/07/17 08:05 12/07/17 08:05 12/07/17 08:05 - Medications Medications: Current Medications Enoxaparin Sodium (Lovenox) 30 mg SC Q12 LAZARA PRN Reason: Protocol Stop: 12/08/17 11:00 Last Admin: 12/07/17 08:34 Dose: 30 mg Piperacillin Sod/Tazobactam (Sod 2.25 gm/ Sodium Chloride) 100 mls @ 100 mls/ hr IVPB Q8 LAZARA PRN Reason: Protocol Last Admin: 12/07/17 10:00 Dose: 100 mls/hr Linezolid (Zyvox 600mg/300ml D5w) 600 mg in 300 mls @ 300 mls/hr IVPB Q12 LAZARA PRN Reason: Protocol Last Admin: 12/07/17 10:01 Dose: 300 mls/hr Sodium Chloride (Sodium Chloride 0.9%) 1,000 mls @ 125 mls/hr IV .Q8H LAZARA Stop: 12/08/17 00:27 Last Admin: 12/07/17 10:02 Dose: 125 mls/hr - Labs Labs: 12/07/17 06:21 12/07/17 06:21 PT 12.4 Seconds (9.8-13.1) 12/06/17 02:33 INR 1.1 (0.9-1.2) 12/06/17 02:33 APTT 26.1 Seconds (25.6-37.1) 12/06/17 02:33 - Constitutional Appears: No Acute Distress - Head Exam Head Exam: NORMAL INSPECTION - Eye Exam Eye Exam: EOMI, Normal appearance Pupil Exam: NORMAL ACCOMODATION - ENT Exam ENT Exam: Mucous Membranes Moist - Neck Exam Neck Exam: Normal Inspection - Respiratory Exam Respiratory Exam: Clear to Ausculation Bilateral, NORMAL BREATHING PATTERN. absent: Wheezes - Cardiovascular Exam Cardiovascular Exam: REGULAR RHYTHM - GI/Abdominal Exam GI & Abdominal Exam: Soft, Normal Bowel Sounds - Extremities Exam Additional comments: Gross edema, thick skin, Venous sta bilateral edema on LEs, severe on RLE, Lichenification seen - Back Exam Back Exam: NORMAL INSPECTION - Neurological Exam Neurological Exam: Alert, Awake, CN II-XII Intact, Oriented x3 - Psychiatric Exam Psychiatric exam: Normal Affect - Skin Skin Exam: Normal Color Additional comments: except B/l LEs Assessment and Plan - Assessment and Plan (Free Text) Assessment: 52 y/o Male with PMH of HTN, chronic Peripheral Edema,and chronic b/l lower extremity lymphedema admitted for evaluation and treatment of Syncope and Sepsis. Sepsis -Chronic b/l LEs lymphedema with ulceration -Today WBC 19.2, afebrile 99.1, tachy -Tm; 103.0, NO WBC on admission -Lactic acid 2.3 , ABG lactic 1.9 on admission -S/p Vanco and Zosyn on admission -ID, Dr. Moraes, will follow recs' -Urine Cx no growth -ProCalcitonin 90.57 -PICC line for IV abx was placed 12/07 -C/w Zosyn 2.25 (12/06/17) -C/w Linezolid 600 (12/06/17) -C/w IVF -F/u Lactic acid -F/u Troponin -F/u Blood Cx final -F/u Echo (12/07) B/l Lower extremities Lymphedema/Venous stasis -left ankle ulceration, chronic lichenifcations, RE>LE -Tm; 103.0, NO WBC -Lactic acid 2.3 , ABG lactic 1.9 -UA negative -S/p Vanco and Zosyn -Consult, Podiatry, Dr. Mcghee: Will follow recs' -ID, Dr. Moraes, will follow recs' -C/w Zosyn 2.25 (12/06/17) -C/w Linezolid 600 (12/06/17) -F/u Lactic acid -F/u Blood Cx Syncope -Tm 103.0 on admission -EKG: Sinus Tachy, ST and T wave abnormality -CXR: No acute changes -Will monitor patient MARIAM -BUN/Cr; 36/2.1 -Possibly due to dehaydration/sepsis -IVF -F/u labs HTN -Controlled -Hold Hctz 25 mg po daily. -Will Monitor Morbid Obesity -BMI: 55.8 DVT prophylaxis -Lovenox 30mg BID
--- NOTE | 2017-12-07 12:05 | RAD ---
PROCEDURE: CHEST RADIOGRAPH, 1 VIEW HISTORY: PICC line removed, accidental COMPARISON: Chest radiograph dated 12/06/2017 FINDINGS: LUNGS: Clear. PLEURA: No pneumothorax or pleural fluid seen. CARDIOVASCULAR: Cardiomediastinal silhouette unchanged. OSSEOUS STRUCTURES: Unchanged. VISUALIZED UPPER ABDOMEN: Normal. OTHER FINDINGS: Right upper extremity PICC no longer visualized. IMPRESSION: Right upper extremity PICC no longer visualized. No focal consolidation or pleural effusion
--- NOTE | 2017-12-07 14:17 | VASCULAR ---
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 COMPARISON: PICC insertion performed 07/22/2017 PROCEDURE: 1. Focused ultrasound of the right upper extremity vasculature. 2. Ultrasound-guided access. 3. Insertion of peripherally inserted central venous catheter. 4. Fluoroscopic localization of catheter tip. PRE-PROCEDURE FINDINGS: 1. Patent right basilic vein. POST-PROCEDURE FINDINGS: 1. Placement of 4 [place] single-lumen PICC. 2. Catheter length: 49 cm. 3. Catheter tip at cavoatrial junction. INTERVENTIONAL RADIOLOGIST: Favian Urbina M.D. (the attending was present for the entire procedure) ANESTHESIA: None. MEDICATION: Lidocaine 1% for local subcutaneous analgesia. COMPLICATIONS: None. RADIATION DOSE: Fluoroscopy Time: 18.2 seconds Cumulative Dose: 5.42 mGy PROCEDURE DESCRIPTION AND FINDINGS: The risks, benefits, alternatives and possible complications of the procedure were fully discussed; all questions were answered and informed consent was obtained. The patient was brought into the interventional suite and a pre-procedure 'time-out' was performed. The patient was placed on the fluoroscopy table in the supine position. The right upper extremity was prepped and draped in the usual sterile fashion. Maximum sterile barrier precautions were maintained throughout the entire procedure. Preliminary ultrasound images of the right upper extremity vasculature demonstrate patency of the right basilic vein. Following subcutaneous infiltration of 1% lidocaine for local analgesia, under ultrasound guidance, a 21-gauge needle was advanced into the right basilic vein with real-time visualization of needle entry. The ultrasound images were permanently recorded and submitted to the PACS. A 0.018 guidewire was advanced centrally to the cavoatrial junction. A 4.5 [place] peel-away sheath was advanced over the guidewire. After obtaining length measurement, a 4 [place] single-lumen PICC was placed with the tip of the catheter at the cavoatrial junction. The total length of the catheter is 49 cm. The hub of the PICC was secured to the skin using a sterile adhesive bandage. The patient tolerated the procedure well without immediate post-procedure complications and was transferred back to the floor in stable condition. IMPRESSION: SUCCESSFUL INSERTION OF RIGHT UPPER EXTREMITY PICC. PICC OK TO USE.
--- NOTE | 2017-12-08 07:27 | CP.PCM.PN ---
Subjective - Date & Time of Evaluation Date of Evaluation: 12/08/17 Time of Evaluation: 07:30 - Subjective Subjective: 52M seen and examined at bedside. He states he is feeling fine and thinks it is a "24hr bug". He denies having difficulty breathing, chest pain, abdominal pain, but is complaining of diarrhea after antibiotics. Objective - Vital Signs/Intake and Output Vital Signs (last 24 hours): Temp Pulse Resp BP Pulse Ox 37.7 C H 111 H 20 123/72 93 L 12/08/17 05:00 12/08/17 05:00 12/08/17 05:00 12/08/17 05:00 12/08/17 05:00 - Medications Medications: Current Medications Heparin Sodium (Porcine) (Heparin) 5,000 units SC Q8 [facility] PRN Reason: Protocol Last Admin: 12/08/17 01:32 Dose: 5,000 units Piperacillin Sod/Tazobactam (Sod 2.25 gm/ Sodium Chloride) 100 mls @ 100 mls/ hr IVPB Q8 [facility] PRN Reason: Protocol Last Admin: 12/08/17 01:31 Dose: 100 mls/hr Linezolid (Zyvox 600mg/300ml D5w) 600 mg in 300 mls @ 300 mls/hr IVPB Q12 [facility] PRN Reason: Protocol Last Admin: 12/07/17 22:44 Dose: 300 mls/hr - Labs Labs: 12/07/17 06:21 12/07/17 06:21 PT 12.4 Seconds (9.8-13.1) 12/06/17 02:33 INR 1.1 (0.9-1.2) 12/06/17 02:33 APTT 26.1 Seconds (25.6-37.1) 12/06/17 02:33 - Constitutional Appears: Non-toxic - Head Exam Head Exam: ATRAUMATIC, NORMAL INSPECTION - Eye Exam Eye Exam: EOMI Pupil Exam: PERRL - ENT Exam ENT Exam: Mucous Membranes Moist - Neck Exam Neck Exam: Normal Inspection - Respiratory Exam Respiratory Exam: Decreased Breath Sounds, Wheezes. absent: NORMAL BREATHING PATTERN (Patient has mild effort of respiration) - Cardiovascular Exam Cardiovascular Exam: REGULAR RHYTHM, +S1, +S2 - GI/Abdominal Exam GI & Abdominal Exam: Soft, Normal Bowel Sounds - Neurological Exam Neurological Exam: Alert, Awake - Psychiatric Exam Psychiatric exam: Normal Affect, Normal Mood - Skin Skin Exam: Dry, Warm Assessment and Plan - Assessment and Plan (Free Text) Assessment: 52M PMH chronic bilateral lower extremity lymphedema and HTN p/w syncopal episode and sepsis. Improving leukocytosis and fever trends with lactic acidemia finally resolved. Preliminary BCx reporting Group G strep and results discussed with ID. Patient visibly having work of breathing so CXR and DuoNebs ordered. - Regular Diet - DVT Prophylaxis: Heparin SC (2/2 CKD) - Podiatry Consult: Wound dressing changes, not source of sepsis at present, f/ u further recs - ID Consult: Zyvox/Zosyn, but d/c'd Zyvox after above prelim results - Sepsis: resolving, platelets decreased, awaiting echocardiogram, after CXR this AM suspect RL infiltrate - SOB: CXR shows RL infiltrate, and ?congestion; administered 40mg Lasix and gave a DuoNeb - Low Platelets: multi-factorial sepsis/Zyvox low suspicion for heparin related , will monitor - HTN: HCTZ held - Syncope: Troponins negative, but will need further cardiac work up after sepsis resolves for ST-T abnormalities, echo pending
[2017-12-08 08:01] LABS: BASO % 0.2 % (0.0-2.0); EOS # 0.2 K/uL (0.0-0.7); HEMOGLOBIN 12.9 g/dL (12.0-18.0); LYMPH # 0.3 K/uL (1.0-4.3); MEAN CELL VOLUME 80.9 fl (80.0-94.0); MEAN CORPUSCULAR HEMOGLOBIN 26.3 pg (27.0-31.0); MEAN CORPUSCULAR HGB CONC 32.6 g/dL (33.0-37.0); MEAN PLATELET VOLUME 9.2 fl (7.2-11.7); MONO # 0.4 K/uL (0.0-0.8); MONO % 2.2 % (0.0-10.0); NEUT # 15.9 K/uL (1.8-7.0); NEUT % 94.6 % (50.0-75.0); NRBC % 0.1 % (0.0-0.0); PLATELET COUNT 93 K/uL (130-400); RBC 4.88 Mil/uL (4.40-5.90); RED CELL DISTRIBUTION WIDTH 16.9 % (11.5-14.5); WHITE BLOOD COUNT 16.9 K/uL (4.8-10.8)
[2017-12-08 08:15] LABS: ALB/GLOB RATIO 0.8 (1.0-2.1); ALBUMIN 2.9 g/dL (3.5-5.0)
[2017-12-08] MEDS ORDERED: Albuterol-Ipratrop 3 mg / 0.5 (3 ml) UD INH STA (08:41)
[2017-12-08] MEDS: Linezolid 600 mg in D5W 300 ml 600 MG/300 ML BAG IVPB SCH (09:23)
[2017-12-08 10:47] LABS: ANISOCYTOSIS SLIGHT; BANDS 7 % (0-2); LARGE PLATELETS PRESENT; LYMPHOCYTE 9 % (20-50); MONOCYTE 2 % (0-10); NEUTROPHIL 82 % (42-75); OVALOCYTES SLIGHT; PLATELET ESTIMATE DECREASED (NORMAL); TOTAL CELLS COUNTED 100
--- NOTE | 2017-12-08 10:51 | RAD ---
HISTORY: cough, shortness of breath COMPARISON: Frontal chest radiograph 12/07/2017. TECHNIQUE: Chest PA and lateral FINDINGS: Study appears underpenetrated. LUNGS: Hazy right perihilar density may reflect early or limited infiltrate. Atelectasis not excluded. Remaining lung navarro appear clear. History volume remains somewhat limited but is improved in the interval. PLEURA: No significant pleural effusion identified. No pneumothorax apparent. CARDIOVASCULAR: Normal. OSSEOUS STRUCTURES: No significant abnormalities. VISUALIZED UPPER ABDOMEN: Normal. OTHER FINDINGS: None. IMPRESSION: Limited right perihilar patchy atelectasis or infiltrate in question. Remaining lung navarro clear grossly.
--- NOTE | 2017-12-08 12:49 | CP.PCM.PN ---
Subjective - Date & Time of Evaluation Date of Evaluation: 12/08/17 Time of Evaluation: 08:00 - Subjective Subjective: increased SOB denies chest pain alert oriented Objective - Vital Signs/Intake and Output Vital Signs (last 24 hours): Temp Pulse Resp BP Pulse Ox 99.6 F 129 H 18 154/75 H 96 12/08/17 12:36 12/08/17 12:36 12/08/17 12:36 12/08/17 12:36 12/08/17 12:36 - Medications Medications: Current Medications Heparin Sodium (Porcine) (Heparin) 5,000 units SC Q8 [facility] PRN Reason: Protocol Piperacillin Sod/Tazobactam (Sod 2.25 gm/ Sodium Chloride) 100 mls @ 100 mls/ hr IVPB Q8 [facility] PRN Reason: Protocol Last Admin: 12/08/17 09:15 Dose: 100 mls/hr - Labs Labs: 12/08/17 06:20 12/08/17 06:20 PT 12.4 Seconds (9.8-13.1) 12/06/17 02:33 INR 1.1 (0.9-1.2) 12/06/17 02:33 APTT 26.1 Seconds (25.6-37.1) 12/06/17 02:33 - Constitutional Appears: Toxic - Head Exam Head Exam: NORMOCEPHALIC - Eye Exam Eye Exam: PERRL - ENT Exam ENT Exam: Mucous Membranes Dry - Neck Exam Neck Exam: absent: Lymphadenopathy - Respiratory Exam Respiratory Exam: Decreased Breath Sounds - Cardiovascular Exam Cardiovascular Exam: Tachycardia, REGULAR RHYTHM, +S1, +S2 - GI/Abdominal Exam GI & Abdominal Exam: Distended, Soft. absent: Tenderness - Rectal Exam Rectal Exam: Deferred - Exam Exam: NORMAL INSPECTION - Extremities Exam Extremities Exam: Calf Tenderness, Pedal Edema, Tenderness - Back Exam Back Exam: absent: CVA tenderness (L), CVA tenderness (R), paraspinal tenderness - Neurological Exam Neurological Exam: Alert, Awake, CN II-XII Intact, Oriented x3 Neuro motor strength exam: Left Upper Extremity: 3, Right Upper Extremity: 3, Left Lower Extremity: 3, Right Lower Extremity: 3 - Psychiatric Exam Psychiatric exam: Depressed - Skin Skin Exam: Dry Assessment and Plan (1) MARIAM (acute kidney injury) Status: Acute (2) Sepsis affecting skin Status: Acute (3) Wound of right lower extremity Status: Acute (4) Cellulitis Status: Chronic (5) Lymphedema of lower extremity Status: Chronic (6) Morbid obesity with BMI of 60.0-69.9, adult Status: Chronic (7) Obstructive sleep apnea of adult Status: Chronic (8) Ulcer of lower extremity Status: Chronic (9) Ulcer of right foot Status: Chronic - Assessment and Plan (Free Text) Assessment: strep bacteremia and sepsis with MARIAM endocarditis to bew ruled out IV Zosyn to cont poor prognosis
--- NOTE | 2017-12-08 13:26 | CP.PCM.PN ---
Subjective - Date & Time of Evaluation Date of Evaluation: 12/08/17 Time of Evaluation: 13:23 - Subjective Subjective: Podiatry Progress note: Dr. Romo 52 year old male patient was seen and evaluated at bedside for bilateral LE ulcerations. Patient is AAOx3 and is in NAD. Patient seen sitting in bed. Patient reports he is feeling a lot better today and the breathing has improved. Denies N/V/CP/headaches/diarrhea/constipation. No other pedal complains at this time. Objective - Vital Signs/Intake and Output Vital Signs (last 24 hours): Temp Pulse Resp BP Pulse Ox 99.6 F 129 H 18 154/75 H 96 12/08/17 12:36 12/08/17 12:36 12/08/17 12:36 12/08/17 12:36 12/08/17 12:36 - Medications Medications: Current Medications Heparin Sodium (Porcine) (Heparin) 5,000 units SC Q8 [facility] PRN Reason: Protocol Hydrochlorothiazide (Hydrodiuril) 25 mg PO DAILY [facility] Piperacillin Sod/Tazobactam (Sod 2.25 gm/ Sodium Chloride) 100 mls @ 100 mls/ hr IVPB Q8 [facility] PRN Reason: Protocol Last Admin: 12/08/17 09:15 Dose: 100 mls/hr - Labs Labs: 12/08/17 06:20 12/08/17 06:20 PT 12.4 Seconds (9.8-13.1) 12/06/17 02:33 INR 1.1 (0.9-1.2) 12/06/17 02:33 APTT 26.1 Seconds (25.6-37.1) 12/06/17 02:33 - Constitutional Appears: Well, Non-toxic, No Acute Distress - Extremities Exam Additional comments: lower extremity focused exam: VASC: DP pulses faintly palpable 1/4, PT pulses non-palpable. CFT < 3 seconds to all digits. Temperature gradient is warm to warm from proximal to distal b/l. +3 pitting edema noted extending distally from tibial tuberosity to digits. Right leg is more edematous compared to the left. DERM: Lichenification with tree trunk appearance noted to bilateral lower extremities. Superficial ulceration noted to the lateral aspect of the left lateral malleolus, measuring approximately 5 cm by 4cm by superficial, no malodor, no drainage, no acute signs of infection aside from elevated temperature to touch on b/l LE NEURO: Sensation grossly intact. ORTHO: Tenderness on palpation to bilateral lower extremities. Limited ROM at the ankle joint due to increased edema, no pain on palpation of the calf - Neurological Exam Neurological Exam: Alert, Awake, Oriented x3 - Psychiatric Exam Psychiatric exam: Normal Affect, Normal Mood Assessment and Plan - Assessment and Plan (Free Text) Assessment: 52 year old male with bilateral lower extremity pain, left ankle ulceration, and lymphedmea of bilateral lower extremities with chronic lichenifcations Plan: Patient examined and evaluated Discussed plan in detail with attending Dr. Romo Charts, labs, vitals reviewed; WBC 16.9; febrile Dressing changed using bactroban, adaptic, DSD, ABD, RICH to b/l LE Wounds to the LE appear very superficial - do not appear infected at this time + blood cultures: G+ cocci F/u ID recs - Zosyn No surgical intervention at this time Podiatry to follow patient while in-house
[2017-12-08] MEDS: Albuterol-Ipratrop 3 mg / 0.5 (3 ml) UD INH SCH ×2 (14:45→19:12)
[2017-12-09] MEDS: Albuterol-Ipratrop 3 mg / 0.5 (3 ml) UD INH SCH ×4 (01:09→19:12)
--- NOTE | 2017-12-09 06:22 | CP.PCM.PN ---
Subjective - Date & Time of Evaluation Date of Evaluation: 12/09/17 Time of Evaluation: 06:21 - Subjective Subjective: Podiatry progress note for Dr. Rodriguez. 52M seen and evaluated at bedside. Patient is AAO x 3 and NAD. States that pain is well controlled. Denies any acute overnight events or new pedal complaints. Denies any recent N/V/F/C/CP/D. States that SOB is improving Objective - Vital Signs/Intake and Output Vital Signs (last 24 hours): Temp Pulse Resp BP Pulse Ox 98.4 F 109 H 18 107/63 100 12/09/17 05:06 12/09/17 05:06 12/09/17 05:06 12/09/17 05:06 12/09/17 05:06 - Medications Medications: Current Medications Albuterol/Ipratropium (Duoneb 3 Mg/0.5 Mg (3 Ml) Ud) 3 ml INH RQ6 [facility] Last Admin: 12/09/17 01:09 Dose: 3 ml Heparin Sodium (Porcine) (Heparin) 5,000 units SC Q8 [facility] PRN Reason: Protocol Last Admin: 12/09/17 02:27 Dose: 5,000 units Hydrochlorothiazide (Hydrodiuril) 25 mg PO DAILY [facility] Piperacillin Sod/Tazobactam (Sod 2.25 gm/ Sodium Chloride) 100 mls @ 100 mls/ hr IVPB Q8 [facility] PRN Reason: Protocol Last Admin: 12/09/17 01:27 Dose: 100 mls/hr Mupirocin (Bactroban Cream) 1 applic TOP DAILY [facility] - Labs Labs: 12/08/17 06:20 12/08/17 06:20 PT 12.4 Seconds (9.8-13.1) 12/06/17 02:33 INR 1.1 (0.9-1.2) 12/06/17 02:33 APTT 26.1 Seconds (25.6-37.1) 12/06/17 02:33 - Constitutional Appears: Well, Non-toxic, No Acute Distress - Head Exam Head Exam: ATRAUMATIC, NORMOCEPHALIC - Extremities Exam Additional comments: B/l LE focused exam: VASC: DP pulses faintly palpable 1/4, PT pulses non-palpable. CFT < 3 seconds to all digits. Temperature gradient is warm to warm from proximal to distal b/l. +3 pitting edema noted extending distally from tibial tuberosity to digits. Right leg is more edematous compared to the left. DERM: Lichenification with tree trunk appearance noted to bilateral lower extremities R>L. Superficial ulceration noted to the medial aspect of the right midleg, measuring approximately 5 cm by 4cm superficial, no malodor, + drainage , no acute signs of infection aside from elevated temperature to touch on b/l LE , NEURO: Sensation grossly intact. ORTHO: Tenderness on palpation to bilateral lower extremities. Limited ROM at the ankle joint due to increased edema, no pain on palpation of the calf - Neurological Exam Neurological Exam: Alert, Awake, Oriented x3 - Psychiatric Exam Psychiatric exam: Normal Affect, Normal Mood Assessment and Plan - Assessment and Plan (Free Text) Assessment: 52 yo male seen at bedside due to b/l lower extremity pain, lymphedema of bilateral lower extremities with chronic lichenifications Plan: Patient seen, examined and evaluated. Discussed plan with Dr. Rodriguez. Afebrile, absent leukocytosis at last CBC Dressing changed using ABD, DSD, and RICH to bilateral lower extremity. Superficial, noninfected wound noted to LE. + blood cultures, group G streptococcus F/u ID recs- Zosyn. No surgical intervention needed at this time. Podiatry to follow the patent while in house.
[2017-12-09] MEDS: Sodium Chloride 0.9% 1,000 ML IV SCH ×2 (08:53→16:29)
--- NOTE | 2017-12-09 08:57 | CP.PCM.PN ---
Subjective - Date & Time of Evaluation Date of Evaluation: 12/09/17 Time of Evaluation: 07:30 - Subjective Subjective: Patient seen and examined this morning at the bedside. Patient seems weak and mild SOB appreciated. patient denies any acute event overnight, denies dizziness , chest pain, abdominal pain, urinary symptoms or palpitations. Patient admits 2 watery diarrhea yesterday, no diarrhea today. Objective - Vital Signs/Intake and Output Vital Signs (last 24 hours): Temp Pulse Resp BP Pulse Ox 99.1 F 111 H 20 144/71 96 12/09/17 08:29 12/09/17 08:29 12/09/17 08:29 12/09/17 08:29 12/09/17 08:29 - Medications Medications: Current Medications Albuterol/Ipratropium (Duoneb 3 Mg/0.5 Mg (3 Ml) Ud) 3 ml INH RQ6 [facility] Last Admin: 12/09/17 07:43 Dose: 3 ml Hydrochlorothiazide (Hydrodiuril) 25 mg PO DAILY [facility] Last Admin: 12/09/17 08:54 Dose: Not Given Piperacillin Sod/Tazobactam (Sod 2.25 gm/ Sodium Chloride) 100 mls @ 100 mls/ hr IVPB Q8 [facility] PRN Reason: Protocol Last Admin: 12/09/17 08:55 Dose: 100 mls/hr Sodium Chloride (Sodium Chloride 0.9%) 1,000 mls @ 125 mls/hr IV .Q8H [facility] Stop: 12/10/17 07:02 Last Admin: 12/09/17 08:53 Dose: 125 mls/hr Mupirocin (Bactroban Cream) 1 applic TOP DAILY [facility] - Labs Labs: 12/08/17 06:20 12/08/17 06:20 PT 12.4 Seconds (9.8-13.1) 12/06/17 02:33 INR 1.1 (0.9-1.2) 12/06/17 02:33 APTT 26.1 Seconds (25.6-37.1) 12/06/17 02:33 - Constitutional Appears: No Acute Distress - Head Exam Head Exam: NORMAL INSPECTION - Eye Exam Eye Exam: Normal appearance - ENT Exam ENT Exam: Mucous Membranes Moist - Neck Exam Neck Exam: Full ROM, Normal Inspection - Respiratory Exam Respiratory Exam: Rales, Wheezes. absent: Accessory Muscle Use, Chest Wall Tenderness - Cardiovascular Exam Cardiovascular Exam: REGULAR RHYTHM, +S1, +S2 - GI/Abdominal Exam GI & Abdominal Exam: Soft, Normal Bowel Sounds. absent: Rigid, Tenderness, Rebound - Extremities Exam Additional comments: Gross edema, thick skin, Venous sta bilateral edema on LEs, severe on RLE, Lichenification seen - Neurological Exam Neurological Exam: Alert, Awake, Oriented x3 - Psychiatric Exam Psychiatric exam: Normal Affect - Skin Additional comments: except B/l LEs Assessment and Plan - Assessment and Plan (Free Text) Assessment: 52 y/o Male with PMH of HTN, chronic Peripheral Edema,and chronic b/l lower extremity lymphedema admitted for evaluation and treatment of Syncope and Sepsis. Sepsis due to Group G Strep -Today WBC 16.9, afebrile 99.1, tachy, Lactic acid 1.9 today -S/p Vanco and Zosyn on admission -ID, Dr. Moraes, will follow recs' -ProCalcitonin 90.57 -PICC line for IV abx was placed 12/07 and accidently removed on 12/07, New placement on 12/09 -C/w Zosyn 2.25 day#3 (12/06/17) -s/p Linezolid 600 for two days -Blood Cx:(12/06): Group G Strep (patient is still spiking fever, tachy and SOB; possibility of PE) -Cardio Consult: Dr. Small appreciated -Echo (12/07): no reg or veg, SOTERO recommended -F/u SOTERO -Follow up repeat Blood Cx (12/09) -Possible PICC line today B/l Lower extremities Lymphedema/Venous stasis -left ankle ulceration, chronic lichenifcations, RE>LE -Consult, Podiatry, Dr. Mcghee: recs' appreciated, Will follow recs'; Dressing changed using bactroban, adaptic, DSD, ABD, RICH to b/l LE Syncope -EKG: Sinus Tachy, ST and T wave abnormality (some new changes from previous EKG ), negative troponin -Will need further cardiac work up after sepsis resolves -Will monitor patient MARIAM -Improved -BUN/Cr; 30/1.6 -Possibly due to dehaydration/sepsis -IVF -F/u labs CAP -CXR (12/08): possible right infiltrate -ID, Dr. Moraes, will follow recs' -C/w Zosyn 2.25 day#3 (12/06/17) HTN -Controlled -C/w Hctz 25 mg po daily. -Will Monitor Morbid Obesity -BMI: 55.8 DVT prophylaxis -Heparin, held today for PICC
[2017-12-09] MEDS: Mupirocin 2% Cream TOP SCH (09:00)
--- NOTE | 2017-12-09 10:20 | CP.PCM.PN ---
Subjective - Date & Time of Evaluation Date of Evaluation: 12/09/17 Time of Evaluation: 09:00 - Subjective Subjective: iv rx in progress + blood cultures appears weak Objective - Vital Signs/Intake and Output Vital Signs (last 24 hours): Temp Pulse Resp BP Pulse Ox 99.1 F 111 H 20 144/71 96 12/09/17 08:29 12/09/17 08:29 12/09/17 08:29 12/09/17 08:29 12/09/17 08:29 - Medications Medications: Current Medications Albuterol/Ipratropium (Duoneb 3 Mg/0.5 Mg (3 Ml) Ud) 3 ml INH RQ6 [facility] Last Admin: 12/09/17 07:43 Dose: 3 ml Hydrochlorothiazide (Hydrodiuril) 25 mg PO DAILY [facility] Last Admin: 12/09/17 08:54 Dose: Not Given Piperacillin Sod/Tazobactam (Sod 2.25 gm/ Sodium Chloride) 100 mls @ 100 mls/ hr IVPB Q8 [facility] PRN Reason: Protocol Last Admin: 12/09/17 08:55 Dose: 100 mls/hr Sodium Chloride (Sodium Chloride 0.9%) 1,000 mls @ 125 mls/hr IV .Q8H [facility] Stop: 12/10/17 07:02 Last Admin: 12/09/17 08:53 Dose: 125 mls/hr Mupirocin (Bactroban Cream) 1 applic TOP DAILY [facility] Last Admin: 12/09/17 09:00 Dose: Not Given - Labs Labs: 12/08/17 06:20 12/08/17 06:20 PT 12.4 Seconds (9.8-13.1) 12/06/17 02:33 INR 1.1 (0.9-1.2) 12/06/17 02:33 APTT 26.1 Seconds (25.6-37.1) 12/06/17 02:33 - Constitutional Appears: Chronically Ill - Head Exam Head Exam: NORMOCEPHALIC - Eye Exam Eye Exam: absent: Scleral icterus - ENT Exam ENT Exam: Mucous Membranes Dry - Neck Exam Neck Exam: absent: Lymphadenopathy - Respiratory Exam Respiratory Exam: Decreased Breath Sounds - Cardiovascular Exam Cardiovascular Exam: REGULAR RHYTHM - GI/Abdominal Exam GI & Abdominal Exam: Distended, Soft - Rectal Exam Rectal Exam: Deferred - Exam Exam: NORMAL INSPECTION - Extremities Exam Extremities Exam: Pedal Edema, Tenderness - Back Exam Back Exam: absent: CVA tenderness (L), CVA tenderness (R) - Neurological Exam Neurological Exam: Alert, Awake, Oriented x3 - Psychiatric Exam Psychiatric exam: Normal Mood - Skin Skin Exam: Dry Assessment and Plan (1) MARIAM (acute kidney injury) Status: Acute (2) Sepsis affecting skin Status: Acute (3) Wound of right lower extremity Status: Acute (4) Cellulitis Status: Chronic (5) Lymphedema of lower extremity Status: Chronic (6) Morbid obesity with BMI of 60.0-69.9, adult Status: Chronic (7) Obstructive sleep apnea of adult Status: Chronic (8) Ulcer of lower extremity Status: Chronic (9) Ulcer of right foot Status: Chronic - Assessment and Plan (Free Text) Assessment: cont IV antibiotics, wound care Plan: cardio eval for SOTERO
--- NOTE | 2017-12-09 11:19 | CP.PCM.CON ---
History of Present Illness - History of Present Illness History of Present Illness: this 52-year-old -[place] Citizen male who has had a history of chronic stasis dermatitis and persistent ulcers was hospitalized with fevers and has shown evidence of bacteremia with blood cultures growing staph aureus. The patient is being treated with intravenous anti-biotics in spite of which she continues to display recurring fevers which exceed 101F. This consultation was requested to evaluate him for possible endocarditis. The patient has been chronically overweight and is being treated for hypertension with hydrochlorothiazide. He denies any history of diabetes or smoking and has no prior history of congestive cardiac failure. He did not undergo a recent dental or urological procedure. Physical examination shows a middle aged extremely obese pleasant - [place] Citizen male. He is not febrile at this juncture but review off his vital signs chart reveals recurring spikes of temperature exceeding 100 and 101F. He is alert awake and coherent. His blood pressure was 120/74 mmHg. His jugular venous pressure could not be evaluated because of a short thick neck. There was lymphedema involving low both lower extremities and chronic-appearing ulcers. The first and second heart sounds are normal there was no murmur or gallop there were no rales. His abdomen was soft and liver and spleen are not palpable. His electrocardiogram showed sinus rhythm with nonspecific ST-T wave changes no evidence of an acute myocardial infarction was detected. Review of his echocardiogram did not reveal any vegetations or significant mitral aortic or tricuspid regurgitation. His lab data was noted. Impression: bacteremia with persistent fevers in a patient with chronic stasis leg ulcers. Transthoracic echocardiogram does not reveal any evidence off endocarditis. I have discussed the case with the residents and arrange for a trans-esophageal echocardiogram. Past Patient History - Infectious Disease Hx of Infectious Diseases: None - Tetanus Immunizations Tetanus Immunization: Unknown - Past Medical History & Family History Past Medical History?: Yes - Past Social History Smoking Status: Former Smoker - CARDIAC Hx Atrial Fibrillation: No Hx Cardia Arrhythmia: No Hx Congestive Heart Failure: No Hx Hypercholesterolemia: No Hx Hypertension: Yes Hx Mitral Valve Prolapse: No Hx Pacemaker: No Hx Peripheral Edema: Yes - PULMONARY Hx Asthma: No Hx Bronchitis: No Hx Chronic Obstructive Pulmonary Disease (COPD): No Hx Emphysema: No Hx Pneumonia: No Hx Pulmonary Embolism: No Hx Sleep Apnea: No - NEUROLOGICAL Hx Neurological Disorder: No - HEENT Hx HEENT Problems: No - RENAL Hx Chronic Kidney Disease: No Hx Kidney Stones: No - ENDOCRINE/METABOLIC Hx Hyperthyroidism: No Hx Hypothyroidism: No - HEMATOLOGICAL/ONCOLOGICAL Hx Anemia: No Hx Human Immunodeficiency Virus (HIV): No Hx Sickle Cell Disease: No - INTEGUMENTARY Hx Dermatological Problems: Yes - MUSCULOSKELETAL/RHEUMATOLOGICAL Hx Arthritis: No Hx Fractures: No Hx Osteoporosis: No Hx Rheumatoid Arthritis: No - GASTROINTESTINAL Hx Gastrointestinal Disorders: No - GENITOURINARY/GYNECOLOGICAL Hx Genitourinary Disorders: No - PSYCHIATRIC Hx Psychophysiologic Disorder: No Hx Substance Use: No - SURGICAL HISTORY Hx Appendectomy: No - ANESTHESIA Hx Anesthesia: No Hx Anesthesia Reactions: No Hx Malignant Hyperthermia: No Meds Allergies/Adverse Reactions: Allergies Allergy/AdvReac Type Severity Reaction Status Date / Time ciprofloxacin [From Cipro] Allergy RASH Verified 03/19/17 15:52 ciprofloxacin HCl Allergy RASH Verified 03/19/17 15:52 [From Cipro] chocolate flavor AdvReac ears run Verified 03/19/17 15:52 - Medications Medications: Current Medications Albuterol/Ipratropium (Duoneb 3 Mg/0.5 Mg (3 Ml) Ud) 3 ml INH RQ6 [facility] Last Admin: 12/09/17 07:43 Dose: 3 ml Hydrochlorothiazide (Hydrodiuril) 25 mg PO DAILY [facility] Last Admin: 12/09/17 08:54 Dose: Not Given Piperacillin Sod/Tazobactam (Sod 2.25 gm/ Sodium Chloride) 100 mls @ 100 mls/ hr IVPB Q8 [facility] PRN Reason: Protocol Last Admin: 12/09/17 08:55 Dose: 100 mls/hr Sodium Chloride (Sodium Chloride 0.9%) 1,000 mls @ 125 mls/hr IV .Q8H [facility] Stop: 12/10/17 07:02 Last Admin: 12/09/17 08:53 Dose: 125 mls/hr Mupirocin (Bactroban Cream) 1 applic TOP DAILY [facility] Last Admin: 12/09/17 09:00 Dose: Not Given Results - Vital Signs Recent Vital Signs: Last Vital Signs Temp 99.1 F 12/09/17 08:29 Pulse 111 H 12/09/17 08:29 Resp 20 12/09/17 08:29 BP 144/71 12/09/17 08:29 Pulse Ox 96 12/09/17 08:29 - Labs Result Diagrams: 12/08/17 06:20 12/08/17 06:20
--- NOTE | 2017-12-09 11:26 | CARD ---
APPROVED REPORT EXAM: Two-dimensional and M-mode echocardiogram with Doppler and color Doppler. Other Information Quality : AverageRhythm : Tachycardia Technically limited study due to body habitus.Apical 4C Views very limited INDICATION Infection: FEVER 2D DIMENSIONS IVSd1.21 (0.7-1.1cm)LVDd5.62 (3.9-5.9cm) LVOT Diameter2.71 (1.8-2.4cm)PWd0.93 (0.7-1.1cm) IVSs1.41 (0.8-1.2cm)LVDs3.65 (2.5-4.0cm) FS (%) 35.1 %PWs1.37 (0.8-1.2cm) M-Mode DIMENSIONS Left Atrium (MM)5.03 (2.5-4.0cm)IVSd1.00 (0.7-1.1cm) Aortic Root3.69 (2.2-3.7cm)LVDd5.75 (4.0-5.6cm) Aortic Cusp Exc.2.66 (1.5-2.0cm)PWd1.19 (0.7-1.1cm) IVSs1.75 cmFS (%) 41 % LVDs3.41 (2.0-3.8cm)PWs1.50 cm Mitral Valve MV E Ldlhqppz06.5cm/sMV DECEL RBGO191ocVI A Wlzlnxhf51.2cm/s MV QKS57znR/A ratio1.2MVA (PHT)3.59cm2 TDI E/Lateral E'0.0E/Medial E'0.0 Pulmonary Valve PV Peak Exrrocmv551.1cm/s LEFT VENTRICLE The left ventricle is normal size. There is normal left ventricular wall thickness. The left ventricular function is normal. The left ventricular ejection fraction is 60-65% There is normal LV segmental wall motion. The left ventricular diastolic function is normal. No left ventricle thrombus noted on this study. There is no ventricular septal defect visualized. There is no left ventricular aneurysm. There is no mass noted in the left ventricle. RIGHT VENTRICLE The right ventricle is normal size. There is normal right ventricular wall thickness. The right ventricular systolic function is normal. ATRIA The left atrium size is normal. The right atrium size is normal. The interatrial septum is intact with no evidence for an atrial septal defect. AORTIC VALVE The aortic valve is normal in structure. No aortic regurgitation is present. There is no aortic valvular stenosis. There is no aortic valvular vegetation. MITRAL VALVE The mitral valve is normal in structure. There is no evidence of mitral valve prolapse. There is no mitral valve stenosis. There is no mitral valve regurgitation noted. TRICUSPID VALVE The tricuspid valve is normal in structure. There is no tricuspid valve regurgitation noted. There is no tricuspid valve prolapse or vegetation. There is no tricuspid valve stenosis. PULMONIC VALVE The pulmonary valve is normal in structure. There is no pulmonic valvular regurgitation. There is no pulmonic valvular stenosis. GREAT VESSELS The aortic root is normal in size. The ascending aorta is normal in size. The IVC is normal in size and collapses >50% with inspiration. PERICARDIAL EFFUSION The pericardium appears normal. There is no pleural effusion. <Conclusion> Normal Echocardiogram
[2017-12-09 14:25] LABS: BASO # 0.1 K/uL (0.0-0.2); BASO % 0.4 % (0.0-2.0); EOS # 0.7 K/uL (0.0-0.7); EOS % 2.7 % (0.0-4.0); LYMPH # 0.9 K/uL (1.0-4.3); LYMPH % 3.8 % (20.0-40.0); MEAN CELL VOLUME 80.7 fl (80.0-94.0); MEAN CORPUSCULAR HEMOGLOBIN 27.2 pg (27.0-31.0); MEAN CORPUSCULAR HGB CONC 33.8 g/dL (33.0-37.0); MEAN PLATELET VOLUME 10.1 fl (7.2-11.7); MONO # 0.7 K/uL (0.0-0.8); MONO % 3.1 % (0.0-10.0); NEUT # 21.8 K/uL (1.8-7.0); NRBC % 0.1 % (0.0-0.0); PLATELET COUNT 109 K/uL (130-400); RBC 4.77 Mil/uL (4.40-5.90); RED CELL DISTRIBUTION WIDTH 17.6 % (11.5-14.5); WHITE BLOOD COUNT 24.2 K/uL (4.8-10.8)
[2017-12-09 14:49] LABS: CALCIUM 7.8 mg/dL (8.4-10.2)
[2017-12-09 15:33] LABS: BANDS 10 % (0-2); LYMPHOCYTE 4 % (20-50); MONOCYTE 2 % (0-10); NEUTROPHIL 84 % (42-75); TOTAL CELLS COUNTED 100
[2017-12-09 15:34] LABS: ANISOCYTOSIS SLIGHT; PLATELET ESTIMATE DECREASED (NORMAL); TOXIC GRANULATION PRESENT
--- NOTE | 2017-12-09 16:31 | RAD ---
PROCEDURE: CHEST RADIOGRAPH, 1 VIEW HISTORY: s/p Central line placement COMPARISON: 12/08/2017 FINDINGS: LUNGS: Perihilar patchy infiltrates accentuated by poor inspiratory effort. PLEURA: No pneumothorax or pleural fluid seen. CARDIOVASCULAR: No radiographic findings to suggest acute or significant cardiovascular disease. Venous access catheter in satisfactory position. OSSEOUS STRUCTURES: No significant abnormalities. VISUALIZED UPPER ABDOMEN: Normal. OTHER FINDINGS: None. IMPRESSION: No adverse findings following right TLC placement the internal jugular approach. No pneumothorax seen. Otherwise no interval change.
[2017-12-09 16:57] LABS: ALB/GLOB RATIO 0.8 (1.0-2.1); BILIRUBIN,DIRECT 1.2 mg/ml (0.0-0.4)
--- NOTE | 2017-12-09 18:28 | CP.PCM.CON ---
History of Present Illness - History of Present Illness History of Present Illness: Surgery Consult note. Dr. Larkin Consulted for: TLC placement 52yo M with PMHx of HTN, Peripheral edema, Bilateral lower extremity elephantiasis here for evaluation of fevers, chills and diarrhea. Patient states that he was admitted to the hospital on 12/06 after being found unconscious by EMS. He states that he ate [employer] and soon after felt nauseous, had diarrhea, and felt ill. He has been in the hospital receiving IV abx since admission. He continues to have fevers with Tmax on 99.9F today. He had a PICC placed however, it was pulled out accidentally upon transferring the patient. He was also found to have bacteremia. Surgery was consulted for TLC placement PMD: Dr. Meyers PMHx: HTN, Perpheral edema, Bilateral lower extremity elephantiasis PSHx: Denies Family Hx: Non-contributory Social Hx: Admits to social ETOH use. Denies Tobacco use. Denies illicit drugs Allergy: Cipro Review of Systems - Review of Systems All systems: reviewed and no additional remarkable complaints except - Constitutional Constitutional: Chills, Fever - Cardiovascular Cardiovascular: absent: Chest Pain, Dyspnea - Respiratory Respiratory: absent: Dyspnea - Gastrointestinal Gastrointestinal: Diarrhea, Nausea, Vomiting. absent: Abdominal Pain - Genitourinary Genitourinary: absent: Dysuria Past Patient History - Infectious Disease Hx of Infectious Diseases: None - Tetanus Immunizations Tetanus Immunization: Unknown - Past Medical History & Family History Past Medical History?: Yes - Past Social History Smoking Status: Former Smoker - CARDIAC Hx Atrial Fibrillation: No Hx Cardia Arrhythmia: No Hx Congestive Heart Failure: No Hx Hypercholesterolemia: No Hx Hypertension: Yes Hx Mitral Valve Prolapse: No Hx Pacemaker: No Hx Peripheral Edema: Yes - PULMONARY Hx Asthma: No Hx Bronchitis: No Hx Chronic Obstructive Pulmonary Disease (COPD): No Hx Emphysema: No Hx Pneumonia: No Hx Pulmonary Embolism: No Hx Sleep Apnea: No - NEUROLOGICAL Hx Neurological Disorder: No - HEENT Hx HEENT Problems: No - RENAL Hx Chronic Kidney Disease: No Hx Kidney Stones: No - ENDOCRINE/METABOLIC Hx Hyperthyroidism: No Hx Hypothyroidism: No - HEMATOLOGICAL/ONCOLOGICAL Hx Anemia: No Hx Human Immunodeficiency Virus (HIV): No Hx Sickle Cell Disease: No - INTEGUMENTARY Hx Dermatological Problems: Yes - MUSCULOSKELETAL/RHEUMATOLOGICAL Hx Arthritis: No Hx Fractures: No Hx Osteoporosis: No Hx Rheumatoid Arthritis: No - GASTROINTESTINAL Hx Gastrointestinal Disorders: No - GENITOURINARY/GYNECOLOGICAL Hx Genitourinary Disorders: No - PSYCHIATRIC Hx Psychophysiologic Disorder: No Hx Substance Use: No - SURGICAL HISTORY Hx Appendectomy: No - ANESTHESIA Hx Anesthesia: No Hx Anesthesia Reactions: No Hx Malignant Hyperthermia: No Meds Allergies/Adverse Reactions: Allergies Allergy/AdvReac Type Severity Reaction Status Date / Time ciprofloxacin [From Cipro] Allergy RASH Verified 03/19/17 15:52 ciprofloxacin HCl Allergy RASH Verified 03/19/17 15:52 [From Cipro] chocolate flavor AdvReac ears run Verified 03/19/17 15:52 - Medications Medications: Current Medications Albuterol/Ipratropium (Duoneb 3 Mg/0.5 Mg (3 Ml) Ud) 3 ml INH RQ6 [facility] Last Admin: 12/09/17 13:10 Dose: 3 ml Heparin Sodium (Porcine) (Heparin) 5,000 units SC Q8 [facility] PRN Reason: Protocol Hydrochlorothiazide (Hydrodiuril) 25 mg PO DAILY [facility] Last Admin: 12/09/17 08:54 Dose: Not Given Piperacillin Sod/Tazobactam (Sod 2.25 gm/ Sodium Chloride) 100 mls @ 100 mls/ hr IVPB Q8 [facility] PRN Reason: Protocol Last Admin: 12/09/17 16:28 Dose: 100 mls/hr Sodium Chloride (Sodium Chloride 0.9%) 1,000 mls @ 125 mls/hr IV .Q8H [facility] Stop: 12/10/17 07:02 Last Admin: 12/09/17 16:29 Dose: 125 mls/hr Mupirocin (Bactroban Cream) 1 applic TOP DAILY [facility] Last Admin: 12/09/17 09:00 Dose: Not Given Physical Exam - Constitutional Appears: Non-toxic, No Acute Distress - Head Exam Head Exam: ATRAUMATIC, NORMAL INSPECTION, NORMOCEPHALIC - Eye Exam Eye Exam: EOMI, Normal appearance. absent: Scleral icterus - ENT Exam ENT Exam: Mucous Membranes Moist - Respiratory Exam Respiratory Exam: Decreased Breath Sounds (bilaterally at lung bases), NORMAL BREATHING PATTERN - Cardiovascular Exam Cardiovascular Exam: RRR. absent: JVD - GI/Abdominal Exam GI & Abdominal Exam: Soft. absent: Distended, Guarding, Rigid, Tenderness - Extremities Exam Additional comments: bilateral lower extremity severe swelling and skin changes. No erythema, no open wounds noted. - Neurological Exam Neurological exam: Alert, Oriented x3 Results - Vital Signs Recent Vital Signs: Last Vital Signs Temp 100.5 F H 12/09/17 15:55 Pulse 117 H 12/09/17 15:55 Resp 20 12/09/17 15:55 BP 114/70 12/09/17 15:55 Pulse Ox 95 12/09/17 15:55 - Labs Result Diagrams: 12/09/17 13:15 12/09/17 13:15 Labs: Laboratory Results - last 24 hr 12/09/17 12/09/17 12/09/17 13:15 13:15 13:15 WBC 24.2 H RBC 4.77 Hgb 13.0 Hct 38.5 MCV 80.7 MCH 27.2 MCHC 33.8 RDW 17.6 H Plt Count 109 L MPV 10.1 Neut % (Auto) 90.0 H Lymph % (Auto) 3.8 L Wirt % (Auto) 3.1 Eos % (Auto) 2.7 Baso % (Auto) 0.4 Neut # (Auto) 21.8 H Lymph # (Auto) 0.9 L Wirt # (Auto) 0.7 Eos # (Auto) 0.7 Baso # (Auto) 0.1 Neutrophils % (Manual) 84 H Band Neutrophils % 10 H Lymphocytes % (Manual) 4 L Monocytes % (Manual) 2 Toxic Granulation Present Platelet Estimate Decreased L Anisocytosis (manual) Slight Sodium 135 Potassium 3.7 Chloride 106 Carbon Dioxide 15 L Anion Gap 18 BUN 29 H Creatinine 1.7 H Est GFR ( Amer) 51 Est GFR (Non-Af Amer) 43 Random Glucose 80 Calcium 7.8 L Total Bilirubin 1.7 H Direct Bilirubin 1.2 H AST 33 ALT 32 Alkaline Phosphatase 80 Total Protein 7.1 Albumin 3.0 L Globulin 4.1 H Albumin/Globulin Ratio 0.8 L Assessment & Plan - Assessment and Plan (Free Text) Assessment: 52yo M with poor venous access, bacteremia in need of IV Abx Plan: - Will place Triple Lumen Catheter, please refer to procedural note - Written consent obtained and on chart - Post-procedure CXR noted. - TLC okay to use. - No further surgical intervention needed at this time. Further recs as per Dr. Chaya Borjas PGY1 surgery pager: [phone]
--- NOTE | 2017-12-09 18:30 | PCM.PROC ---
Procedures Attestation:: I certify that I have explained the specified Operation(s) or Procedure(s), risks, benefits and reasonable alternatives to the Patient and/or other person responsible. The opportunity was given to ask questions and all questions answered - Central Line Placement Right Internal Jugular Triple Lumen Catheter Aseptic technique was employed throughout the procedure: Hand Hygiene done prior to procedure, Full sterile barriers (mask, hair cover, sterile gown, sterile gloves), Full body sterile drape, Chloraprep Antiseptic: 30 second prep for IJ or SC sites CVP Time Out Performed: Yes Pt. Placed on Pulse Ox Monitor: No Central Line Prep: Chlorhexidine-Alcohol Combination Local Anesthesia Used: Lidocaine 1% Amount of Anesthesia Used (mls): 3 Ultrasound Used for Placement: Yes Central Line Lumen Inserted: triple Central Line Length: 20 cm Post Procedure: Sutured in Place, Good Blood Return, All Ports Aspirated, Flushed, Capped, Sterile Dressing Applied Secured by: Suture Post procedure dressing: Clear vapor permeable, Chlorhexidine disc (Biopatch) Post Procedure X-Ray: Yes Patient Tolerated Procedure: Well, No Complications Immediate Complications: None Additional Comments: Written consent obtained and on chart
[2017-12-10] MEDS: Sodium Chloride 0.9% 1,000 ML IV SCH (00:48)
[2017-12-10] MEDS: Albuterol-Ipratrop 3 mg / 0.5 (3 ml) UD INH SCH ×4 (01:06→19:06)
[2017-12-10 05:39] LABS: HEMOGLOBIN 12.2 g/dL (12.0-18.0); MEAN CELL VOLUME 80.6 fl (80.0-94.0); MEAN CORPUSCULAR HEMOGLOBIN 26.1 pg (27.0-31.0); MEAN CORPUSCULAR HGB CONC 32.4 g/dL (33.0-37.0); RBC 4.69 Mil/uL (4.40-5.90); RED CELL DISTRIBUTION WIDTH 17.4 % (11.5-14.5); WHITE BLOOD COUNT 19.1 K/uL (4.8-10.8)
[2017-12-10 05:40] LABS: BASO # 0.1 K/uL (0.0-0.2); BASO % 0.4 % (0.0-2.0); EOS # 0.2 K/uL (0.0-0.7); LYMPH # 0.7 K/uL (1.0-4.3); LYMPH % 3.6 % (20.0-40.0); MEAN PLATELET VOLUME 9.5 fl (7.2-11.7); MONO % 5.1 % (0.0-10.0); NEUT # 17.2 K/uL (1.8-7.0); NEUT % 89.9 % (50.0-75.0)
[2017-12-10 06:07] LABS: CALCIUM 8.2 mg/dL (8.4-10.2)
[2017-12-10] MEDS ORDERED: Potassium Chloride 20 mEq ER Tab PO STA (06:56)
--- NOTE | 2017-12-10 08:35 | CP.PCM.PN ---
Subjective - Date & Time of Evaluation Date of Evaluation: 12/10/17 Time of Evaluation: 07:00 - Subjective Subjective: Patient seen and examined this morning at bedside. NAD, reports watery diarrheas overnight, patient used NC on and off overnight, had 102 F; controlled after Tylenol. Patient denies any vomiting, chest pain, SOB, abdominal pain or urinary symptoms. Patient reports decreased appetite. Objective - Vital Signs/Intake and Output Vital Signs (last 24 hours): Temp Pulse Resp BP Pulse Ox 98.1 F 103 H 18 143/75 98 12/10/17 05:00 12/10/17 07:33 12/10/17 05:00 12/10/17 05:00 12/10/17 05:00 - Medications Medications: Current Medications Albuterol/Ipratropium (Duoneb 3 Mg/0.5 Mg (3 Ml) Ud) 3 ml INH RQ6 [facility] Last Admin: 12/10/17 07:56 Dose: 3 ml Heparin Sodium (Porcine) (Heparin) 5,000 units SC Q8 [facility] PRN Reason: Protocol Last Admin: 12/10/17 00:48 Dose: 5,000 units Hydrochlorothiazide (Hydrodiuril) 25 mg PO DAILY [facility] Last Admin: 12/09/17 08:54 Dose: Not Given Piperacillin Sod/Tazobactam (Sod 2.25 gm/ Sodium Chloride) 100 mls @ 100 mls/ hr IVPB Q8 [facility] PRN Reason: Protocol Last Admin: 12/10/17 00:47 Dose: 100 mls/hr Mupirocin (Bactroban Cream) 1 applic TOP DAILY [facility] Last Admin: 12/09/17 09:00 Dose: Not Given - Labs Labs: 12/10/17 04:20 12/10/17 04:20 PT 12.4 Seconds (9.8-13.1) 12/06/17 02:33 INR 1.1 (0.9-1.2) 12/06/17 02:33 APTT 26.1 Seconds (25.6-37.1) 12/06/17 02:33 - Constitutional Appears: No Acute Distress - Head Exam Head Exam: NORMAL INSPECTION - Eye Exam Eye Exam: Normal appearance - ENT Exam ENT Exam: Mucous Membranes Moist - Neck Exam Neck Exam: Normal Inspection - Respiratory Exam Respiratory Exam: Clear to Ausculation Bilateral, NORMAL BREATHING PATTERN. absent: Rales, Rhonchi, Wheezes - Cardiovascular Exam Cardiovascular Exam: REGULAR RHYTHM - GI/Abdominal Exam GI & Abdominal Exam: Soft, Normal Bowel Sounds. absent: Rigid, Tenderness, Rebound - Extremities Exam Additional comments: Gross edema, thick skin, Venous sta bilateral edema on LEs, severe on RLE, Lichenification seen - Back Exam Back Exam: NORMAL INSPECTION. absent: CVA tenderness (L), CVA tenderness (R) - Neurological Exam Neurological Exam: Alert, Awake, CN II-XII Intact, Oriented x3 - Psychiatric Exam Psychiatric exam: Normal Affect Assessment and Plan - Assessment and Plan (Free Text) Assessment: A/P: 52 y/o Male with PMH of HTN, chronic Peripheral Edema,and chronic b/l lower extremity lymphedema admitted for evaluation and treatment of Syncope and Sepsis. Sepsis due to Group G Strep -Currently afeb (spikes fever at night), leukocytosis -ID, Dr. Morase, will follow recs' -C/w Zosyn 2.25 day#4 (12/06/17) -Blood Cx:(12/06): Group G Strep -Cardio Consult: Dr. Small appreciated -Echo (12/07): no reg or veg, SOTERO recommended -F/u SOTERO -Follow up repeat Blood Cx (12/09) -Monitor VS MARIAM -BUN/Cr; 37/2.5 -Possibly due to dehaydration/sepsis -IVF, Bolus -F/u labs Acute Thrombocytopenia -Possibly due to sepsis -D/c Heparin for now -Follow up HIT anti-plt Abs -Follow up labs Diarrhea -C-diff vs sepsis vs Abx -Will follow up Dr. Fabian -Flagyl was started 12/10 -Will discuses with ID -Follow up stool Cx and Fecal Leuk B/l Lower extremities Lymphedema/Venous stasis -left ankle ulceration, chronic lichenifcations, RE>LE -Consult, Podiatry, Dr. Mcghee: recs' appreciated, Will follow recs'; Dressing changed using bactroban, adaptic, DSD, ABD, RICH to b/l LE Syncope -EKG: Sinus Tachy, ST and T wave abnormality (some new changes from previous EKG ), negative troponin -Will need further cardiac work up after sepsis resolves -Will monitor patient CAP possibly due to bacterial etiology, unknown organism -CXR (12/08): possible right infiltrate -ID, Dr. Moraes, will follow recs' -C/w Zosyn 2.25 day#4 (12/06/17) HTN -Controlled -C/w Hctz 25 mg po daily. -Will Monitor Morbid Obesity -BMI: 55.8 DVT prophylaxis -Heparin, held today,
--- NOTE | 2017-12-10 10:11 | CP.PCM.PN ---
Subjective - Date & Time of Evaluation Date of Evaluation: 12/10/17 Time of Evaluation: 08:00 - Subjective Subjective: events noted denies chest pain had lbm x 1 Objective - Vital Signs/Intake and Output Vital Signs (last 24 hours): Temp Pulse Resp BP Pulse Ox 97.1 F L 103 H 18 134/74 98 12/10/17 08:00 12/10/17 08:00 12/10/17 08:00 12/10/17 08:00 12/10/17 08:00 - Medications Medications: Current Medications Albuterol/Ipratropium (Duoneb 3 Mg/0.5 Mg (3 Ml) Ud) 3 ml INH RQ6 [facility] Last Admin: 12/10/17 07:56 Dose: 3 ml Heparin Sodium (Porcine) (Heparin) 5,000 units SC Q8 [facility] PRN Reason: Protocol Last Admin: 12/10/17 00:48 Dose: 5,000 units Hydrochlorothiazide (Hydrodiuril) 25 mg PO DAILY [facility] Last Admin: 12/09/17 08:54 Dose: Not Given Piperacillin Sod/Tazobactam (Sod 2.25 gm/ Sodium Chloride) 100 mls @ 100 mls/ hr IVPB Q8 [facility] PRN Reason: Protocol Last Admin: 12/10/17 00:47 Dose: 100 mls/hr Metronidazole (Flagyl 500mg/100ml Ns) 100 mls @ 100 mls/hr IVPB Q8 [facility] PRN Reason: Protocol Mupirocin (Bactroban Cream) 1 applic TOP DAILY [facility] Last Admin: 12/09/17 09:00 Dose: Not Given - Labs Labs: 12/10/17 04:20 12/10/17 04:20 PT 12.4 Seconds (9.8-13.1) 12/06/17 02:33 INR 1.1 (0.9-1.2) 12/06/17 02:33 APTT 26.1 Seconds (25.6-37.1) 12/06/17 02:33 - Constitutional Appears: Non-toxic, Chronically Ill - Head Exam Head Exam: NORMOCEPHALIC - Eye Exam Eye Exam: absent: Scleral icterus - ENT Exam ENT Exam: Mucous Membranes Dry - Neck Exam Neck Exam: absent: Lymphadenopathy - Respiratory Exam Respiratory Exam: Decreased Breath Sounds - Cardiovascular Exam Cardiovascular Exam: REGULAR RHYTHM - GI/Abdominal Exam GI & Abdominal Exam: Distended - Rectal Exam Rectal Exam: Deferred - Exam Exam: NORMAL INSPECTION - Extremities Exam Extremities Exam: absent: Pedal Edema - Back Exam Back Exam: absent: CVA tenderness (L), CVA tenderness (R) - Neurological Exam Neurological Exam: Alert, Awake Assessment and Plan (1) MARIAM (acute kidney injury) Status: Acute (2) Sepsis affecting skin Status: Acute (3) Wound of right lower extremity Status: Acute (4) Cellulitis Status: Chronic (5) Lymphedema of lower extremity Status: Chronic (6) Morbid obesity with BMI of 60.0-69.9, adult Status: Chronic (7) Obstructive sleep apnea of adult Status: Chronic (8) Ulcer of lower extremity Status: Chronic (9) Ulcer of right foot Status: Chronic - Assessment and Plan (Free Text) Assessment: cont iv rx wound care Plan: renal eval
[2017-12-10] MEDS: Mupirocin 2% Cream TOP SCH (10:27)
--- NOTE | 2017-12-10 10:31 | CP.PCM.PN ---
Subjective - Date & Time of Evaluation Date of Evaluation: 12/10/17 Time of Evaluation: 10:27 - Subjective Subjective: Podiatry Progress Note for Dr. Romo 52M seen and evaluated at bedside for b/l lymphedema with lichenification of skin and b/l weeping, clinically uninfected wounds secondary to gross edema. Patient is AAO x 3 and NAD, resting in bed. States that he had one episode of watery diarrhea last night. States that shortness of breath is improving. States that shortness of breath has Denies any new pedal complaints. Denies any recent N/V/F/C/CP Objective - Vital Signs/Intake and Output Vital Signs (last 24 hours): Temp Pulse Resp BP Pulse Ox 97.1 F L 103 H 18 134/74 98 12/10/17 08:00 12/10/17 08:00 12/10/17 08:00 12/10/17 08:00 12/10/17 08:00 - Medications Medications: Current Medications Albuterol/Ipratropium (Duoneb 3 Mg/0.5 Mg (3 Ml) Ud) 3 ml INH RQ6 [facility] Last Admin: 12/10/17 07:56 Dose: 3 ml Heparin Sodium (Porcine) (Heparin) 5,000 units SC Q8 [facility] PRN Reason: Protocol Last Admin: 12/10/17 00:48 Dose: 5,000 units Hydrochlorothiazide (Hydrodiuril) 25 mg PO DAILY [facility] Last Admin: 12/09/17 08:54 Dose: Not Given Piperacillin Sod/Tazobactam (Sod 2.25 gm/ Sodium Chloride) 100 mls @ 100 mls/ hr IVPB Q8 [facility] PRN Reason: Protocol Last Admin: 12/10/17 10:26 Dose: 100 mls/hr Metronidazole (Flagyl 500mg/100ml Ns) 100 mls @ 100 mls/hr IVPB Q8 [facility] PRN Reason: Protocol Mupirocin (Bactroban Cream) 1 applic TOP DAILY [facility] Last Admin: 12/09/17 09:00 Dose: Not Given - Labs Labs: 12/10/17 04:20 12/10/17 04:20 PT 12.4 Seconds (9.8-13.1) 12/06/17 02:33 INR 1.1 (0.9-1.2) 12/06/17 02:33 APTT 26.1 Seconds (25.6-37.1) 12/06/17 02:33 - Constitutional Appears: Well, Non-toxic, No Acute Distress - Head Exam Head Exam: ATRAUMATIC, NORMOCEPHALIC - Extremities Exam Additional comments: B/l LE focused exam: Dressings noted to be damp secondary to drainage from legs and intact to b/l LE VASC: DP pulses faintly palpable 1/4, PT pulses non-palpable secondary to LE edema. CFT < 3 seconds to all digits. Temperature gradient is warm to warm from proximal to distal b/l. +3 pitting edema noted extending distally from tibial tuberosity to digits. Right leg is more edematous compared to the left. DERM: Lichenification with tree trunk appearance noted to bilateral lower extremities R>L. Superficial ulceration noted to the medial aspect of the right midleg, measuring approximately 5 cm by 4cm superficial, no malodor, serous drainage noted, no acute signs of infection. 0.5 cm x 0.5 cm superficial ulceration noted to medial left leg. No malodor, serous drainage noted, no acute signs of infection NEURO: Epicritic and protective sensation grossly intact b/l ORTHO: Tenderness on palpation to bilateral lower extremities. Limited ROM at the ankle joint due to increased edema, no pain on palpation of the calf - Neurological Exam Neurological Exam: Alert, Awake, Oriented x3 - Psychiatric Exam Psychiatric exam: Normal Affect, Normal Mood Assessment and Plan - Assessment and Plan (Free Text) Assessment: 52M seen and evaluated at bedside for b/l lymphedema with lichenification of skin and b/l weeping, clinically uninfected wounds secondary to gross edema Plan: Patient seen and evaluated Plan discussed with Dr. Romo Febrile overnight, WBC 19.1 - LE are most likely not a source of infection for patient B/l leg ulcers cleansed with saline, legs lathered with lotion and dressed with adaptic, ABD, DSD, Kirlix No plan for surgical intervention at this time Podiatry will continue to follow while patient in house
[2017-12-10] MEDS: metroNIDAZOLE 500mg/100ml NS 100 ML IVPB SCH ×2 (11:40→17:21)
[2017-12-10] MEDS: Lactated Ringer's 1,000 ML IV SCH (11:40)
[2017-12-11] MEDS: metroNIDAZOLE 500mg/100ml NS 100 ML IVPB SCH ×3 (00:27→17:30)
[2017-12-11] MEDS: Albuterol-Ipratrop 3 mg / 0.5 (3 ml) UD INH SCH ×5 (01:02→19:12)
[2017-12-11 05:41] LABS: BASO # 0.1 K/uL (0.0-0.2); BASO % 0.3 % (0.0-2.0); EOS # 0.1 K/uL (0.0-0.7); EOS % 0.3 % (0.0-4.0); HEMOGLOBIN 12.1 g/dL (12.0-18.0); LYMPH # 0.8 K/uL (1.0-4.3); LYMPH % 4.5 % (20.0-40.0); MEAN CELL VOLUME 81.3 fl (80.0-94.0); MEAN CORPUSCULAR HEMOGLOBIN 26.1 pg (27.0-31.0); MEAN CORPUSCULAR HGB CONC 32.1 g/dL (33.0-37.0); MEAN PLATELET VOLUME 9.7 fl (7.2-11.7); MONO # 1.2 K/uL (0.0-0.8); MONO % 6.5 % (0.0-10.0); NEUT # 16.6 K/uL (1.8-7.0); NEUT % 88.4 % (50.0-75.0); RBC 4.63 Mil/uL (4.40-5.90); RED CELL DISTRIBUTION WIDTH 17.4 % (11.5-14.5); WHITE BLOOD COUNT 18.8 K/uL (4.8-10.8)
[2017-12-11 06:18] LABS: CALCIUM 8.1 mg/dL (8.4-10.2)
[2017-12-11] MEDS ORDERED: Potassium Chloride 20 mEq ER Tab PO STA (06:36)
--- NOTE | 2017-12-11 07:07 | CP.PCM.PN ---
Subjective - Date & Time of Evaluation Date of Evaluation: 12/11/17 Time of Evaluation: 07:45 - Subjective Subjective: Patient seen and examined this morning. NAD, getting his resp treatment, denies any diarrhea overnight. Patient is tolerating liquid, urinating freely. Denies any chest pain, SOB, dizziness, palpitations, abdominal pain, weakness or urinary symptoms. Patient refused SOTERO Objective - Vital Signs/Intake and Output Vital Signs (last 24 hours): Temp Pulse Resp BP Pulse Ox 97.9 F 91 H 18 132/73 97 12/11/17 05:12 12/11/17 05:12 12/11/17 05:12 12/11/17 05:12 12/11/17 05:12 - Medications Medications: Current Medications Albuterol/Ipratropium (Duoneb 3 Mg/0.5 Mg (3 Ml) Ud) 3 ml INH RQ6 COUNT INCLUDES THE [facility] Last Admin: 12/11/17 01:52 Dose: 3 ml Heparin Sodium (Porcine) (Heparin) 5,000 units SC Q8 LAZARA PRN Reason: Protocol Last Admin: 12/10/17 00:48 Dose: 5,000 units Hydrochlorothiazide (Hydrodiuril) 25 mg PO DAILY LAZARA Last Admin: 12/10/17 10:27 Dose: 25 mg Piperacillin Sod/Tazobactam (Sod 2.25 gm/ Sodium Chloride) 100 mls @ 100 mls/ hr IVPB Q8 LAZARA PRN Reason: Protocol Last Admin: 12/11/17 00:28 Dose: 100 mls/hr Metronidazole (Flagyl 500mg/100ml Ns) 100 mls @ 100 mls/hr IVPB Q8 LAZARA PRN Reason: Protocol Last Admin: 12/11/17 00:27 Dose: 100 mls/hr Lactated Ringer's (Lactated Ringer's) 1,000 mls @ 999 mls/hr IV .Q1H1M LAZARA Last Admin: 12/10/17 11:40 Dose: 999 mls/hr Mupirocin (Bactroban Cream) 1 applic TOP DAILY COUNT INCLUDES THE [facility] Last Admin: 12/10/17 10:27 Dose: 1 applic - Labs Labs: 12/11/17 05:30 12/11/17 05:30 PT 12.4 Seconds (9.8-13.1) 12/06/17 02:33 INR 1.1 (0.9-1.2) 12/06/17 02:33 APTT 26.1 Seconds (25.6-37.1) 12/06/17 02:33 - Constitutional Appears: No Acute Distress - Head Exam Head Exam: NORMAL INSPECTION - Eye Exam Eye Exam: Normal appearance Pupil Exam: NORMAL ACCOMODATION - ENT Exam ENT Exam: Mucous Membranes Moist - Neck Exam Neck Exam: Normal Inspection - Respiratory Exam Respiratory Exam: Clear to Ausculation Bilateral, NORMAL BREATHING PATTERN - Cardiovascular Exam Cardiovascular Exam: REGULAR RHYTHM - GI/Abdominal Exam GI & Abdominal Exam: Soft, Normal Bowel Sounds - Extremities Exam Additional comments: Gross edema, thick skin, Venous sta bilateral edema on LEs, severe on RLE, Lichenification seen - Neurological Exam Neurological Exam: Alert, Awake, CN II-XII Intact, Oriented x3 - Psychiatric Exam Psychiatric exam: Normal Affect - Skin Skin Exam: Dry, Intact, Normal Color, Warm Assessment and Plan - Assessment and Plan (Free Text) Assessment: A/P: 52 y/o Male with PMH of HTN, chronic Peripheral Edema,and chronic b/l lower extremity lymphedema admitted for evaluation and treatment of Syncope and Sepsis. Sepsis due to Group G Strep -Currently afeb, leukocytosis -Blood Cx:(12/06): Group G Strep -ID, Dr. Moraes, will follow recs' -C/w Zosyn 2.25 day#5 (12/06/17) -Cardio Consult: Dr. Small appreciated -Echo (12/07): no reg or veg, SOTERO recommended, patient refused SOTERO -Repeat Blood Cx (12/09): NGPD -Monitor VS -F/u CPK MARIAM -BUN/Cr; 47/3.3 today from 37/2.5 -Possibly due to dehaydration/sepsis -F/u Renal US, UA, Utox, immunofixation and complements, CORRIE -F/u labs Acute Thrombocytopenia -Possibly due to sepsis -D/c Heparin for now -Follow up HIT anti-plt Abs -Follow up labs Diarrhea -C-diff vs sepsis vs Abx -Will follow up Dr. Moraes -Flagyl was started 12/10 -Follow up stool Cx and Fecal Leuk B/l Lower extremities Lymphedema/Venous stasis -left ankle ulceration, chronic lichenifcations, RE>LE -Consult, Podiatry, Dr. Mcghee: recs' appreciated, Will follow recs'; Dressing changed using bactroban, adaptic, DSD, ABD, RICH to b/l LE Syncope -EKG: Sinus Tachy, ST and T wave abnormality (some new changes from previous EKG ), negative troponin -Will need further cardiac work up after sepsis resolves -Will monitor patient CAP possibly due to bacterial etiology, unknown organism -CXR (12/08): possible right infiltrate -ID, Dr. Moraes, will follow recs' -C/w Zosyn 2.25 day#5 (12/06/17) HTN -Controlled -C/w Hctz 25 mg po daily. -Will Monitor Morbid Obesity -BMI: 55.8 HIV Screening - f/u HIV DVT prophylaxis -Heparin, held
[2017-12-11] MEDS: Mupirocin 2% Cream TOP SCH (08:46)
--- NOTE | 2017-12-11 09:27 | PQF ---
CDI RESPONSE TEXT: Pneumonia due to bacterial etiology (unknown organism) CDI QUERY TEXT: Pneumonia Specificity Pneumonia is documented in the Medical Record. Please specify the type of pneumonia and the causative organism (includes probable or suspected) Such as: Type: -- Aspiration pneumonia (please also specify the aspirate) -- Bacterial (please document suspected or probable organism) -- Bronchopneumonia (please document suspected or probable organism) -- Interstitial pneumonia -- Organizing pneumonia / BOOP -- Viral -- Other, please specify NOTE: CAP is where the Pneumonia occurred and Not the Type The patient's Clinical Indicators include: Admitted with syncope, L ankle ulcer, chills. + SIRS, Blood CS Group G Streptococcus. CXR on admissio n : No acute disease. Repeat CXR on 12/08: Limited right perihilar patchy atelectasis or infiltrate. Documentation of CAP, MARIAM due to dehydration/sepsis. Treated with Zosyn. Query created by: Teressa Pang on 12/10/2017 8:24 AM Electronically signed by: Marilou Mas 12/11/2017 9:23 AM
[2017-12-11 10:21] LABS: SQUAMOUS EPITHIAL < 1 /hpf (0-5); URINE AMORPHOUS SEDIMENT RARE /ul (<OCC); URINE BACTERIA RARE (<OCC); URINE BILIRUBIN NEGATIVE (NEGATIVE); URINE BLOOD MODERATE (NEGATIVE); URINE CLARITY CLOUDY (Clear); URINE COLOR YELLOW (YELLOW); URINE GLUCOSE (UA) NEG (Normal); URINE LEUKOCYTE ESTERASE NEG Leu/uL (Negative); URINE PROTEIN 30 mg/dL (NEGATIVE); URINE UROBILINOGEN 0.2-1.0 mg/dL (0.2-1.0)
[2017-12-11 10:36] LABS: BARBITURATES, UR NEGATIVE (NEGATIVE); BENZODIAZEPINES, UR NEGATIVE (NEGATIVE); OPIATES, UR NEGATIVE (NEGATIVE); PHENCYCLIDINE, UR NEGATIVE (NEGATIVE)
--- NOTE | 2017-12-11 11:17 | CP.PCM.CON ---
History of Present Illness - History of Present Illness History of Present Illness: This patient however is 52 years of age Afro-[place]hut[place] male I was called to see him for renal consultation because of a rising BUN/creatinine and creatinine. Patient admitted apparently more than a week ago or so and he has been receiving antibiotics he started what appeared to be was vancomycin and now patient is receiving Zosyn with adjusted renal doses. And patient has been treated for severe what appeared to be cellulitis and bacteremia. Patient has extreme lymphedema of the lower extremity for the most part on the right side and morbid obesity. PMH: HTN, chronic Peripheral Edema,and chronic b/l lower extremity lymphedema PSH: Denies Allg: Cipro Med: HCTZ 25mg daily SH: Reports social Alcohol use, denies smoking or illicit drug use FH: Father, decreased, lung cancer. Mother, decreased, Heart failure Review of Systems - Constitutional Constitutional: Malaise. absent: Anorexia, Chills, Weight Loss - Cardiovascular Cardiovascular: Edema, Leg Edema, Leg Ulcers. absent: Chest Pain, Orthopnea - Respiratory Respiratory: absent: Cough, Hemoptysis - Gastrointestinal Gastrointestinal: absent: Abdominal Pain, Coffee Ground Emesis, Nausea - Genitourinary Genitourinary: Nocturia. absent: Flank Pain - Reproductive: Male Reproductive:Male: Sexual Dysfunction - Musculoskeletal Musculoskeletal: Abnormal Gait. absent: Back Pain, Numbness - Neurological Neurological: Abnormal Gait. absent: Confusion, Loss of Vision - Psychiatric Psychiatric: absent: Anxiety - Endocrine Endocrine: Fatigue - Hematologic/Lymphatic Hematologic: absent: Easy Bleeding Past Patient History - Infectious Disease Hx of Infectious Diseases: None - Tetanus Immunizations Tetanus Immunization: Unknown - Past Medical History & Family History Past Medical History?: Yes - Past Social History Alcohol: None Drugs: Denies - CARDIAC Hx Hypertension: Yes Hx Peripheral Edema: Yes - PULMONARY Hx Chronic Obstructive Pulmonary Disease (COPD): No Hx Emphysema: No Hx Pneumonia: No Hx Pulmonary Embolism: No Hx Sleep Apnea: No - NEUROLOGICAL Hx Neurological Disorder: No - HEENT Hx HEENT Problems: No - RENAL Hx Chronic Kidney Disease: No Hx Kidney Stones: No - ENDOCRINE/METABOLIC Hx Hyperthyroidism: No Hx Hypothyroidism: No - HEMATOLOGICAL/ONCOLOGICAL Hx Human Immunodeficiency Virus (HIV): No - INTEGUMENTARY Hx Dermatological Problems: Yes - MUSCULOSKELETAL/RHEUMATOLOGICAL Hx Fractures: No Hx Osteoporosis: No Hx Rheumatoid Arthritis: No - GASTROINTESTINAL Hx Gastrointestinal Disorders: No - GENITOURINARY/GYNECOLOGICAL Hx Genitourinary Disorders: No - PSYCHIATRIC Hx Psychophysiologic Disorder: No Hx Substance Use: No - SURGICAL HISTORY Hx Appendectomy: No - ANESTHESIA Hx Anesthesia: No Hx Anesthesia Reactions: No Hx Malignant Hyperthermia: No Meds Allergies/Adverse Reactions: Allergies Allergy/AdvReac Type Severity Reaction Status Date / Time ciprofloxacin [From Cipro] Allergy RASH Verified 03/19/17 15:52 ciprofloxacin HCl Allergy RASH Verified 03/19/17 15:52 [From Cipro] chocolate flavor AdvReac ears run Verified 03/19/17 15:52 - Medications Medications: Current Medications Albuterol/Ipratropium (Duoneb 3 Mg/0.5 Mg (3 Ml) Ud) 3 ml INH RQ6 LAZARA Last Admin: 12/11/17 08:42 Dose: 3 ml Heparin Sodium (Porcine) (Heparin) 5,000 units SC Q8 LAZARA PRN Reason: Protocol Last Admin: 12/10/17 00:48 Dose: 5,000 units Hydrochlorothiazide (Hydrodiuril) 25 mg PO DAILY [facility] Last Admin: 12/10/17 10:27 Dose: 25 mg Piperacillin Sod/Tazobactam (Sod 2.25 gm/ Sodium Chloride) 100 mls @ 100 mls/ hr IVPB Q8 LAZARA PRN Reason: Protocol Last Admin: 12/11/17 08:51 Dose: 100 mls/hr Metronidazole (Flagyl 500mg/100ml Ns) 100 mls @ 100 mls/hr IVPB Q8 LAZARA PRN Reason: Protocol Last Admin: 12/11/17 08:50 Dose: 100 mls/hr Lactated Ringer's (Lactated Ringer's) 1,000 mls @ 999 mls/hr IV .Q1H1M LAZARA Last Admin: 12/10/17 11:40 Dose: 999 mls/hr Mupirocin (Bactroban Cream) 1 applic TOP DAILY LAZARA Last Admin: 12/11/17 08:46 Dose: Not Given Physical Exam - Constitutional Appears: Older Than Stated Age Additional comments: morbid obesity - Eye Exam Eye Exam: Conjunctival injection - ENT Exam ENT Exam: Mucous Membranes Moist - Neck Exam Neck exam: Negative for: Lymphadenopathy - Respiratory Exam Respiratory Exam: NORMAL BREATHING PATTERN. absent: Chest Wall Tenderness, Wheezes - Cardiovascular Exam Cardiovascular Exam: absent: Gallop, JVD, Rubs - GI/Abdominal Exam GI & Abdominal Exam: Distended, Normal Bowel Sounds - Exam Additional comments: because of the morbid obesity and the severe lymphedema of the right extremity and the upper thigh. His genital appeared to be deformed because of the physical condition - Extremities Exam Extremities exam: Positive for: pedal edema Additional comments: extreme lymphedema mostly on the right side was ulceration and deformity of the skin and the legs are covered because of the cellulitis apparently - Back Exam Back exam: absent: CVA tenderness (L), CVA tenderness (R) - Neurological Exam Neurological exam: Alert - Psychiatric Exam Psychiatric exam: Normal Affect Results - Vital Signs Recent Vital Signs: Last Vital Signs Temp 97.5 F L 12/11/17 08:18 Pulse 111 H 12/11/17 08:18 Resp 20 12/11/17 08:18 BP 130/72 12/11/17 08:18 Pulse Ox 96 12/11/17 08:18 - Labs Result Diagrams: 12/11/17 05:30 12/11/17 05:30 Labs: Laboratory Results - last 24 hr 12/11/17 12/11/17 12/11/17 05:30 05:30 10:08 WBC 18.8 H RBC 4.63 Hgb 12.1 Hct 37.6 MCV 81.3 MCH 26.1 L MCHC 32.1 L RDW 17.4 H Plt Count 109 L D MPV 9.7 Neut % (Auto) 88.4 H Lymph % (Auto) 4.5 L [place] % (Auto) 6.5 Eos % (Auto) 0.3 Baso % (Auto) 0.3 Neut # (Auto) 16.6 H Lymph # (Auto) 0.8 L [place] # (Auto) 1.2 H Eos # (Auto) 0.1 Baso # (Auto) 0.1 Sodium 139 Potassium 3.5 L Chloride 109 H Carbon Dioxide 19 L Anion Gap 15 BUN 47 H Creatinine 3.3 H Est GFR ( Amer) 24 Est GFR (Non-Af Amer) 20 Random Glucose 93 Calcium 8.1 L Urine Color Yellow Urine Clarity Cloudy Urine pH 5.0 Ur Specific [place] 1.015 Urine Protein 30 Urine Glucose (UA) Neg Urine Ketones Trace Urine Blood Moderate Urine Nitrate Negative Urine Bilirubin Negative Urine Urobilinogen 0.2-1.0 Ur Leukocyte Esterase Neg Urine RBC (Auto) 12 H Urine Microscopic WBC 4 Ur Squamous Epith Cells < 1 Amorphous Sediment Rare H Urine Bacteria Rare Urine Opiates Screen Urine Methadone Screen Ur Barbiturates Screen Ur Phencyclidine Scrn Ur Amphetamines Screen U Benzodiazepines Scrn U Oth Cocaine Metabols U Cannabinoids Screen 12/11/17 10:08 WBC RBC Hgb Hct MCV MCH MCHC RDW Plt Count MPV Neut % (Auto) Lymph % (Auto) [place] % (Auto) Eos % (Auto) Baso % (Auto) Neut # (Auto) Lymph # (Auto) [place] # (Auto) Eos # (Auto) Baso # (Auto) Sodium Potassium Chloride Carbon Dioxide Anion Gap BUN Creatinine Est GFR ( Amer) Est GFR (Non-Af Amer) Random Glucose Calcium Urine Color Urine Clarity Urine pH Ur Specific [place] Urine Protein Urine Glucose (UA) Urine Ketones Urine Blood Urine Nitrate Urine Bilirubin Urine Urobilinogen Ur Leukocyte Esterase Urine RBC (Auto) Urine Microscopic WBC Ur Squamous Epith Cells Amorphous Sediment Urine Bacteria Urine Opiates Screen Negative Urine Methadone Screen Negative Ur Barbiturates Screen Negative Ur Phencyclidine Scrn Negative Ur Amphetamines Screen Negative U Benzodiazepines Scrn Negative U Oth Cocaine Metabols Negative U Cannabinoids Screen Negative Assessment & Plan (1) Lymphedema Status: Acute Priority: Medium (2) Sepsis Status: Acute (3) MARIAM (acute kidney injury) Assessment and Plan: Patient appears to have acute kidney injury related to multifactorial from infection to antibiotics among other things. I cannot rule out obstruction however because of the deformity of the bladder and the severe lymphedema of the upper thigh. My recommendation to do ultrasound of the kidney and ultrasound of the bladder after voiding. Morbid obesity Lymphedema bilateral almost more so on the right side History of hypertension Bacteremia with possible sepsis and cellulitis Antibiotics adjustment as per renal dose Stat spot urine for sodium osmolality and creatinine Status: Acute Priority: High
--- NOTE | 2017-12-11 12:27 | CP.PCM.PN ---
Subjective - Date & Time of Evaluation Date of Evaluation: 12/11/17 Time of Evaluation: 09:00 - Subjective Subjective: c/o diarrhea no fever less sob Objective - Vital Signs/Intake and Output Vital Signs (last 24 hours): Temp Pulse Resp BP Pulse Ox 97.5 F L 111 H 20 130/72 96 12/11/17 08:18 12/11/17 08:18 12/11/17 08:18 12/11/17 08:18 12/11/17 08:18 - Medications Medications: Current Medications Albuterol/Ipratropium (Duoneb 3 Mg/0.5 Mg (3 Ml) Ud) 3 ml INH RQ6 LAZARA Last Admin: 12/11/17 08:42 Dose: 3 ml Heparin Sodium (Porcine) (Heparin) 5,000 units SC Q8 LAZARA PRN Reason: Protocol Last Admin: 12/10/17 00:48 Dose: 5,000 units Hydrochlorothiazide (Hydrodiuril) 25 mg PO DAILY [facility] Last Admin: 12/10/17 10:27 Dose: 25 mg Piperacillin Sod/Tazobactam (Sod 2.25 gm/ Sodium Chloride) 100 mls @ 100 mls/ hr IVPB Q8 LAZARA PRN Reason: Protocol Last Admin: 12/11/17 08:51 Dose: 100 mls/hr Metronidazole (Flagyl 500mg/100ml Ns) 100 mls @ 100 mls/hr IVPB Q8 LAZARA PRN Reason: Protocol Last Admin: 12/11/17 08:50 Dose: 100 mls/hr Lactated Ringer's (Lactated Ringer's) 1,000 mls @ 999 mls/hr IV .Q1H1M [facility] Last Admin: 12/10/17 11:40 Dose: 999 mls/hr Ampicillin Sodium/Sulbactam (Sodium 3 gm/ Sodium Chloride) 100 mls @ 100 mls/ hr IVPB Q6 LAZARA PRN Reason: Protocol Mupirocin (Bactroban Cream) 1 applic TOP DAILY [facility] Last Admin: 12/11/17 08:46 Dose: Not Given - Labs Labs: 12/11/17 05:30 12/11/17 05:30 PT 12.4 Seconds (9.8-13.1) 12/06/17 02:33 INR 1.1 (0.9-1.2) 12/06/17 02:33 APTT 26.1 Seconds (25.6-37.1) 12/06/17 02:33 - Constitutional Appears: Non-toxic, Chronically Ill - Head Exam Head Exam: NORMOCEPHALIC - Eye Exam Eye Exam: PERRL - ENT Exam ENT Exam: Mucous Membranes Dry - Neck Exam Neck Exam: absent: Lymphadenopathy - Respiratory Exam Respiratory Exam: Decreased Breath Sounds - Cardiovascular Exam Cardiovascular Exam: REGULAR RHYTHM - GI/Abdominal Exam GI & Abdominal Exam: Distended - Rectal Exam Rectal Exam: Deferred - Exam Exam: NORMAL INSPECTION - Extremities Exam Extremities Exam: Pedal Edema - Back Exam Back Exam: absent: CVA tenderness (L), CVA tenderness (R) - Neurological Exam Neurological Exam: Alert, Awake, Oriented x3 - Psychiatric Exam Psychiatric exam: Normal Mood - Skin Skin Exam: Dry Assessment and Plan (1) MARIAM (acute kidney injury) Status: Acute (2) Sepsis affecting skin Status: Acute (3) Wound of right lower extremity Status: Acute (4) Cellulitis Status: Chronic (5) Lymphedema of lower extremity Status: Chronic (6) Morbid obesity with BMI of 60.0-69.9, adult Status: Chronic (7) Obstructive sleep apnea of adult Status: Chronic (8) Ulcer of lower extremity Status: Chronic (9) Ulcer of right foot Status: Chronic - Assessment and Plan (Free Text) Assessment: switch to unasyn d/c zosyn check c diff iv rx to cont consider SOTERO
[2017-12-11 13:42] LABS: CREATININE, RANDOM URINE 133.9 mg/dL
[2017-12-11] MEDS: cefTRIAXone 2 GM in Sodium Chloride 0.9% 100 ML IVPB SCH (15:14)
[2017-12-11 17:13] LABS: COMPLEMENT C4 54.7 mg/dL (14.0-44.0)
--- NOTE | 2017-12-11 17:43 | US ---
PROCEDURE: Ultrasound of the Kidneys HISTORY: MARIAM COMPARISON: Renal ultrasound dated 09/23/2014. TECHNIQUE: Sonogram of the kidneys. FINDINGS: RIGHT KIDNEY: Enlarged with innumerable cysts, too large to obtain accurate measurement. LEFT KIDNEY: Measures: 14.9 x 6.8 x 7.3 cm. Multiple small cysts, the largest of which include a 1.4 x 1.5 x 0.9 cm upper pole and 1.3 x 1.7 x 1.1 cm mid pole cyst. Normal in size, contour and echogenicity. No stone, solid mass lesion or hydronephrosis visualized. OTHER FINDINGS: None. IMPRESSION: Diffuse polycystic disease involving the right kidney.
--- NOTE | 2017-12-11 17:51 | US ---
PROCEDURE: Ultrasound of the Bladder HISTORY: renal failure COMPARISON: None available. TECHNIQUE: Sonographic evaluation of the bladder was performed. FINDINGS: Unremarkable without wall thickening or intraluminal debris. No calculus or gross mass lesion. No free fluid in pelvis. Prevoid Volume: 134.2 cc. Patient could not void IMPRESSION: Patient could not void.
--- NOTE | 2017-12-11 18:23 | CP.PCM.PN ---
Subjective - Date & Time of Evaluation Date of Evaluation: 12/11/17 Time of Evaluation: 08:00 - Subjective Subjective: Podiatry Progress Note for Dr. Romo 52M seen and evaluated at bedside for b/l lymphedema with lichenification of skin and b/l weeping, clinically uninfected wounds secondary to gross edema. Patient is AAO x 3 and NAD, resting in bed. States that shortness of breath continues to improve. Denies any new pedal complaints. Denies any recent N/V/F/C /CP Objective - Vital Signs/Intake and Output Vital Signs (last 24 hours): Temp Pulse Resp BP Pulse Ox 98.7 F 94 H 20 143/77 97 12/11/17 17:09 12/11/17 17:09 12/11/17 17:09 12/11/17 17:09 12/11/17 17:09 - Medications Medications: Current Medications Albuterol/Ipratropium (Duoneb 3 Mg/0.5 Mg (3 Ml) Ud) 3 ml INH RQ6 LAZARA Last Admin: 12/11/17 13:07 Dose: 3 ml Heparin Sodium (Porcine) (Heparin) 5,000 units SC Q8 LAZARA PRN Reason: Protocol Last Admin: 12/10/17 00:48 Dose: 5,000 units Hydrochlorothiazide (Hydrodiuril) 25 mg PO DAILY [facility]ARA Last Admin: 12/10/17 10:27 Dose: 25 mg Metronidazole (Flagyl 500mg/100ml Ns) 100 mls @ 100 mls/hr IVPB Q8 LAZARA PRN Reason: Protocol Last Admin: 12/11/17 17:30 Dose: 100 mls/hr Lactated Ringer's (Lactated Ringer's) 1,000 mls @ 999 mls/hr IV .Q1H1M [facility]ZARA Last Admin: 12/10/17 11:40 Dose: 999 mls/hr Ceftriaxone Sodium 2 gm/ (Sodium Chloride) 100 mls @ 100 mls/hr IVPB DAILY [facility]ZARA PRN Reason: Protocol Last Admin: 12/11/17 15:14 Dose: 100 mls/hr Mupirocin (Bactroban Cream) 1 applic TOP DAILY [facility] Last Admin: 12/11/17 08:46 Dose: Not Given - Labs Labs: 12/11/17 05:30 12/11/17 05:30 PT 12.4 Seconds (9.8-13.1) 12/06/17 02:33 INR 1.1 (0.9-1.2) 12/06/17 02:33 APTT 26.1 Seconds (25.6-37.1) 12/06/17 02:33 - Constitutional Appears: Well, Non-toxic, No Acute Distress - Head Exam Head Exam: ATRAUMATIC, NORMOCEPHALIC - Extremities Exam Additional comments: B/l LE focused exam: Dressings noted to be C/D/I to b/l LE VASC: DP pulses faintly palpable /, PT pulses non-palpable secondary to LE edema. CFT < 3 seconds to all digits. Temperature gradient is warm to warm from proximal to distal b/l. +3 pitting edema noted extending distally from tibial tuberosity to digits. Right leg is more edematous compared to the left. DERM: Lichenification with tree trunk appearance noted to bilateral lower extremities R>L. Superficial ulceration noted to the medial aspect of the right midleg, measuring approximately 5 cm by 4cm superficial, no malodor, serous drainage noted, no acute signs of infection. 0.5 cm x 0.5 cm superficial ulceration noted to medial left leg. No malodor, serous drainage noted, no acute signs of infection NEURO: Epicritic and protective sensation grossly intact b/l ORTHO: Tenderness on palpation to bilateral lower extremities. Limited ROM at the ankle joint due to increased edema, no pain on palpation of the calf - Neurological Exam Neurological Exam: Alert, Awake, Oriented x3 - Psychiatric Exam Psychiatric exam: Normal Affect, Normal Mood Assessment and Plan - Assessment and Plan (Free Text) Assessment: 52M seen and evaluated at bedside for b/l lymphedema with lichenification of skin and b/l weeping, clinically uninfected wounds secondary to gross edema Plan: Patient seen and evaluated Plan discussed with attending Dr. Romo Afebrile, WBC 18.8 Continue IV abx No plan for surgical intervention at this time Podiatry will continue to follow while patient in house
[2017-12-12] MEDS: metroNIDAZOLE 500mg/100ml NS 100 ML IVPB SCH ×3 (00:47→16:40)
[2017-12-12] MEDS: Albuterol-Ipratrop 3 mg / 0.5 (3 ml) UD INH SCH ×4 (01:05→19:34)
[2017-12-12 06:08] LABS: BASO # 0.1 K/uL (0.0-0.2); BASO % 0.4 % (0.0-2.0); EOS # 0.1 K/uL (0.0-0.7); EOS % 0.6 % (0.0-4.0); HEMOGLOBIN 12.2 g/dL (12.0-18.0); LYMPH % 4.5 % (20.0-40.0); MEAN CELL VOLUME 81.8 fl (80.0-94.0); MEAN CORPUSCULAR HEMOGLOBIN 25.8 pg (27.0-31.0); MEAN CORPUSCULAR HGB CONC 31.5 g/dL (33.0-37.0); MEAN PLATELET VOLUME 9.7 fl (7.2-11.7); MONO # 1.4 K/uL (0.0-0.8); MONO % 6.3 % (0.0-10.0); NEUT % 88.2 % (50.0-75.0); NRBC % 0.1 % (0.0-0.0); RBC 4.72 Mil/uL (4.40-5.90); RED CELL DISTRIBUTION WIDTH 17.1 % (11.5-14.5); WHITE BLOOD COUNT 21.5 K/uL (4.8-10.8)
[2017-12-12 06:59] LABS: ALB/GLOB RATIO 0.7 (1.0-2.1); ALBUMIN 2.9 g/dL (3.5-5.0); CALCIUM 8.3 mg/dL (8.4-10.2)
--- NOTE | 2017-12-12 08:54 | CP.PCM.PN ---
Subjective - Date & Time of Evaluation Date of Evaluation: 12/12/17 Time of Evaluation: 07:00 - Subjective Subjective: Patient seen and examined this morning at bedside. NAD, reports 3 watery BM so far overnight, Patient is tolerating liquid. Denies any f/c/n/v/, chest pain, dizziness, SOB, abdominal pain, urinary symptoms or LEs weakness. Objective - Vital Signs/Intake and Output Vital Signs (last 24 hours): Temp Pulse Resp BP Pulse Ox 97.4 F L 77 20 159/60 H 98 12/12/17 08:03 12/12/17 08:03 12/12/17 08:03 12/12/17 08:03 12/12/17 08:03 - Medications Medications: Current Medications Albuterol/Ipratropium (Duoneb 3 Mg/0.5 Mg (3 Ml) Ud) 3 ml INH RQ6 [facility] Last Admin: 12/12/17 07:44 Dose: 3 ml Heparin Sodium (Porcine) (Heparin) 5,000 units SC Q8 [facility] PRN Reason: Protocol Last Admin: 12/10/17 00:48 Dose: 5,000 units Hydrochlorothiazide (Hydrodiuril) 25 mg PO DAILY [facility] Last Admin: 12/10/17 10:27 Dose: 25 mg Metronidazole (Flagyl 500mg/100ml Ns) 100 mls @ 100 mls/hr IVPB Q8 [facility] PRN Reason: Protocol Last Admin: 12/12/17 00:47 Dose: 100 mls/hr Lactated Ringer's (Lactated Ringer's) 1,000 mls @ 999 mls/hr IV .Q1H1M [facility] Last Admin: 12/10/17 11:40 Dose: 999 mls/hr Ceftriaxone Sodium 2 gm/ (Sodium Chloride) 100 mls @ 100 mls/hr IVPB DAILY [facility] PRN Reason: Protocol Last Admin: 12/11/17 15:14 Dose: 100 mls/hr Mupirocin (Bactroban Cream) 1 applic TOP DAILY [facility] Last Admin: 12/11/17 08:46 Dose: Not Given - Labs Labs: 12/12/17 04:35 12/12/17 04:35 PT 12.4 Seconds (9.8-13.1) 12/06/17 02:33 INR 1.1 (0.9-1.2) 12/06/17 02:33 APTT 26.1 Seconds (25.6-37.1) 12/06/17 02:33 - Constitutional Appears: No Acute Distress - Head Exam Head Exam: NORMAL INSPECTION - Eye Exam Eye Exam: Normal appearance - ENT Exam ENT Exam: Mucous Membranes Moist - Neck Exam Neck Exam: Normal Inspection - Respiratory Exam Respiratory Exam: Clear to Ausculation Bilateral, NORMAL BREATHING PATTERN - Cardiovascular Exam Cardiovascular Exam: REGULAR RHYTHM, +S1, +S2 - GI/Abdominal Exam GI & Abdominal Exam: Soft, Normal Bowel Sounds - Extremities Exam Additional comments: Gross edema, thick skin, Venous sta bilateral edema on LEs, severe on RLE, Lichenification seen - Neurological Exam Neurological Exam: Alert, Awake, Oriented x3 - Psychiatric Exam Psychiatric exam: Normal Affect - Skin Skin Exam: Normal Color Assessment and Plan - Assessment and Plan (Free Text) Assessment: A/P: 52 y/o Male with PMH of HTN, chronic Peripheral Edema,and chronic b/l lower extremity lymphedema admitted for evaluation and treatment of Syncope and Sepsis. Sepsis due to Group G Strep -Currently afeb, leukocytosis -Blood Cx:(12/06): Group G Strep -ID, Dr. Moraes, will follow recs' -C/w Zosyn 2.25 day#5 (12/06/17) -Cardio Consult: Dr. Small appreciated -Echo (12/07): no reg or veg, SOTERO recommended, patient refused SOTERO -Repeat Blood Cx (12/09): NGPD -Monitor VS -CPK 175 -C/w Rocephin 2gm daily for 4 weeks (empiric treatment of endocarditis) day 1 () MARIAM -BUN/Cr; 61/3.7 -NephroDr, Pearl consult appreciated -Renal U/S: R kidney Polycystic disease -Comple C4 Positive, 54.7 -F/u CORRIE -F/u Renal Scan Acute Thrombocytopenia -Possibly due to sepsis -D/c Heparin for now -Follow up HIT anti-plt Abs -Follow up labs Diarrhea -C-diff vs sepsis vs Abx -Will follow up Dr. Moraes -Flagyl was started 12/10 -Fecal Leuk negative -Follow up stool Cx B/l Lower extremities Lymphedema/Venous stasis -left ankle ulceration, chronic lichenifcations, RE>LE -Consult, Podiatry, Dr. Mcghee: recs' appreciated, Will follow recs'; Dressing changed using bactroban, adaptic, DSD, ABD, RICH to b/l LE Syncope -EKG: Sinus Tachy, ST and T wave abnormality (some new changes from previous EKG ), negative troponin -Will need further cardiac work up after sepsis resolves -Will monitor patient CAP possibly due to bacterial etiology, unknown organism -CXR (12/08): possible right infiltrate -ID, Dr. Moraes, will follow recs' -C/w Rocephin HTN -Controlled -Hold Hctz 25 mg po daily. -Will Monitor Morbid Obesity -BMI: 55.8 HIV Screening - HIV rapid negative DVT prophylaxis -Heparin, held (follow up HIT plt Abs)
[2017-12-12] MEDS: Mupirocin 2% Cream TOP SCH (10:40)
--- NOTE | 2017-12-12 10:40 | CP.PCM.PN ---
Subjective - Date & Time of Evaluation Date of Evaluation: 12/12/17 Time of Evaluation: 10:37 - Subjective Subjective: Patient appears to be awake and conscious not in acute distress. Vital sign noted no vomiting or diarrhea reported Objective - Vital Signs/Intake and Output Vital Signs (last 24 hours): Temp Pulse Resp BP Pulse Ox 97.4 F L 77 20 159/60 H 98 12/12/17 08:03 12/12/17 08:03 12/12/17 08:03 12/12/17 08:03 12/12/17 08:03 - Medications Medications: Current Medications Albuterol/Ipratropium (Duoneb 3 Mg/0.5 Mg (3 Ml) Ud) 3 ml INH RQ6 [facility] Last Admin: 12/12/17 07:44 Dose: 3 ml Heparin Sodium (Porcine) (Heparin) 5,000 units SC Q8 [facility] PRN Reason: Protocol Last Admin: 12/10/17 00:48 Dose: 5,000 units Hydrochlorothiazide (Hydrodiuril) 25 mg PO DAILY [facility] Last Admin: 12/10/17 10:27 Dose: 25 mg Metronidazole (Flagyl 500mg/100ml Ns) 100 mls @ 100 mls/hr IVPB Q8 [facility] PRN Reason: Protocol Last Admin: 12/12/17 00:47 Dose: 100 mls/hr Lactated Ringer's (Lactated Ringer's) 1,000 mls @ 999 mls/hr IV .Q1H1M [facility] Last Admin: 12/10/17 11:40 Dose: 999 mls/hr Ceftriaxone Sodium 2 gm/ (Sodium Chloride) 100 mls @ 100 mls/hr IVPB DAILY [facility] PRN Reason: Protocol Last Admin: 12/11/17 15:14 Dose: 100 mls/hr Mupirocin (Bactroban Cream) 1 applic TOP DAILY [facility] Last Admin: 12/11/17 08:46 Dose: Not Given - Labs Labs: 12/12/17 04:35 12/12/17 04:35 PT 12.4 Seconds (9.8-13.1) 12/06/17 02:33 INR 1.1 (0.9-1.2) 12/06/17 02:33 APTT 26.1 Seconds (25.6-37.1) 12/06/17 02:33 - Constitutional Appears: No Acute Distress - Eye Exam Eye Exam: Conjunctival injection - ENT Exam ENT Exam: Mucous Membranes Moist - Neck Exam Neck Exam: absent: Lymphadenopathy - Respiratory Exam Respiratory Exam: NORMAL BREATHING PATTERN. absent: Chest Wall Tenderness - Cardiovascular Exam Cardiovascular Exam: absent: Gallop, JVD, Rubs - GI/Abdominal Exam GI & Abdominal Exam: Soft, Normal Bowel Sounds - Extremities Exam Additional comments: Bilateral lymphedema of the lower extremity more so on the right side and bilateral weeping of the lower extremity from the skin and part of the skin is covered. - Back Exam Back Exam: absent: CVA tenderness (L), CVA tenderness (R) - Neurological Exam Neurological Exam: Alert - Psychiatric Exam Psychiatric exam: Normal Affect - Skin Skin Exam: absent: Cyanosis Assessment and Plan (1) Lymphedema Status: Acute (2) Sepsis Status: Acute (3) MARIAM (acute kidney injury) Assessment & Plan: Acute kidney injury appears to be worsening with continue rising creatinine. 3.7 the latest. Worsening leukocytosis continue to rise Most likely acute kidney injury related to sepsis bacteremia and cellulitis among other possible. Ultrasound of the kidney noted with large cyst of the right side occupying mostt of the kidney? And raising the possibility the functioning of that kidney. Therefore my recommendation to do renal scan to see the functioning of both kidneys. Hypertension appears to be controlled Morbid obesity Bilateral lymphedema more so on the right side. Status: Acute
[2017-12-12] MEDS: cefTRIAXone 2 GM in Sodium Chloride 0.9% 100 ML IVPB SCH (12:22)
[2017-12-13] MEDS: Albuterol-Ipratrop 3 mg / 0.5 (3 ml) UD INH SCH ×3 (01:38→13:28)
[2017-12-13] MEDS: metroNIDAZOLE 500mg/100ml NS 100 ML IVPB SCH ×3 (03:42→16:49)
[2017-12-13 06:14] LABS: BASO # 0.1 K/uL (0.0-0.2); BASO % 0.4 % (0.0-2.0); EOS # 0.3 K/uL (0.0-0.7); EOS % 1.2 % (0.0-4.0); HEMOGLOBIN 12.1 g/dL (12.0-18.0); LYMPH # 1.1 K/uL (1.0-4.3); MEAN CELL VOLUME 81.5 fl (80.0-94.0); MEAN CORPUSCULAR HEMOGLOBIN 25.8 pg (27.0-31.0); MEAN CORPUSCULAR HGB CONC 31.6 g/dL (33.0-37.0); MEAN PLATELET VOLUME 9.3 fl (7.2-11.7); MONO # 1.7 K/uL (0.0-0.8); MONO % 6.3 % (0.0-10.0); NEUT # 22.9 K/uL (1.8-7.0); NEUT % 88.1 % (50.0-75.0); NRBC % 0.1 % (0.0-0.0); PLATELET COUNT 292 K/uL (130-400); RBC 4.71 Mil/uL (4.40-5.90); RED CELL DISTRIBUTION WIDTH 17.8 % (11.5-14.5); WHITE BLOOD COUNT 26.1 K/uL (4.8-10.8)
[2017-12-13 06:21] LABS: ALB/GLOB RATIO 0.7 (1.0-2.1); ALBUMIN 2.9 g/dL (3.5-5.0); CALCIUM 8.2 mg/dL (8.4-10.2)
[2017-12-13] MEDS ORDERED: Potassium Chloride 20 mEq ER Tab PO STA (06:49)
--- NOTE | 2017-12-13 07:57 | CP.PCM.PN ---
Subjective - Date & Time of Evaluation Date of Evaluation: 12/13/17 Time of Evaluation: 07:55 - Subjective Subjective: Podiatry progress note for Dr. Romo, 52YO male seen and evaluated at bedside for B/L LE lymphedema with lichenification of skin and B/L weeping, clinically noninfected wounds secondary to gross edema. Patient is AAOx3 and NAD, resting comfortably in bed. Patient denies any new pedal complaints. Patient denies any overnight acute events. Denies any recent N/V/F/C/SOB Objective - Vital Signs/Intake and Output Vital Signs (last 24 hours): Temp Pulse Resp BP Pulse Ox 98.3 F 86 18 118/70 98 12/13/17 05:26 12/13/17 05:26 12/13/17 05:26 12/13/17 05:26 12/13/17 05:26 - Medications Medications: Current Medications Albuterol/Ipratropium (Duoneb 3 Mg/0.5 Mg (3 Ml) Ud) 3 ml INH RQ6 [facility] Last Admin: 12/13/17 01:38 Dose: 3 ml Hydrochlorothiazide (Hydrodiuril) 25 mg PO DAILY [facility] Last Admin: 12/10/17 10:27 Dose: 25 mg Metronidazole (Flagyl 500mg/100ml Ns) 100 mls @ 100 mls/hr IVPB Q8 [facility] PRN Reason: Protocol Last Admin: 12/13/17 03:42 Dose: 100 mls/hr Lactated Ringer's (Lactated Ringer's) 1,000 mls @ 999 mls/hr IV .Q1H1M [facility] Last Admin: 12/10/17 11:40 Dose: 999 mls/hr Ceftriaxone Sodium 2 gm/ (Sodium Chloride) 100 mls @ 100 mls/hr IVPB DAILY [facility] PRN Reason: Protocol Last Admin: 12/12/17 12:22 Dose: 100 mls/hr Mupirocin (Bactroban Cream) 1 applic TOP DAILY [facility] Last Admin: 12/12/17 10:40 Dose: Not Given - Labs Labs: 12/13/17 05:10 12/13/17 05:10 PT 12.4 Seconds (9.8-13.1) 12/06/17 02:33 INR 1.1 (0.9-1.2) 12/06/17 02:33 APTT 26.1 Seconds (25.6-37.1) 12/06/17 02:33 - Constitutional Appears: Well, Non-toxic, No Acute Distress - Head Exam Head Exam: ATRAUMATIC, NORMOCEPHALIC - Extremities Exam Additional comments: B/L LE focused exam: VASC: DP pulses faintly palpable 1/4, PT pulses non-palpable secondary to LE edema. CFT < 3 seconds to all digits. Temperature gradient is warm to warm.+3 pitting, R>L. DERM: Lichenification with tree trunk appearance noted to bilateral lower extremities R>L. Superficial ulceration noted to the medial aspect of the right midleg, measuring approximately 5 cm by 4cm superficial, no malodor, serous drainage noted, no acute signs of infection. 0.5 cm x 0.5 cm superficial ulceration noted to medial left leg. No malodor, serous drainage noted, no acute signs of infection NEURO: Protective sensation grossly intact b/l ORTHO: Tenderness on palpation to bilateral lower extremities. Limited ROM at the ankle joint due to increased edema, no pain on palpation of the calf - Neurological Exam Neurological Exam: Alert, Awake, Oriented x3 - Psychiatric Exam Psychiatric exam: Normal Affect, Normal Mood - Skin Skin Exam: Normal Color Assessment and Plan - Assessment and Plan (Free Text) Assessment: 52M seen and evaluated at bedside for b/l lymphedema with lichenification of skin and b/l weeping, clinically uninfected wounds secondary to gross edema Plan: Patient seen and evaluated Chart, labs, and vitals reviewed; Afebrile WBC 26.1 from 21.5 Plan discussed in detail with attending Dr. Romo Continue IV abx Betadine soaked dressing applied to posterior aspect of right leg, DSD and continued application of RICH b/l No plan for surgical intervention at this time Podiatry will continue to follow while patient in house
--- NOTE | 2017-12-13 08:26 | CP.PCM.PN ---
Subjective - Date & Time of Evaluation Date of Evaluation: 12/13/17 Time of Evaluation: 08:25 - Subjective Subjective: Patient M bed appears to be comfortable no acute distress. Patient stated that he is eating okay no nausea or vomiting Objective - Vital Signs/Intake and Output Vital Signs (last 24 hours): Temp Pulse Resp BP Pulse Ox 98.3 F 86 18 118/70 98 12/13/17 05:26 12/13/17 05:26 12/13/17 05:26 12/13/17 05:26 12/13/17 05:26 - Medications Medications: Current Medications Albuterol/Ipratropium (Duoneb 3 Mg/0.5 Mg (3 Ml) Ud) 3 ml INH RQ6 [facility] Last Admin: 12/13/17 08:00 Dose: 3 ml Hydrochlorothiazide (Hydrodiuril) 25 mg PO DAILY [facility] Last Admin: 12/10/17 10:27 Dose: 25 mg Metronidazole (Flagyl 500mg/100ml Ns) 100 mls @ 100 mls/hr IVPB Q8 [facility] PRN Reason: Protocol Last Admin: 12/13/17 03:42 Dose: 100 mls/hr Lactated Ringer's (Lactated Ringer's) 1,000 mls @ 999 mls/hr IV .Q1H1M [facility] Last Admin: 12/10/17 11:40 Dose: 999 mls/hr Ceftriaxone Sodium 2 gm/ (Sodium Chloride) 100 mls @ 100 mls/hr IVPB DAILY [facility] PRN Reason: Protocol Last Admin: 12/12/17 12:22 Dose: 100 mls/hr Mupirocin (Bactroban Cream) 1 applic TOP DAILY [facility] Last Admin: 12/12/17 10:40 Dose: Not Given - Labs Labs: 12/13/17 05:10 12/13/17 05:10 PT 12.4 Seconds (9.8-13.1) 12/06/17 02:33 INR 1.1 (0.9-1.2) 12/06/17 02:33 APTT 26.1 Seconds (25.6-37.1) 12/06/17 02:33 - Constitutional Appears: No Acute Distress - Eye Exam Eye Exam: Conjunctival injection - ENT Exam ENT Exam: Mucous Membranes Moist - Neck Exam Neck Exam: absent: Lymphadenopathy - Respiratory Exam Respiratory Exam: absent: Chest Wall Tenderness - GI/Abdominal Exam GI & Abdominal Exam: Soft, Normal Bowel Sounds - Extremities Exam Extremities Exam: absent: Calf Tenderness - Back Exam Back Exam: absent: CVA tenderness (L), CVA tenderness (R) - Neurological Exam Neurological Exam: Alert - Skin Skin Exam: absent: Cyanosis Assessment and Plan (1) Lymphedema Status: Acute (2) Sepsis Status: Acute (3) MARIAM (acute kidney injury) Assessment & Plan: Acute kidney injury appears to show mild improvement,slight decrease in serum creatinine Worsening leukocytosis continue to rise,latest [id number] Most likely acute kidney injury related to sepsis bacteremia and cellulitis among other possible. Ultrasound of the kidney noted with large cyst of the right side occupying mostt of the kidney? And raising the possibility the functioning of that kidney. Therefore my recommendation to do renal scan to see the functioning of both kidneys. Hypertension appears to be controlled Morbid obesity Bilateral lymphedema more so on the right side. hypokalemia patient needed potassium supplement Status: Acute
--- NOTE | 2017-12-13 08:41 | CP.PCM.PN ---
Subjective - Date & Time of Evaluation Date of Evaluation: 12/13/17 Time of Evaluation: 07:30 - Subjective Subjective: Patient seen and examined this morning. NAD, no acute event overnight. Patient reports 1 episode of small watery BM overnight but improved than yesterday. Patient reports improved appetite, No more fever, denies any dizziness, SOB, chest pain, abdominal pain or urinary symptoms. Objective - Vital Signs/Intake and Output Vital Signs (last 24 hours): Temp Pulse Resp BP Pulse Ox 97.7 F 86 20 121/76 96 12/13/17 08:00 12/13/17 08:00 12/13/17 08:00 12/13/17 08:00 12/13/17 08:00 - Medications Medications: Current Medications Albuterol/Ipratropium (Duoneb 3 Mg/0.5 Mg (3 Ml) Ud) 3 ml INH RQ6 [facility] Last Admin: 12/13/17 08:00 Dose: 3 ml Hydrochlorothiazide (Hydrodiuril) 25 mg PO DAILY [facility] Last Admin: 12/10/17 10:27 Dose: 25 mg Metronidazole (Flagyl 500mg/100ml Ns) 100 mls @ 100 mls/hr IVPB Q8 [facility] PRN Reason: Protocol Last Admin: 12/13/17 03:42 Dose: 100 mls/hr Lactated Ringer's (Lactated Ringer's) 1,000 mls @ 999 mls/hr IV .Q1H1M [facility] Last Admin: 12/10/17 11:40 Dose: 999 mls/hr Ceftriaxone Sodium 2 gm/ (Sodium Chloride) 100 mls @ 100 mls/hr IVPB DAILY [facility] PRN Reason: Protocol Last Admin: 12/12/17 12:22 Dose: 100 mls/hr Mupirocin (Bactroban Cream) 1 applic TOP DAILY [facility] Last Admin: 12/12/17 10:40 Dose: Not Given - Labs Labs: 12/13/17 05:10 12/13/17 05:10 PT 12.4 Seconds (9.8-13.1) 12/06/17 02:33 INR 1.1 (0.9-1.2) 12/06/17 02:33 APTT 26.1 Seconds (25.6-37.1) 12/06/17 02:33 - Constitutional Appears: No Acute Distress - Head Exam Head Exam: NORMAL INSPECTION - Eye Exam Eye Exam: EOMI, Normal appearance, PERRL Pupil Exam: NORMAL ACCOMODATION - ENT Exam ENT Exam: Mucous Membranes Moist - Neck Exam Neck Exam: Normal Inspection - Respiratory Exam Respiratory Exam: Clear to Ausculation Bilateral, NORMAL BREATHING PATTERN - Cardiovascular Exam Cardiovascular Exam: REGULAR RHYTHM, +S1, +S2 - GI/Abdominal Exam GI & Abdominal Exam: Soft, Normal Bowel Sounds. absent: Tenderness - Extremities Exam Additional comments: Gross edema, thick skin, Venous sta bilateral edema on LEs, severe on RLE, Lichenification seen - Back Exam Back Exam: NORMAL INSPECTION. absent: CVA tenderness (L), CVA tenderness (R) - Neurological Exam Neurological Exam: Alert, Awake, CN II-XII Intact, Oriented x3 - Psychiatric Exam Psychiatric exam: Normal Affect - Skin Skin Exam: Normal Color Assessment and Plan - Assessment and Plan (Free Text) Assessment: A/P: 52 y/o Male with PMH of HTN, chronic Peripheral Edema,and chronic b/l lower extremity lymphedema admitted for evaluation and treatment of Syncope and Sepsis. Sepsis due to Group G Strep -Currently afeb, leukocytosis -Blood Cx:(12/06): Group G Strep -ID, Dr. Moraes, will follow recs' -S/p Zosyn and Rocephin -Cardio Consult: Dr. Small appreciated -Echo (12/07): no reg or veg, SOTERO recommended, patient refused SOTERO -Repeat Blood Cx (12/09): NGPD -Cefepime 1g Q12 was started (12/13/17) by ID MARIAM -BUN/Cr; 64/3.4 -Nephro, Ryanne Moreira consult appreciated -Renal U/S: R kidney Polycystic disease -Comple C4 and CH50 Positive, Immunofixation negative -F/u CORRIE -F/u Renal Scan (12/13/17) -Will follow Nephro recommendations -Bolus 2 L today Acute Thrombocytopenia -Possibly due to sepsis -D/c Heparin for now -Follow up HIT anti-plt Abs Diarrhea -C-diff vs sepsis vs Abx -Will follow up Dr. Moraes -Flagyl was started 12/10 -Fecal Leuk negative -Stool Cx negative B/l Lower extremities Lymphedema/Venous stasis -left ankle ulceration, chronic lichenifcations, RE>LE -Consult, Podiatry, Dr. Mcghee: recs' appreciated, Will follow recs'; Dressing changed using bactroban, adaptic, DSD, ABD, RICH to b/l LE Syncope -EKG: Sinus Tachy, ST and T wave abnormality (some new changes from previous EKG ), negative troponin -Will need further cardiac work up after sepsis resolves -Will monitor patient CAP possibly due to bacterial etiology, unknown organism -CXR (12/08): possible right infiltrate -ID, Dr. Moraes, will follow recs' -C/w Cefepime -F/u CXR (12/14/17) HTN -Controlled -Hold Hctz 25 mg po daily. -Will Monitor Morbid Obesity -BMI: 55.8 HIV Screening - HIV rapid negative DVT prophylaxis -Heparin, held (follow up HIT plt Abs)
[2017-12-13 10:03] LABS: ANISOCYTOSIS SLIGHT; BANDS 5 % (0-2); EOSINOPHIL 1 % (0-7); LYMPHOCYTE 4 % (20-50); METAMYELOCYTE 1 % (0-0); MONOCYTE 7 % (0-10); MYELOCYTE 1 % (0-0); NEUTROPHIL 81 % (42-75); PLATELET ESTIMATE NORMAL (NORMAL); TOTAL CELLS COUNTED 100
[2017-12-13 10:04] LABS: OVALOCYTES SLIGHT; TEARDROP CELLS SLIGHT
[2017-12-13] MEDS: cefTRIAXone 2 GM in Sodium Chloride 0.9% 100 ML IVPB SCH (10:51)
[2017-12-13] MEDS: Mupirocin 2% Cream TOP SCH (11:05)
--- NOTE | 2017-12-13 12:48 | CP.PCM.PN ---
Subjective - Date & Time of Evaluation Date of Evaluation: 12/13/17 Time of Evaluation: 08:00 - Subjective Subjective: LEUKOCYTOSIS BUT NO FEVER NO NEW CULTURES AWAKE AND ALERT Objective - Vital Signs/Intake and Output Vital Signs (last 24 hours): Temp Pulse Resp BP Pulse Ox 97.7 F 86 20 121/76 96 12/13/17 08:00 12/13/17 08:00 12/13/17 08:00 12/13/17 08:00 12/13/17 08:00 - Medications Medications: Current Medications Albuterol/Ipratropium (Duoneb 3 Mg/0.5 Mg (3 Ml) Ud) 3 ml INH RQ6 [facility] Last Admin: 12/13/17 08:00 Dose: 3 ml Hydrochlorothiazide (Hydrodiuril) 25 mg PO DAILY [facility] Last Admin: 12/10/17 10:27 Dose: 25 mg Metronidazole (Flagyl 500mg/100ml Ns) 100 mls @ 100 mls/hr IVPB Q8 [facility] PRN Reason: Protocol Last Admin: 12/13/17 10:50 Dose: 100 mls/hr Lactated Ringer's (Lactated Ringer's) 1,000 mls @ 999 mls/hr IV .Q1H1M [facility] Last Admin: 12/10/17 11:40 Dose: 999 mls/hr Ceftriaxone Sodium 2 gm/ (Sodium Chloride) 100 mls @ 100 mls/hr IVPB DAILY [facility] PRN Reason: Protocol Last Admin: 12/13/17 10:51 Dose: 100 mls/hr Sodium Chloride (Sodium Chloride 0.9%) 1,000 mls @ 999 mls/hr IV .Q1H1M [facility] Stop: 12/13/17 13:15 Mupirocin (Bactroban Cream) 1 applic TOP DAILY [facility] Last Admin: 12/13/17 11:05 Dose: 1 applic - Labs Labs: 12/13/17 05:10 12/13/17 05:10 PT 12.4 Seconds (9.8-13.1) 12/06/17 02:33 INR 1.1 (0.9-1.2) 12/06/17 02:33 APTT 26.1 Seconds (25.6-37.1) 12/06/17 02:33 - Constitutional Appears: Non-toxic, Chronically Ill - Head Exam Head Exam: NORMOCEPHALIC - Eye Exam Eye Exam: absent: Scleral icterus - ENT Exam ENT Exam: Mucous Membranes Dry - Neck Exam Neck Exam: absent: Lymphadenopathy - Respiratory Exam Respiratory Exam: Decreased Breath Sounds - Cardiovascular Exam Cardiovascular Exam: REGULAR RHYTHM - GI/Abdominal Exam GI & Abdominal Exam: Distended, Soft - Rectal Exam Rectal Exam: Deferred - Exam Exam: NORMAL INSPECTION - Extremities Exam Extremities Exam: Pedal Edema - Back Exam Back Exam: absent: CVA tenderness (L), CVA tenderness (R) - Neurological Exam Neurological Exam: Alert, Awake, Oriented x3 - Psychiatric Exam Psychiatric exam: Depressed Assessment and Plan (1) MARIAM (acute kidney injury) Status: Acute (2) Sepsis affecting skin Status: Acute (3) Wound of right lower extremity Status: Acute (4) Cellulitis Status: Chronic (5) Lymphedema of lower extremity Status: Chronic (6) Morbid obesity with BMI of 60.0-69.9, adult Status: Chronic (7) Obstructive sleep apnea of adult Status: Chronic (8) Ulcer of lower extremity Status: Chronic (9) Ulcer of right foot Status: Chronic - Assessment and Plan (Free Text) Assessment: ADD CEFEPIME D/C ROCEPHIN
[2017-12-13] MEDS: Cefepime 1 GM in Sodium Chloride 0.9% 100 ML IVPB SCH ×2 (15:29→21:44)
[2017-12-13] MEDS: Sodium Chloride 0.9% 1,000 ML IV SCH ×2 (16:55→16:58)
[2017-12-14] MEDS: metroNIDAZOLE 500mg/100ml NS 100 ML IVPB SCH ×3 (01:42→16:02)
--- NOTE | 2017-12-14 08:31 | CP.PCM.PN ---
Subjective - Date & Time of Evaluation Date of Evaluation: 12/14/17 Time of Evaluation: 07:30 - Subjective Subjective: Patient seen and examined this morning at bedside. NAD, reports one watery BM overnight (improved), denies any melena. Tolerating PO intake, urinating w/o any difficulties. Patient denies any chest pain, SOB, dizziness. palpitations, blurred vision, abdominal pain, urinary symptoms or f/c/n/v. - Awaiting for correction transfer for 4 weeks of IV Abx (empiric treatment of endocarditis) - Possible tunneled catheter placement on Saturday (Nephrology, Dr. Pearl aware) Objective - Vital Signs/Intake and Output Vital Signs (last 24 hours): Temp Pulse Resp BP Pulse Ox 97.7 F 85 20 114/71 98 12/14/17 08:10 12/14/17 08:10 12/14/17 08:10 12/14/17 08:10 12/14/17 08:10 - Medications Medications: Current Medications Heparin Sodium (Porcine) (Heparin) 5,000 units SC Q8 [facility] PRN Reason: Protocol Last Admin: 12/14/17 01:43 Dose: 5,000 units Hydrochlorothiazide (Hydrodiuril) 25 mg PO DAILY [facility] Last Admin: 12/10/17 10:27 Dose: 25 mg Metronidazole (Flagyl 500mg/100ml Ns) 100 mls @ 100 mls/hr IVPB Q8 [facility] PRN Reason: Protocol Last Admin: 12/14/17 01:42 Dose: 100 mls/hr Lactated Ringer's (Lactated Ringer's) 1,000 mls @ 999 mls/hr IV .Q1H1M [facility] Last Admin: 12/10/17 11:40 Dose: 999 mls/hr Cefepime HCl 1 gm/ Sodium (Chloride) 100 mls @ 100 mls/hr IVPB Q12 [facility] PRN Reason: Protocol Last Admin: 12/13/17 21:44 Dose: 100 mls/hr Mupirocin (Bactroban Cream) 1 applic TOP DAILY [facility] Last Admin: 12/13/17 11:05 Dose: 1 applic - Labs Labs: 12/13/17 05:10 12/13/17 05:10 PT 12.4 Seconds (9.8-13.1) 12/06/17 02:33 INR 1.1 (0.9-1.2) 12/06/17 02:33 APTT 26.1 Seconds (25.6-37.1) 12/06/17 02:33 - Constitutional Appears: No Acute Distress - Head Exam Head Exam: NORMAL INSPECTION - Eye Exam Eye Exam: EOMI, Normal appearance, PERRL - ENT Exam ENT Exam: Mucous Membranes Moist - Neck Exam Neck Exam: Normal Inspection - Respiratory Exam Respiratory Exam: Clear to Ausculation Bilateral, NORMAL BREATHING PATTERN - Cardiovascular Exam Cardiovascular Exam: REGULAR RHYTHM, +S1, +S2 - GI/Abdominal Exam GI & Abdominal Exam: Soft, Normal Bowel Sounds. absent: Tenderness - Extremities Exam Additional comments: Thick skin, Venous stasis bilateral edema on LEs, severe on RLE, Lichenification seen b/l - Neurological Exam Neurological Exam: Alert, Awake, CN II-XII Intact, Oriented x3 - Psychiatric Exam Psychiatric exam: Normal Affect Assessment and Plan - Assessment and Plan (Free Text) Assessment: A/P: 52 y/o Male with PMH of HTN, chronic Peripheral Edema,and chronic b/l lower extremity lymphedema admitted for evaluation and treatment of Syncope and Sepsis. Sepsis due to Group G Strep -Currently afeb, leukocytosis -Blood Cx:(12/06): Group G Strep -ID, Dr. Moraes, will follow recs' -S/p Zosyn and Rocephin -Cardio Consult: Dr. Small appreciated -Echo (12/07): no reg or veg, SOTERO recommended, patient refused SOTERO -Repeat Blood Cx (12/09): NGPD -Cefepime 1g Q12 was started (12/13/17) by ID, empiric treatment of endocarditis - Awaiting for correction transfer for 4 weeks of IV Abx (empiric treatment of endocarditis) - Possible tunneled catheter placement on Saturday (Nephrology, Dr. Pearl aware) MARIAM -Nephro, Ryanne Moreira consult appreciated -Renal U/S: R kidney Polycystic disease -Comple C4 and CH50 Positive, Immunofixation negative -F/u CORRIE -F/u Renal Scan (12/13/17) -KUB (12/14/17): negative -Will follow Nephro recommendations - Bolus 2 L today Acute Thrombocytopenia -Improved -Possibly due to sepsis -Follow up HIT anti-plt Abs -Restarted Heparin Diarrhea -C-diff vs sepsis vs Abx -Will follow up Dr. Moraes -Flagyl was started 12/10 -Fecal Leuk negative -Stool Cx negative CAP possibly due to bacterial etiology, unknown organism -CXR (12/08): possible right infiltrate -ID, Dr. Moraes, will follow recs' -C/w Cefepime -CXR (12/14/17): not worsening from previous CXR, no acute findings B/l Lower extremities Lymphedema/Venous stasis -left ankle ulceration, chronic lichenifcations, RE>LE -Consult, Podiatry, Dr. Mcghee: recs' appreciated, Will follow recs'; continue management as per podiatry Syncope -EKG: Sinus Tachy, ST and T wave abnormality (some new changes from previous EKG ), negative troponin -Will need further cardiac work up after sepsis resolves -Will monitor patient HTN -Controlled -Hold Hctz 25 mg po daily. -Will Monitor Morbid Obesity -BMI: 55.8 HIV Screening - HIV rapid negative DVT prophylaxis -C/w Heparin (follow up HIT plt Abs)
[2017-12-14 09:09] LABS: BASO # 0.1 K/uL (0.0-0.2); BASO % 0.5 % (0.0-2.0); EOS # 0.4 K/uL (0.0-0.7); EOS % 1.5 % (0.0-4.0); HEMOGLOBIN 12.4 g/dL (12.0-18.0); LYMPH % 3.6 % (20.0-40.0); MEAN CELL VOLUME 81.4 fl (80.0-94.0); MEAN CORPUSCULAR HEMOGLOBIN 26.1 pg (27.0-31.0); MEAN PLATELET VOLUME 8.9 fl (7.2-11.7); MONO # 1.1 K/uL (0.0-0.8); MONO % 3.9 % (0.0-10.0); NEUT # 25.3 K/uL (1.8-7.0); NEUT % 90.5 % (50.0-75.0); NRBC % 0.2 % (0.0-0.0); RBC 4.76 Mil/uL (4.40-5.90); RED CELL DISTRIBUTION WIDTH 17.8 % (11.5-14.5); WHITE BLOOD COUNT 27.9 K/uL (4.8-10.8)
[2017-12-14 09:15] LABS: PLATELET COUNT 442 K/uL (130-400)
[2017-12-14 09:17] LABS: CALCIUM 8.3 mg/dL (8.4-10.2)
[2017-12-14] MEDS: Mupirocin 2% Cream TOP SCH (10:28)
--- NOTE | 2017-12-14 10:28 | RAD ---
HISTORY: R/o obstructive uropathy COMPARISON: Portable abdomen radiograph 09/23/2014. FINDINGS: BOWEL: The stomach is distended with retained gas as well as a few loops of small bowel in the central left claude abdomen and much of the colon except the distal rectosigmoid which is collapsed or otherwise under aerated. Findings may reflect an ileus. Clinical correlation is advised. Distal large bowel obstruction is not favored. BONES: Normal. OTHER FINDINGS: No gross free intrarenal gas or abnormal intra-abdominal calcification identified. IMPRESSION: Potential developing ileus pattern versus distal large bowel obstruction. Clinical correlation and follow-up are advised. Continued clinical and radiographic monitor advised or CT.
--- NOTE | 2017-12-14 10:30 | RAD ---
HISTORY: cough COMPARISON: Portable chest 12/09/2017. TECHNIQUE: Chest PA and lateral FINDINGS: LUNGS: Right central venous line unchanged in position. No acute pulmonary disease bilaterally. PLEURA: No significant pleural effusion identified. No pneumothorax apparent. CARDIOVASCULAR: Normal. OSSEOUS STRUCTURES: No significant abnormalities. VISUALIZED UPPER ABDOMEN: Normal. OTHER FINDINGS: None. IMPRESSION: No interval cardiopulmonary disease appreciable. Right central venous line unchanged in position.
[2017-12-14] MEDS: Cefepime 1 GM in Sodium Chloride 0.9% 100 ML IVPB SCH ×2 (10:39→21:37)
[2017-12-14] MEDS: Sodium Chloride 0.9% 1,000 ML IV SCH ×2 (11:33→12:45)
[2017-12-14 12:15] LABS: TOTAL CELLS COUNTED 100
[2017-12-14 12:16] LABS: BANDS 3 % (0-2); EOSINOPHIL 2 % (0-7); LYMPHOCYTE 5 % (20-50); MONOCYTE 6 % (0-10); NEUTROPHIL 84 % (42-75)
[2017-12-14 12:18] LABS: PLATELET ESTIMATE NORMAL (NORMAL)
--- NOTE | 2017-12-14 15:18 | CP.PCM.PN ---
Subjective - Date & Time of Evaluation Date of Evaluation: 12/14/17 Time of Evaluation: 09:40 - Subjective Subjective: RENAL FOLLOWUP s: seen and examined denies n/v o: vs as below gen: nad sclera: anicteric op: clear op neck: supple no thyromegaly cv+s1+s2 lungs cta b/l abd: soft distended ext: + dressing b/l le chronic lymphedema neuro: a+ox3 no asterixis psych:nml affect skin: chronic severe skin changes b/l le imp: ARF/ Lymphedema/ Hypertension/ leukoctyosis/ acidosis/sepsis plan: cr improved today abx per primary team dose for reduced egfr consider vascular eval of lymphedema bp stable acidosis improving Objective - Vital Signs/Intake and Output Vital Signs (last 24 hours): Temp Pulse Resp BP Pulse Ox 97.4 F L 80 20 129/71 95 12/14/17 12:36 12/14/17 12:36 12/14/17 12:36 12/14/17 12:36 12/14/17 12:36 - Medications Medications: Current Medications Calcium Carbonate (Oscal) 500 mg PO ONCE ONE Stop: 12/15/17 11:31 Heparin Sodium (Porcine) (Heparin) 5,000 units SC Q8 [facility] PRN Reason: Protocol Last Admin: 12/14/17 10:28 Dose: 5,000 units Hydrochlorothiazide (Hydrodiuril) 25 mg PO DAILY [facility] Last Admin: 12/10/17 10:27 Dose: 25 mg Metronidazole (Flagyl 500mg/100ml Ns) 100 mls @ 100 mls/hr IVPB Q8 [facility] PRN Reason: Protocol Last Admin: 12/14/17 10:27 Dose: 100 mls/hr Lactated Ringer's (Lactated Ringer's) 1,000 mls @ 999 mls/hr IV .Q1H1M [facility] Last Admin: 12/10/17 11:40 Dose: 999 mls/hr Cefepime HCl 1 gm/ Sodium (Chloride) 100 mls @ 100 mls/hr IVPB Q12 [facility] PRN Reason: Protocol Last Admin: 12/14/17 10:39 Dose: 100 mls/hr Mupirocin (Bactroban Cream) 1 applic TOP DAILY [facility] Last Admin: 12/14/17 10:28 Dose: 1 applic - Labs Labs: 12/14/17 08:35 12/14/17 08:35 PT 12.4 Seconds (9.8-13.1) 12/06/17 02:33 INR 1.1 (0.9-1.2) 12/06/17 02:33 APTT 26.1 Seconds (25.6-37.1) 12/06/17 02:33
--- NOTE | 2017-12-14 15:20 | CP.PCM.PN ---
Subjective - Date & Time of Evaluation Date of Evaluation: 12/14/17 Time of Evaluation: 15:18 - Subjective Subjective: Podiatry progress note for Dr. Romo, 52YO male seen and evaluated at bedside for B/L LE lymphedema with lichenification of skin and B/L weeping, clinically noninfected wounds secondary to gross edema. Patient is AAOx3 and NAD, resting comfortably in bed. Patient denies any overnight acute events. Denies any recent N/V/F/C/SOB Objective - Vital Signs/Intake and Output Vital Signs (last 24 hours): Temp Pulse Resp BP Pulse Ox 97.4 F L 80 20 129/71 95 12/14/17 12:36 12/14/17 12:36 12/14/17 12:36 12/14/17 12:36 12/14/17 12:36 - Medications Medications: Current Medications Calcium Carbonate (Oscal) 500 mg PO ONCE ONE Stop: 12/15/17 11:31 Heparin Sodium (Porcine) (Heparin) 5,000 units SC Q8 [facility] PRN Reason: Protocol Last Admin: 12/14/17 10:28 Dose: 5,000 units Hydrochlorothiazide (Hydrodiuril) 25 mg PO DAILY [facility] Last Admin: 12/10/17 10:27 Dose: 25 mg Metronidazole (Flagyl 500mg/100ml Ns) 100 mls @ 100 mls/hr IVPB Q8 [facility] PRN Reason: Protocol Last Admin: 12/14/17 10:27 Dose: 100 mls/hr Lactated Ringer's (Lactated Ringer's) 1,000 mls @ 999 mls/hr IV .Q1H1M [facility] Last Admin: 12/10/17 11:40 Dose: 999 mls/hr Cefepime HCl 1 gm/ Sodium (Chloride) 100 mls @ 100 mls/hr IVPB Q12 [facility] PRN Reason: Protocol Last Admin: 12/14/17 10:39 Dose: 100 mls/hr Mupirocin (Bactroban Cream) 1 applic TOP DAILY [facility] Last Admin: 12/14/17 10:28 Dose: 1 applic - Labs Labs: 12/14/17 08:35 12/14/17 08:35 PT 12.4 Seconds (9.8-13.1) 12/06/17 02:33 INR 1.1 (0.9-1.2) 12/06/17 02:33 APTT 26.1 Seconds (25.6-37.1) 12/06/17 02:33 - Constitutional Appears: Well, Non-toxic, No Acute Distress - Head Exam Head Exam: ATRAUMATIC, NORMOCEPHALIC - Extremities Exam Additional comments: B/L LE focused exam: VASC: DP pulses faintly palpable 1/4, PT pulses non-palpable secondary to LE edema. CFT < 3 seconds to all digits. TG warm to warm from proximal to distal.+ 3 pitting, R>L. DERM: Lichenification with tree trunk appearance noted to bilateral lower extremities R>L. Superficial ulceration noted to the medial aspect of the right midleg, measuring approximately 5 cm by 4cm superficial, with malodor, serous drainage noted, no acute signs of infection. 0.5 cm x 0.5 cm superficial ulceration noted to medial left leg. No malodor, serous drainage noted, no acute signs of infection. Posterior right leg noted to be slightly macerated NEURO: Protective sensation grossly intact b/l ORTHO: Tenderness on palpation to bilateral lower extremities. Limited ROM at the ankle joint due to increased edema. - Neurological Exam Neurological Exam: Alert, Awake, Oriented x3 - Skin Skin Exam: Dry Assessment and Plan - Assessment and Plan (Free Text) Assessment: 52M seen and evaluated at bedside for b/l lymphedema with lichenification of skin and b/l weeping, clinically non-infected wounds secondary to gross edema Plan: Patient seen and evaluated Chart, labs, and vitals reviewed; Afebrile WBC 27.9 from 26.2 Plan discussed in detail with attending Dr. Romo Continue IV abx Betadine soaked dressing applied to posterior aspect of right leg, DSD and continued application of RICH b/l No plan for surgical intervention at this time Podiatry will continue to follow while patient in house
[2017-12-14] MEDS: Lactated Ringer's 1,000 ML IV SCH ×4 (16:07→17:36)
[2017-12-15] MEDS: metroNIDAZOLE 500mg/100ml NS 100 ML IVPB SCH ×3 (00:27→16:16)
[2017-12-15 07:23] LABS: CALCIUM 8.2 mg/dL (8.4-10.2)
[2017-12-15 07:24] LABS: BASO # 0.1 K/uL (0.0-0.2); BASO % 0.3 % (0.0-2.0); EOS # 0.3 K/uL (0.0-0.7); HEMOGLOBIN 12.6 g/dL (12.0-18.0); MEAN CELL VOLUME 81.3 fl (80.0-94.0); MEAN CORPUSCULAR HEMOGLOBIN 26.4 pg (27.0-31.0); MEAN CORPUSCULAR HGB CONC 32.5 g/dL (33.0-37.0); MEAN PLATELET VOLUME 8.7 fl (7.2-11.7); MONO # 1.2 K/uL (0.0-0.8); MONO % 4.5 % (0.0-10.0); NEUT % 90.2 % (50.0-75.0); NRBC % 0.1 % (0.0-0.0); PLATELET COUNT 534 K/uL (130-400); RBC 4.77 Mil/uL (4.40-5.90); RED CELL DISTRIBUTION WIDTH 18.2 % (11.5-14.5); WHITE BLOOD COUNT 25.5 K/uL (4.8-10.8)
--- NOTE | 2017-12-15 08:54 | CP.PCM.PN ---
Subjective - Date & Time of Evaluation Date of Evaluation: 12/15/17 Time of Evaluation: 08:54 - Subjective Subjective: 52M Objective - Vital Signs/Intake and Output Vital Signs (last 24 hours): Temp Pulse Resp BP Pulse Ox 36.4 C L 90 18 121/77 96 12/15/17 08:05 12/15/17 08:05 12/15/17 08:05 12/15/17 08:05 12/15/17 08:05 - Medications Medications: Current Medications Calcium Carbonate (Oscal) 500 mg PO ONCE ONE Stop: 12/15/17 11:31 Heparin Sodium (Porcine) (Heparin) 5,000 units SC Q8 [facility] PRN Reason: Protocol Last Admin: 12/15/17 00:27 Dose: 5,000 units Hydrochlorothiazide (Hydrodiuril) 25 mg PO DAILY [facility] Last Admin: 12/10/17 10:27 Dose: 25 mg Metronidazole (Flagyl 500mg/100ml Ns) 100 mls @ 100 mls/hr IVPB Q8 [facility] PRN Reason: Protocol Last Admin: 12/15/17 00:27 Dose: 100 mls/hr Lactated Ringer's (Lactated Ringer's) 1,000 mls @ 999 mls/hr IV .Q1H1M [facility] Last Admin: 12/14/17 17:36 Dose: Not Given Cefepime HCl 1 gm/ Sodium (Chloride) 100 mls @ 100 mls/hr IVPB Q12 [facility] PRN Reason: Protocol Last Admin: 12/14/17 21:37 Dose: 100 mls/hr Mupirocin (Bactroban Cream) 1 applic TOP DAILY [facility] Last Admin: 12/14/17 10:28 Dose: 1 applic - Labs Labs: 12/15/17 07:00 12/15/17 07:00 PT 12.4 Seconds (9.8-13.1) 12/06/17 02:33 INR 1.1 (0.9-1.2) 12/06/17 02:33 APTT 26.1 Seconds (25.6-37.1) 12/06/17 02:33
[2017-12-15] MEDS: Cefepime 1 GM in Sodium Chloride 0.9% 100 ML IVPB SCH ×2 (09:00→21:50)
[2017-12-15] MEDS: Mupirocin 2% Cream TOP SCH (09:16)
[2017-12-15 11:28] LABS: BANDS 6 % (0-2); LYMPHOCYTE 2 % (20-50); METAMYELOCYTE 1 % (0-0); MONOCYTE 6 % (0-10); MYELOCYTE 1 % (0-0); NEUTROPHIL 84 % (42-75); TOTAL CELLS COUNTED 100
[2017-12-15 11:29] LABS: ANISOCYTOSIS SLIGHT; PLATELET ESTIMATE INCREASED (NORMAL)
--- NOTE | 2017-12-15 11:42 | CP.PCM.PN ---
Subjective - Date & Time of Evaluation Date of Evaluation: 12/15/17 Time of Evaluation: 08:00 - Subjective Subjective: 52 yo male with hx of morbid obesity and HTN with severe lymphedema and recurrent leg ulcers was admitted with sepsis and MARIAM with blood c/s growing Strep 'source of bacteremia believes secondary to skin vs endocarditis WBC remians elevated as does procalcitonin level In view of renal issues and patients size , diagnostics have been limited Objective - Vital Signs/Intake and Output Vital Signs (last 24 hours): Temp Pulse Resp BP Pulse Ox 97.5 F L 90 18 121/77 96 12/15/17 08:05 12/15/17 08:05 12/15/17 08:05 12/15/17 08:05 12/15/17 08:05 - Medications Medications: Current Medications Heparin Sodium (Porcine) (Heparin) 5,000 units SC Q8 [facility] PRN Reason: Protocol Last Admin: 12/15/17 09:01 Dose: 5,000 units Hydrochlorothiazide (Hydrodiuril) 25 mg PO DAILY [facility] Last Admin: 12/10/17 10:27 Dose: 25 mg Metronidazole (Flagyl 500mg/100ml Ns) 100 mls @ 100 mls/hr IVPB Q8 [facility] PRN Reason: Protocol Last Admin: 12/15/17 09:00 Dose: 100 mls/hr Cefepime HCl 1 gm/ Sodium (Chloride) 100 mls @ 100 mls/hr IVPB Q12 [facility] PRN Reason: Protocol Last Admin: 12/15/17 09:00 Dose: 100 mls/hr Mupirocin (Bactroban Cream) 1 applic TOP DAILY [facility] Last Admin: 12/15/17 09:16 Dose: 1 applic - Labs Labs: 12/15/17 07:00 12/15/17 07:00 PT 12.4 Seconds (9.8-13.1) 12/06/17 02:33 INR 1.1 (0.9-1.2) 12/06/17 02:33 APTT 26.1 Seconds (25.6-37.1) 12/06/17 02:33 Assessment and Plan (1) MARIAM (acute kidney injury) Status: Acute (2) Sepsis affecting skin Status: Acute (3) Wound of right lower extremity Status: Acute (4) Cellulitis Status: Chronic (5) Lymphedema of lower extremity Status: Chronic (6) Morbid obesity with BMI of 60.0-69.9, adult Status: Chronic (7) Obstructive sleep apnea of adult Status: Chronic (8) Ulcer of lower extremity Status: Chronic (9) Ulcer of right foot Status: Chronic
[2017-12-15] MEDS ORDERED: Linezolid 600 mg in D5W 300 ml 600 MG/300 ML BAG IVPB SCH (11:45)
[2017-12-15] MEDS: Sodium Chloride 0.9% 1,000 ML IV SCH ×2 (13:20→15:20)
--- NOTE | 2017-12-15 20:54 | CP.PCM.PN ---
Subjective - Date & Time of Evaluation Date of Evaluation: 12/15/17 Time of Evaluation: 07:30 - Subjective Subjective: 52M seen and examined at bedside with attending. No acute events overnight. Pt reports he is tolerating PO, voiding, and having BMs. He denies any SOB, chest pain, or abdominal pain. Objective - Vital Signs/Intake and Output Vital Signs (last 24 hours): Temp Pulse Resp BP Pulse Ox 36.9 C 85 20 119/68 99 12/15/17 20:02 12/15/17 20:02 12/15/17 20:02 12/15/17 20:02 12/15/17 20:02 - Medications Medications: Current Medications Heparin Sodium (Porcine) (Heparin) 5,000 units SC Q8 [facility] PRN Reason: Protocol Last Admin: 12/15/17 16:17 Dose: 5,000 units Hydrochlorothiazide (Hydrodiuril) 25 mg PO DAILY [facility] Last Admin: 12/10/17 10:27 Dose: 25 mg Metronidazole (Flagyl 500mg/100ml Ns) 100 mls @ 100 mls/hr IVPB Q8 [facility] PRN Reason: Protocol Last Admin: 12/15/17 16:16 Dose: 100 mls/hr Cefepime HCl 1 gm/ Sodium (Chloride) 100 mls @ 100 mls/hr IVPB Q12 [facility] PRN Reason: Protocol Last Admin: 12/15/17 09:00 Dose: 100 mls/hr Mupirocin (Bactroban Ointment) 1 applic TOP DAILY [facility] - Labs Labs: 12/15/17 07:00 12/15/17 07:00 PT 12.4 Seconds (9.8-13.1) 12/06/17 02:33 INR 1.1 (0.9-1.2) 12/06/17 02:33 APTT 26.1 Seconds (25.6-37.1) 12/06/17 02:33 - Constitutional Appears: Non-toxic, No Acute Distress - Eye Exam Eye Exam: Normal appearance - ENT Exam ENT Exam: Mucous Membranes Moist - Respiratory Exam Respiratory Exam: Decreased Breath Sounds (due more to body habitus), Clear to Ausculation Bilateral, NORMAL BREATHING PATTERN - Cardiovascular Exam Cardiovascular Exam: REGULAR RHYTHM - GI/Abdominal Exam GI & Abdominal Exam: Soft, Normal Bowel Sounds - Neurological Exam Neurological Exam: Alert, Awake, Oriented x3 - Psychiatric Exam Psychiatric exam: Normal Affect, Normal Mood - Skin Skin Exam: Dry, Warm Assessment and Plan - Assessment and Plan (Free Text) Assessment: 52M PMH chronic bilateral lower extremity lymphedema and HTN resolved sepsis, but now with acute on chronic renal dysfunction. Pt is being treated empirically for endocarditis, and his acute renal injury is gradually improving. He will be receiving a tunneled PICC 12/16 for long term antibiotics and then transferred to a rehabilitation facility. Procalcitonin is now 12 ( down from 90). Plan: Diet: Regular DVT Prophylaxis: SC Heparin PT: Pending Podiatry: dressing changes Cardiology (Dr Small): Syncope and possible endocarditis, however patient declined SOTERO, Echo: WNL Nephrology (Dr Pearl): Renal scan pending, no dialysis at this time ID (Dr Moraes): Cefepime 1g, daily; HTN: controlled, asymptomatic, meds held at present MARIAM: Slowly resolving, Administering 2L bolus/day, renal scan pending, ?HUS ( with diarrhea) RL ?infiltrate: resolved
[2017-12-16] MEDS: metroNIDAZOLE 500mg/100ml NS 100 ML IVPB SCH ×2 (00:44→08:10)
[2017-12-16 05:47] LABS: HEMOGLOBIN 12.1 g/dL (12.0-18.0); MEAN CELL VOLUME 81.8 fl (80.0-94.0); MEAN CORPUSCULAR HEMOGLOBIN 26.5 pg (27.0-31.0); MEAN CORPUSCULAR HGB CONC 32.4 g/dL (33.0-37.0); RBC 4.58 Mil/uL (4.40-5.90); WHITE BLOOD COUNT 22.3 K/uL (4.8-10.8)
[2017-12-16 05:52] LABS: CALCIUM 8.4 mg/dL (8.4-10.2)
[2017-12-16 06:02] LABS: INR 1.3 (0.9-1.2); PARTIAL THROMBOPLASTIN TIME 27.8 Seconds (25.6-37.1); PROTHROMBIN TIME 14.5 Seconds (9.8-13.1)
[2017-12-16] MEDS ORDERED: Povidone Iodine Topical 10% Sol ONE (07:13)
[2017-12-16 08:07] VITALS: RESP 20
[2017-12-16] MEDS: Cefepime 1 GM in Sodium Chloride 0.9% 100 ML IVPB SCH (08:10)
--- NOTE | 2017-12-16 09:33 | CP.PCM.PN ---
Subjective - Date & Time of Evaluation Date of Evaluation: 12/16/17 Time of Evaluation: 09:33 - Subjective Subjective: patient is awake and conscious No nausea or vomiting Objective - Vital Signs/Intake and Output Vital Signs (last 24 hours): Temp Pulse Resp BP Pulse Ox 97.3 F L 91 H 20 135/80 99 12/16/17 08:07 12/16/17 08:07 12/16/17 08:07 12/16/17 08:07 12/16/17 08:07 - Medications Medications: Current Medications Heparin Sodium (Porcine) (Heparin) 5,000 units SC Q8 [facility] PRN Reason: Protocol Last Admin: 12/16/17 02:09 Dose: Not Given Hydrochlorothiazide (Hydrodiuril) 25 mg PO DAILY [facility] Last Admin: 12/10/17 10:27 Dose: 25 mg Metronidazole (Flagyl 500mg/100ml Ns) 100 mls @ 100 mls/hr IVPB Q8 [facility] PRN Reason: Protocol Last Admin: 12/16/17 08:10 Dose: 100 mls/hr Cefepime HCl 1 gm/ Sodium (Chloride) 100 mls @ 100 mls/hr IVPB Q12 [facility] PRN Reason: Protocol Last Admin: 12/16/17 08:10 Dose: 100 mls/hr Mupirocin (Bactroban Ointment) 1 applic TOP DAILY [facility] Last Admin: 12/16/17 08:11 Dose: 1 appl - Labs Labs: 12/16/17 04:20 12/16/17 04:20 PT 14.5 Seconds (9.8-13.1) H 12/16/17 04:20 INR 1.3 (0.9-1.2) H 12/16/17 04:20 APTT 27.8 Seconds (25.6-37.1) 12/16/17 04:20 - Constitutional Appears: No Acute Distress - ENT Exam ENT Exam: Mucous Membranes Moist - Neck Exam Neck Exam: absent: Lymphadenopathy - Respiratory Exam Respiratory Exam: Chest Wall Tenderness, NORMAL BREATHING PATTERN. absent: Wheezes - GI/Abdominal Exam GI & Abdominal Exam: Soft, Normal Bowel Sounds - Back Exam Back Exam: absent: CVA tenderness (L), CVA tenderness (R) - Neurological Exam Neurological Exam: Alert - Psychiatric Exam Psychiatric exam: Normal Affect - Skin Skin Exam: absent: Cyanosis Assessment and Plan (1) Lymphedema Status: Acute (2) Sepsis Status: Acute (3) MARIAM (acute kidney injury) Assessment & Plan: Acute kidney injury appears to show mild improvement,slight decrease in serum creatinine leukocytosis Most likely acute kidney injury related to sepsis bacteremia and cellulitis among other possible. Ultrasound of the kidney noted with large cyst of the right side occupying mostt of the kidney? And raising the possibility the functioning of that kidney. Therefore my recommendation to renal scan pending result Hypertension appears to be controlled Morbid obesity Bilateral lymphedema more so on the right side. hypokalemia corrected no need for dialysis at this point Status: Acute
[2017-12-16] MEDS: Lactated Ringer's 1,000 ML IV SCH ×2 (10:28→10:29)
--- NOTE | 2017-12-16 13:26 | CP.PCM.PN ---
Subjective - Date & Time of Evaluation Date of Evaluation: 12/16/17 Time of Evaluation: 13:23 - Subjective Subjective: Podiatry progress note for Dr. Romo, 52YO male seen and evaluated at bedside for B/L LE lymphedema with lichenification of skin and B/L weeping, clinically non-infected wounds secondary to gross edema. Patient is AAOx3 and NAD, resting comfortably in bed. Patient denies any overnight acute events. Denies any recent N/V/F/C/SOB Objective - Vital Signs/Intake and Output Vital Signs (last 24 hours): Temp Pulse Resp BP Pulse Ox 97.5 F L 105 H 20 173/79 H 95 12/16/17 11:53 12/16/17 11:53 12/16/17 11:53 12/16/17 11:53 12/16/17 11:53 - Medications Medications: Current Medications Heparin Sodium (Porcine) (Heparin) 5,000 units SC Q8 [facility] PRN Reason: Protocol Last Admin: 12/16/17 02:09 Dose: Not Given Hydrochlorothiazide (Hydrodiuril) 25 mg PO DAILY [facility] Last Admin: 12/10/17 10:27 Dose: 25 mg Cefepime HCl 1 gm/ Sodium (Chloride) 100 mls @ 100 mls/hr IVPB Q12 [facility] PRN Reason: Protocol Last Admin: 12/16/17 08:10 Dose: 100 mls/hr Mupirocin (Bactroban Ointment) 1 applic TOP DAILY [facility] Last Admin: 12/16/17 08:11 Dose: 1 appl - Labs Labs: 12/16/17 04:20 12/16/17 04:20 PT 14.5 Seconds (9.8-13.1) H 12/16/17 04:20 INR 1.3 (0.9-1.2) H 12/16/17 04:20 APTT 27.8 Seconds (25.6-37.1) 12/16/17 04:20 - Constitutional Appears: Well, Non-toxic, No Acute Distress - Head Exam Head Exam: ATRAUMATIC, NORMOCEPHALIC - Extremities Exam Additional comments: B/L Lower extremity focused exam: Vascular: DP/PT pulses non palpable secondary to lower extremity edema, CFT <3 secs x10, TG warm to warm from proximal to distal, +3 pitting edema b/l R>L Derm: Lichenification with tree trunk appearance noted to bilateral lower extremities R>L Right: Superficial ulceration noted to the medial aspect of the right middle of the leg 5cm x 4cm, with mild malodor, serous drainage noted, no acute signs of infection.Maceration noted on Posterior aspect of the leg. Left: Superficial ulceration noted to medial left leg .5 cm x.5cm. No malodor, serous drainage noted, no acute signs of infection. NEURO: Protective sensation grossly intact b/l ORTHO: Tenderness on palpation to bilateral lower extremities. Limited ROM at the ankle joint due to increased edema. - Neurological Exam Neurological Exam: Alert, Awake, Oriented x3 - Psychiatric Exam Psychiatric exam: Normal Affect, Normal Mood - Skin Skin Exam: Normal Color Assessment and Plan - Assessment and Plan (Free Text) Assessment: 52M seen and evaluated at bedside for b/l lymphedema with lichenification of skin and b/l weeping, clinically non-infected wounds secondary to gross edema Plan: Patient seen and evaluated Chart, labs, and vitals reviewed; Afebrile WBC decreasing 22.3 from 25.5 Plan discussed in detail with attending Dr. Romo Continue IV abx Betadine soaked dressing applied to posterior aspect of right leg, DSD and continued application of RICH b/l No plan for surgical intervention at this time Podiatry will continue to follow while patient in house
[2017-12-16] MEDS ORDERED: Lidocaine 1% Inj (20ml) ONE (15:05)
--- NOTE | 2017-12-16 15:18 | PCM.SURG1 ---
Surgeon's Initial Post Op Note - Surgeon's Notes Surgeon: Jai Barroso MD Supervisor Slashing Department: NONE Type of Anesthesia: Local Pre-Operative Diagnosis: Infection Operative Findings: US showed patent right basilic vein Post-Operative Diagnosis: Infection Operation Performed: Single lumen picc right basilic vein, 43 cm. Tip is in the SVC. Specimen/Specimens Removed: NONE Estimated Blood Loss: EBL {In ML}: 2 Blood Products Given: N/A Drains Used: No Drains Post-Op Condition: Fair Date of Surgery/Procedure: 12/16/17 Time of Surgery/Procedure: 15:15
[2017-12-16 16:17] VITALS: O2SAT 97
--- NOTE | 2017-12-16 16:44 | CP.PCM.DIS ---
Provider - Provider Date of Admission: 12/09/17 11:00 Attending physician: Gardenia Javier MD Primary care physician: Marcie Meyers Consults: Cardio, Dr. Small Surgery, Dr. Larkin ID, Dr. Moraes Nephro, Dr. Pearl Podiatry, Dr. Mcghee Radiology, Dr. Roque RODRIGUEZ Time Spent in preparation of Discharge (in minutes): 40 Diagnosis - Discharge Diagnosis (1) Sepsis due to group B Streptococcus Status: Acute (2) Suspected endocarditis Status: Acute (3) MARIAM (acute kidney injury) Status: Acute (4) Acute idiopathic thrombocytopenic purpura Status: Acute (5) CAP (community acquired pneumonia) Status: Acute (6) Venous stasis of both lower extremities Status: Chronic (7) Syncope Status: Acute (8) HTN (hypertension) Status: Chronic Hospital Course - Lab Results Lab Results: Micro Results 12/09/17 13:25 Blood-Venous Blood Culture - Final NO GROWTH AFTER 5 DAYS 12/09/17 13:25 Blood-Venous Gram Stain - Final TEST NOT PERFORMED 12/09/17 13:15 Blood-Venous Blood Culture - Final NO GROWTH AFTER 5 DAYS 12/09/17 13:15 Blood-Venous Gram Stain - Final TEST NOT PERFORMED 12/11/17 12:30 Stool Stool Culture - Final NO SALMONELLA, SHIGELLA OR CAMPYLOBACTER ISOLATED. 12/06/17 07:05 Blood Blood Culture - Final NO GROWTH AFTER 5 DAYS 12/06/17 07:05 Blood Gram Stain - Final TEST NOT PERFORMED 12/06/17 07:05 Blood S.aureus & Coag-Neg Staph PNA FISH - Final 12/06/17 07:05 Blood Blood Culture - Final Group G Streptococcus 12/06/17 07:05 Blood Gram Stain - Final 12/06/17 06:56 Urine Urine Culture - Final No Growth (<1,000 CFU/ML) Most Recent Lab Values WBC 22.3 K/uL (4.8-10.8) H 12/16/17 04:20 RBC 4.58 Mil/uL (4.40-5.90) 12/16/17 04:20 Hgb 12.1 g/dL (12.0-18.0) 12/16/17 04:20 Hct 37.4 % (35.0-51.0) 12/16/17 04:20 MCV 81.8 fl (80.0-94.0) 12/16/17 04:20 MCH 26.5 pg (27.0-31.0) L 12/16/17 04:20 MCHC 32.4 g/dL (33.0-37.0) L 12/16/17 04:20 RDW 18.0 % (11.5-14.5) H 12/16/17 04:20 Plt Count 531 K/uL (130-400) H 12/16/17 04:20 MPV 8.7 fl (7.2-11.7) 12/15/17 07:00 Neut % (Auto) 90.2 % (50.0-75.0) H 12/15/17 07:00 Lymph % (Auto) 4.0 % (20.0-40.0) L 12/15/17 07:00 [place] % (Auto) 4.5 % (0.0-10.0) 12/15/17 07:00 Eos % (Auto) 1.0 % (0.0-4.0) 12/15/17 07:00 Baso % (Auto) 0.3 % (0.0-2.0) 12/15/17 07:00 Neut # (Auto) 23.0 K/uL (1.8-7.0) H 12/15/17 07:00 Lymph # (Auto) 1.0 K/uL (1.0-4.3) 12/15/17 07:00 [place] # (Auto) 1.2 K/uL (0.0-0.8) H 12/15/17 07:00 Eos # (Auto) 0.3 K/uL (0.0-0.7) 12/15/17 07:00 Baso # (Auto) 0.1 K/uL (0.0-0.2) 12/15/17 07:00 Total Counted Cancelled 12/07/17 06:21 Neutrophils % (Manual) 84 % (42-75) H 12/15/17 07:00 Band Neutrophils % 6 % (0-2) H 12/15/17 07:00 Lymphocytes % (Manual) 2 % (20-50) L 12/15/17 07:00 Reactive Lymphs % Cancelled 12/07/17 06:21 Monocytes % (Manual) 6 % (0-10) 12/15/17 07:00 Eosinophils % (Manual) 2 % (0-7) 12/14/17 08:35 Basophils % (Manual) Cancelled 12/07/17 06:21 Metamyelocytes % 1 % (0-0) H 12/15/17 07:00 Myelocytes % 1 % (0-0) H 12/15/17 07:00 Promyelocytes % Cancelled 12/07/17 06:21 Blast Cells % Cancelled 12/07/17 06:21 Plasma Cell % (Manual) Cancelled 12/07/17 06:21 Nucleated RBC % Cancelled 12/07/17 06:21 Hypersegmented Polys Cancelled 12/07/17 06:21 Smudge Cells Cancelled 12/07/17 06:21 Toxic Granulation Present 12/09/17 13:15 Dohle Bodies Cancelled 12/07/17 06:21 Sy Rods Cancelled 12/07/17 06:21 Platelet Estimate Increased (NORMAL) H 12/15/17 07:00 Plt Clumps, EDTA Cancelled 12/07/17 06:21 Large Platelets Present 12/08/17 06:20 Giant Platelets Cancelled 12/07/17 06:21 RBC Morphology Cancelled 12/07/17 06:21 Polychromasia Cancelled 12/07/17 06:21 Hypochromasia (manual) Slight 12/06/17 02:33 Poikilocytosis (manual Cancelled 12/07/17 06:21 Basophilic Stippling Cancelled 12/07/17 06:21 Anisocytosis (manual) Slight 12/15/17 07:00 Microcytosis (manual) Cancelled 12/07/17 06:21 Macrocytosis (manual) Cancelled 12/07/17 06:21 Spherocytes Cancelled 12/07/17 06:21 Sickle Cells Cancelled 12/07/17 06:21 Target Cells Cancelled 12/07/17 06:21 Tear Drop Cells Slight 12/13/17 05:10 Ovalocytes Slight 12/13/17 05:10 Stomatocytes Cancelled 12/07/17 06:21 Helmet Cells Cancelled 12/07/17 06:21 Deng-Ed[place]ont Bodies Cancelled 12/07/17 06:21 [place] Cells Cancelled 12/07/17 06:21 Acanthocytes (Spur) Cancelled 12/07/17 06:21 Rouleaux Cancelled 12/07/17 06:21 Schistocytes Cancelled 12/07/17 06:21 PT 14.5 Seconds (9.8-13.1) H 12/16/17 04:20 INR 1.3 (0.9-1.2) H 12/16/17 04:20 APTT 27.8 Seconds (25.6-37.1) 12/16/17 04:20 pCO2 33 mm/Hg (35-45) L 12/06/17 10:38 pO2 84 mm/Hg (80-100) 12/06/17 10:38 HCO3 21.7 mmol/L (21-28) 12/06/17 10:38 ABG pH 7.39 (7.35-7.45) 12/06/17 10:38 ABG Total CO2 21.0 mmol/L (22-28) L 12/06/17 10:38 ABG O2 Saturation 98.9 % (95-98) H 12/06/17 10:38 ABG Base Excess -4.1 mmol/L (-2.0-3.0) L 12/06/17 10:38 [place]ne Test Yes 12/06/17 10:38 ABG Potassium 3.9 mmol/L (3.6-5.2) 12/06/17 10:38 VBG pH 7.34 (7.32-7.43) 12/06/17 06:18 VBG pCO2 42 mmHg (40-60) 12/06/17 06:18 VBG HCO3 21.8 mmol/L 12/06/17 06:18 VBG Total CO2 24.0 mmol/L (22-28) 12/06/17 06:18 VBG O2 Sat (Calc) 73.7 % (40-65) H 12/06/17 06:18 VBG Base Excess -3.0 mmol/L (0.0-2.0) L 12/06/17 06:18 VBG Potassium 3.2 mmol/L (3.6-5.2) L 12/06/17 06:18 A-a O2 Difference 74.0 mm/Hg 12/06/17 10:38 Sodium 138.0 mmol/L (132-148) 06/15/18 10:38 Chloride 108.0 mmol/L (98-107) H 12/06/17 10:38 Glucose 132 mg/dL (75-110) H 12/06/17 10:38 Lactate 1.9 mmol/L (0.7-2.1) 12/06/17 10:38 FiO2 28.0 % 12/06/17 10:38 Crit Value Called To Dr vinod ochoa 12/06/17 06:18 Crit Value Called By Nahum 12/06/17 06:18 Crit Value Read Back Y 12/06/17 06:18 Blood Gas Notified Time 629 12/06/17 06:18 Sodium 144 mmol/l (132-148) 12/16/17 04:20 Potassium 4.3 MMOL/L (3.6-5.0) 12/16/17 04:20 Chloride 118 mmol/L (98-107) H 12/16/17 04:20 Carbon Dioxide 18 mmol/L (22-30) L 12/16/17 04:20 Anion Gap 12 (10-20) 12/16/17 04:20 BUN 48 mg/dl (9-20) H 12/16/17 04:20 Creatinine 2.2 mg/dl (0.8-1.5) H 12/16/17 04:20 Est GFR ( Amer) 38 12/16/17 04:20 Est GFR (Non-Af Amer) 32 12/16/17 04:20 POC Glucose (mg/dL) 115 mg/dL (65-110) H 12/06/17 02:28 Random Glucose 112 mg/dL (75-110) H 12/16/17 04:20 Lactic Acid 1.2 MMOL/L (0.7-2.1) 12/09/17 18:05 Calcium 8.4 mg/dL (8.4-10.2) 12/16/17 04:20 Phosphorus 3.4 mg/dl (2.5-4.5) 12/11/17 12:30 Total Bilirubin 0.9 mg/dl (0.2-1.3) 12/13/17 05:10 Direct Bilirubin 1.2 mg/ml (0.0-0.4) H 12/09/17 13:15 AST 25 U/L (17-59) 12/13/17 05:10 ALT 22 U/L (21-72) 12/13/17 05:10 Alkaline Phosphatase 92 U/L (38-126) 12/13/17 05:10 Lactate Dehydrogenase 670 U/L (313-618) H 12/14/17 08:35 Total Creatine Kinase 175 U/L (55-170) H 12/11/17 12:30 Troponin I 0.0710 ng/mL (0.00-0.120) 12/07/17 21:44 Total Protein 6.8 G/DL (6.3-8.2) 12/13/17 05:10 Albumin 2.9 g/dL (3.5-5.0) L 12/13/17 05:10 Globulin 3.9 gm/dL (2.2-3.9) 12/13/17 05:10 Albumin/Globulin Ratio 0.7 (1.0-2.1) L 12/13/17 05:10 Procalcitonin 12.14 NG/ML (0.19-0.49) H 12/14/17 08:35 PTH Intact Whole Molec 210 pg/mL (14-64) H 12/11/17 12:30 Arterial Blood Potassium 3.9 mmol/L (3.6-5.2) 12/06/17 10:38 Venous Blood Potassium 3.2 mmol/L (3.6-5.2) L 12/06/17 06:18 Urine Color Yellow (YELLOW) 12/11/17 10:08 Urine Clarity Cloudy (Clear) 12/11/17 10:08 Urine pH 5.0 (5.0-8.0) 12/11/17 10:08 Ur Specific [place] 1.015 (1.003-1.030) 12/11/17 10:08 Urine Protein 30 mg/dL (NEGATIVE) 12/11/17 10:08 Urine Glucose (UA) Neg mg/dL (Normal) 12/11/17 10:08 Urine Ketones Trace mg/dL (NEGATIVE) 12/11/17 10:08 Urine Blood Moderate (NEGATIVE) 12/11/17 10:08 Urine Nitrate Negative (NEGATIVE) 12/11/17 10:08 Urine Bilirubin Negative (NEGATIVE) 12/11/17 10:08 Urine Urobilinogen 0.2-1.0 mg/dL (0.2-1.0) 12/11/17 10:08 Ur Leukocyte Esterase Neg Gregg/uL (Negative) 12/11/17 10:08 Urine RBC (Auto) 12 /hpf (0-3) H 12/11/17 10:08 Urine Microscopic WBC 4 /hpf (0-5) 12/11/17 10:08 Ur Squamous Epith Cells < 1 /hpf (0-5) 12/11/17 10:08 Amorphous Sediment Rare /ul (<OCC) H 12/11/17 10:08 Urine Bacteria Rare (<OCC) 12/11/17 10:08 Urine Eosinophils Negative (NEGATIVE) 12/11/17 12:30 Urine Osmolality 445 mosm/kg (300-1000) 12/11/17 12:30 Ur Random Creatinine 133.9 mg/dL 12/11/17 12:30 Ur Random Sodium 29 mmol/L 12/11/17 12:30 Stool Leukocytes, Qual Negative (NEGATIVE) 12/11/17 12:30 Urine Opiates Screen Negative (NEGATIVE) 12/11/17 10:08 Urine Methadone Screen Negative (NEGATIVE) 12/11/17 10:08 Ur Barbiturates Screen Negative (NEGATIVE) 12/11/17 10:08 Ur Phencyclidine Scrn Negative (NEGATIVE) 12/11/17 10:08 Ur Amphetamines Screen Negative (NEGATIVE) 12/11/17 10:08 U Benzodiazepines Scrn Negative (NEGATIVE) 12/11/17 10:08 U Oth Cocaine Metabols Negative (NEGATIVE) 12/11/17 10:08 U Cannabinoids Screen Negative (NEGATIVE) 12/11/17 10:08 Alcohol, Quantitative < 10 mg/dl (0-10) 12/06/17 03:22 Serum Immunofixation Not detected (Not Detected) 12/11/17 10:08 Urine Immunofixation Not detected (Not Detected) 12/11/17 10:08 CORRIE Nuclear Membr Pat Negative (Negative) 12/11/17 12:30 Complement C3 139.0 mg/dL (88.0-165.0) 12/11/17 12:30 Complement C4 54.7 mg/dL (14.0-44.0) H 12/11/17 12:30 Tot Complement (CH50) >60 U/mL (31-60) H 12/11/17 12:30 HIV-1 Ab Rapid Screen Non reactive (NON REAC) 12/11/17 12:30 - Hospital Course Hospital Course: 52 y/o Male with PMH of HTN, chronic Peripheral Edema,and chronic b/l lower extremity lymphedema admitted for evaluation and treatment of Syncope and Sepsis. Patient was found to have Group G strep sepsis, MARIAM, Thrombocytopenia and CAP. Patient had a CXR showed possible right infiltrate, Echo was done which was unremarkable, Cardiology, Dr. Small consulted who recommended SOTERO which was refused by patient. Patient continues to spike fevers on Abx, ID, Dr. Moraes consulted who started patient on Cefepime 1gm Q12H as empiric treatment of endocarditis. Patient got PICC line to receive Abx for total of 6 weeks. Nephro, Dr. Pearl consulted for his MARIAM, Renal U/S: R kidney Polycystic disease , Comple C4 and CH50 Positive, Immunofixation negative, CORRIE negative, KUB negative, Renal scan 12/13/17; follow up the result. Patient is currently afebrile, tolerating PO intake, ambulating in room, VS stable, Elevated BUN/Cr, pro-calcitonin trending down. Patient to be discharge to sub-acute rehab today for IV abx for total of 6 weeks. FOLLOW UP Renal Scan; follow up the result Follow up the HIT anti-plt Abs Please consult Dr. Pearl for possible HD evaluation Discharge Exam - Head Exam Head Exam: ATRAUMATIC, NORMOCEPHALIC - Eye Exam Eye Exam: Normal appearance Pupil Exam: NORMAL ACCOMODATION - Respiratory Exam Respiratory Exam: Clear to PA & Lateral, NORMAL BREATHING PATTERN - Cardiovascular Exam Cardiovascular Exam: REGULAR RHYTHM, +S1, +S2 - GI/Abdominal Exam GI & Abdominal Exam: Normal Bowel Sounds, Soft. absent: Tenderness - Extremities Exam Additional comments: Thick skin, Venous stasis bilateral edema on LEs, severe on RLE, Lichenification seen b/l - Back Exam Back exam: absent: CVA tenderness (L) - Neurological Exam Neurological exam: Alert, CN II-XII Intact, Oriented x3 - Psychiatric Exam Psychiatric exam: Normal Affect - Skin Skin Exam: Dry, Intact, Normal Color, Warm Discharge Plan - Discharge Medications Prescriptions: Cefepime [Maxipime] 1 gm IV Q12 #75 vial - Follow Up Plan Condition: SERIOUS Disposition: REHAB FACILITY/REHAB UNIT Additional Instructions: C/w Abx Cefepime 1gm Q12 till 01/22/[address] Pearl recommended while in sub-acute rehab Follow up with Dr. Meyers/ [facility] after sub-acute rehab Renal Scan; follow up the result Follow up the HIT anti-plt Abs Please consult Dr. Pearl for possible HD evaluation Referrals: Marcie Meyers [Primary Care Provider] - Aung Pearl MD [Staff Provider] -
[2017-12-16 19:23] VITALS: BP 150/79; PULSE 90; TEMP 98.1
--- NOTE | 2017-12-17 10:44 | VASCULAR ---
PROCEDURE: Date of procedure: 12/16/2017 Procedure: 1. Placement of a right arm PICC with ultrasound and fluoroscopic guidance, CPT 87784 2. PICC tip confirmation with spot radiograph and is in the superior vena cava Medications: 1 percent lidocaine Total Fluoro time: 5.5 seconds Radiation: 0.93 MGy EBL: 2 cc HISTORY: Infection requiring long-term IV antibiotics TECHNIQUE: Following informed consent and procedure time-out, the patient was placed supine on the interventional table and the right arm prepped and draped in the usual sterile fashion. Ultrasound showed a patent and compressible right basilic vein. After the skin was anesthetized with lidocaine, the basilic vein was accessed with micro micropuncture technique using ultrasound guidance. A guidewire was then advanced under fluoroscopic guidance into the superior vena cava. An image documenting ultrasound guidance for vascular access was permanently saved. The length of the single-lumen 4 [place] PICC was trimmed to 43 centimeters and advanced through a peel-away sheath. The PICC was position with tip of PICC confirm a spot radiograph the superior vena cava. The PICC was secured to the patient's skin. The PICC was flushed. A biopatch and sterile dressing was applied. IMPRESSION: Placement of a single-lumen 4 [place] PICC trimmed to 43 centimeters via right basilic vein. The tip of the PICC is confirmed with spot radiograph and is in the superior vena cava.
== END 2017-12-16 20:30 | DRG 871 ==
LOC: H.ER 01:29 → H.ERHOLD 05:34 → H.TEL 09:27 → OBSVTOIN 12-09 11:00
PROVIDERS: ADMIT Family Medicine Geriatric Medicine; ATTEND Family Medicine Geriatric Medicine
PROC: 02HV33Z Insertion of Infusion Device into Superior Vena Cava, Percutaneous Approach (ICD-10-PCS; 2017-12-06)
PROC: B518ZZA Fluoroscopy of Superior Vena Cava, Guidance (ICD-10-PCS; 2017-12-06)
PROC: B548ZZA Ultrasonography of Superior Vena Cava, Guidance (ICD-10-PCS; 2017-12-06)
PROC: 05HM33Z Insertion of Infusion Device into Right Internal Jugular Vein, Percutaneous Approach (ICD-10-PCS; principal; 2017-12-09)
PROC: 02HV33Z Insertion of Infusion Device into Superior Vena Cava, Percutaneous Approach (ICD-10-PCS; 2017-12-16)
PROC: B548ZZA Ultrasonography of Superior Vena Cava, Guidance (ICD-10-PCS; 2017-12-16)
PROC: B518ZZA Fluoroscopy of Superior Vena Cava, Guidance (ICD-10-PCS; 2017-12-16)
DX: A40.8 Other streptococcal sepsis (principal); J15.9 Unspecified bacterial pneumonia; D69.3 Immune thrombocytopenic purpura; E87.2 Acidosis; I38 Endocarditis, valve unspecified; L03.90 Cellulitis, unspecified; L97.329 Non-pressure chronic ulcer of left ankle with unspecified severity; N17.9 Acute kidney failure, unspecified; Q61.3 Polycystic kidney, unspecified; Z68.44 Body mass index [BMI] 60.0-69.9, adult; R65.20 Severe sepsis without septic shock; E66.01 Morbid (severe) obesity due to excess calories; E86.0 Dehydration; R33.9 Retention of urine, unspecified; E87.6 Hypokalemia; G47.33 Obstructive sleep apnea (adult) (pediatric); G89.29 Other chronic pain; I10 Essential (primary) hypertension; I87.2 Venous insufficiency (chronic) (peripheral); I87.8 Other specified disorders of veins; I89.0 Lymphedema, not elsewhere classified; L28.0 Lichen simplex chronicus; L97.519 Non-pressure chronic ulcer of other part of right foot with unspecified severity; Z53.20 Procedure and treatment not carried out because of patient's decision for unspecified reasons; Z79.2 Long term (current) use of antibiotics; Z79.899 Other long term (current) drug therapy; Z80.1 Family history of malignant neoplasm of trachea, bronchus and lung; Z82.49 Family history of ischemic heart disease and other diseases of the circulatory system; Z87.891 Personal history of nicotine dependence; R00.0 Tachycardia, unspecified; R19.7 Diarrhea, unspecified; R60.9 Edema, unspecified